=== PATIENT | female | born 1960 | race Caucasian/White ===

== ENCOUNTER → 2021-05-29 | Outpatient (CLI) | payer MEDICARE, OTHER ==
--- NOTE | 2021-05-29 07:54 | US ---
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 EXAM MEASUREMENTS: Liver Length: 15.1 cm Gallbladder Wall: .2 cm CBD: .3 cm Spleen: 7.7 cm Right Kidney: 9.7 x 3.9 x 4.4 cm Left Kidney: 8.7 x 4.4 x 3.4 cm Pancreas: wnl Liver: wnl Gallbladder: wnl Evidence for sonographic Gonsalez's sign: no CBD: wnl Spleen: accessory spleen seen measuring 2.6 x 2.4 x 2.1 cm Right Kidney: wnl Left Kidney: Limited due to ribs and bowel gas. Upper IVC: wnl Abd Aorta: wnl IMPRESSION: 1. Normal abdomen ultrasound
== END | disposition home or self-care (01) ==
LOC: RADUSWWP 07:08
PROVIDERS: ATTEND Internal Medicine
DX: E80.6 Other disorders of bilirubin metabolism (principal)
CPT/HCPCS: 76700

== ENCOUNTER → 2021-08-11 | Outpatient (CLI) | payer MEDICARE, OTHER ==
--- NOTE | 2021-08-11 15:29 | BD ---
EXAMINATION TYPE: Axial Bone Density DATE OF EXAM: 08/11/2021 COMPARISON: NONE CLINICAL HISTORY: Postmenopausal female with osteoporosis per order. Height: 4 FT 11 IN Weight: 120 FRAX RISK QUESTIONS: Alcohol (3 or more units per day): NO Family History (Parent hip fracture): NO Glucocorticoids (More than 3mos): NO (Ex: prednisone, prednisolone, methylprednisolone, dexamethasone, and hydrocortisone). History of Fracture in Adulthood: NO Secondary Osteoporosis: 1. Type 1 Diabetes: NO 2. Hyperthyroidism: NO 3. Menopause before 45: UNSURE 4. Malnutrition: NO 5. Chronic liver disease: NO Rheumatoid Arthritis: NO Current Tobacco Use: NO RISK FACTORS HISTORY OF: Surgery to Spine/Hip(right/left)/Wrist (right/left): NO Family History of Osteoporosis: NO Active: YES Diet low in dairy products/other sources of calcium: NO Postmenopausal woman: UNSURE Take estrogen and/or progesterone medications: NO Lost more than 2 inches in height since high school: NO MEDICATIONS: Thyroid Medications: YES Which medication: LEVOTHYROXINE How Long: APPROX 10 YEARS Additional Medications: LEVOTHYROXINE, LEXAPRO, SLEEP AID, SIMVASTATIN, Additional History: SPECIAL NEEDS PATIENT EXAM MEASUREMENTS: Bone mineral densitometry was performed using the [employer]. Bone mineral density as measured about the Lumbar spine is: ----- L1-L4(G/cm2): 0.879 T Score Values are as follows: ----- L2: -2.2 ----- L3: -2.1 ----- L4: -2.4 ----- L1-L4: -2.5 BASELINE Bone mineral density about the R hip (g/cm2): 0.682 Bone mineral density about the L hip (g/cm2): 0.611 T Score values are as follows: -----R Neck: -2.6 -----L Neck: -3.1 -----R Total: -2.6 -----L Total: -2.9 BASELINE IMPRESSION: Osteoporosis (T Score less than -2.5). There is increased fracture risk and therapy is usually indicated based on age. Re-Screen 1-2 years. NOTE: T-SCORE=SD OF THE YOUNG ADULT MEAN.
--- NOTE | 2021-08-13 10:28 | MM ---
Reason for exam: screening (asymptomatic). History: Patient is postmenopausal and is nulliparous. Physical Findings: A clinical breast exam by your physician is recommended on an annual basis and results should be correlated with mammographic findings. MG 3D Screening Mammo W/Cad Bilateral CC and MLO view(s) were taken. No prior studies available for comparison. The breast tissue is extremely dense which could obscure a lesion on mammography. There is no discrete abnormality. ASSESSMENT: Negative, BI-RAD 1 RECOMMENDATION: Routine screening mammogram of both breasts in 1 year.
== END | disposition home or self-care (01) ==
LOC: RADMAMWWP 12:47
PROVIDERS: ATTEND Internal Medicine
DX: Z12.31 Encounter for screening mammogram for malignant neoplasm of breast (principal); M81.0 Age-related osteoporosis without current pathological fracture; Z78.0 Asymptomatic menopausal state
CPT/HCPCS: 77063; 77067; 77080

== ENCOUNTER 2022-09-03 13:27 | Observation (INO) | payer MEDICARE, OTHER ==
--- NOTE | 2022-09-03 14:41 | XR ---
EXAMINATION TYPE: XR abdomen 1V DATE OF EXAM: 09/03/2022 COMPARISON: NONE HISTORY: Pain TECHNIQUE: One view abdominal series FINDINGS: The osseous structures are intact. The bowel gas pattern is nonspecific. Suspect artifact overlying the lower chest and upper abdomen. Scoliosis with hypertrophic changes in spine. IMPRESSION: 1. Nonspecific abdomen.
--- NOTE | 2022-09-03 17:20 | ED ---
Abdominal Pain HPI - General Chief Complaint: Abdominal Pain Stated Complaint: abd pain Time Seen by Provider: 09/03/22 16:46 Source: patient, RN notes reviewed Mode of arrival: ambulatory Limitations: no limitations - History of Present Illness Initial Comments: This is a 62-year-old female who presents to the emergency department for abdominal pain. She is in adult foster care with dementia, psychiatric problems, and intellectual delays. All information is provided by her power of securities attorney and one of the guardians at the adult foster care facility. Over the last week when she walks, she has been leaning to the left and also seems much weaker than normal. Additionally, today when she was in one of her daily programs, the program lead noted that she turned very pale and had a large lump in the left upper abdomen. She had also been hunched over and complaining of abdominal pain. Her power of securities attorney states that she has very poor short-term memory and she is unable to provide any reliable information of her own and rarely expresses when she is in pain. For example, she recently had a decayed tooth removed, and to everyone's surprise she had not been complaining of dental pain. They state that they are increasingly concerned this time as she is explicitly noting her pain, which is not common. She did have a bowel movement today, however they are otherwise unsure if she has been constipated or had diarrhea, as she does not tell them whether or not she has a bowel movement whenever she uses the bathroom. They are also not aware of any episodes of vomiting, however they cannot be sure of this. They've not measured any fevers. Additionally, her left leg has been very swollen and hard which concerns them. She has no history of blood clots. MD Complaint: abdominal pain Onset/Timin -: week(s) - Related Data Home Medications Medication Instructions Recorded Confirmed Cholecalciferol [Vitamin D3 (25 25 mcg PO DAILY 09/03/22 09/03/22 Mcg = 1000 Iu)] Cyanocobalamin (Vitamin B-12) 1,000 mcg PO DAILY 09/03/22 09/03/22 [Vitamin B-12] Docusate [Colace] 100 mg PO BID PRN 09/03/22 09/03/22 Escitalopram [Lexapro] 20 mg PO DAILY 09/03/22 09/03/22 Ibandronate Sodium [Boniva] 150 mg PO QMONTHLY 09/03/22 09/03/22 Melatonin 6 mg PO HS 09/03/22 09/03/22 Mirtazapine 30 mg PO HS 09/03/22 09/03/22 OLANZapine 5 mg PO HS 09/03/22 09/03/22 Simethicone [Gas-X] 125 mg PO DIRECTED PRN 09/03/22 09/03/22 Simvastatin 40 mg PO DAILY 09/03/22 09/03/22 Allergies Allergy/AdvReac Type Severity Reaction Status Date / Time Influenza Virus Vaccines Allergy Unknown Verified 09/03/22 17:45 Sulfa (Sulfonamide Allergy Rash/Hives Verified 09/03/22 17:45 Antibiotics) Review of Systems ROS Statement: Those systems with pertinent positive or pertinent negative responses have been documented in the HPI. ROS Other: All systems not noted in ROS Statement are negative. Limitations: ROS unobtainable due to patients medical condition Past Medical History Additional Past Medical History / Comment(s): Dementia History of Any Multi-Drug Resistant Organisms: None Reported Past Surgical History: No Surgical Hx Reported Past Psychological History: No Psychological Hx Reported Smoking Status: Never smoker Past Alcohol Use History: None Reported Past Drug Use History: None Reported General Exam Limitations: no limitations General appearance: alert Head exam: Present: atraumatic, normocephalic, normal inspection Respiratory exam: Present: normal lung sounds bilaterally. Absent: respiratory distress, wheezes, rales, rhonchi, stridor Cardiovascular Exam: Present: regular rate, normal rhythm, normal heart sounds. Absent: systolic murmur, diastolic murmur, rubs, gallop, clicks GI/Abdominal exam: Present: hypoactive bowel sounds, other (The abdomen is firm without any discernible masses. Unable to provide information about tenderness due to mental state.) Extremities exam: Present: other (Mild swelling and firmness to the left leg. No erythema or increased heat. 2+ dorsalis pedis and tibialis posterior pulses bilaterally.) Neurological exam: Present: alert Skin exam: Present: warm, dry, intact, normal color. Absent: rash Course Vital Signs 09/03/22 09/03/22 09/03/22 13:44 17:56 20:58 Temperature 98.2 F 97.7 F Pulse Rate 70 65 65 Respiratory 20 18 16 Rate Blood Pressure 101/6 117/63 122/77 O2 Sat by Pulse 99 97 97 Oximetry Medical Decision Making - Medical Decision Making This is a 62-year-old female who presents to the emergency department for abdominal pain. Lab work obtained and found to be largely nonactionable, however there is a minor increase in her liver enzymes compared to prior values. Ultrasound of the left lower extremity was obtained due to the swelling. My interpretation reveals good flow and compressibility and I do not identify any signs of a DVT. Computed tomography scan of the abdomen and pelvis obtained. My interpretation of this reveals a large amount of stool throughout the colon and additional feces are noted within the small bowel. I see no evidence of free air. Findings are concerning for an ileus. Will admit patient to medicine for further management. This case was discussed in detail with the attending ED physician. Presentation, findings, and treatment plan discussed in detail as well. - Lab Data Result diagrams: 09/03/22 18:08 09/03/22 18:08 Lab Results 09/03/22 09/03/22 09/03/22 Range/Units 18:08 18:08 18:08 WBC 4.7 (3.8-10.6) k/uL RBC 3.72 L (3.80-5.40) m/uL Hgb 11.9 (11.4-16.0) gm/dL Hct 35.2 (34.0-46.0) % MCV 94.8 (80.0-100.0) fL MCH 31.9 (25.0-35.0) pg MCHC 33.7 (31.0-37.0) g/dL RDW 12.4 (11.5-15.5) % Plt Count 209 (150-450) k/uL MPV 8.6 Neutrophils % 70 % Lymphocytes % 20 % Monocytes % 6 % Eosinophils % 2 % Basophils % 0 % Neutrophils # 3.3 (1.3-7.7) k/uL Lymphocytes # 0.9 L (1.0-4.8) k/uL Monocytes # 0.3 (0-1.0) k/uL Eosinophils # 0.1 (0-0.7) k/uL Basophils # 0.0 (0-0.2) k/uL Sodium 139 (137-145) mmol/L Potassium 4.5 (3.5-5.1) mmol/L Chloride 105 (98-107) mmol/L Carbon Dioxide 28 (22-30) mmol/L Anion Gap 6 mmol/L BUN 18 H (7-17) mg/dL Creatinine 0.83 (0.52-1.04) mg/dL Est GFR (CKD-EPI)AfAm 88 (>60 ml/min/1.73 sqM) Est GFR (CKD-EPI)NonAf 76 (>60 ml/min/1.73 sqM) Glucose 110 H (74-99) mg/dL Plasma Lactic Acid Eros 1.2 (0.7-2.0) mmol/L Calcium 8.8 (8.4-10.2) mg/dL Total Bilirubin 0.5 (0.2-1.3) mg/dL AST 63 H (14-36) U/L ALT 59 H (4-34) U/L Alkaline Phosphatase 82 (38-126) U/L Troponin I (0.000-0.034) ng/mL Total Protein 6.6 (6.3-8.2) g/dL Albumin 4.2 (3.5-5.0) g/dL Amylase 53 (30-110) U/L Lipase 114 (23-300) U/L Urine Color Urine Appearance (Clear) Urine pH (5.0-8.0) Ur Specific [place] (1.001-1.035) Urine Protein (Negative) Urine Glucose (UA) (Negative) Urine Ketones (Negative) Urine Blood (Negative) Urine Nitrite (Negative) Urine Bilirubin (Negative) Urine Urobilinogen (<2.0) mg/dL Ur Leukocyte Esterase (Negative) Urine RBC (0-5) /hpf Urine WBC (0-5) /hpf Ur Squamous Epith Cells (0-4) /hpf Urine Bacteria (None) /hpf Urine Mucus (None) /hpf 09/03/22 09/03/22 Range/Units 18:08 18:16 WBC (3.8-10.6) k/uL RBC (3.80-5.40) m/uL Hgb (11.4-16.0) gm/dL Hct (34.0-46.0) % MCV (80.0-100.0) fL MCH (25.0-35.0) pg MCHC (31.0-37.0) g/dL RDW (11.5-15.5) % Plt Count (150-450) k/uL MPV Neutrophils % % Lymphocytes % % Monocytes % % Eosinophils % % Basophils % % Neutrophils # (1.3-7.7) k/uL Lymphocytes # (1.0-4.8) k/uL Monocytes # (0-1.0) k/uL Eosinophils # (0-0.7) k/uL Basophils # (0-0.2) k/uL Sodium (137-145) mmol/L Potassium (3.5-5.1) mmol/L Chloride (98-107) mmol/L Carbon Dioxide (22-30) mmol/L Anion Gap mmol/L BUN (7-17) mg/dL Creatinine (0.52-1.04) mg/dL Est GFR (CKD-EPI)AfAm (>60 ml/min/1.73 sqM) Est GFR (CKD-EPI)NonAf (>60 ml/min/1.73 sqM) Glucose (74-99) mg/dL Plasma Lactic Acid Eros (0.7-2.0) mmol/L Calcium (8.4-10.2) mg/dL Total Bilirubin (0.2-1.3) mg/dL AST (14-36) U/L ALT (4-34) U/L Alkaline Phosphatase (38-126) U/L Troponin I <0.012 (0.000-0.034) ng/mL Total Protein (6.3-8.2) g/dL Albumin (3.5-5.0) g/dL Amylase (30-110) U/L Lipase (23-300) U/L Urine Color Light Yellow Urine Appearance Clear (Clear) Urine pH 6.5 (5.0-8.0) Ur Specific [place] 1.012 (1.001-1.035) Urine Protein Negative (Negative) Urine Glucose (UA) Negative (Negative) Urine Ketones Negative (Negative) Urine Blood Negative (Negative) Urine Nitrite Negative (Negative) Urine Bilirubin Negative (Negative) Urine Urobilinogen <2.0 (<2.0) mg/dL Ur Leukocyte Esterase Moderate H (Negative) Urine RBC 1 (0-5) /hpf Urine WBC 15 H (0-5) /hpf Ur Squamous Epith Cells <1 (0-4) /hpf Urine Bacteria Rare H (None) /hpf Urine Mucus Rare H (None) /hpf - EKG Data -: EKG Interpreted by Me EKG Comments: Normal sinus rhythm. Ventricular rate 60 BPM, NE interval 146 ms, QRS duration 100 ms, QTc 411 ms. - Radiology Data Radiology results: report reviewed, image reviewed Disposition Clinical Impression: Ileus Disposition: ADMITTED IP TO THIS HOSP Referrals: Jairon Hallman MD [Primary Care Provider] - 1-2 days
[2022-09-03 18:17] LABS: Basophils % (A) 0 %; Eosinophils # (A) 0.1 k/uL (0-0.7); Eosinophils % (A) 2 %; HCT 35.2 % (34.0-46.0); HGB 11.9 gm/dL (11.4-16.0); Lymphocytes # (A) 0.9 k/uL (1.0-4.8); Lymphocytes % (A) 20 %; MCH 31.9 pg (25.0-35.0); MCHC 33.7 g/dL (31.0-37.0); MCV 94.8 fL (80.0-100.0); Mean Platelet Volume 8.6; Monocytes # (A) 0.3 k/uL (0-1.0); Monocytes % (A) 6 %; Neutrophils # (A) 3.3 k/uL (1.3-7.7); Neutrophils % (A) 70 %; Platelet Count 209 k/uL (150-450); RBC 3.72 m/uL (3.80-5.40); RDW 12.4 % (11.5-15.5); WBC 4.7 k/uL (3.8-10.6)
[2022-09-03 18:27] LABS: Albumin 4.2 g/dL (3.5-5.0); Calcium 8.8 mg/dL (8.4-10.2); Potassium 4.5 mmol/L (3.5-5.1); Total Bilirubin 0.5 mg/dL (0.2-1.3); Total Protein 6.6 g/dL (6.3-8.2)
[2022-09-03 18:30] LABS: Appearance,Urine Clear (Clear); Bacteria,Urine Rare /hpf; Bilirubin,Urine Negative (Negative); Blood,Urine Negative (Negative); Color,Urine Light Yellow; Glucose,Urine (UA) Negative (Negative); Ketones,Urine Negative (Negative); Leukocyte Esterase,Urine Moderate (Negative); Mucus,Urine Rare /hpf; Nitrite,Urine Negative (Negative); PH, Urine 6.5 (5.0-8.0); Protein,Urine Negative (Negative); RBC,Urine 1 /hpf (0-5); Specific Gravity,Urine 1.012 (1.001-1.035); Squamous Epithelial Cell,Urine <1 /hpf (0-4); Urobilinogen,Urine <2.0 mg/dL (<2.0); WBC,Urine 15 /hpf (0-5)
--- NOTE | 2022-09-03 19:26 | US ---
EXAMINATION TYPE: US venous doppler duplex LE LT DATE OF EXAM: 09/03/2022 6:39 PM COMPARISON: NONE CLINICAL HISTORY: Leg swelling. Left leg swelling SIDE PERFORMED: Left TECHNIQUE: The lower extremity deep venous system is examined utilizing real time linear array sonog denis with graded compression, doppler sonography and color-flow sonography. VESSELS IMAGED: Common Femoral Vein Deep Femoral Vein Greater Saphenous Vein * Femoral Vein Popliteal Vein Small Saphenous Vein * Proximal Calf Veins (* superficial vessels) Left Leg: Negative for DVT Grayscale, color doppler, spectral doppler imaging performed of the deep veins of the lower extremiti es. There is normal flow, compressibility, vascular waveforms. IMPRESSION: No evidence of deep vein thrombosis of the left lower extremity.
--- NOTE | 2022-09-03 19:48 | CT ---
EXAMINATION TYPE: CT abdomen pelvis w con CT DLP: 715.7 mGycm, Automated exposure control for dose reduction was used. DATE OF EXAM: 09/03/2022 7:00 PM COMPARISON: None CLINICAL INDICATION:Female, 62 years old with history of Abdominal pain, acute, nonlocalized; UPPER A BDOMINAL PAIN AND POSS MASS TECHNIQUE: Axial CT of the abdomen and pelvis. Sagittal and coronal reformats were created on a [employer] workstation. Contrast used:100 mL of Isovue 300 with IV Contrast, Oral contrast used: without Oral Contrast FINDINGS: LOWER CHEST: Unremarkable ABDOMEN LIVER: Unremarkable GALLBLADDER AND BILE DUCTS: Unremarkable. PANCREAS: Unremarkable. SPLEEN: 2 large splenules are present.. ADRENAL GLANDS: Unremarkable. KIDNEYS AND URETERS: No evidence of hydronephrosis or renal calculus. The ureters are unremarkable. PELVIS BLADDER: Unremarkable REPRODUCTIVE: Unremarkable. ABDOMEN & PELVIS STOMACH AND BOWEL: No evidence of bowel obstruction. Scattered clonic diverticula present. With a gas tric diverticulum near the gastroesophageal junction which is incompletely evaluated given lack of or al contrast. Large stool burden throughout the colon. Small bowel feces is present. PERITONEUM: No evidence of pneumoperitoneum or free fluid. No evidence of intra-abdominal mass. VASCULATURE: No evidence of aortic aneurysm. MUSCULOSKELETAL: No acute osseous abnormalities, multilevel disc degeneration changes throughout the spine. LYMPH NODES: No gross evidence for lymphadenopathy. SOFT TISSUE/ABDOMINAL WALL: Unremarkable IMPRESSION: 1. 2 large splenules in the left upper quadrant with similar attenuation to the spleen. No evidence of mass. 2. Suspected gastric diverticulum near the gastroesophageal junction which is suboptimally evaluated given lack of oral contrast. Consider oral contrast CT for better characterization as clinically marcelo anted. 3. Small bowel feces with Large stool burden throughout the colon correlate for ileus.
[2022-09-03] MEDS ORDERED: KETOROLAC 15 MG/ML 1 ML VIAL IVP PRN (21:37)
[2022-09-03] MEDS ORDERED: NALOXONE 0.4 MG/ML 1 ML VIAL IV PRN (21:37)
[2022-09-03] MEDS ORDERED: IBUPROFEN 400 MG TAB PO PRN (21:37)
[2022-09-03] MEDS ORDERED: ONDANSETRON 4 MG/2 ML VIAL IVP PRN (21:37)
[2022-09-03 23:32] LABS: Partial Thromboplastin Time 24.7 sec (22.0-30.0); Prothrombin Time 10.8 sec (9.0-12.0)
[2022-09-03 23:37] LABS: C Reactive Protein <0.5 mg/dL (<1.0); Magnesium 2.3 mg/dL (1.6-2.3)
[2022-09-04] MEDS ORDERED: bisacodyL 5 MG TABLET.DR PO STA (02:12)
--- NOTE | 2022-09-04 02:13 | P.HPIM ---
History of Present Illness H&P Date: 09/03/22 The patient is a 62-year-old female resident of an adult foster care with a PMH of intellectual delay, dementia, and mental health disorders who was sent to the emergency room for appearing ill. The history is obtained from the chart and from the ED providers as a patient is a very poor historian due to underlying dementia. Over the past few days, the patient has reportedly been walking somewhat differently which was unusual for her and was noted to be complaining of abdominal pain with possible "lump" in the left upper abdomen. The patient reportedly does not usually convey complaints regarding the pain as per the chart. For instance, the patient had recently underwent a tooth extraction and had not been complaining of pain prior to it. The staff at the foster care facility is reportedly concerned that she is not in pain due to her change in gait. There were no reports of diarrhea or vomiting with her last bowel movement earlier today. There was also reports of bilateral lower extremity edema with left greater than right. CT abdomen and pelvis in the emergency room revealed a gastric diverticulum as well as ileus. Lower extremity venous Doppler was unremarkable. EKG revealed sinus rhythm at [address]/T-wave changes noted as reviewed by me. UA was minimally abnormal. Review of systems: Unable to obtain due to mental status. Physical examination: General: non toxic, no distress, appears older than stated age, normal weight Derm: no unusual rashes/lesions, warm Head: atraumatic, normocephalic, symmetric Eyes: EOMI, no lid lag, anicteric sclera, pupils equal round reactive to light ENT: Nose and ears atraumatic Neck: No cervical lymphadenopathy, trachea midline, supple Mouth: no lip lesion, mucus membranes moist Cardiovascular: S1S2 reg, no murmur, positive dorsalis pedis pulse bilateral, 1+ bilateral lower extremity pitting edema Lungs: CTA bilateral, no rhonchi, no rales, no accessory muscle use Abdominal: soft, nontender to palpation, no guarding Ext: muscle strength 3 out of 5 in all 4 extremities grossly, no gross muscle atrophy, no contractures Neuro: no gross focal neuro deficits Psych: Patient makes eye contact and answers very basic yes or no questions, not answering any questions related to her orientation Assessment/plan Abdominal pain, possibly secondary to ileus versus UTI -Start ceftriaxone -Follow up urine culture -Laxatives -Nothing by mouth for now DVT prophylaxis -Heparin subq The patient is admitted with an anticipated less than 2 midnight stay for evaluation of UTI CODE STATUS: Full Code Anticipated discharge date: in am Anticipated discharge place: Home Past Medical History Additional Past Medical History / Comment(s): Dementia History of Any Multi-Drug Resistant Organisms: None Reported Past Surgical History: No Surgical Hx Reported Past Psychological History: No Psychological Hx Reported Smoking Status: Never smoker Past Alcohol Use History: None Reported Past Drug Use History: None Reported - Past Family History Father Family Medical History: Unable to Obtain (Due to mental status) Medications and Allergies Home Medications Medication Instructions Recorded Confirmed Type Cholecalciferol [Vitamin D3 (25 25 mcg PO DAILY 09/03/22 09/03/22 History Mcg = 1000 Iu)] Cyanocobalamin (Vitamin B-12) 1,000 mcg PO DAILY 09/03/22 09/03/22 History [Vitamin B-12] Docusate [Colace] 100 mg PO BID PRN 09/03/22 09/03/22 History Escitalopram [Lexapro] 20 mg PO DAILY 09/03/22 09/03/22 History Ibandronate Sodium [Boniva] 150 mg PO QMONTHLY 09/03/22 09/03/22 History Melatonin 6 mg PO HS 09/03/22 09/03/22 History Mirtazapine 30 mg PO HS 09/03/22 09/03/22 History OLANZapine 5 mg PO HS 09/03/22 09/03/22 History Simethicone [Gas-X] 125 mg PO DIRECTED PRN 09/03/22 09/03/22 History Simvastatin 40 mg PO DAILY 09/03/22 09/03/22 History Allergies Allergy/AdvReac Type Severity Reaction Status Date / Time Influenza Virus Vaccines Allergy Unknown Verified 09/03/22 17:45 Sulfa (Sulfonamide Allergy Rash/Hives Verified 09/03/22 17:45 Antibiotics) Physical Exam Vitals: Vital Signs Temp Pulse Resp BP Pulse Ox 09/03/22 20:58 97.7 F 65 16 122/77 97 09/03/22 17:56 65 18 117/63 97 09/03/22 13:44 98.2 F 70 20 101/6 99 Intake and Output 09/03/22 09/03/22 09/04/22 14:59 22:59 06:59 Other: Weight 61.235 kg Results CBC & Chem 7: 09/03/22 18:08 09/03/22 18:08 Labs: Abnormal Lab Results - Last 24 Hours (Table) 09/03/22 09/03/22 09/03/22 Range/Units 18:08 18:08 18:16 RBC 3.72 L (3.80-5.40) m/uL Lymphocytes # 0.9 L (1.0-4.8) k/uL BUN 18 H (7-17) mg/dL Glucose 110 H (74-99) mg/dL AST 63 H (14-36) U/L ALT 59 H (4-34) U/L Ur Leukocyte Esterase Moderate H (Negative) Urine WBC 15 H (0-5) /hpf Urine Bacteria Rare H (None) /hpf Urine Mucus Rare H (None) /hpf Microbiology - Last 24 Hours (Table) 09/03/22 18:16 Urine Culture - Preliminary Urine,Voided
[2022-09-04] MEDS ORDERED: ACETAMINOPHEN TAB 325 MG TAB PO PRN (09:37)
[2022-09-04] MEDS ORDERED: bisacodyL 10 MG SUPP RECTAL PRN (10:22)
[2022-09-04] MEDS: HEPARIN SODIUM,PORCINE/PF 5,000 UNIT/0.5 ML SYRINGE SQ SCH ×3 (10:26→23:35)
[2022-09-04] MEDS: CHOLECALCIFEROL 25 MCG (1000 IU) TABLET PO SCH (10:26)
[2022-09-04] MEDS: ESCITALOPRAM 20 MG TAB PO SCH (10:26)
[2022-09-04] MEDS: ATORVASTATIN 20 MG TAB PO SCH (10:27)
[2022-09-04] MEDS: CYANOCOBALAMIN 500 MCG TAB PO SCH (10:27)
[2022-09-04] MEDS: SENNOSIDES-DOCUSATE SODIUM 1 EACH TAB PO SCH ×2 (10:59→19:54)
[2022-09-04] MEDS: polyethylene glycoL 3350 17 GM POWD.PACK PO SCH (10:59)
--- NOTE | 2022-09-04 11:04 | P.PN ---
Subjective Progress Note Date: 09/04/22 No new complaints. Patient reportedly had one bowel movement after significant straining yesterday. Reports appetite. Ongoing IV antibiotic therapy for UTI. Pending urine culture. Gen: awake, alert HEENT: normocephalic, atraumatic, good hearing acuity, moist mucous membranes Resp: good air exchange, breathing comfortably with no accessory muscle use, clear to auscultation bilaterally CVS: good distal perfusion x 4, regular rate and rhythm without murmurs GI: soft, NTTP, ND : no SPT, no CVAT, suh catheter not present MSK: no pitting edema, no clubbing Neuro: non-focal, moving all extremities Psych: cooperative, euthymic mood Assessment/plan: Abdominal pain, possibly secondary to ileus versus UTI -Start ceftriaxone -Follow up urine culture -Laxatives: senokot BID, miralax daily, bisacodyl supp PRN, enema PRN -GI soft diet DVT prophylaxis -Heparin subq The patient is admitted with an anticipated less than 2 midnight stay for evaluation of UTI CODE STATUS: Full Code Anticipated discharge date: in am Anticipated discharge place: Home Objective - Vital Signs Vital signs: Vital Signs Temp 98.2 F 09/04/22 08:00 Pulse 62 09/04/22 08:00 Resp 16 09/04/22 08:00 BP 108/63 09/04/22 08:00 Pulse Ox 97 09/04/22 08:00 FiO2 Intake & Output 09/03/22 09/04/22 09/04/22 18:59 06:59 18:59 Weight 61.235 kg 61.235 kg Other: # Voids 1 - Labs CBC & Chem 7: 09/03/22 18:08 09/03/22 18:08 Labs: Abnormal Lab Results - Last 24 Hours (Table) 09/03/22 09/03/22 09/03/22 Range/Units 18:08 18:08 18:16 RBC 3.72 L (3.80-5.40) m/uL Lymphocytes # 0.9 L (1.0-4.8) k/uL BUN 18 H (7-17) mg/dL Glucose 110 H (74-99) mg/dL AST 63 H (14-36) U/L ALT 59 H (4-34) U/L Ur Leukocyte Esterase Moderate H (Negative) Urine WBC 15 H (0-5) /hpf Urine Bacteria Rare H (None) /hpf Urine Mucus Rare H (None) /hpf Microbiology - Last 24 Hours (Table) 09/03/22 18:16 Urine Culture - Preliminary Urine,Voided
[2022-09-04] MEDS: MIRTAZAPINE 15 MG TAB PO SCH (19:53)
[2022-09-04] MEDS ORDERED: OLANZapine 5 MG TAB PO SCH (21:00)
[2022-09-04] MEDS ORDERED: MELATONIN 3 MG TABLET PO SCH (21:00)
[2022-09-05 07:47] VITALS: BP 98/56; PULSE 65; RESP 15; TEMP 98.6
[2022-09-05] MEDS: CHOLECALCIFEROL 25 MCG (1000 IU) TABLET PO SCH (08:23)
[2022-09-05] MEDS: ESCITALOPRAM 20 MG TAB PO SCH (08:23)
[2022-09-05] MEDS: SENNOSIDES-DOCUSATE SODIUM 1 EACH TAB PO SCH (08:23)
[2022-09-05] MEDS: CYANOCOBALAMIN 500 MCG TAB PO SCH (08:23)
[2022-09-05] MEDS: ATORVASTATIN 20 MG TAB PO SCH (08:23)
[2022-09-05] MEDS: HEPARIN SODIUM,PORCINE/PF 5,000 UNIT/0.5 ML SYRINGE SQ SCH (08:23)
[2022-09-05] MEDS: polyethylene glycoL 3350 17 GM POWD.PACK PO SCH (08:24)
--- NOTE | 2022-09-05 13:08 | P.DS ---
Providers Date of admission: 09/03/22 21:37 Expected date of discharge: 09/05/22 Attending physician: Sima Jefferson MD Primary care physician: Jairon Hallman MD Hospital Course: Complicated UTI Constipation Dementia The patient is a 62-year-old female resident of an adult foster care with a PMH of intellectual delay, dementia, and mental health disorders who was sent to the emergency room for appearing ill. In the ER, patient was afebrile, HDS. CT abdomen and pelvis in the emergency room revealed a gastric diverticulum as well as ileus. Lower extremity venous Doppler was unremarkable. EKG revealed sinus rhythm at [address]/T-wave changes noted as reviewed by me. UA was minimally abnormal. Patient was treated for constipation as well as urinary tract infection. She symptomatically improved by 24 hours of hospitalization. Urine culture did not grow pathogen due to being contaminated with skin yoselin, therefore, patient was discharged on cefdinir for an additional 3 days for a total of 5 days. She was also discharged on new laxative medications and encouraged to increase physical activity to prevent constipation in the future. Gen: awake, alert HEENT: normocephalic, atraumatic, good hearing acuity, moist mucous membranes Resp: good air exchange, breathing comfortably with no accessory muscle use CVS: good distal perfusion x 4, GI: soft, NTTP, ND : no SPT, no CVAT, suh catheter not present MSK: no pitting edema, no clubbing Neuro: non-focal, moving all extremities Psych: cooperative, euthymic mood Patient Condition at Discharge: Good Plan - Discharge Summary Discharge Rx Participant: No New Discharge Prescriptions: New polyethylene glycoL 3350 [Miralax] 17 gm PO DAILY #30 packet Sennosides-Docusate Sodium [Senokot-S] 1 each PO BID #60 tab Acetaminophen Tab [Tylenol] 650 mg PO Q4HR PRN tab PRN Reason: Fever And/ Or Pain Cefdinir 300 mg PO Q12HR 3 Days #6 cap Continue Ibandronate Sodium [Boniva] 150 mg PO QMONTHLY Melatonin 6 mg PO HS Escitalopram [Lexapro] 20 mg PO DAILY Cholecalciferol [Vitamin D3 (25 Mcg = 1000 Iu)] 25 mcg PO DAILY Simethicone [Gas-X] 125 mg PO DIRECTED PRN PRN Reason: gas relief Cyanocobalamin (Vitamin B-12) [Vitamin B-12] 1,000 mcg PO DAILY Simvastatin 40 mg PO DAILY OLANZapine 5 mg PO HS Mirtazapine 30 mg PO HS Discontinued Docusate [Colace] 100 mg PO BID PRN PRN Reason: Constipation Discharge Medication List Cholecalciferol [Vitamin D3 (25 Mcg = 1000 Iu)] 25 mcg PO DAILY 09/03/22 [History] Cyanocobalamin (Vitamin B-12) [Vitamin B-12] 1,000 mcg PO DAILY 09/03/22 [History] Escitalopram [Lexapro] 20 mg PO DAILY 09/03/22 [History] Ibandronate Sodium [Boniva] 150 mg PO QMONTHLY 09/03/22 [History] Melatonin 6 mg PO HS 09/03/22 [History] Mirtazapine 30 mg PO HS 09/03/22 [History] OLANZapine 5 mg PO HS 09/03/22 [History] Simethicone [Gas-X] 125 mg PO DIRECTED PRN 09/03/22 [History] Simvastatin 40 mg PO DAILY 09/03/22 [History] Acetaminophen Tab [Tylenol] 650 mg PO Q4HR PRN tab 09/05/22 [Rx] Cefdinir 300 mg PO Q12HR 3 Days #6 cap 09/05/22 [Rx] Sennosides-Docusate Sodium [Senokot-S] 1 each PO BID #60 tab 09/05/22 [Rx] polyethylene glycoL 3350 [Miralax] 17 gm PO DAILY #30 packet 09/05/22 [Rx] Follow up Appointment(s)/Referral(s): Jairon Hallman MD [Primary Care Provider] - 1-2 days (office closed at time of discharge. Please call Tuesday to schedule appointment) Patient Instructions/Handouts: Constipation (DC), Urinary Tract Infection in Women (DC) Activity/Diet/Wound Care/Special Instructions: Patient is cleared to resume all prior activities including: [facility]. Discharge Disposition: HOME SELF-CARE
== END 2022-09-05 12:47 | disposition home or self-care (01) ==
LOC: EC 13:27 → 4SSUR 21:37
PROVIDERS: ADMIT Internal Medicine; ATTEND Internal Medicine
DX: N39.0 Urinary tract infection, site not specified (principal); K59.09 Other constipation; K56.7 Ileus, unspecified; F03.90 Unspecified dementia, unspecified severity, without behavioral disturbance, psychotic disturbance, mood disturbance, and anxiety; M41.9 Scoliosis, unspecified; K57.30 Diverticulosis of large intestine without perforation or abscess without bleeding; K31.4 Gastric diverticulum; Z79.899 Other long term (current) drug therapy; Z88.2 Allergy status to sulfonamides
CPT/HCPCS: 96365; 96366; 96372 ×2; 99285; 36415; 93005; 80053; 85652; 82150; 83605; 83690; 83735; 84484; 85025; 85610; 85730; 86140; 81001; 87086; 74018; 93971; 74177; G0378 ×3; J0696 ×2; Q9967; J1644 ×2

== ENCOUNTER 2022-09-14 10:18 | Observation (INO) | payer MEDICARE, OTHER ==
[2022-09-14] MEDS ORDERED: MORPHINE SULFATE 2 MG/ML SYRINGE IVP STA (11:31)
[2022-09-14] MEDS ORDERED: ONDANSETRON 4 MG/2 ML VIAL IVP STA (11:31)
[2022-09-14] MEDS ORDERED: SODIUM CHLORIDE 0.9% 500 ML 500 ML IV STA (11:31)
[2022-09-14 11:49] LABS: WBC 5.2 k/uL (3.8-10.6)
[2022-09-14 11:50] LABS: Basophils % (A) 1 %; Eosinophils # (A) 0.1 k/uL (0-0.7); Eosinophils % (A) 1 %; HGB 12.6 gm/dL (11.4-16.0); Lymphocytes % (A) 19 %; MCH 32.2 pg (25.0-35.0); MCHC 34.1 g/dL (31.0-37.0); MCV 94.5 fL (80.0-100.0); Mean Platelet Volume 8.6; Monocytes # (A) 0.3 k/uL (0-1.0); Monocytes % (A) 5 %; Neutrophils # (A) 3.8 k/uL (1.3-7.7); Neutrophils % (A) 73 %; Platelet Count 265 k/uL (150-450); RBC 3.91 m/uL (3.80-5.40); RDW 12.4 % (11.5-15.5)
[2022-09-14 12:00] LABS: Albumin 4.6 g/dL (3.5-5.0); Calcium 9.1 mg/dL (8.4-10.2); Potassium 4.6 mmol/L (3.5-5.1); Total Bilirubin 0.9 mg/dL (0.2-1.3); Total Protein 7.1 g/dL (6.3-8.2)
[2022-09-14 12:15] LABS: Appearance,Urine Clear (Clear); Bilirubin,Urine Negative (Negative); Blood,Urine Negative (Negative); Color,Urine Colorless; Glucose,Urine (UA) Negative (Negative); Ketones,Urine Negative (Negative); Leukocyte Esterase,Urine Negative (Negative); Nitrite,Urine Negative (Negative); PH, Urine 6.5 (5.0-8.0); Protein,Urine Negative (Negative); Specific Gravity,Urine 1.005 (1.001-1.035); Urobilinogen,Urine <2.0 mg/dL (<2.0)
[2022-09-14 12:17] LABS: Partial Thromboplastin Time 23.9 sec (22.0-30.0); Prothrombin Time 10.6 sec (9.0-12.0)
--- NOTE | 2022-09-14 13:03 | US ---
EXAMINATION TYPE: US venous doppler duplex LE LT DATE OF EXAM: 09/14/2022 12:48 PM COMPARISON: NONE CLINICAL HISTORY: swelling. SIDE PERFORMED: Left TECHNIQUE: The lower extremity deep venous system is examined utilizing real time linear array sonog denis with graded compression, doppler sonography and color-flow sonography. VESSELS IMAGED: Common Femoral Vein Deep Femoral Vein Greater Saphenous Vein * Femoral Vein Popliteal Vein Small Saphenous Vein * Proximal Calf Veins (* superficial vessels) Left Leg: Negative for DVT IMPRESSION: 1. Left lower extremity ultrasound negative deep venous thrombosis.
--- NOTE | 2022-09-14 13:38 | ED ---
Abdominal Pain HPI - General Chief Complaint: Abdominal Pain Stated Complaint: abd pain Time Seen by Provider: 09/14/22 11:20 Source: patient Mode of arrival: ambulatory Limitations: no limitations - History of Present Illness Initial Comments: Patient is a 62-year-old female with history of dementia presenting with chief complaint of abdominal pain. She resides at [facility] home. Patient has limited short-term memory, history is supplemented by her brother who is at bedside. Pain began last night. Patient admits to nausea, denies vomiting. Pain is rel ieved when patient is crouched over. Patient was seen here on 09/03 for similar symptoms, she was diagnosed with ileus and UTI and kept for observation. During that stay swelling to the left lower extremity was also evaluated, patient was determined to have no DVT. Swelling is still present, brother states he is not sure if it's getting worse. Patient denies any chest pain, difficulty breathin g, diarrhea, headache, neck pain, extremity pain. No fever or chills. No cough, congestion, sore throat. - Related Data Home Medications Medication Instructions Recorded Confirmed Cholecalciferol [Vitamin D3 (25 25 mcg PO DAILY@0800 09/03/22 09/14/22 Mcg = 1000 Iu)] Cyanocobalamin (Vitamin B-12) 1,000 mcg PO DAILY@0800 09/03/22 09/14/22 [Vitamin B-12] Escitalopram [Lexapro] 20 mg PO DAILY@0800 09/03/22 09/14/22 Ibandronate Sodium [Boniva] 150 mg PO Q30D 09/03/22 09/14/22 Melatonin 6 mg PO HS@199909/03/22 09/14/22 Mirtazapine 30 mg PO HS@199909/03/22 09/14/22 OLANZapine 5 mg PO HS@199909/03/22 09/14/22 Simethicone [Gas-X] 125 mg PO DIRECTED PRN 09/03/22 09/14/22 Simvastatin 40 mg PO HS@199909/03/22 09/14/22 Levothyroxine Sodium [Tirosint] 25 mcg PO DAILY@0800 09/14/22 09/14/22 Sennosides-Docusate Sodium 1 tab PO BID@0800,1700 09/14/22 09/14/22 [Senokot-S] polyethylene glycoL 3350 [Miralax] 17 gm PO DAILY@1700 09/14/22 09/14/22 Previous Rx's Medication Instructions Recorded Acetaminophen Tab [Tylenol] 650 mg PO Q4HR PRN tab 09/05/22 Allergies Allergy/AdvReac Type Severity Reaction Status Date / Time Influenza Virus Vaccines Allergy Unknown Verified 09/14/22 14:57 Sulfa (Sulfonamide Allergy Rash/Hives Verified 09/14/22 14:57 Antibiotics) Review of Systems ROS Statement: Those systems with pertinent positive or pertinent negative responses have been documented in the HPI. ROS Other: All systems not noted in ROS Statement are negative. Past Medical History Past Medical History: Dementia, Memory Impairment Additional Past Medical History / Comment(s): Dementia History of Any Multi-Drug Resistant Organisms: None Reported Past Surgical History: No Surgical Hx Reported Past Psychological History: No Psychological Hx Reported Smoking Status: Never smoker Past Alcohol Use History: None Reported Past Drug Use History: None Reported - Past Family History Father Family Medical History: Unable to Obtain (Due to mental status) General Exam Limitations: no limitations General appearance: alert, in no apparent distress Head exam: Present: atraumatic, normocephalic, normal inspection Eye exam: Present: normal appearance Neck exam: Present: normal inspection Respiratory exam: Present: normal lung sounds bilaterally. Absent: respiratory distress, wheezes, rales, rhonchi, stridor Cardiovascular Exam: Present: regular rate, normal rhythm, normal heart sounds. Absent: systolic murmur, diastolic murmur, rubs, gallop, clicks GI/Abdominal exam: Present: soft, tenderness. Absent: distended, guarding, rebound, rigid Neurological exam: Present: alert, altered Psychiatric exam: Present: normal affect, normal mood Skin exam: Present: warm, dry, intact, normal color. Absent: rash Course Vital Signs 09/14/22 09/14/22 09/14/22 10:19 18:08 19:38 Temperature 97.7 F 98.8 F Pulse Rate 75 68 59 L Respiratory 18 16 18 Rate Blood Pressure 122/66 118/65 103/54 O2 Sat by Pulse 100 97 94 L Oximetry 09/14/22 09/15/22 09/15/22 20:00 00:00 03:00 Temperature 97.4 F L 97.9 F Pulse Rate 61 56 L 58 L Respiratory 18 18 Rate Blood Pressure 120/55 97/53 O2 Sat by Pulse 95 95 98 Oximetry 09/15/22 09/15/22 09/15/22 03:59 06:23 06:35 Temperature 97.7 F Pulse Rate 55 L 60 56 L Respiratory 12 14 14 Rate Blood Pressure 90/56 92/60 92/60 O2 Sat by Pulse 93 L 94 L 92 L Oximetry Medical Decision Making - Medical Decision Making Patient is a 62-year-old female presenting with chief complaint of abdominal pain. Patient has history of constipation, was recently admitted for ileus. On examination patient has diffuse abdominal tenderness. Lab work shows mild transaminitis, otherwise remainder of CMP, amylase, lipase, CBC, coags, troponin are WNL. UA shows no sign of bleeding or infection. Ultrasound was ordered due to swelling of the left lower extremity that was present during last visit, interpretation is negative for DVT. CT of the abdomen and pelvis with contrast interpretation shows persistent moderate proximal colonic fecal stasis, no bowel obstruction. There are no suspicious Acute findings clearly identified. Patient was given milk of molasses enema. This caused her to have a large bowel movement. Shortly after the large bowel movement patient became acutely confused and was shaking. Blood glucose recheck was 79. Vitals were stable. Patient was observed closely and symptoms dissipated, she began returning to her baseline. There is concerned because she is not back at her normal day today baseline, additionally she has been increasingly weak. CT of the brain without contrast is ordered. My interpretation shows no acute intracranial process. Family is concerned about patient's mental status declined and increasing weakness. There are requesting further evaluation and do not feel would be safe for discharge home at this time. Patient will be admitted for vancomycin weakness. I spoke with Dr. Crystal who agreed to admit the patient. I discussed this case with my attending Dr. Haile - Lab Data Result diagrams: 09/14/22 11:35 09/14/22 11:35 Lab Results 09/14/22 09/14/22 09/14/22 Range/Units 11:35 11:35 11:35 WBC 5.2 (3.8-10.6) k/uL RBC 3.91 (3.80-5.40) m/uL Hgb 12.6 (11.4-16.0) gm/dL Hct 37.0 (34.0-46.0) % MCV 94.5 (80.0-100.0) fL MCH 32.2 (25.0-35.0) pg MCHC 34.1 (31.0-37.0) g/dL RDW 12.4 (11.5-15.5) % Plt Count 265 (150-450) k/uL MPV 8.6 Neutrophils % 73 % Lymphocytes % 19 % Monocytes % 5 % Eosinophils % 1 % Basophils % 1 % Neutrophils # 3.8 (1.3-7.7) k/uL Lymphocytes # 1.0 (1.0-4.8) k/uL Monocytes # 0.3 (0-1.0) k/uL Eosinophils # 0.1 (0-0.7) k/uL Basophils # 0.0 (0-0.2) k/uL PT 10.6 (9.0-12.0) sec INR 1.0 (<1.2) APTT 23.9 (22.0-30.0) sec Sodium 140 (137-145) mmol/L Potassium 4.6 (3.5-5.1) mmol/L Chloride 103 (98-107) mmol/L Carbon Dioxide 30 (22-30) mmol/L Anion Gap 7 mmol/L BUN 12 (7-17) mg/dL Creatinine 0.87 (0.52-1.04) mg/dL Est GFR (CKD-EPI)AfAm 83 (>60 ml/min/1.73 sqM) Est GFR (CKD-EPI)NonAf 72 (>60 ml/min/1.73 sqM) Glucose 90 (74-99) mg/dL POC Glucose (mg/dL) (70-110) mg/dL POC Glu Fly Finisher ID Plasma Lactic Acid Eros (0.7-2.0) mmol/L Calcium 9.1 (8.4-10.2) mg/dL Total Bilirubin 0.9 (0.2-1.3) mg/dL AST 51 H (14-36) U/L ALT 58 H (4-34) U/L Alkaline Phosphatase 85 (38-126) U/L Troponin I (0.000-0.034) ng/mL Total Protein 7.1 (6.3-8.2) g/dL Albumin 4.6 (3.5-5.0) g/dL Amylase 64 (30-110) U/L Lipase 129 (23-300) U/L Urine Color Urine Appearance (Clear) Urine pH (5.0-8.0) Ur Specific [place] (1.001-1.035) Urine Protein (Negative) Urine Glucose (UA) (Negative) Urine Ketones (Negative) Urine Blood (Negative) Urine Nitrite (Negative) Urine Bilirubin (Negative) Urine Urobilinogen (<2.0) mg/dL Ur Leukocyte Esterase (Negative) 09/14/22 09/14/22 09/14/22 Range/Units 11:35 11:35 12:00 WBC (3.8-10.6) k/uL RBC (3.80-5.40) m/uL Hgb (11.4-16.0) gm/dL Hct (34.0-46.0) % MCV (80.0-100.0) fL MCH (25.0-35.0) pg MCHC (31.0-37.0) g/dL RDW (11.5-15.5) % Plt Count (150-450) k/uL MPV Neutrophils % % Lymphocytes % % Monocytes % % Eosinophils % % Basophils % % Neutrophils # (1.3-7.7) k/uL Lymphocytes # (1.0-4.8) k/uL Monocytes # (0-1.0) k/uL Eosinophils # (0-0.7) k/uL Basophils # (0-0.2) k/uL PT (9.0-12.0) sec INR (<1.2) APTT (22.0-30.0) sec Sodium (137-145) mmol/L Potassium (3.5-5.1) mmol/L Chloride (98-107) mmol/L Carbon Dioxide (22-30) mmol/L Anion Gap mmol/L BUN (7-17) mg/dL Creatinine (0.52-1.04) mg/dL Est GFR (CKD-EPI)AfAm (>60 ml/min/1.73 sqM) Est GFR (CKD-EPI)NonAf (>60 ml/min/1.73 sqM) Glucose (74-99) mg/dL POC Glucose (mg/dL) (70-110) mg/dL POC Glu Fly Finisher ID Plasma Lactic Acid Eros 1.4 (0.7-2.0) mmol/L Calcium (8.4-10.2) mg/dL Total Bilirubin (0.2-1.3) mg/dL AST (14-36) U/L ALT (4-34) U/L Alkaline Phosphatase (38-126) U/L Troponin I <0.012 (0.000-0.034) ng/mL Total Protein (6.3-8.2) g/dL Albumin (3.5-5.0) g/dL Amylase (30-110) U/L Lipase (23-300) U/L Urine Color Colorless Urine Appearance Clear (Clear) Urine pH 6.5 (5.0-8.0) Ur Specific [place] 1.005 (1.001-1.035) Urine Protein Negative (Negative) Urine Glucose (UA) Negative (Negative) Urine Ketones Negative (Negative) Urine Blood Negative (Negative) Urine Nitrite Negative (Negative) Urine Bilirubin Negative (Negative) Urine Urobilinogen <2.0 (<2.0) mg/dL Ur Leukocyte Esterase Negative (Negative) 09/14/22 09/14/22 Range/Units 17:54 21:03 WBC (3.8-10.6) k/uL RBC (3.80-5.40) m/uL Hgb (11.4-16.0) gm/dL Hct (34.0-46.0) % MCV (80.0-100.0) fL MCH (25.0-35.0) pg MCHC (31.0-37.0) g/dL RDW (11.5-15.5) % Plt Count (150-450) k/uL MPV Neutrophils % % Lymphocytes % % Monocytes % % Eosinophils % % Basophils % % Neutrophils # (1.3-7.7) k/uL Lymphocytes # (1.0-4.8) k/uL Monocytes # (0-1.0) k/uL Eosinophils # (0-0.7) k/uL Basophils # (0-0.2) k/uL PT (9.0-12.0) sec INR (<1.2) APTT (22.0-30.0) sec Sodium (137-145) mmol/L Potassium (3.5-5.1) mmol/L Chloride (98-107) mmol/L Carbon Dioxide (22-30) mmol/L Anion Gap mmol/L BUN (7-17) mg/dL Creatinine (0.52-1.04) mg/dL Est GFR (CKD-EPI)AfAm (>60 ml/min/1.73 sqM) Est GFR (CKD-EPI)NonAf (>60 ml/min/1.73 sqM) Glucose (74-99) mg/dL POC Glucose (mg/dL) 79 110 (70-110) mg/dL POC Glu Fly Finisher ID Margarette Shin Teresa Plasma Lactic Acid Eros (0.7-2.0) mmol/L Calcium (8.4-10.2) mg/dL Total Bilirubin (0.2-1.3) mg/dL AST (14-36) U/L ALT (4-34) U/L Alkaline Phosphatase (38-126) U/L Troponin I (0.000-0.034) ng/mL Total Protein (6.3-8.2) g/dL Albumin (3.5-5.0) g/dL Amylase (30-110) U/L Lipase (23-300) U/L Urine Color Urine Appearance (Clear) Urine pH (5.0-8.0) Ur Specific [place] (1.001-1.035) Urine Protein (Negative) Urine Glucose (UA) (Negative) Urine Ketones (Negative) Urine Blood (Negative) Urine Nitrite (Negative) Urine Bilirubin (Negative) Urine Urobilinogen (<2.0) mg/dL Ur Leukocyte Esterase (Negative) Disposition Clinical Impression: Weakness, AMS (altered mental status), Constipation Disposition: ADMITTED IP TO THIS [facility] Condition: Fair Time of Disposition: 20:42 Decision to Admit Reason: Admit from EC Decision Date: 09/14/22 Decision Time: 20:42
--- NOTE | 2022-09-14 13:39 | CT ---
EXAMINATION TYPE: CT abdomen pelvis w con DATE OF EXAM: 09/14/2022 HISTORY: Abdominal pain, has not subsided since 09-03-[address] DLP: 676.4mGycm Automated Exposure Control for Dose Reduction was Utilized. CONTRAST: CT scan of the abdomen and pelvis is performed without oral but with IV Contrast, patient injected wi th 100 mL of Isovue 300. COMPARISON: CT 11 days ago FINDINGS: LUNG BASES: No significant abnormality is appreciated. LIVER/GB: Gallbladder has distended margins on current study. No new surrounding inflammatory change. PANCREAS: No significant abnormality is seen. SPLEEN: Adjacent prominent splenules axial image 13 are redemonstrated. ADRENALS: No significant abnormality is seen. KIDNEYS: Symmetric cortical medullary uptake and excretion without hydronephrosis seen bilaterally. BOWEL: Suboptimal evaluation without enteric contrast and patient having little intra-abdominal fat. No suspicious small or large bowel dilatation is seen. Moderate right-sided colonic fecal prominence current study. UTERUS/ADNEXA: Slightly retroverted uterus projects to left of midline on current study. LYMPH NODES: No greater than 1cm abdominal or pelvic lymph nodes are appreciated. OSSEOUS STRUCTURES: Grade 1 anterolisthesis L3 on L4, L4 on L5, and L5 on S1. Moderate disc space jose armando rowing with vacuum disc phenomenon and lower lumbar levels. Prominent Schmorl node superior L4 endpla te. Moderate to severe disc space narrowing with endplate sclerosis at L1-L2 level. Prominent Schmorl node in the inferior L1 endplate redemonstrated. OTHER: No significant additional abnormality is seen. IMPRESSION: Persistent moderate proximal colonic fecal stasis. No bowel obstruction. No suspicious ne w or acute findings clearly identified.
[2022-09-14] MEDS ORDERED: DEXTROSE 50% SYRINGE 50 ML IVP STA (17:54)
[2022-09-14 17:56] LABS: Glucose,Whole Blood 79 mg/dL (70-110)
--- NOTE | 2022-09-14 19:51 | CT ---
EXAMINATION TYPE: CT brain wo con CT DLP: 1068.4 mGycm, Automated exposure control for dose reduction was used. DATE OF EXAM: 09/14/2022 7:31 PM COMPARISON: None. CLINICAL INDICATION:Female, 62 years old with history of Altered mental status, ams TECHNIQUE: Brain: Axial CT images of the brain were obtained with coronal and sagittal reformats created and rev iewed. Contrast used: None. Oral contrast used: None. FINDINGS: Brain: Extra-axial spaces: No abnormal extra-axial fluid collections. Ventricular system: Within normal limits Cerebral parenchyma: No acute intraparenchymal hemorrhage or mass effect. The noguera-white junction is well differentiated. Cerebellum: Unremarkable. Mass effect: No evidence of midline shift. Intracranial vasculature: unremarkable Soft tissues: Normal. Calvarium/osseous structures: No depressed skull fracture. Paranasal sinuses and mastoid air cells: Mild scattered paranasal sinus disease. Visualized orbits: Orbital contents are intact. IMPRESSION: No acute intracranial process.
[2022-09-14] MEDS ORDERED: SODIUM CHLORIDE 0.9% 1,000 ML IV ONE (19:55)
[2022-09-14] MEDS ORDERED: NALOXONE 0.4 MG/ML 1 ML VIAL IV PRN (20:40)
[2022-09-14 21:08] LABS: Glucose,Whole Blood 110 mg/dL (70-110)
[2022-09-14] MEDS: SODIUM CHLORIDE 0.9% 1,000 ML IV SCH (21:49)
[2022-09-15] MEDS ORDERED: ACETAMINOPHEN TAB 325 MG TAB PO PRN (00:28)
--- NOTE | 2022-09-15 00:29 | P.HPIM ---
History of Present Illness H&P Date: 09/14/22 Chief Complaint: abd pain 62 year old female with patient unable to provide meaningful history due to advanced dementia , she is [facility] resident. family not available at time of my evaluation , history obtained by reviewing medical records and ED chart patient answers with yes and no , but unreliable she was brought in due to abd pain , no report of diarrhea or GI bleeding, no report of nausea or vomiting, fever or chills, no report of URI symptoms workup in the ED was unremarkable , blood work unremarkable , UA unremarkable CT abd , showed fecal stasis no other acute abnormalitis CT brain no acute pathology venous doppler US no acute DVT patient was hospitalized earlier this month for dementia , and UTI Review of Systems ROS unobtainable: due to mental status Past Medical History Past Medical History: Dementia, Memory Impairment Additional Past Medical History / Comment(s): Dementia History of Any Multi-Drug Resistant Organisms: None Reported Past Surgical History: No Surgical Hx Reported Past Psychological History: No Psychological Hx Reported Smoking Status: Never smoker Past Alcohol Use History: None Reported Past Drug Use History: None Reported - Past Family History Father Family Medical History: Unable to Obtain (Due to mental status) Medications and Allergies Home Medications Medication Instructions Recorded Confirmed Type Cholecalciferol [Vitamin D3 (25 25 mcg PO DAILY@0800 09/03/22 09/14/22 History Mcg = 1000 Iu)] Cyanocobalamin (Vitamin B-12) 1,000 mcg PO DAILY@0800 09/03/22 09/14/22 History [Vitamin B-12] Escitalopram [Lexapro] 20 mg PO DAILY@0800 09/03/22 09/14/22 History Ibandronate Sodium [Boniva] 150 mg PO Q30D 09/03/22 09/14/22 History Melatonin 6 mg PO HS@199909/03/22 09/14/22 History Mirtazapine 30 mg PO HS@199909/03/22 09/14/22 History OLANZapine 5 mg PO HS@199909/03/22 09/14/22 History Simethicone [Gas-X] 125 mg PO DIRECTED PRN 09/03/22 09/14/22 History Simvastatin 40 mg PO HS@199909/03/22 09/14/22 History Acetaminophen Tab [Tylenol] 650 mg PO Q4HR PRN tab 09/05/22 09/14/22 Rx Levothyroxine Sodium [Tirosint] 25 mcg PO DAILY@0800 09/14/22 09/14/22 History Sennosides-Docusate Sodium 1 tab PO BID@0800,1700 09/14/22 09/14/22 History [Senokot-S] polyethylene glycoL 3350 [Miralax] 17 gm PO DAILY@1700 09/14/22 09/14/22 History Allergies Allergy/AdvReac Type Severity Reaction Status Date / Time Influenza Virus Vaccines Allergy Unknown Verified 09/14/22 14:57 Sulfa (Sulfonamide Allergy Rash/Hives Verified 09/14/22 14:57 Antibiotics) Physical Exam Vitals: Vital Signs Temp Pulse Resp BP Pulse Ox 09/14/22 20:00 61 18 120/55 95 09/14/22 19:38 98.8 F 59 L 18 103/54 94 L 09/14/22 18:08 68 16 118/65 97 09/14/22 10:19 97.7 F 75 18 122/66 100 Intake and Output 09/14/22 09/14/22 09/15/22 14:59 22:59 06:59 Other: Weight 62.142 kg Constitutional: No acute distress, sleeping easily arousable , does not participate in exam or history taking Eyes: Anicteric sclerae, moist conjunctiva, Pupils equal round reactive to light ENMT: NC/AT Oropharynx clear, no erythema, or exudates Neck: Supple, no masses, or JVD No carotid bruits No thyromegaly Lungs: Clear to auscultation Clear to percussion Normal respiratory effort, no accessory muscle use Cardiovascular: Heart regular in rate and rhythm, No murmurs, gallops, or rubs trace edema left leg Abdominal: Soft Nontender, no guarding, rebound or rigidity Abdomen moving with respiration Normoactive bowel sounds No hepatomegaly, No splenomegaly No palpable mass No abdominal wall hernia noted Skin: Normal temperature, tone, texture, turgor Extremities: No digital cyanosis No clubbing Pedal pulses intact and symmetrical Radial pulses intact and symmetrical No calf tenderness Psychiatric: sleepy easily arousable , oriented to self and place Neuro unable to perform , patient does not participate in exam Lymphatics: no palpable cervical or supraclavicular nodes Results CBC & Chem 7: 09/14/22 11:35 09/14/22 11:35 Labs: Abnormal Lab Results - Last 24 Hours (Table) 09/14/22 Range/Units 11:35 AST 51 H (14-36) U/L ALT 58 H (4-34) U/L Assessment and Plan Assessment: abd discomfort CT abd fecal statsis supportive care laxatives IVF hydration with normal saline blood work unremarkable advanced dementia CT brain no acute pathology fall precautions hypothyroidism resume levothyroxin full code DVT PPX heparin sc tid
[2022-09-15 06:20] LABS: Glucose,Whole Blood 78 mg/dL (70-110)
[2022-09-15] MEDS: LEVOTHYROXINE 25 MCG TAB PO SCH (06:22)
[2022-09-15] MEDS: SENNOSIDES-DOCUSATE SODIUM 1 EACH TAB PO SCH ×2 (10:21→21:36)
[2022-09-15] MEDS: SODIUM CHLORIDE 0.9% 1,000 ML IV SCH ×2 (10:21→21:39)
[2022-09-15] MEDS: ESCITALOPRAM 20 MG TAB PO SCH (10:21)
[2022-09-15] MEDS: HEPARIN SODIUM,PORCINE/PF 5,000 UNIT/0.5 ML SYRINGE SQ SCH ×3 (10:21→21:37)
--- NOTE | 2022-09-15 14:45 | P.PN ---
Subjective Progress Note Date: 09/15/22 Principal diagnosis: constipation History is unobtainable from patient due to advanced dementia, spoke to patient's family stated that she has been declining since the second week of August. She had mild swelling in the left leg and was leaning more towards her left side, however she walks fine, then shaky. Has been constipated. Objective - Vital Signs Vital signs: Vital Signs Temp 98.2 F 09/15/22 08:33 Pulse 60 09/15/22 08:33 Resp 18 09/15/22 08:33 BP 105/70 09/15/22 08:33 Pulse Ox 95 09/15/22 08:33 FiO2 Intake & Output 09/14/22 09/15/22 09/15/22 18:59 06:59 18:59 Weight 62.142 kg 62.142 kg - Exam Constitutional: No acute distress, sleeping easily arousable , does not participate in exam or history taking Eyes: Anicteric sclerae, moist conjunctiva, Pupils equal round reactive to light ENMT: NC/AT Oropharynx clear, no erythema, or exudates Neck: Supple, no masses, or JVD No carotid bruits No thyromegaly Lungs: Clear to auscultation Clear to percussion Normal respiratory effort, no accessory muscle use Cardiovascular: Heart regular in rate and rhythm, No murmurs, gallops, or rubs trace edema left leg Abdominal: Soft Nontender, no guarding, rebound or rigidity Abdomen moving with respiration Normoactive bowel sounds No hepatomegaly, No splenomegaly No palpable mass No abdominal wall hernia noted Skin: Normal temperature, tone, texture, turgor Extremities: No digital cyanosis No clubbing Pedal pulses intact and symmetrical Radial pulses intact and symmetrical No calf tenderness Psychiatric: sleepy easily arousable , oriented to self and place Neuro unable to perform , patient does not participate in exam Lymphatics: no palpable cervical or supraclavicular nodes - Labs CBC & Chem 7: 09/14/22 11:35 09/14/22 11:35 Assessment and Plan Plan: Abd discomfort likely due to constipation CT abd fecal statsis supportive care laxatives IVF hydration with normal saline blood work unremarkable Gen. weakness, adult failure to thrive On IV fluids, could be sec to dehydration Advanced dementia CT brain no acute pathology fall precautions hypothyroidism resume levothyroxin full code DVT PPX heparin sc tid Anticipated discharge in am
[2022-09-15] MEDS ORDERED: polyethylene glycoL 3350 17 GM POWD.PACK PO SCH (17:00)
[2022-09-15] MEDS ORDERED: MIRTAZAPINE 15 MG TAB PO SCH (21:00)
[2022-09-15] MEDS ORDERED: ATORVASTATIN 20 MG TAB PO SCH (21:00)
[2022-09-15] MEDS ORDERED: OLANZapine 5 MG TAB PO SCH (21:00)
[2022-09-16 03:25] VITALS: RESP 18
[2022-09-16] MEDS: LEVOTHYROXINE 25 MCG TAB PO SCH (06:43)
[2022-09-16 08:13] VITALS: BP 116/68; PULSE 76; TEMP 97.9
[2022-09-16] MEDS: SENNOSIDES-DOCUSATE SODIUM 1 EACH TAB PO SCH (09:03)
[2022-09-16] MEDS: ESCITALOPRAM 20 MG TAB PO SCH (09:03)
[2022-09-16] MEDS: HEPARIN SODIUM,PORCINE/PF 5,000 UNIT/0.5 ML SYRINGE SQ SCH (09:03)
[2022-09-16] MEDS ORDERED: NA PHOS,M-B/NA PHOS,DI-BA 133 ML ENEMA RECTAL STA (09:34)
--- NOTE | 2022-09-16 10:46 | XR ---
EXAMINATION TYPE: XR abdomen 1V DATE OF EXAM: 09/16/2022 Comparison: 09/03/2022 Clinical History: 62-year-old female constipation possible ileus Findings: Mild/moderate stool burden. Rightward tracheal shift noted. Supine imaging limited for assessment of free air. Gas is stomach. Osteitis pubis. Air extends distally to the rectum. Impression: Mild to moderate stool burden. Nonobstructive bowel gas pattern.
[2022-09-16] MEDS: SODIUM CHLORIDE 0.9% 1,000 ML IV SCH (12:25)
--- NOTE | 2022-09-16 13:01 | P.DS ---
Providers Date of admission: 09/14/22 21:26 Expected date of discharge: 09/16/22 Attending physician: Librado Crystal MD Primary care physician: Jairon Hallman MD Hospital Course: 62 year old female with history of advanced dementia, who came from an [facility] home. Family was not available at time of my evaluation, history obtained from daughter on the phone, who states that she has been having balance issues lately, leaning towards her left side, has been having shakes and was constipated. Due to the constipation she was having increasing abdominal pain. No nausea or vomiting, no fevers or chills. Workup in the ED was unremarkable , blood work unremarkable , UA unremarkable. CT abd , showed fecal stasis no other acute abnormalitis, CT brain no acute pathology, Venous doppler US no acute DVT. Of note patient was hospitalized earlier this month for dementia , and UTI. Patient was admitted, she was initiated on laxatives, as well as IV fluids. Started having a bowel movement 2 days after admission. Follow-up abdominal x- ray revealed no ileus or obstruction. Currently doing well, will be discharged back to assisted living home in a stable condition. She was seen and examined [id number] on the day of discharge 09/16/22 Time for discharge 35 minutes. Patient Condition at Discharge: Fair Plan - Discharge Summary Discharge Rx Participant: Yes New Discharge Prescriptions: Continue Ibandronate Sodium [Boniva] 150 mg PO Q30D Melatonin 6 mg PO HS@2000 Escitalopram [Lexapro] 20 mg PO DAILY@0800 Cholecalciferol [Vitamin D3 (25 Mcg = 1000 Iu)] 25 mcg PO DAILY@0800 Simethicone [Gas-X] 125 mg PO DIRECTED PRN PRN Reason: gas relief Cyanocobalamin (Vitamin B-12) [Vitamin B-12] 1,000 mcg PO DAILY@0800 Acetaminophen Tab [Tylenol] 650 mg PO Q4HR PRN tab PRN Reason: Fever And/ Or Pain Sennosides-Docusate Sodium [Senokot-S] 1 tab PO BID@0800,1700 Levothyroxine Sodium [Tirosint] 25 mcg PO DAILY@0800 Simvastatin 40 mg PO HS@2000 OLANZapine 5 mg PO HS@2000 Mirtazapine 30 mg PO HS@2000 polyethylene glycoL 3350 [Miralax] 17 gm PO DAILY@1700 Discharge Medication List Cholecalciferol [Vitamin D3 (25 Mcg = 1000 Iu)] 25 mcg PO DAILY@0800 09/03/22 [History] Cyanocobalamin (Vitamin B-12) [Vitamin B-12] 1,000 mcg PO DAILY@0800 09/03/22 [History] Escitalopram [Lexapro] 20 mg PO DAILY@0800 09/03/22 [History] Ibandronate Sodium [Boniva] 150 mg PO Q30D 09/03/22 [History] Melatonin 6 mg PO HS@199909/03/22 [History] Mirtazapine 30 mg PO HS@199909/03/22 [History] OLANZapine 5 mg PO HS@199909/03/22 [History] Simethicone [Gas-X] 125 mg PO DIRECTED PRN 09/03/22 [History] Simvastatin 40 mg PO HS@199909/03/22 [History] Acetaminophen Tab [Tylenol] 650 mg PO Q4HR PRN tab 09/05/22 [Rx] Levothyroxine Sodium [Tirosint] 25 mcg PO DAILY@0800 09/14/22 [History] Sennosides-Docusate Sodium [Senokot-S] 1 tab PO BID@0800,1700 09/14/22 [History] polyethylene glycoL 3350 [Miralax] 17 gm PO DAILY@1700 09/14/22 [History] Follow up Appointment(s)/Referral(s): Jairon Hallman MD [Primary Care Provider] - 1-2 days
== END 2022-09-16 13:57 ==
LOC: EC 10:18 → EEVIPCON 10:18 → 6NMEDSUR 21:26
PROVIDERS: ADMIT Internal Medicine; ATTEND Internal Medicine
DX: K59.00 Constipation, unspecified (principal); M51.46 Schmorl's nodes, lumbar region; F03.90 Unspecified dementia, unspecified severity, without behavioral disturbance, psychotic disturbance, mood disturbance, and anxiety; E03.9 Hypothyroidism, unspecified; Z79.899 Other long term (current) drug therapy; Z79.890 Hormone replacement therapy; Z88.2 Allergy status to sulfonamides
CPT/HCPCS: 96361 ×3; 96372 ×2; 96360; 96374; 96375; 99285; 36415; 93005; 80053; 82150; 83605; 83690; 84484; 85025; 85610; 85730; 81003; 74018; 93971; 70450; 74177; G0378 ×3; J2405; J2270; Q9967; J1644 ×2

== ENCOUNTER 2022-09-28 10:16 | Inpatient (IN) | payer MEDICARE, OTHER ==
[2022-09-28] MEDS ORDERED: SODIUM CHLORIDE 0.9% 1,000 ML IV ONE (10:26)
[2022-09-28 10:47] LABS: Glucose,Whole Blood 110 mg/dL (70-110)
[2022-09-28] MEDS ORDERED: ACETAMINOPHEN TAB 325 MG TAB PO STA (10:49)
--- NOTE | 2022-09-28 11:03 | ED ---
Altered Mental Status HPI - General Chief Complaint: Altered Mental Status Stated Complaint: possible medication reaction Time Seen by Provider: 09/28/22 10:18 Source: EMS, RN notes reviewed Mode of arrival: EMS Limitations: altered mental status - History of Present Illness Initial Comments: 62-year-old female with past medical history of dementia presents to the emergency department via EMS from [facility] facility for altered mental status. History obtained from EMS patient is A/O x 1. EMS reports they were called to the nursing faciclity due to the patient not acting like herself after stopping her medications of Remeron and Protonix. EMS upon their arrival patient was found laying on the floor and was soiled in her own waste. Last known well was 2 days ago. EMS reports blood sugar en route was 126. - Related Data Home Medications Medication Instructions Recorded Confirmed Cholecalciferol [Vitamin D3 (25 25 mcg PO DAILY 09/03/22 09/28/22 Mcg = 1000 Iu)] Cyanocobalamin (Vitamin B-12) 1,000 mcg PO DAILY 09/03/22 09/28/22 [Vitamin B-12] Escitalopram [Lexapro] 20 mg PO DAILY 09/03/22 09/28/22 Ibandronate Sodium [Boniva] 150 mg PO Q30D 09/03/22 09/28/22 Melatonin 6 mg PO HS 09/03/22 09/28/22 Simethicone [Gas-X] 125 mg PO DAILY 09/03/22 09/28/22 Simvastatin 40 mg PO HS 09/03/22 09/28/22 polyethylene glycoL 3350 [Miralax] 17 gm PO DAILY 09/14/22 09/28/22 Levothyroxine Sodium [Synthroid] 25 mcg PO DAILY 09/28/22 09/28/22 Sennosides [Senokot] 8.6 mg PO BID 09/28/22 09/28/22 Allergies Allergy/AdvReac Type Severity Reaction Status Date / Time Influenza Virus Vaccines Allergy Unknown Verified 09/28/22 11:55 Sulfa (Sulfonamide Allergy Rash/Hives Verified 09/28/22 11:55 Antibiotics) Review of Systems ROS Statement: Those systems with pertinent positive or pertinent negative responses have been documented in the HPI. ROS Other: All systems not noted in ROS Statement are negative. Past Medical History Past Medical History: Dementia, Memory Impairment Additional Past Medical History / Comment(s): Dementia History of Any Multi-Drug Resistant Organisms: None Reported Past Surgical History: No Surgical Hx Reported Additional Past Surgical History / Comment(s): tooth extraction Past Anesthesia/Blood Transfusion Reactions: No Reported Reaction Past Psychological History: No Psychological Hx Reported Smoking Status: Never smoker Past Alcohol Use History: None Reported Past Drug Use History: None Reported - Past Family History Father Family Medical History: Unable to Obtain (Due to mental status) General Exam Limitations: altered mental status, physical limitation General appearance: alert, in no apparent distress Head exam: Present: atraumatic, normocephalic, normal inspection Eye exam: Present: normal appearance, PERRL, EOMI. Absent: scleral icterus, conjunctival injection, periorbital swelling ENT exam: Present: normal exam, mucous membranes moist Neck exam: Present: normal inspection. Absent: tenderness, meningismus, lymphadenopathy Respiratory exam: Present: normal lung sounds bilaterally. Absent: respiratory distress, wheezes, rales, rhonchi, stridor Cardiovascular Exam: Present: regular rate, normal rhythm, normal heart sounds. Absent: systolic murmur, diastolic murmur, rubs, gallop, clicks GI/Abdominal exam: Present: soft, normal bowel sounds. Absent: distended, tenderness, guarding, rebound Rectal exam: Present: normal inspection, heme (-) stool Extremities exam: Present: normal inspection, full ROM, normal capillary refill. Absent: tenderness, pedal edema, joint swelling, calf tenderness Back exam: Present: normal inspection Neurological exam: Present: altered (A/O x 1 ), CN II-XII intact Psychiatric exam: Present: normal affect Skin exam: Present: warm, dry, intact, normal color. Absent: rash Course Vital Signs 09/28/22 09/28/22 09/28/22 10:18 12:09 14:00 Temperature 100.3 F H Pulse Rate 83 110 H 92 Respiratory 20 22 18 Rate Blood Pressure 120/57 127/82 107/52 O2 Sat by Pulse 95 95 96 Oximetry 09/28/22 09/28/22 14:06 14:07 Temperature 99.9 F H Pulse Rate Respiratory Rate Blood Pressure 117/54 O2 Sat by Pulse Oximetry - Reevaluation(s) Reevaluation #1: 09/28/22 12:30 Patient reevaluated. Patient brother and at bedside able to obtain history. Family reports patient was started on lamotrigine on 09/25/2020, she took this medication for 2 days it was stopped on 09/27/2022. They report on 09/24/2022 patient was alert and was ambulatory. They report extensive history of anxiety and depression. 09/28/22 12:32 Reevaluation #2: 09/28/22 13:50: Pt re-evaluated, updated family on results. agreeable to plan for admission. Medical Decision Making - Medical Decision Making 62-year-old female with a history of dementia coming in for altered mental status. Patient was seen and evaluated in the ED. Patient had lab work and imaging ordered and performed. WBCs 8.7, hemoglobin 11.6, CMP unremarkable, troponin negative, UA negative for protein, ketones, blood, nitrates, leukocyte Esterase. Blood Cultures pending. COVID flu RSV negative. I Interpreted the following: CT head and neck negative for hemorrhage, no evidence of acute fracture in the cervical spine. Chest x-ray negative for any acute pulmonary process. X-ray of lumbar spine with significant degenerative changes at the L3 to L5 levels. X-ray of bilateral hips negative for acute fracture or dislocation. EKG performed 10:48 rate 82bpm, NSR with nonspecific t wave abnormality, IA 141, QRS 81. Drug toxicology screen negative. My decision to admit the patient for further evaluation and management. Consult to Dr. Felder with [facility] who agrees and accepts the patient for admission with consult to neurology and psychiatry for further management. Plan discussed with patient family who is in agreement. Case discussed with Dr. Tapia. - Lab Data Result diagrams: 09/28/22 10:40 09/28/22 10:40 Lab Results 09/28/22 09/28/22 09/28/22 Range/Units 10:40 10:40 10:40 WBC 8.7 (3.8-10.6) k/uL RBC 3.56 L (3.80-5.40) m/uL Hgb 11.6 (11.4-16.0) gm/dL Hct 33.5 L (34.0-46.0) % MCV 94.3 (80.0-100.0) fL MCH 32.5 (25.0-35.0) pg MCHC 34.5 (31.0-37.0) g/dL RDW 12.6 (11.5-15.5) % Plt Count 228 (150-450) k/uL MPV 8.2 Neutrophils % 85 % Lymphocytes % 7 % Monocytes % 6 % Eosinophils % 0 % Basophils % 0 % Neutrophils # 7.4 (1.3-7.7) k/uL Lymphocytes # 0.6 L (1.0-4.8) k/uL Monocytes # 0.6 (0-1.0) k/uL Eosinophils # 0.0 (0-0.7) k/uL Basophils # 0.0 (0-0.2) k/uL PT 10.5 (9.0-12.0) sec INR 1.0 (<1.2) APTT 22.3 (22.0-30.0) sec Sodium 141 (137-145) mmol/L Potassium 4.0 (3.5-5.1) mmol/L Chloride 107 (98-107) mmol/L Carbon Dioxide 27 (22-30) mmol/L Anion Gap 7 mmol/L BUN 13 (7-17) mg/dL Creatinine 0.78 (0.52-1.04) mg/dL Est GFR (CKD-EPI)AfAm >90 (>60 ml/min/1.73 sqM) Est GFR (CKD-EPI)NonAf 82 (>60 ml/min/1.73 sqM) Glucose 107 H (74-99) mg/dL POC Glucose (mg/dL) (70-110) mg/dL POC Glu Export Documents Clerk ID Calcium 8.3 L (8.4-10.2) mg/dL Total Bilirubin 1.0 (0.2-1.3) mg/dL AST 28 (14-36) U/L ALT 24 (4-34) U/L Alkaline Phosphatase 88 (38-126) U/L Troponin I (0.000-0.034) ng/mL Total Protein 6.1 L (6.3-8.2) g/dL Albumin 3.6 (3.5-5.0) g/dL Urine Color Urine Appearance (Clear) Urine pH (5.0-8.0) Ur Specific Cooper (1.001-1.035) Urine Protein (Negative) Urine Glucose (UA) (Negative) Urine Ketones (Negative) Urine Blood (Negative) Urine Nitrite (Negative) Urine Bilirubin (Negative) Urine Urobilinogen (<2.0) mg/dL Ur Leukocyte Esterase (Negative) Influenza Type A (PCR) (Not Detectd) Influenza Type B (PCR) (Not Detectd) RSV (PCR) (Not Detectd) SARS-CoV-2 (PCR) (Not Detectd) 09/28/22 09/28/22 09/28/22 Range/Units 10:40 10:45 11:00 WBC (3.8-10.6) k/uL RBC (3.80-5.40) m/uL Hgb (11.4-16.0) gm/dL Hct (34.0-46.0) % MCV (80.0-100.0) fL MCH (25.0-35.0) pg MCHC (31.0-37.0) g/dL RDW (11.5-15.5) % Plt Count (150-450) k/uL MPV Neutrophils % % Lymphocytes % % Monocytes % % Eosinophils % % Basophils % % Neutrophils # (1.3-7.7) k/uL Lymphocytes # (1.0-4.8) k/uL Monocytes # (0-1.0) k/uL Eosinophils # (0-0.7) k/uL Basophils # (0-0.2) k/uL PT (9.0-12.0) sec INR (<1.2) APTT (22.0-30.0) sec Sodium (137-145) mmol/L Potassium (3.5-5.1) mmol/L Chloride (98-107) mmol/L Carbon Dioxide (22-30) mmol/L Anion Gap mmol/L BUN (7-17) mg/dL Creatinine (0.52-1.04) mg/dL Est GFR (CKD-EPI)AfAm (>60 ml/min/1.73 sqM) Est GFR (CKD-EPI)NonAf (>60 ml/min/1.73 sqM) Glucose (74-99) mg/dL POC Glucose (mg/dL) 110 (70-110) mg/dL POC Glu Export Documents Clerk ID McNeice, María Calcium (8.4-10.2) mg/dL Total Bilirubin (0.2-1.3) mg/dL AST (14-36) U/L ALT (4-34) U/L Alkaline Phosphatase (38-126) U/L Troponin I <0.012 (0.000-0.034) ng/mL Total Protein (6.3-8.2) g/dL Albumin (3.5-5.0) g/dL Urine Color Light Yellow Urine Appearance Clear (Clear) Urine pH 6.5 (5.0-8.0) Ur Specific Cooper 1.010 (1.001-1.035) Urine Protein Negative (Negative) Urine Glucose (UA) Negative (Negative) Urine Ketones Negative (Negative) Urine Blood Negative (Negative) Urine Nitrite Negative (Negative) Urine Bilirubin Negative (Negative) Urine Urobilinogen <2.0 (<2.0) mg/dL Ur Leukocyte Esterase Negative (Negative) Influenza Type A (PCR) (Not Detectd) Influenza Type B (PCR) (Not Detectd) RSV (PCR) (Not Detectd) SARS-CoV-2 (PCR) (Not Detectd) 09/28/22 Range/Units 12:09 WBC (3.8-10.6) k/uL RBC (3.80-5.40) m/uL Hgb (11.4-16.0) gm/dL Hct (34.0-46.0) % MCV (80.0-100.0) fL MCH (25.0-35.0) pg MCHC (31.0-37.0) g/dL RDW (11.5-15.5) % Plt Count (150-450) k/uL MPV Neutrophils % % Lymphocytes % % Monocytes % % Eosinophils % % Basophils % % Neutrophils # (1.3-7.7) k/uL Lymphocytes # (1.0-4.8) k/uL Monocytes # (0-1.0) k/uL Eosinophils # (0-0.7) k/uL Basophils # (0-0.2) k/uL PT (9.0-12.0) sec INR (<1.2) APTT (22.0-30.0) sec Sodium (137-145) mmol/L Potassium (3.5-5.1) mmol/L Chloride (98-107) mmol/L Carbon Dioxide (22-30) mmol/L Anion Gap mmol/L BUN (7-17) mg/dL Creatinine (0.52-1.04) mg/dL Est GFR (CKD-EPI)AfAm (>60 ml/min/1.73 sqM) Est GFR (CKD-EPI)NonAf (>60 ml/min/1.73 sqM) Glucose (74-99) mg/dL POC Glucose (mg/dL) (70-110) mg/dL POC Glu Export Documents Clerk ID Calcium (8.4-10.2) mg/dL Total Bilirubin (0.2-1.3) mg/dL AST (14-36) U/L ALT (4-34) U/L Alkaline Phosphatase (38-126) U/L Troponin I (0.000-0.034) ng/mL Total Protein (6.3-8.2) g/dL Albumin (3.5-5.0) g/dL Urine Color Urine Appearance (Clear) Urine pH (5.0-8.0) Ur Specific Cooper (1.001-1.035) Urine Protein (Negative) Urine Glucose (UA) (Negative) Urine Ketones (Negative) Urine Blood (Negative) Urine Nitrite (Negative) Urine Bilirubin (Negative) Urine Urobilinogen (<2.0) mg/dL Ur Leukocyte Esterase (Negative) Influenza Type A (PCR) Not Detected (Not Detectd) Influenza Type B (PCR) Not Detected (Not Detectd) RSV (PCR) Not Detected (Not Detectd) SARS-CoV-2 (PCR) Not Detected (Not Detectd) Disposition Clinical Impression: Altered mental status Disposition: ADMITTED IP TO THIS HOSP Condition: Fair Is patient prescribed a controlled substance at d/c from ED?: No Time of Disposition: 13:16
[2022-09-28 11:08] LABS: Basophils % (A) 0 %; Eosinophils % (A) 0 %; HCT 33.5 % (34.0-46.0); HGB 11.6 gm/dL (11.4-16.0); Lymphocytes # (A) 0.6 k/uL (1.0-4.8); Lymphocytes % (A) 7 %; MCH 32.5 pg (25.0-35.0); MCHC 34.5 g/dL (31.0-37.0); MCV 94.3 fL (80.0-100.0); Mean Platelet Volume 8.2; Monocytes # (A) 0.6 k/uL (0-1.0); Monocytes % (A) 6 %; Neutrophils # (A) 7.4 k/uL (1.3-7.7); Neutrophils % (A) 85 %; Platelet Count 228 k/uL (150-450); RBC 3.56 m/uL (3.80-5.40); RDW 12.6 % (11.5-15.5); WBC 8.7 k/uL (3.8-10.6)
[2022-09-28 11:19] LABS: Appearance,Urine Clear (Clear); Bilirubin,Urine Negative (Negative); Blood,Urine Negative (Negative); Color,Urine Light Yellow; Glucose,Urine (UA) Negative (Negative); Ketones,Urine Negative (Negative); Leukocyte Esterase,Urine Negative (Negative); Nitrite,Urine Negative (Negative); PH, Urine 6.5 (5.0-8.0); Protein,Urine Negative (Negative); Urobilinogen,Urine <2.0 mg/dL (<2.0)
[2022-09-28 11:20] LABS: ALT 24 U/L (4-34); AST 28 U/L (14-36); African American GFR (CKD) >90 (>60 ml/min/1.73 sqM); Albumin 3.6 g/dL (3.5-5.0); Alkaline Phosphatase 88 U/L (38-126); Anion Gap 7 mmol/L; Blood Urea Nitrogen 13 mg/dL (7-17); Calcium 8.3 mg/dL (8.4-10.2); Carbon Dioxide 27 mmol/L (22-30); Chloride 107 mmol/L (98-107); Glucose 107 mg/dL (74-99); Non-African American GFR(CKD) 82 (>60 ml/min/1.73 sqM); Sodium 141 mmol/L (137-145); Total Protein 6.1 g/dL (6.3-8.2)
[2022-09-28 11:22] LABS: Partial Thromboplastin Time 22.3 sec (22.0-30.0); Prothrombin Time 10.5 sec (9.0-12.0)
--- NOTE | 2022-09-28 11:40 | CT ---
EXAMINATION TYPE: CT brain chidi leos DATE OF EXAM: 09/28/2022 COMPARISON: 09/14/22 HISTORY: Fall CT DLP: 1344.[address] of the brain was performed. The ventricles, basal cisterns and sulci overlying the cerebral convexities demonstrate mild enlargem ent. There is no evidence for intracranial hemorrhage or sulcal effacement. There is decreased attenuatio n about the periventricular white matter and deep white matter of both cerebral hemispheres, compatib le with chronic small vessel ischemia. No mass effects are seen. If symptoms persist consider MRI. Osseous calvarium is intact. IMPRESSION: 1. Age related atrophic and chronic small vessel ischemic change without acute intracranial process seen at this time. CT Cervical Spine: Unenhanced CT of the cervical spine was performed with bone and soft tissue window settings submitted . Coronal and sagittal reconstruction is obtained. There is normal alignment and prevertebral soft tissues. No evidence for acute cervical fracture . Severe multilevel degenerative disc disease and spondylosis. Biapical scarring. IMPRESSION: 1. No evidence for acute fracture or subluxation of the cervical spine.
--- NOTE | 2022-09-28 12:03 | XR ---
EXAMINATION TYPE: XR chest 2V DATE OF EXAM: 09/28/2022 COMPARISON: NONE HISTORY: Shortness of breath TECHNIQUE: Frontal and lateral views of the chest are obtained. FINDINGS: Scattered senescent parenchymal changes noted. Hyperinflation compatible with COPD. No evidence for infiltrate. No evidence for atelectasis. Heart size is stable. Mediastinal structures are stable and grossly unremarkable. No evidence for hilar prominence. Degenerative changes dorsal spine. IMPRESSION: 1. No evidence for acute pulmonary disease.
--- NOTE | 2022-09-28 12:07 | XR ---
EXAMINATION TYPE: XR lumbar spine 2 or 3V DATE OF EXAM: 09/28/2022 CLINICAL HISTORY: pain TECHNIQUE: Three views of the lumbar spine are submitted. COMPARISON: None. FINDINGS: There are 5 lumbar type vertebral bodies identified. The lumbar spine shows satisfactory alignment w ithout evidence of acute fracture or dislocation. Curvature noted convex to the left. Moderate to sev ere multilevel degenerative disc disease greatest at L3-4 through L5-S1. Grade 1 anterolisthesis at L 3 on L4 5 mm, L4 and L5 of 7 mm and L5 on S1 of 9.4 mm. Severe facet joint arthropathy. No compressio n fractures noted. IMPRESSION: Advanced degenerative changes and spondylolisthesis as noted.
--- NOTE | 2022-09-28 12:10 | XR ---
EXAMINATION TYPE: XR Hip Bilateral and AP pelvis DATE OF EXAM: 09/28/2022 CLINICAL HISTORY: pain TECHNIQUE: Single view the pelvis is submitted. Bilateral hips are submitted. FINDINGS: No evidence for fracture, dislocation or bony lesion. Joint spaces are well-preserved. S I joints appear symmetric. IMPRESSION: 1. No acute fracture or dislocation seen. ICD 10 NO FRACTURE, INITIAL EVALUATION
[2022-09-28] MEDS ORDERED: NALOXONE 0.4 MG/ML 1 ML VIAL IV PRN (13:16)
[2022-09-28] MEDS: SODIUM CHLORIDE 0.9% 1,000 ML IV SCH (14:02)
[2022-09-28 14:40] LABS: Amphetamine Screen,Urine Not Detected (NotDetected); Barbiturate Screen,Urine Not Detected (NotDetected); Benzodiazepines Screen,Urine Not Detected (NotDetected); Cocaine Screen,Urine Not Detected (NotDetected); Methadone Screen, Urine Not Detected (NotDetected); Opiate Screen,Urine Not Detected (NotDetected); Oxycodone Screen, Urine Not Detected (NotDetected); Phencyclidine Screen,Urine Not Detected (NotDetected); Tricyclic Antidepressant,Urine Not Detected (NotDetected); Urn Cannabinoid Scrn Not Detected (NotDetected)
--- NOTE | 2022-09-28 15:06 | P.HPIM ---
History of Present Illness H&P Date: 09/28/22 Chief Complaint: weakness Patient is a 62-year-old female with history of dementia, mood disorder, psychiatric disorder, hypothyroidism, dyslipidemia presenting from an assisted living facility concern of worsening weakness and inability to take care of hers elf. Patient is a poor historian. Patient's brother and [id number] are present in the room. Declaimed the patient has dementia of unknown etiology, extensive psychiatric history and has been living in an assisted living facility for some time now. She requires a lot of help with her medications. However, over the last few weeks they've noticed that her overall health has started declining. They last saw her on , and noted that she was able to ambulate on her own. However today she was found on the floor on her way to the bathroom, soiled, had difficulty getting up. She has been weaker compared to before. She is not able to lift her lower extremities as much anymore. Patient herself doesn't complain of any chest pain, shortness of breath, abdominal pain, nausea, vomiting, diarrhea, constipation, or urinary complaints. Patient's family attributes changes in mental status to her changes in medications from Abilify to Zyprexa in the last 2 months. She was recently taken off of Zyprexa and change to Lamictal. Due to increased weakness, patient was taken off of Lamictal as well. She continues to take her Lexapro. In the ED, her vital signs for mostly unremarkable except for maximum temperature of 100.3. Laboratory workup mostly unremarkable, negative UA, nega tive respiratory viral panel, negative urinary tox screen. CT head showed no acute process. Chest x-ray, lumbar spine x-ray, hip and pelvis x-ray did not show any acute process. EKG showed normal sinus rhythm. Patient seen and examined at bedside. Pertinent positives and negatives as discussed in HPI, a complete review of systems was performed and all other systems are negative. Vital signs reviewed General: nontoxic, no distress, appears at stated age Derm: warm, dry Head: atraumatic, normocephalic, symmetric Eyes: EOMI, no lid lag, anicteric sclera, pupils equal round reactive to light ENT: Nose and ears atraumatic Neck: No thyromegaly, supple Mouth: no lip lesion, mucus membranes moist Cardiovascular: S1S2 reg, no murmur, no edema Lungs: clear to auscultation bilateral, no rhonchi, no rales, no wheeze, no accessory muscle use Abdominal: soft, nontender to palpation, no guarding, no appreciable organomegaly Ext: no gross muscle atrophy, muscle strength muscle strength 4/5 in the lower extremities bilaterally, no contractures Neuro: CN II-XII grossly intact Psych: Alert, oriented 1 (to self), confabulates Assessment/Plan: Generalized weakness Worsening dementia Mood disorder Debility -Neurology and psychiatry consulted -PT/OT -Continue Lexapro for now Chronic medical problems: Dyslipidemia Hypothyroidism - TSH pending - Continue home medication The patient is admitted with an anticipated less than 2 midnight stay for ev aluation of generalized weakness. Surrogate decision-maker: Brother CODE STATUS: Full code DVT prophylaxis: Lovenox Anticipated discharge date: 1-[address]: Likely SNF or assisted living A total of 58 minutes was spent on the care of this complex patient more than 50% of the time was spent in counseling and care coordination. Past Medical History Past Medical History: Dementia, Memory Impairment Additional Past Medical History / Comment(s): Dementia History of Any Multi-Drug Resistant Organisms: None Reported Past Surgical History: No Surgical Hx Reported Additional Past Surgical History / Comment(s): tooth extraction Past Anesthesia/Blood Transfusion Reactions: No Reported Reaction Past Psychological History: No Psychological Hx Reported Smoking Status: Never smoker Past Alcohol Use History: None Reported Past Drug Use History: None Reported - Past Family History Father Family Medical History: Unable to Obtain (Due to mental status) Medications and Allergies Home Medications Medication Instructions Recorded Confirmed Type Cholecalciferol [Vitamin D3 (25 25 mcg PO DAILY 09/03/22 09/28/22 History Mcg = 1000 Iu)] Cyanocobalamin (Vitamin B-12) 1,000 mcg PO DAILY 09/03/22 09/28/22 History [Vitamin B-12] Escitalopram [Lexapro] 20 mg PO DAILY 09/03/22 09/28/22 History Ibandronate Sodium [Boniva] 150 mg PO Q30D 09/03/22 09/28/22 History Melatonin 6 mg PO HS 09/03/22 09/28/22 History Simethicone [Gas-X] 125 mg PO DAILY 09/03/22 09/28/22 History Simvastatin 40 mg PO HS 09/03/22 09/28/22 History polyethylene glycoL 3350 [Miralax] 17 gm PO DAILY 09/14/22 09/28/22 History Levothyroxine Sodium [Synthroid] 25 mcg PO DAILY 09/28/22 09/28/22 History Sennosides [Senokot] 8.6 mg PO BID 09/28/22 09/28/22 History Allergies Allergy/AdvReac Type Severity Reaction Status Date / Time Influenza Virus Vaccines Allergy Unknown Verified 09/28/22 11:55 Sulfa (Sulfonamide Allergy Rash/Hives Verified 09/28/22 11:55 Antibiotics) Physical Exam Vitals: Vital Signs Temp Pulse Resp BP Pulse Ox 09/28/22 14:07 117/54 09/28/22 14:06 99.9 F H 09/28/22 14:00 92 18 107/52 96 09/28/22 12:09 110 H 22 127/82 95 09/28/22 10:18 100.3 F H 83 20 120/57 95 Intake and Output 09/28/22 09/28/22 09/28/22 06:59 14:59 22:59 Other: Weight 62.686 kg Results CBC & Chem 7: 09/28/22 10:40 09/28/22 10:40 Labs: Abnormal Lab Results - Last 24 Hours (Table) 09/28/22 09/28/22 Range/Units 10:40 10:40 RBC 3.56 L (3.80-5.40) m/uL Hct 33.5 L (34.0-46.0) % Lymphocytes # 0.6 L (1.0-4.8) k/uL Glucose 107 H (74-99) mg/dL Calcium 8.3 L (8.4-10.2) mg/dL Total Protein 6.1 L (6.3-8.2) g/dL
[2022-09-28] MEDS: SENNOSIDES 8.6 MG TAB PO SCH (20:37)
[2022-09-28] MEDS: MELATONIN 3 MG TABLET PO SCH (20:37)
[2022-09-28] MEDS: ATORVASTATIN 20 MG TAB PO SCH (20:49)
[2022-09-29] MEDS: ACETAMINOPHEN TAB 325 MG TAB PO PRN ×4 (01:27→20:40)
[2022-09-29] MEDS: SODIUM CHLORIDE 0.9% 1,000 ML IV SCH ×2 (04:52→19:03)
[2022-09-29] MEDS: LEVOTHYROXINE 25 MCG TAB PO SCH (06:10)
[2022-09-29] MEDS: ESCITALOPRAM 20 MG TAB PO SCH (08:08)
[2022-09-29] MEDS: CHOLECALCIFEROL 25 MCG (1000 IU) TABLET PO SCH (08:08)
[2022-09-29] MEDS: ENOXAPARIN 40 MG/0.4 ML SYRINGE SQ SCH (08:08)
[2022-09-29] MEDS: CYANOCOBALAMIN 500 MCG TAB PO SCH (08:08)
[2022-09-29] MEDS: SIMETHICONE 80 MG CHEWABLE PO SCH (08:08)
[2022-09-29] MEDS: polyethylene glycoL 3350 17 GM POWD.PACK PO SCH (08:14)
[2022-09-29] MEDS: SENNOSIDES 8.6 MG TAB PO SCH ×2 (08:14→20:39)
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
[2022-09-29 10:47] LABS: Basophils # (A) 0.02 X 10*3/uL (0.00-0.10); Basophils % (A) 0.3 %; Eosinophils # (A) 0.07 X 10*3/uL (0.04-0.35); Eosinophils % (A) 1.1 %; Immature Grans, Automated 0.3 %; Lymphocytes # (A) 0.92 X 10*3/uL (0.90-5.00); Lymphocytes % (A) 14.3 %; MCHC 31.3 g/dL (32.0-37.0); MCV 99.1 fL (80.0-97.0); Mean Platelet Volume 11.1 fL (9.5-12.2); Monocytes # (A) 0.54 X 10*3/uL (0.20-1.00); Monocytes % (A) 8.4 %; NRBC Per 100 WBC 0 /100 WBCS (0.0-0.0); Neutrophils # (A) 4.87 X 10*3/uL (1.80-7.70); Neutrophils % (A) 75.6 %; Platelet Count 232 X 10*3/uL (140-440); RBC 3.23 X 10*6/uL (4.10-5.20); RDW 12.8 % (11.5-14.5); WBC 6.44 X 10*3/uL (4.50-10.00)
[2022-09-29 11:03] LABS: African American GFR (CKD) 79.6 (60.0-200.0); BUN/Creat Ratio 15.26 Ratio (12.00-20.00); Blood Urea Nitrogen 13.7 mg/dL (9.0-27.0); Carbon Dioxide 26.4 mmol/L (20.0-27.5); Chloride 106 mmol/L (96-109); Glucose 103 mg/dL (70-110); Non-African American GFR(CKD) 68.7 (60.0-200.0); Sodium 141 mmol/L (135-145)
--- NOTE | 2022-09-29 13:45 | P.PN ---
Progress Note - Text Progress Note Date: 09/29/22 Patient is currently undergoing a stress test and EEG. This provider will attempt to reevaluate the patient tomorrow. However collateral information was obtained by the patient's family Esa and Shakila Phillips and through chart review: ID INFO: This patient is a 52-year-old female with significant history of dementia who presented from her assisted-living facility for worsening weakness and inability to take care of herself. The patient presented to the hospital on 09/28/2022, brought in by EMS from her [facility]pc facility for altered mental status. Patient was alert and oriented 1. The patient was noted to be not acting like herself and recently stopped her medications of Remeron and Protonix. Upon arrival to the nursing facility by EMS, the patient was found lying on the floor and was soiled in her own waste. It'll signs were mostly unremarkable except for temperature 100.3. Laboratory workup was mostly unremarkable. CT of the head, chest x-ray, Effexor, and pelvis x-ray revealed no acute process. EKG showed normal sinus rhythm. Patient was subsequently admitted with a consult placed to neurology and psychiatry. Psychiatry has been consulted for "anxiety and depression." Collateral information was obtained by the patient's brother and her sister in law Esa and Shakila Phillips. They both report that the patient has had a rapid and significant decline in her ability to function on her own 8 years ago. They reported started with her being unable to drive and often getting lost when driving. She is relocated to an adult foster care due to her inability to take care of herself. Her memory has been noted to be gradually worsening. The patient was seen by her primary care physician however was unable to go to the bathroom and he could not navigate stairs. She displayed a gradual worsening her ability to ambulate and had incontinence of her bowel and bladder. The patient's family reports that the patient does not have a significant history of schizophrenia or bipolar disorder. They report no significant psychiatric history. They report the patient has never had any inpatient psychiatric admissions. They do acknowledge that she has been prescribed medications for depression and anxiety in the past however are not familiar with her whole psychiatric history. They report that the patient did graduate school but may have attended some special education classes. The patient is currently on a regimen of Lexapro and was recently on Remeron as well however the Remeron was discontinued by her primary care physician. Psychiatry will reattempt evaluation tomorrow. We will order B12 and folate. Agree with current workup by neurology.
--- NOTE | 2022-09-29 15:33 | US ---
EXAMINATION TYPE: US carotid duplex BILAT DATE OF EXAM: 09/29/2022 COMPARISON: NONE CLINICAL HISTORY: Altered mental status, syncope. AMS TECHNIQUE: Carotid duplex ultrasound examination. Indirect Doppler criteria was utilized. FINDINGS: EXAM MEASUREMENTS: RIGHT: Peak Systolic Velocity (PSV) cm/sec ----- Right CCA: 125 ----- Right ICA: 157 ----- Right ECA: 158 ICA/CCA ratio: 1.26 RIGHT: End Diastole cm/sec ----- Right CCA: 13.2 ----- Right ICA: 38.5 ----- Right ECA: 1.8 LEFT: Peak Systolic Velocity (PSV) cm/sec ----- Left CCA: 145 ----- Left ICA: 127 ----- Left ECA: 194 ICA/CCA ratio: 0.88 LEFT: End Diastole cm/sec ----- Left CCA: 5.7 ----- Left ICA: 18.0 ----- Left ECA: 12.6 VERTEBRALS (direction of flow): Right Vertebral: Antegrade Left Vertebral: Antegrade Rhythm: Normal PIANO PLAYER NOTES: Mild plaque bilateral bifurcations. Generally increased velocities IMPRESSION: Plaquing present bilaterally. This is contributing to moderate internal carotid artery stenosis betwe en 50 and 69% bilaterally. Correlate with the patient's symptoms. Criteria for Assigning % of Stenosis / Diameter reduction (Estimation based on the indirect measurements of the internal carotid artery velocities (ICA PSV). 1. Normal (no stenosis)=ICA PSV < 125 cm/s: ratio < 2.0: ICA EDV<40 cm/s. 2. Less than 50% stenosis=ICA PSV < 125 cm/s: ratio < 2.0: ICA EDV<40 cm/s. 3. 50 to 69% stenosis=ICA PSV of 125 to 230 cm/s: ration 2.0 ? 4.0: ICA EDV 40-100 cm/s. 4. Greater than 70% stenosis to near occlusion= ICA PSV > 230 cm/s: ratio > 4.0: ICA EDV > 100 cm/s. 5. Near occlusion= ICA PSV velocities may be low or undetectable: variable ratio and ICA EDV. 6. Total occlusion=unable to detect flow.
--- NOTE | 2022-09-29 17:00 | P.PN ---
Subjective Progress Note Date: 09/29/22 (delayed charting seen at 1400) Patient is a 62-year-old female with history of dementia, mood disorder, psychiatric disorder, hypothyroidism, dyslipidemia presenting from an assisted living facilitydue to fall, worsening weakness and inability to take care of herself. Patient's family attributed changes in mental status to medication being transitioned from Abilify to Zyprexa in the last 2 months. She was recently taken off of Zyprexa and change to Lamictal. Due to increased weakness, patient was taken off of Lamictal as well. She continues to take her Lexapro. In the ER she was mildly febrile with a rectal temperature of 100.3 laboratory data sepsis was relatively unremarkable, urine was negative, drug screen negative, influenza A/B, RSV, and COVID-[address] head and cervical spine showed no acute fracture or subluxation of the cervical spine, CT head demonstrated age-related atrophic and chronic small vessel ischemic changes without acute intracranial process. Chest x-ray showed no acute pulmonary disease. Lumbar x-ray showed moderate to severe multilevel degenerative disc changes greatest L3-4 4 and L5-S1 with grade 1 anterolisthesis of L3 4 and s evere facet joint arthropathy. Bilateral hip x-ray shows no acute fracture or dislocation. She was admitted for further monitoring. She was seen by neurology who recommended EEG, MRI brain, MRI of cervical spine. Imaging: Carotid Doppler: 50-69% stenosis bilaterally Patient seen and examined at bedside with family present. Therefore that she has been complaining of some left-sided hip pain today. He was also complaining of some abdominal pain. Currently she complains of some left-sided eye pain after returning from her MRI. She has no other complaints currently. She does state her hip was hurting earlier but feels better now. Her abdominal distention is feeling better. General: nontoxic, no distress, appears at stated age Derm: warm, dry Head: atraumatic, normocephalic, symmetric Eyes: EOMI, no lid lag, anicteric sclera Mouth: no lip lesion, mucus membranes moist Cardiovascular: S1S2 reg, no murmur, positive posterior tibial pulse bilateral, Lungs: CTA bilateral, no rhonchi, no rales , no accessory muscle use Abdominal: soft, nontender to palpation, no guarding, no appreciable organomegaly Ext: no gross muscle atrophy, no edema, no contractures Neuro: CN II-XI grossly intact, patient with consistent lipsmacking, no tremors noted, difficulty with concentration, upper extremity strength equal bilaterally and 4 out of 5 with flexion, extension, supination, pronation. Muscle strength in right lower extremity 3 out of 5 patient was able to fully lift her leg off of the bed and had good plantar and dorsiflexion, on the right patient is unable to lift her legs off of the bed, with passive range of motion she developed left hip pain. Psych: Alert, oriented, Blunted affect Assessment/plan: On physical exam patient did appear to have a distended bladder. I did ask nursing to do a bladder scan which showed greater then 1000. I asked them to place a Suh catheter. On review of her lumbar spine x-ray and in conjunction with her urinary retention I contacted Dr. Kessler and his service will be the patient today. I also ordered an MRI of the lumbar spine. Bilateral lower extremity weakness with urinary retention Fall Progressive weakness Worsening dementia -MRI lumbar spine, spine surgery consultation -Neurology recommendations -Await MRI brain, EEG -PT/OT evaluation -B12, folate, vitamin D pending -CK pending -Continue to hold Lamictal, check Lamictal level -Await syphilis testing - suh cath Thyroidism -TSH within normal range -Continue Synthroid Given patient's urinary retention in conjunction with her bilateral lower extremity weakness patient is unable to be discharged safely. She does require further inpatient workup to determine possible spinal cord compression versus Drosophila's versus other conditions. Discharge at this time of the to worsening of her condition and possibly result in . Therefore patient transitioned to inpatient status. DVT prophylaxis: Heparin Discussed with: Patient, family, nursing, Dr. Kessler Anticipated discharge: Pending clinical course Anticipated discharge place: Pending clinical course A total of 25 minutes was spent on the care of this complex patient more than 50% of the time was spent in counseling and care coordination. Active Medications Acetaminophen (Acetaminophen Tab 325 Mg Tab) 650 mg PO Q6HR PRN PRN Reason: Mild Pain or Fever > 100.5 Last Admin: 09/29/22 14:03 Dose: 650 mg Atorvastatin Calcium (Atorvastatin 20 Mg Tab) 20 mg PO HS BENJI Last Admin: 09/28/22 20:49 Dose: 20 mg Cholecalciferol (Cholecalciferol 25 Mcg (1000 Iu) Tablet) 25 mcg PO DAILY [facility] Last Admin: 09/29/22 08:08 Dose: 25 mcg Cyanocobalamin (Cyanocobalamin 500 Mcg Tab) 1,000 mcg PO DAILY [facility] Last Admin: 09/29/22 08:08 Dose: 1,000 mcg Enoxaparin Sodium (Enoxaparin 40 Mg/0.4 Ml Syringe) 40 mg SQ DAILY [facility] Last Admin: 09/29/22 08:08 Dose: 40 mg Escitalopram Oxalate (Escitalopram 20 Mg Tab) 20 mg PO DAILY [facility] Last Admin: 09/29/22 08:08 Dose: 20 mg Sodium Chloride (Saline 0.9%) 1,000 mls @ 75 mls/hr IV .[id number] [facility] Last Admin: 09/29/22 04:52 Dose: 75 mls/hr Levothyroxine Sodium (Levothyroxine 25 Mcg Tab) 25 mcg PO 0630 [facility] Last Admin: 09/29/22 06:10 Dose: 25 mcg Melatonin (Melatonin 3 Mg Tablet) 6 mg PO HS [facility] Last Admin: 09/28/22 20:37 Dose: 6 mg Naloxone HCl (Naloxone 0.4 Mg/Ml 1 Ml Vial) 0.2 mg IV Q2M PRN PRN Reason: Opioid Reversal Polyethylene Glycol (Polyethylene Glycol 3350 17 Gm Powd.Pack) 17 gm PO DAILY [facility] Last Admin: 09/29/22 08:14 Dose: 17 gm Senna (Sennosides 8.6 Mg Tab) 8.6 mg PO BID [facility] Last Admin: 09/29/22 08:14 Dose: 8.6 mg Simethicone (Simethicone 80 Mg Chewable) 120 mg PO DAILY [facility] Last Admin: 09/29/22 08:08 Dose: 120 mg Objective - Vital Signs Vital signs: Vital Signs Temp 98.9 F 09/29/22 15:00 Pulse 88 09/29/22 15:00 Resp 16 09/29/22 15:00 BP 134/84 09/29/22 15:00 Pulse Ox 96 09/29/22 15:00 FiO2 Intake & Output 09/28/22 09/29/22 09/29/22 18:59 06:59 18:59 Intake Total 120 100 236 Output Total 500 1100 Balance 120 -400 -864 Weight 62.686 kg 62.686 kg Intake: Oral 120 100 236 Output: Urine 500 1100 Other: Voiding Method Incontinent Incontinent External Catheter External Catheter # Voids 1 1 0 # Bowel Movements 0 - Labs CBC & Chem 7: 09/29/22 07:10 09/29/22 07:10 Labs: Abnormal Lab Results - Last 24 Hours (Table) 09/29/22 09/29/22 Range/Units 07:10 07:10 RBC 3.23 L (4.10-5.20) X 10*6/uL Hgb 10.0 L (12.0-15.0) g/dL Hct 32.0 L (37.2-46.3) % MCV 99.1 H (80.0-97.0) fL MCHC 31.3 L (32.0-37.0) g/dL Anion Gap 8.80 L (10.00-18.00) mmol/L Calcium 8.0 L (8.7-10.3) mg/dL Microbiology - Last 24 Hours (Table) 09/28/22 10:40 Blood Culture - Preliminary Blood No Growth after 24 hours
--- NOTE | 2022-09-29 17:01 | P.CNOR ---
History of Present Illness - [facility] Consult date: 09/29/22 Requesting physician: Lanny Del Angel Consult reason: other (weakness, constipation) History of present illness: Patient is a 62-year-old female with a past medical history of dementia, mood disorder, psychiatric is her, hypothyroidism who presented to the emergency department yesterday with a chief complaint of altered mental status. Patient was brought in by EMS and normally resides at an [facility]. Orthopedics has been consulted for weakness and constipation. Family was at bedside. Patient due to her medical history was not able to provide any history during the encounter. Patient's [id number] gave most of the history during the encounter. Qykwuqzs-xf-wkd says that patient was normally ambulatory and the last time she saw the patient was about 4 weeks ago when she was in the hospital she was using a walker and able to walk around the room. Ghpqpssa-[id number]-oki and patient's brother noted that patient has had increasing weakness to the point where she has not been able to ambulate. Per the ED note the patient was found lying on the floor at [facility] and was lying in stool. Patient has been on many different psychiatric medications. CT of the cervical spine demonstrated no fractures/subluxations of the cervical spine. Lumbar x-ray showed spondylolisthesis multiple levels. Negative for any fractures. Patient's svrfgaet-vv-aar has said that patient does have a history of chronic constipation. Fdokdukc-ja-sqh says the patient has not had any orthopedic surgeries in the past. Patient denies chest pain, fever, shortness of breath, nausea, vomiting, change in vision. Past Medical History Past Medical History: Dementia, Memory Impairment Additional Past Medical History / Comment(s): Dementia History of Any Multi-Drug Resistant Organisms: None Reported Past Surgical History: No Surgical Hx Reported Additional Past Surgical History / Comment(s): tooth extraction Past Anesthesia/Blood Transfusion Reactions: No Reported Reaction Past Psychological History: No Psychological Hx Reported Smoking Status: Never smoker Past Alcohol Use History: None Reported Past Drug Use History: None Reported - Past Family History Father Family Medical History: Unable to Obtain (Due to mental status) Medications and Allergies Home Medications Medication Instructions Recorded Confirmed Type Cholecalciferol [Vitamin D3 (25 25 mcg PO DAILY 09/03/22 09/28/22 History Mcg = 1000 Iu)] Cyanocobalamin (Vitamin B-12) 1,000 mcg PO DAILY 09/03/22 09/28/22 History [Vitamin B-12] Escitalopram [Lexapro] 20 mg PO DAILY 09/03/22 09/28/22 History Ibandronate Sodium [Boniva] 150 mg PO Q30D 09/03/22 09/28/22 History Melatonin 6 mg PO HS 09/03/22 09/28/22 History Simethicone [Gas-X] 125 mg PO DAILY 09/03/22 09/28/22 History Simvastatin 40 mg PO HS 09/03/22 09/28/22 History polyethylene glycoL 3350 [Miralax] 17 gm PO DAILY 09/14/22 09/28/22 History Levothyroxine Sodium [Synthroid] 25 mcg PO DAILY 09/28/22 09/28/22 History Sennosides [Senokot] 8.6 mg PO BID 09/28/22 09/28/22 History Allergies Allergy/AdvReac Type Severity Reaction Status Date / Time Influenza Virus Vaccines Allergy Unknown Verified 09/28/22 11:55 Sulfa (Sulfonamide Allergy Rash/Hives Verified 09/28/22 11:55 Antibiotics) Physical Examination Exam limited due to patient's mental status Inspection: Negative for any open fractures, significant erythema/ecchymosis/ulcers. Some scoliosis present throughout the spine Sensation: Sensation is equal, symmetric, bilaterally intact throughout the upper and lower extremities Palpation: Patient does have tenderness to palpation throughout the lumbar spine at midline. NTTP throughout rest of exam Range of motion: Patient does have full range of motion in bilateral upper extremities during passive exam. Patient does have limited active range of motion of bilateral upper extremities and shoulder forward elevation, abduction, external/internal rotation and elbow flexion/extension. Patient does have some limited range of motion during the passive exam in bilateral hip flexion/extension and knee flexion/extension bilaterally. Patient's extremities are very rigid during exam. Patient does have limited range of motion bilaterally in the lower extremities on active exam and hip flexion/extension and knee flexion/extension. Motor: Car Wash Attendant Automatic strength 3+/5 bilaterally. Unable to performed wrist, elbow, shoulder motor exams due to patient's mental state. Unable to perform bilateral lower extremity motor exam due to patient's mental state Neurovascular status: Radial pulses intact bilaterally. Cap refill under 3 seconds in digits upper extremities Special tests: Negative Homans bilaterally. Negative clonus bilaterally. Negative Grayson bilaterally. Results - Labs Labs: Abnormal Lab Results - Last 24 Hours (Table) 09/29/22 09/29/22 Range/Units 07:10 07:10 RBC 3.23 L (4.10-5.20) X 10*6/uL Hgb 10.0 L (12.0-15.0) g/dL Hct 32.0 L (37.2-46.3) % MCV 99.1 H (80.0-97.0) fL MCHC 31.3 L (32.0-37.0) g/dL Anion Gap 8.80 L (10.00-18.00) mmol/L Calcium 8.0 L (8.7-10.3) mg/dL Microbiology - Last 24 Hours (Table) 09/28/22 10:40 Blood Culture - Preliminary Blood No Growth after 24 hours H & H 09/28/22 09/29/22 Range/Units 10:40 07:10 Hgb 11.6 10.0 L (11.4-16.0) gm/dL Hct 33.5 L 32.0 L (34.0-46.0) % Coagulation 09/28/22 Range/Units 10:40 INR 1.0 (<1.2) Result Diagrams: 09/29/22 07:10 09/29/22 07:10 - Diagnostic results Lumbar AP/lateral x-ray: report reviewed, image reviewed (X-ray lumbar spine does not demonstrate any fractures. X-ray does demonstrates spondylolisthesis from L3 through S1.) Assessment and Plan Assessment: 1. Low back pain 2. Dementia 3. Multiple medical comorbidities Plan: 1. Low back pain - patient examined at bedside this afternoon with family present during encounter. Patient does present with weakness in the bilateral l ower extremities on exam. X-ray lumbar spine does not demonstrate any fractures. X-ray does demonstrates spondylolisthesis from L3 through S1. Patient does have urinary retention. MRI of lumbar spine has been ordered due to bilateral lower extremity weakness. At this time we do not recommend any emergent/urgent orthopedic surgical intervention. We will await the results of MRI of lumbar spine for proceeding with any potential orthopedic intervention. We'll continue to follow patient during her stay in hospital. 2. Appreciate medical management 3. Pain management - Tylenol 4. DVT prophylaxis - Lovenox 5. GI prophylaxis - senna 6. PT/OT - weightbearing as tolerated with walker and assistance 7. Encourage incentive spirometer use 8. Appreciate consult Time with Patient: Less than 30
--- NOTE | 2022-09-29 18:48 | XR ---
EXAMINATION TYPE: XR Hip Complete LT DATE OF EXAM: 09/29/2022 6:35 PM INDICATION: Patient age:Female; 62 years old; Reason for study: pain; COMPARISON: 09/28/2022 TECHNIQUE: The left hip was examined in the frontal and lateral projections and a AP pelvis. FINDINGS: No evidence for acute process, joint dislocation or significant soft tissue swelling. IMPRESSION: No acute process.
[2022-09-29] MEDS: ATORVASTATIN 20 MG TAB PO SCH (20:40)
[2022-09-29] MEDS: MELATONIN 3 MG TABLET PO SCH (20:40)
--- NOTE | 2022-09-29 22:01 | MR ---
EXAMINATION TYPE: MR brain [place] [facility] DATE OF EXAM: 09/29/2022 COMPARISON: None HISTORY: Acute mental status changes,Gait abnormality, falls CONTRAST: Performed utilizing 6 mL intravenous Gadavist gadolinium contrast. TECHNIQUE: Multiplanar, multiecho imaging on a 3.0 Rachana magnet is performed through the brain. Stud y is not performed within 24 hours of arrival to the hospital. There is limitation on the exam due to motion artifact. The craniovertebral junction is normal. The pituitary is normal. Diffusion-weighted imaging is performed. No abnormal hyperintensity is present to suggest an acute i ntracranial infarct or acute ischemic change. Signal through the brain appears normal. Ventricles and sulci are mildly prominent for the patient age. No temporal horn dilatation is evident . Normal vascular flow voids are present. No abnormal enhancement is evident. IMPRESSIONS: 1. Mild atrophy. 2. No acute intracranial process. EXAMINATION TYPE: MR brain [place]/w [facility] [place] DATE OF EXAM: 09/29/2022 COMPARISON: None HISTORY: Gait abnormality, falls CONTRAST: Performed utilizing 6 mL intravenous Gadavist gadolinium contrast. TECHNIQUE: Multiplanar multiecho imaging on a 3.0 Rachana magnet is performed through the cervical spin e. There is some limitation due to motion artifact during the exam. FINDINGS: The craniovertebral junction is normal. Vertebral body alignment is normal. Diffuse disc space narrowing through the mid cervical spine. This is greatest at C6-7. C7-T1: No focal disc herniation or significant disc bulge is evident. No spinal canal stenosis or n eural foraminal stenosis is present. C6-7: Mild endplate spurring from the upper endplate of C6 is present. This has mild anterior thecal sac compression. This may be slightly greater in the right paracentral region. Axial images are limit ed. AP spinal canal stenosis and obvious cord contact is not identified.. C5-6: Mild disc space narrowing is present. No focal disc herniation is evident. No cord contact or c ord deformity is evident. No spinal canal stenosis.. C4-5: No focal disc herniation or significant disc bulge is evident. No spinal canal stenosis or jayme ral foraminal stenosis is present. C3-4: No focal disc herniation or significant disc bulge is evident. No spinal canal stenosis or jayme ral foraminal stenosis is present. C2-3: No focal disc herniation or significant disc bulge is evident. No spinal canal stenosis or jayme ral foraminal stenosis is present. IMPRESSIONS: 1. Degenerative disc changes C6-7. 2. Endplate spurring C6-7 in the right paracentral region with mild anterior thecal sac impression. M otion artifact limits the axial images and cord contact or deformity is not able to be evaluated. 3. Mild endplate changes C5-6 with mild anterior thecal sac compression. No cord contact.
--- NOTE | 2022-09-29 22:46 | EEG ---
ELECTROENCEPHALOGRAM REPORT PREAMBLE: This is a 62-year-old female with syncopal spell, altered mental status. This study is performed to evaluate for any epileptiform activity. EEG FINDINGS: This is a 21-channel digital EEG recorded with video component, utilizing 10/20 international system with referential bipolar montages. Background consists of well- developed, but disorganized, mixed frequencies of theta in 5 to 6 hertz, intermixed with some 2 to 3 hertz delta and some fast frequency beta activity. Background does not seem to be reactive to eye opening or closing. Photic driving response was not seen. Different stages of sleep were not clearly seen. No definitive focal or generalized epileptiform activity was seen. EKG channel showed no obvious arrhythmia. IMPRESSION: This is an abnormal EEG due to background slowing and disorganization of mild to moderate degree. This is suggestive of generalized cerebral dysfunction as can be seen with toxic metabolic encephalopathy, or related to diffuse structural brain abnormality. Clinical correlation is recommended. No definitive epileptiform activity was seen. MMODL / IJN: [id number] /
--- NOTE | 2022-09-29 23:18 | P.PN ---
Subjective Progress Note Date: 09/29/22 Patient was seen for a follow-up. Patient's brother Esa and his were present today. Yesterday I had spoken to the other brother Artur. Esa and his mentioned that patient has history of emotionally impaired, and somewhat low IQ level. They concurred that patient never had this lipsmacking movement in the past. Also with rapidly declining level of ambulation. Patient has history of psychiatric illness and depression with psychotic features in the past. Objective - Vital Signs Vital signs: Vital Signs Temp 98.9 F 09/29/22 07:00 Pulse 74 09/29/22 07:00 Resp 17 09/29/22 08:15 BP 105/53 09/29/22 07:00 Pulse Ox 97 09/29/22 07:00 FiO2 Intake & Output 09/28/22 09/29/22 09/29/22 18:59 06:59 18:59 Intake Total 120 100 118 Output Total 500 Balance 120 -400 118 Weight 62.686 kg 62.686 kg Intake: Oral 120 100 118 Output: Urine 500 Other: Voiding Method Incontinent Incontinent External Catheter External Catheter # Voids 1 1 - Exam Patient is alert and awake, appears hyperverbal. Speech and language functions are normal. No obvious aphasia. Patient has poor thought content, and some flight of ideas. Her pupils are equal, round and reacting, visual field appears full. Face is symmetric and tongue protrudes the midline. Patient has constant lip smacking movements. On muscle strength testing (right/left) deltoid 4/4, biceps 5/5, triceps 5/5, etymology teacher 5/5, hip flexion 3+/3 to 3-, ankle dorsiflexion 4/2. Reflexes are 2+ at the biceps, 2+ brachioradialis, 3 at the knees and ankles are upgoing bilaterally. Patient's tone is moderately increased bilaterally. Tone is also increased in the lower limbs. - Labs CBC & Chem 7: 09/29/22 07:10 09/29/22 07:10 Labs: Abnormal Lab Results - Last 24 Hours (Table) 09/29/22 09/29/22 Range/Units 07:10 07:10 RBC 3.23 L (4.10-5.20) X 10*6/uL Hgb 10.0 L (12.0-15.0) g/dL Hct 32.0 L (37.2-46.3) % MCV 99.1 H (80.0-97.0) fL MCHC 31.3 L (32.0-37.0) g/dL Anion Gap 8.80 L (10.00-18.00) mmol/L Calcium 8.0 L (8.7-10.3) mg/dL Microbiology - Last 24 Hours (Table) 09/28/22 10:40 Blood Culture - Preliminary Blood No Growth after 24 hours Assessment and Plan Assessment: * Altered mental status, probably due to underlying dementia. Rule out superimposed delirium, rule out manic episode with psychosis. Patient does have low-grade fever, but no obvious signs of infection. CBC, Chest x-ray and UA are negative. No obvious metabolic derangements. * Rapidly progressive gait dysfunction, cognitive decline, bowel and bladder control issues, unclear etiology. * Syncopal spell while straining, likely vasovagal. * Parkinsonism with significant rigidity, tremulousness and new onset lip smacking. Possible tardive dyskinesia, rule out seizure. Rule out NMDA encephalitis. Rule out NMS. * History of mild cognitive slowing since childhood. Plan: * Patient has developed rapid decline in cognitive and ambulatory functions with bowel or bladder control issues. * MRI of the brain revealed mild atrophy. No acute intracranial process. I personally reviewed MRI, I agree with the findings. No acute process. * MRI of the cervical spine revealed degenerative disc changes C6 7. Endplates spurring C6 7 in the right paracentral region with mild anterior thecal sac compression. Motion artifact limits the axial images and cord contact or deformities not able to be evaluated. Mild endplate changes C5 6 with mild anterior thecal sac compression. No cord contact. I personally reviewed MRI, and agreed with no significant spinal stenosis, except mild to moderate at C5 6 level. Significant degenerative changes of the spine particularly at C6-C7 level. * Check MRI of the lumbar and thoracic spine to rule out spinal stenosis. * EEG was performed, which was abnormal EEG due to background slowing and disorganization of [id number] degree. This is suggestive of generalized cerebral dysfunction as can be seen with toxic metabolic encephalopathy or related to diffuse structural brain abnormality. Clinical correlation is recommended. No epileptiform activity was seen. * Carotid Doppler revealed plaquing present bilaterally. This is contributing to moderate internal carotid artery stenosis between 50 and 69% bilaterally. Antegrade flow in both vertebral arteries. Suggest starting aspirin 81 mg daily, if no medical contraindications. * Await psychiatry consultation for possible psychosis. * B12 is normal 1027, folate 17.20, TFTs are normal. Vitamin D 28.2. C- reactive protein <0.5. RPR nonreactive * CPK pending, hemoglobin A1c 5.7. * DVT prophylaxis: Patient on Lovenox. * Discussed with patient's brother in detail.
[2022-09-30] MEDS: LEVOTHYROXINE 25 MCG TAB PO SCH (06:34)
[2022-09-30] MEDS: SODIUM CHLORIDE 0.9% 1,000 ML IV SCH ×2 (06:34→18:49)
[2022-09-30] MEDS: ENOXAPARIN 40 MG/0.4 ML SYRINGE SQ SCH (08:10)
[2022-09-30] MEDS: ASPIRIN 81 MG PO SCH (08:10)
[2022-09-30] MEDS: SENNOSIDES 8.6 MG TAB PO SCH ×2 (08:10→20:43)
[2022-09-30] MEDS: CYANOCOBALAMIN 500 MCG TAB PO SCH (08:11)
[2022-09-30] MEDS: ESCITALOPRAM 20 MG TAB PO SCH (08:11)
[2022-09-30] MEDS: CHOLECALCIFEROL 25 MCG (1000 IU) TABLET PO SCH ×2 (08:11→15:34)
[2022-09-30] MEDS: SIMETHICONE 80 MG CHEWABLE PO SCH (08:11)
[2022-09-30] MEDS: polyethylene glycoL 3350 17 GM POWD.PACK PO SCH (08:11)
--- NOTE | 2022-09-30 09:32 | P.PN ---
Subjective Progress Note Date: 09/30/22 Principal diagnosis: generalized weakness constipation Patient seen and examined this morning. Patient was resting comfortably in bed. Patient is pleasantly confused, unable to follow commands of physical assessment. Patient does state that she has lower back pain. Lehman catheter is present and patent. Encouragement provided for patient to work with physical therapy today. We are currently awaiting for results of scheduled MRI of the lumbar spine. Patient has been afebrile, denies any nausea/vomiting, or chest pain. Objective - Vital Signs Vital signs: Vital Signs Temp 98.9 F 09/30/22 07:00 Pulse 73 09/30/22 07:00 Resp 18 09/30/22 07:00 BP 149/72 09/30/22 07:00 Pulse Ox 97 09/30/22 07:00 FiO2 Intake & Output 09/29/22 09/30/22 09/30/22 18:59 06:59 18:59 Intake Total 709 Output Total 1100 500 Balance -391 -500 Intake: Oral 709 Output: Urine 1100 500 Other: Voiding Method Incontinent Indwelling Catheter External Catheter # Voids 0 2 # Bowel Movements 0 1 - Exam Physical Examination General: The patient is awake and alert, in no acute distress Skin: Skin is warm and dry with no obvious rashes or lesions. Hairy patches absent, no dorsal skin dimples, no cafe au lait spots, and no surgical incisions. Eye: Pupils are equal, round and reactive to light, extra-ocular movements are intact; there is normal conjunctiva bilaterally. Neck: The neck is supple, there is no tenderness and ROM intact. Cardiovascular: There is a regular rate and rhythm. No murmur, rub or gallop is appreciated. Respiratory: Lungs are clear to auscultation, respirations are non-labored, breath sounds are equal. Gastrointestinal: Soft, non-distended, non-tender abdomen. Back: There is tenderness to palpation in the paralumbar region. There is no obvious deformity . Musculoskeletal: ROM limited secondary to pain and stiffness. Muscle strength in all major muscle groups are unable to be assessed at this time due to patients mental state and inability to follow commands. Neurological: CN 2-12 intact. There are no obvious motor or sensory deficits. Movement and coordination DELBERT. Sensory exam to light touch intact C5-T1 and intact from L2-S1. Reflexes 2/4 in bilateral upper and lower extremities. Negative Hoffmans, babinski, and clonus signs. Psychiatric: AMS, confused. - Labs CBC & Chem 7: 09/29/22 07:10 09/29/22 07:10 Labs: Abnormal Lab Results - Last 24 Hours (Table) 09/29/22 09/29/22 09/29/22 Range/Units 07:10 07:10 07:10 RBC 3.23 L (4.10-5.20) X 10*6/uL Hgb 10.0 L (12.0-15.0) g/dL Hct 32.0 L (37.2-46.3) % MCV 99.1 H (80.0-97.0) fL MCHC 31.3 L (32.0-37.0) g/dL Anion Gap 8.80 L (10.00-18.00) mmol/L Calcium 8.0 L (8.7-10.3) mg/dL Creatine Kinase 238 H (26-186) U/L Vitamin B12 (200.0-944.0) pg/mL Vitamin D 25-Hydroxy (30.0-100.0) ng/mL 09/29/22 Range/Units 15:09 RBC (4.10-5.20) X 10*6/uL Hgb (12.0-15.0) g/dL Hct (37.2-46.3) % MCV (80.0-97.0) fL MCHC (32.0-37.0) g/dL Anion Gap (10.00-18.00) mmol/L Calcium (8.7-10.3) mg/dL Creatine Kinase (26-186) U/L Vitamin B12 1092.0 H (200.0-944.0) pg/mL Vitamin D 25-Hydroxy 17.7 L (30.0-100.0) ng/mL Microbiology - Last 24 Hours (Table) 09/28/22 10:40 Blood Culture - Preliminary Blood No Growth after 24 hours Assessment and Plan Assessment: Low back pain Lumbar Spondylosis Lumbar Spondylolithesis Dementia Multiple medical comorbidities Plan: -Appreciate documentum consultant and team management. -Activity: PT/OT -weightbearing as tolerated with walker and assistance -Pain control: Adequate at this time -GI ppx: senna, Miralax -DVT PPX: Lovnox -Encourage IS 10x/hr -Awaiting MRI of the Lumbar spine results. -We will continue to follow *I reviewed and discussed this case with my attending Dr. Kessler, whom has reviewed this chart and films and is in agreement with assessment and plan of care as outlined above. I have personally seen and examined the patient, performed the documentation and the assessment and plan as written. Number of minutes spent on the visit: 20m.
[2022-09-30] MEDS ORDERED: OLANZapine 5 MG TAB PO STA (10:46)
[2022-09-30] MEDS: DEXAMETHASONE SOD PHOSPHATE 4 MG/ML 1 ML VIAL IVP SCH ×2 (12:09→18:49)
--- NOTE | 2022-09-30 13:38 | P.CN ---
Psychiatric Consult - . Consult date: 09/30/22 Consult:: 09/30/22 13:35 IDENTIFYING DATA: This patient is a 62-year-old female with a significant history of dementia who presented from her assisted-living facility for worsening weakness and inability to care for herself. HISTORY OF PRESENT ILLNESS: The patient presented to the hospital on 09/28/2022, brought in by EMS from her facility for altered mental status. Patient was noted to be alert and oriented 1 only. She was noted to be acting like herself and recently stopped her medications of Remeron and Protonix. Upon initial evaluation by EMS, the patient was found lying on the floor and was soiled and disheveled. Initial vital signs were mostly unremarkable except for temperature 100.3. After workup was mostly unremarkable. CT of the head, chest x-ray, and pelvic x-ray revealed no acute process. EKG showed normal sinus rhythm. Patient was admitted with a [facility] neurology and psychiatry. Psychiatry has been consulted for anxiety and depression. Collateral information obtained by the patient's guardian and brother Isaias and his Sonya. They report that the patient has had a significant decline in her ability to function even more so over the past few weeks. They report th at the patient does have issues with memory that have been ongoing for the past 8 years however over the past few weeks she has been declining in her ability to walk, move, and has been displaying some lip smacking behavior. The patient has also been noted by her family to have worsening of her incontinence. In obtaining psychiatric history, collateral information was obtained by the patient's case supervisor Meghna from [facility]. As per collateral history, the patient does not have any significant diagnoses of psychosis in the past. The patient has no history of schizophrenia or bipolar disorder and began to display issues with memory primarily. The patient was being seen by psychiatry due to anger and mood episodes secondary to the patient's dementia. Medications Habitrol for the patient include Abilify and Zyprexa however was reported by the patient's family that the Zyprexa caused her to be "zombie-like" and the medication was discontinued. The patient was also placed on mirtazapine in order to address insomnia. This medication was increased a few months ago however the patient continued to display no benefit from this medication and continued to be awake throughout the night. The primary care physician for this patient also started the patient on Lamictal in hopes to address mood but the family has not noticed any signifcant changes. The primary concern for the family at this time as the patient's sudden decline in her mobility and her incontinence. When assessing the patient, the patient is a very poor historian and is mostly nonsensical in short conversation. She only states this provider "I'm sorry I'm Advent." She is alert and oriented to self only. PAST PSYCHIATRIC HISTORY: Patient has a history of depression as per [facility]. Psychiatric medications trialed include Abilify, Zyprexa, Lexapro, and Remeron. Patient has no previous history of psychiatric hospitalizations. The patient is open with [facility]. No reported history of suicide attempts in the past. PAST MEDICAL HISTORY: Past Medical History: Dementia, Memory Impairment Additional Past Medical History / Comment(s): Dementia History of Any Multi-Drug Resistant Organisms: None Reported Past Surgical History: No Surgical Hx Reported Additional Past Surgical History / Comment(s): tooth extraction Past Anesthesia/Blood Transfusion Reactions: No Reported Reaction Past Psychological History: No Psychological Hx Reported Smoking Status: Never smoker Past Alcohol Use History: None Reported Past Drug Use History: None Reported ALLERGIES: as per EMR. CHEMICAL DEPENDENCY HISTORY: The patient has no reported history of substance abuse. No history of alcohol, tobacco, marijuana, or illicit drug use. FAMILY PSYCHIATRIC/SUBSTANCE USE HISTORY: No reported family psychiatric history. SOCIAL HISTORY: Patient is currently residing in a care home. The patient's guardian is her brother Isaias Phillips. She is single, never , and has no children. MENTAL STATUS EXAM: General Appearance: Patient appears to be stated age is alert, and attempts to cooperate. Behavior: She is lying down in bed. The patient displays perioral mouth movements. Speech: Patient's speech displays word finding difficulty, is nonspontaneous, and slow to respond. Monotone. Mood/Affect: Patient reports their mood is "I'm sorry I'm Advent", affect is flat. Suicidality/Homicidality: Patient denies having any suicidal or homicidal ideation intent or plan. Perceptions: Patient denies any visual hallucinations and denies any auditory hallucinations Though content/process: Patient is concrete in her thoughts. Minimal. Memory and concentration: Patient is alert and oriented to self only. Judgment and insight: Appears to be poor at this time. IMPRESSIONS: Altered mental status Major depression by history Major neurocognitive disorder rule out tardive dyskinesia versus parkinsonian symptoms secondary to antipsychotic medication versus donepezil side effects PLAN: -Continue your medical and neurological evaluation and workup. -At this time patient DOES NOT meet criteria for inpatient psychiatric admission. -Patient DOES NOT have decision making capacity at this time and is unable to reason through and communicate/appreciate the risks, benefits and alternatives to treatment. -Delirium precautions recommended with patient including - avoiding use of narcotics and [employer] PAGE [employer] sedatives, limit anticholinergic medications when possible, frequent re-orientation, minimize use of restraints, open window shades during the day and close them at night -Would recommend the following medication changes/additions: We will start the patient on amantadine 100 mg by mouth twice a day in order to address possible tardive dyskinesia and parkinsonian symptoms. Hold antipsychotic medications. Continue Lexapro 20 mg by mouth daily -Will continue to follow along Vital Signs Temp 98.9 F 09/30/22 07:00 Pulse 73 09/30/22 07:00 Resp 18 09/30/22 07:00 BP 149/72 09/30/22 07:00 Pulse Ox 97 09/30/22 07:00 FiO2 Intake & Output 09/29/22 09/30/22 09/30/22 18:59 06:59 18:59 Intake Total 709 Output Total 1100 500 Balance -391 -500 Intake: Oral 709 Output: Urine 1100 500 Other: Voiding Method Incontinent Indwelling Catheter External Catheter # Voids 0 2 # Bowel Movements 0 1 Laboratory Results WBC 6.44 X 10*3/uL (4.50-10.00) 09/29/22 07:10 RBC 3.23 X 10*6/uL (4.10-5.20) L 09/29/22 07:10 Hgb 10.0 g/dL (12.0-15.0) L 09/29/22 07:10 Hct 32.0 % (37.2-46.3) L 09/29/22 07:10 MCV 99.1 fL (80.0-97.0) H 09/29/22 07:10 MCH 31.0 pg (27.0-32.0) 09/29/22 07:10 MCHC 31.3 g/dL (32.0-37.0) L 09/29/22 07:10 RDW 12.8 % (11.5-14.5) 09/29/22 07:10 Plt Count 232 X 10*3/uL (140-440) 09/29/22 07:10 MPV 11.1 fL (9.5-12.2) 09/29/22 07:10 Immature Gran % (Auto) 0.3 % 09/29/22 07:10 Absolute Nucleated RBC 0 X 10*3/uL (0.00-0.00) 09/29/22 07:10 Neutrophils % 75.6 % 09/29/22 07:10 Lymphocytes % 14.3 % 09/29/22 07:10 Monocytes % 8.4 % 09/29/22 07:10 Eosinophils % 1.1 % 09/29/22 07:10 Basophils % 0.3 % 09/29/22 07:10 Immature Gran # 0.02 X 10*3/uL (0.00-0.04) 09/29/22 07:10 Neutrophils # 4.87 X 10*3/uL (1.80-7.70) 09/29/22 07:10 Lymphocytes # 0.92 X 10*3/uL (0.90-5.00) 09/29/22 07:10 Monocytes # 0.54 X 10*3/uL (0.20-1.00) 09/29/22 07:10 Eosinophils # 0.07 X 10*3/uL (0.04-0.35) 09/29/22 07:10 Basophils # 0.02 X 10*3/uL (0.00-0.10) 09/29/22 07:10 NRBC/100 WBC Diff 0 /100 WBCS (0.0-0.0) 09/29/22 07:10 ESR 33 mm/hr (0-20) H 09/30/22 08:35 PT 10.5 sec (9.0-12.0) 09/28/22 10:40 INR 1.0 (<1.2) 09/28/22 10:40 APTT 22.3 sec (22.0-30.0) 09/28/22 10:40 Sodium 141 mmol/L (135-145) 09/29/22 07:10 Potassium 4.0 mmol/L (3.5-5.5) 09/29/22 07:10 Chloride 106 mmol/L (96-109) 09/29/22 07:10 Carbon Dioxide 26.4 mmol/L (20.0-27.5) 09/29/22 07:10 Anion Gap 8.80 mmol/L (10.00-18.00) L 09/29/22 07:10 BUN 13.7 mg/dL (9.0-27.0) 09/29/22 07:10 Creatinine 0.9 mg/dL (0.6-1.5) 09/29/22 07:10 Est GFR (CKD-EPI)AfAm 79.6 (60.0-200.0) 09/29/22 07:10 Est GFR (CKD-EPI)NonAf 68.7 (60.0-200.0) 09/29/22 07:10 BUN/Creatinine Ratio 15.26 Ratio (12.00-20.00) 09/29/22 07:10 Glucose 103 mg/dL (70-110) 09/29/22 07:10 POC Glucose (mg/dL) 110 mg/dL (70-110) 09/28/22 10:45 POC Glu Mycologist ID María Smyth 09/28/22 10:[address] Glu mg/dL 116 09/29/22 07:10 Hemoglobin A1c 5.7 % (0.0-6.0) 09/29/22 07:10 Calcium 8.0 mg/dL (8.7-10.3) L 09/29/22 07:10 Total Bilirubin 1.0 mg/dL (0.2-1.3) 09/28/22 10:40 AST 28 U/L (14-36) 09/28/22 10:40 ALT 24 U/L (4-34) 09/28/22 10:40 Alkaline Phosphatase 88 U/L (38-126) 09/28/22 10:40 Creatine Kinase 238 U/L (26-186) H 09/29/22 07:10 Troponin I <0.012 ng/mL (0.000-0.034) 09/28/22 10:40 C-Reactive Protein 3.5 mg/dL (<1.0) H 09/30/22 08:35 Total Protein 6.1 g/dL (6.3-8.2) L 09/28/22 10:40 Albumin 3.6 g/dL (3.5-5.0) 09/28/22 10:40 Vitamin B12 1092.0 pg/mL (200.0-944.0) H 09/29/22 15:09 Vitamin D 25-Hydroxy 17.7 ng/mL (30.0-100.0) L 09/29/22 15:09 Folate 11.60 ng/mL (4.40-31.00) 09/29/22 15:09 TSH 1.450 uIU/mL (0.350-5.500) 09/29/22 07:10 Urine Color Light Yellow 09/28/22 11:00 Urine Appearance Clear (Clear) 09/28/22 11:00 Urine pH 6.5 (5.0-8.0) 09/28/22 11:00 Ur Specific [place] 1.010 (1.001-1.035) 09/28/22 11:00 Urine Protein Negative (Negative) 09/28/22 11:00 Urine Glucose (UA) Negative (Negative) 09/28/22 11:00 Urine Ketones Negative (Negative) 09/28/22 11:00 Urine Blood Negative (Negative) 09/28/22 11:00 Urine Nitrite Negative (Negative) 09/28/22 11:00 Urine Bilirubin Negative (Negative) 09/28/22 11:00 Urine Urobilinogen <2.0 mg/dL (<2.0) 09/28/22 11:00 Ur Leukocyte Esterase Negative (Negative) 09/28/22 11:00 Urine Opiates Screen Not Detected (NotDetected) 09/28/22 13:58 Ur Oxycodone Screen Not Detected (NotDetected) 09/28/22 13:58 Urine Methadone Screen Not Detected (NotDetected) 09/28/22 13:58 Ur Propoxyphene Screen Not Detected (NotDetected) 09/28/22 13:58 Ur Barbiturates Screen Not Detected (NotDetected) 09/28/22 13:58 U Tricyclic Antidepress Not Detected (NotDetected) 09/28/22 13:58 Ur Phencyclidine Scrn Not Detected (NotDetected) 09/28/22 13:58 Ur Amphetamines Screen Not Detected (NotDetected) 09/28/22 13:58 U Methamphetamines Scrn Not Detected (NotDetected) 09/28/22 13:58 U Benzodiazepines Scrn Not Detected (NotDetected) 09/28/22 13:58 Urine Cocaine Screen Not Detected (NotDetected) 09/28/22 13:58 U Marijuana (THC) Screen Not Detected (NotDetected) 09/28/22 13:58 Treponema pallidum Ab Nonreactive (Nonreactive) 09/29/22 07:10 Influenza Type A (PCR) Not Detected (Not Detectd) 09/28/22 12:09 Influenza Type B (PCR) Not Detected (Not Detectd) 09/28/22 12:09 RSV (PCR) Not Detected (Not Detectd) 09/28/22 12:09 SARS-CoV-2 (PCR) Not Detected (Not Detectd) 09/28/22 12:09 Allergies Allergy/AdvReac Type Severity Reaction Status Date / Time Influenza Virus Vaccines Allergy Unknown Verified 09/28/22 11:55 Sulfa (Sulfonamide Allergy Rash/Hives Verified 09/28/22 11:55 Antibiotics) 09/30/22 13:36 09/30/22 13:37
--- NOTE | 2022-09-30 13:50 | P.PN ---
Subjective Progress Note Date: 09/30/22 (delayed charting seen at 1120) Patient is a 62-year-old female with history of dementia, mood disorder, psychiatric disorder, hypothyroidism, dyslipidemia presenting from an assisted living facilitydue to fall, worsening weakness and inability to take care of herself. Patient's family attributed changes in mental status to medication being transitioned from Abilify to Zyprexa in the last 2 months. She was recently taken off of Zyprexa and change to Lamictal. Due to increased weakness, patient was taken off of Lamictal as well. She continues to take her Lexapro. In the ER she was mildly febrile with a rectal temperature of 100.3 laboratory data sepsis was relatively unremarkable, urine was negative, drug screen negative, influenza A/B, RSV, and COVID-[address] head and cervical spine showed no acute fracture or subluxation of the cervical spine, CT head demonstrated age-related atrophic and chronic small vessel ischemic changes without acute intracranial process. Chest x-ray showed no acute pulmonary disease. Lumbar x-ray showed moderate to severe multilevel degenerative disc changes greatest L3-4 4 and L5-S1 with grade 1 anterolisthesis of L3 4 and s evere facet joint arthropathy. Bilateral hip x-ray shows no acute fracture or dislocation. She was admitted for further monitoring. She was seen by neurology who recommended EEG, MRI brain, MRI of cervical spine. Imaging reviewed today: Carotid Doppler: 50-69% stenosis bilaterally MRI [id number] atrophy MRI cervical spine-degenerative changes, unable to evaluate for cord compression at C6 7 [id number] activity, background slowing and disorganization Patient seen and examined at bedside with family present. They report that up until one week ago she had a slow shuffling gait but was able to get up and walk independently. They also report that her mentation was better than it is now. She denies any hip pain today or shortness of breath. She does continue to have some vague abdominal pain. General: nontoxic, no distress, appears at stated age Derm: warm, dry Head: atraumatic, normocephalic, symmetric Eyes: EOMI, no lid lag, anicteric sclera Mouth: no lip lesion, mucus membranes moist Cardiovascular: S1S2 reg, no murmur, positive posterior tibial pulse bilateral, Lungs: Decreased breath sounds bilateral, no rhonchi, no rales , no accessory muscle use Abdominal: soft, nontender to palpation, no guarding, no appreciable organomegaly Ext: no gross muscle atrophy, no edema, no contractures Neuro: CN II-XI grossly intact, patient with less lipsmacking, no tremors noted, difficulty with concentration, muscle strength in bilateral lower extremities 3 out of 5, clonus right lower. Psych: Alert, oriented, Blunted affect Assessment/plan: Bilateral lower extremity weakness with urinary retention Fall Progressive weakness Worsening dementia -MRI lumbar spine pending -Orthospine recommendations appreciated -Neurology recommendations appreciated -PT/OT evaluation -B12, folate, normal, vitamin D low normal -CK mildly elevated -ESR and CRP mildly elevated -Continue to hold Lamictal, Lamictal level pending -Syphilis negative - suh cath Thyroidism -TSH within normal range -Continue Synthroid DVT prophylaxis: Heparin Discussed with: Patient, family, nursing, Dr. Kessler Anticipated discharge: Pending clinical course Anticipated discharge place: Pending clinical course A total of 35 minutes was spent on the care of this complex patient more than 50% of the time was spent in counseling and care coordination. Active Medications Generic Name Dose Route Start Last Admin Trade Name Freq PRN Reason Stop Dose Admin Acetaminophen 650 mg 09/28/22 13:27 09/29/22 20:40 Acetaminophen Tab 325 Mg Tab PO 650 mg Q6HR PRN Administration Mild Pain or Fever > 100.5 Amantadine HCl 100 mg 09/30/22 21:00 Amantadine Hcl 100 Mg Cap PO BID BENJI Aspirin 81 mg 09/30/22 09:00 09/30/22 08:10 Aspirin 81 Mg PO 81 mg DAILY BENJI Administration Atorvastatin Calcium 20 mg 09/28/22 21:00 09/29/22 20:40 Atorvastatin 20 Mg Tab PO 20 mg HS BENJI Administration Cholecalciferol 25 mcg 09/29/22 09:00 09/30/22 08:11 Cholecalciferol 25 Mcg (1000 Iu) Tablet PO 25 mcg DAILY BENJI Administration Cyanocobalamin 1,000 mcg 09/29/22 09:00 09/30/22 08:11 Cyanocobalamin 500 Mcg Tab PO 1,000 mcg DAILY BENJI Administration Dexamethasone Sodium Phosphate 4 mg 09/30/22 12:00 09/30/22 12:09 Dexamethasone Sod Phosphate 4 Mg/Ml 1 Ml Vial IVP 4 mg Q6HR BENJI Administration Enoxaparin Sodium 40 mg 09/29/22 09:00 09/30/22 08:10 Enoxaparin 40 Mg/0.4 Ml Syringe SQ 40 mg DAILY BENJI Administration Escitalopram Oxalate 20 mg 09/29/22 09:00 09/30/22 08:11 Escitalopram 20 Mg Tab PO 20 mg DAILY BENJI Administration Sodium Chloride 1,000 mls @ 75 mls/hr 09/28/22 13:30 09/30/22 06:34 Saline 0.9% IV 75 mls/hr .[id number] BENJI Administration Levothyroxine Sodium 25 mcg 09/29/22 06:30 09/30/22 06:34 Levothyroxine 25 Mcg Tab PO 25 mcg 0630 BENJI Administration Melatonin 6 mg 09/28/22 21:00 09/29/22 20:40 Melatonin 3 Mg Tablet PO 6 mg HS BENJI Administration Naloxone HCl 0.2 mg 09/28/22 13:16 Naloxone 0.4 Mg/Ml 1 Ml Vial IV Q2M PRN Opioid Reversal Polyethylene Glycol 17 gm 09/29/22 09:00 09/30/22 08:11 Polyethylene Glycol 3350 17 Gm Powd.Pack PO 17 gm DAILY BENJI Administration Senna 8.6 mg 09/28/22 21:00 09/30/22 08:10 Sennosides 8.6 Mg Tab PO 8.6 mg BID BENJI Administration Simethicone 120 mg 09/29/22 09:00 09/30/22 08:11 Simethicone 80 Mg Chewable PO 120 mg DAILY BENJI Administration Objective - Vital Signs Vital signs: Vital Signs Temp 98.9 F 09/30/22 07:00 Pulse 73 09/30/22 07:00 Resp 18 09/30/22 07:00 BP 149/72 09/30/22 07:00 Pulse Ox 97 09/30/22 07:00 FiO2 Intake & Output 09/29/22 09/30/22 09/30/22 18:59 06:59 18:59 Intake Total 709 Output Total 1100 500 Balance -391 -500 Intake: Oral 709 Output: Urine 1100 500 Other: Voiding Method Incontinent Indwelling Catheter External Catheter # Voids 0 2 # Bowel Movements 0 1 - Labs CBC & Chem 7: 09/29/22 07:10 09/29/22 07:10 Labs: Abnormal Lab Results - Last 24 Hours (Table) 09/29/22 09/29/22 09/30/22 Range/Units 07:10 15:09 08:35 ESR 33 H (0-20) mm/hr Creatine Kinase 238 H (26-186) U/L C-Reactive Protein (<1.0) mg/dL Vitamin B12 1092.0 H (200.0-944.0) pg/mL Vitamin D 25-Hydroxy 17.7 L (30.0-100.0) ng/mL 09/30/22 Range/Units 08:35 ESR (0-20) mm/hr Creatine Kinase (26-186) U/L C-Reactive Protein 3.5 H (<1.0) mg/dL Vitamin B12 (200.0-944.0) pg/mL Vitamin D 25-Hydroxy (30.0-100.0) ng/mL Microbiology - Last 24 Hours (Table) 09/28/22 10:40 Blood Culture - Preliminary Blood No Growth after 48 hours
--- NOTE | 2022-09-30 16:20 | MR ---
EXAMINATION TYPE: MR lumbar spine wo/w con DATE OF EXAM: 09/30/2022 2:56 PM COMPARISON: 09/14/2022 CT. CLINICAL INDICATION:Female, 62 years old with history of fall, weakness, bladder dysfunction; [facility] TECHNIQUE: Multi planar, multi sequence imaging was performed utilizing: T1-weighted, T2-weighted, a nd turbo inversion recovery imaging of the lumbar spine. IV Contrast: 6 cc Gadavist. None. FINDINGS: Alignment: The lumbar vertebral bodies have preserved heights. Grade 1 anterolisthesis of L4 on L5 an d L5 and S1. Cord: The conus medullaris and the distal spinal cord appear unremarkable with regards to their signa l intensity and morphology. Bones/Discs: Scattered Modic endplate changes are seen throughout the spine. There is inversion recov ivory signal within the adjoining endplates throughout the spine most pronounced in the lower lumbar sp ine. Scattered areas of disc height loss and Schmorl's nodes are present. Scattered disc desiccation is present. L1-L2: Disc bulge and facet joint arthropathy with mild to moderate spinal canal stenosis and mild bi lateral neural foraminal stenosis. L2-L3: Disc bulge and facet joint arthropathy with mild to moderate spinal canal stenosis and mild bi lateral neural foraminal stenosis. L3-L4: Disc bulge with facet joint arthropathy with severe spinal canal stenosis and moderate to natasha re bilateral neural foraminal stenosis. L4-L5: Disc uncovering with facet joint arthropathy result in moderate spinal canal stenosis. There i s severe right and moderate left neural foraminal stenosis. L5-S1: Disc uncovering with facet joint arthropathy result in moderate spinal canal stenosis. There i s moderate bilateral neural foraminal stenosis. Other findings: Distended urinary bladder. IMPRESSION: 1. L3-L4 severe spinal canal stenosis and moderate to severe bilateral neural foraminal stenosis. 2. L4-L5 severe right neural foraminal stenosis. 3. Grade 1 anterolisthesis of L4 and L5 and L5 and S1.
--- NOTE | 2022-09-30 16:23 | MR ---
EXAMINATION TYPE: MR thoracic spine wo con DATE OF EXAM: 09/30/2022 2:21 PM COMPARISON: No priors. INDICATION: Patient age:Female; 62 years old; Reason for study: Leg weakness; TECHNIQUE: Multi planar, multi sequence imaging was performed utilizing: T1-weighted and T2-weighted of the thoracic spine. The patient was not given Gadolinium. IV Contrast: None FINDINGS: The thoracic vertebral bodies have preserved heights and alignment. The osseous structure have normal signal intensity. Thoracic spinal cord appears unremarkable. There is no evidence of extradural defe cts or central spinal canal narrowing at any thoracic vertebral body level. Intervertebral discs dem onstrate normal signal intensity. There is a trace left pleural effusion. IMPRESSION: 1. No evidence of significant spinal canal or neural foraminal weakness. 2. Trace left pleural effusion
[2022-09-30] MEDS: ATORVASTATIN 20 MG TAB PO SCH (20:43)
[2022-09-30] MEDS: MELATONIN 3 MG TABLET PO SCH (20:44)
[2022-09-30] MEDS: ACETAMINOPHEN TAB 325 MG TAB PO PRN (20:44)
[2022-10-01] MEDS: DEXAMETHASONE SOD PHOSPHATE 4 MG/ML 1 ML VIAL IVP SCH ×5 (00:22→23:02)
[2022-10-01] MEDS: SODIUM CHLORIDE 0.9% 1,000 ML IV SCH ×3 (00:25→20:43)
[2022-10-01] MEDS: LEVOTHYROXINE 25 MCG TAB PO SCH (05:41)
--- NOTE | 2022-10-01 08:26 | P.PN ---
Subjective Progress Note Date: 10/01/22 Principal diagnosis: generalized weakness constipation Patient seen and examined this morning. Patient is resting comfortably in bed. Patient is pleasantly confused. Patient continues to confirm that she has lower back pain. Lehman catheter is present and patent. Patient has been afebrile, denies any nausea/vomiting, or chest pain. Objective - Vital Signs Vital signs: Vital Signs Temp 98.3 F 10/01/22 02:32 Pulse 75 10/01/22 02:32 Resp 18 10/01/22 02:32 BP 121/64 10/01/22 02:32 Pulse Ox 95 10/01/22 02:32 FiO2 Intake & Output 09/30/22 10/01/22 10/01/22 18:59 06:59 18:59 Intake Total 600 Output Total 2100 700 Balance -1500 -700 Intake: Oral 600 Output: Urine 2100 700 Other: Voiding Method Indwelling Catheter # Bowel Movements 1 - Exam Physical Examination MRI of the Lumbar Spine shows L3-L4 severe spinal canal stenosis and moderate to severe bilateral neural foraminal stenosis. L4-L5 severe right neural foraminal stenosis, and Grade 1 anterolisthesis of L4 and L5 and L5 and S1. General: The patient is awake and alert, in no acute distress Skin: Skin is warm and dry with no obvious rashes or lesions. Hairy patches absent, no dorsal skin dimples, no cafe au lait spots, and no surgical incisions. Eye: Pupils are equal, round and reactive to light, extra-ocular movements are intact; there is normal conjunctiva bilaterally. Neck: The neck is supple, there is no tenderness and ROM intact. Cardiovascular: There is a regular rate and rhythm. No murmur, rub or gallop is appreciated. Respiratory: Lungs are clear to auscultation, respirations are non-labored, breath sounds are equal. Gastrointestinal: Soft, non-distended, non-tender abdomen. Back: There is tenderness to palpation in the paralumbar region. There is no obvious deformity . Musculoskeletal: ROM limited secondary to pain and stiffness. Muscle strength in all major muscle groups are unable to be assessed at this time due to patients mental state and inability to follow commands. Neurological: CN 2-12 intact. There are no obvious motor or sensory deficits. Movement and coordination DELBERT. Sensory exam to light touch intact C5-T1 and intact from L2-S1. Reflexes 2/4 in bilateral upper and lower extremities. Negative Hoffmans, babinski, and clonus signs. Psychiatric: AMS, confused. - Labs CBC & Chem 7: 09/29/22 07:10 09/29/22 07:10 Labs: Abnormal Lab Results - Last 24 Hours (Table) 09/30/22 09/30/22 Range/Units 08:35 08:35 ESR 33 H (0-20) mm/hr C-Reactive Protein 3.5 H (<1.0) mg/dL Microbiology - Last 24 Hours (Table) 09/28/22 10:40 Blood Culture - Preliminary Blood No Growth after 48 hours Assessment and Plan Assessment: Low back pain Lumbar Spondylosis Lumbar Spondylolithesis Dementia Multiple medical comorbidities Plan: -Appreciate data processing systems consultant and team management. -Activity: PT/OT -weightbearing as tolerated with walker and assistance -Pain control: Adequate at this time -GI ppx: senna, Miralax -DVT PPX: Lovnox -Encourage IS 10x/hr -Surgical procedure: L3-S1 scheduled for Tuesday10/03/22 *I reviewed and discussed this case with my attending Dr. Kessler, whom has reviewed this chart and films and is in agreement with assessment and plan of care as outlined above. I have personally seen and examined the patient, performed the documentation and the assessment and plan as written. Number of minutes spent on the visit: 20m.
[2022-10-01] MEDS ORDERED: OLANZapine 5 MG TAB PO SCH (09:00)
[2022-10-01] MEDS: ENOXAPARIN 40 MG/0.4 ML SYRINGE SQ SCH (09:12)
[2022-10-01] MEDS: CHOLECALCIFEROL 25 MCG (1000 IU) TABLET PO SCH (09:13)
[2022-10-01] MEDS: ESCITALOPRAM 20 MG TAB PO SCH (09:13)
[2022-10-01] MEDS: CYANOCOBALAMIN 500 MCG TAB PO SCH (09:13)
[2022-10-01] MEDS: SENNOSIDES 8.6 MG TAB PO SCH ×2 (09:13→20:18)
[2022-10-01] MEDS: ASPIRIN 81 MG PO SCH (09:13)
[2022-10-01] MEDS: polyethylene glycoL 3350 17 GM POWD.PACK PO SCH (09:13)
[2022-10-01] MEDS: SIMETHICONE 80 MG CHEWABLE PO SCH (09:14)
[2022-10-01] MEDS: ACETAMINOPHEN TAB 325 MG TAB PO PRN (11:12)
--- NOTE | 2022-10-01 11:23 | P.PN ---
Subjective Progress Note Date: 09/30/22 Patient was seen for a follow-up. Patient offers no complaints. I had spoken to the brother Artur. Esa and his mentioned that patient has history of emotionally impaired, and somewhat low IQ level. They concurred that patient never had this lipsmacking movement in the past. Also with rapidly declining level of ambulation. Patient has history of psychiatric illness and depression with psychotic features in the past. Objective - Vital Signs Vital signs: Vital Signs Temp 98.9 F 09/30/22 07:00 Pulse 73 09/30/22 07:00 Resp 18 09/30/22 07:00 BP 149/72 09/30/22 07:00 Pulse Ox 97 09/30/22 07:00 FiO2 Intake & Output 09/29/22 09/30/22 09/30/22 18:59 06:59 18:59 Intake Total 709 Output Total 1100 500 Balance -391 -500 Intake: Oral 709 Output: Urine 1100 500 Other: Voiding Method Incontinent Indwelling Catheter External Catheter # Voids 0 2 # Bowel Movements 0 1 - Exam Patient is alert and awake, appears hyperverbal. Speech and language functions are normal. No obvious aphasia. Patient has poor thought content, and some flight of ideas. Her pupils are equal, round and reacting, visual field appears full. Face is symmetric and tongue protrudes the midline. Patient has constant lip smacking movements. On muscle strength testing (right/left) deltoid 4/4, biceps 5/5, triceps 5/5, machine precision engraver 5/5, hip flexion 3-/3 to 3-, ankle dorsiflexion 4/2. Reflexes are 2+ at the biceps, 2+ brachioradialis, 3 at the knees and ankles are upgoing bilaterally. Patient's tone is moderately increased bilaterally. Tone is also increased in the lower limbs. - Labs CBC & Chem 7: 09/29/22 07:10 09/29/22 07:10 Labs: Abnormal Lab Results - Last 24 Hours (Table) 09/29/22 09/29/22 09/29/22 Range/Units 07:10 07:10 07:10 RBC 3.23 L (4.10-5.20) X 10*6/uL Hgb 10.0 L (12.0-15.0) g/dL Hct 32.0 L (37.2-46.3) % MCV 99.1 H (80.0-97.0) fL MCHC 31.3 L (32.0-37.0) g/dL ESR (0-20) mm/hr Anion Gap 8.80 L (10.00-18.00) mmol/L Calcium 8.0 L (8.7-10.3) mg/dL Creatine Kinase 238 H (26-186) U/L C-Reactive Protein (<1.0) mg/dL Vitamin B12 (200.0-944.0) pg/mL Vitamin D 25-Hydroxy (30.0-100.0) ng/mL 09/29/22 09/30/22 09/30/22 Range/Units 15:09 08:35 08:35 RBC (4.10-5.20) X 10*6/uL Hgb (12.0-15.0) g/dL Hct (37.2-46.3) % MCV (80.0-97.0) fL MCHC (32.0-37.0) g/dL ESR 33 H (0-20) mm/hr Anion Gap (10.00-18.00) mmol/L Calcium (8.7-10.3) mg/dL Creatine Kinase (26-186) U/L C-Reactive Protein 3.5 H (<1.0) mg/dL Vitamin B12 1092.0 H (200.0-944.0) pg/mL Vitamin D 25-Hydroxy 17.7 L (30.0-100.0) ng/mL Microbiology - Last 24 Hours (Table) 09/28/22 10:40 Blood Culture - Preliminary Blood No Growth after 24 hours Assessment and Plan Assessment: * Altered mental status, probably due to underlying dementia. Rule out superimposed delirium, rule out manic episode with psychosis. Patient does have low-grade fever, but no obvious signs of infection. CBC, Chest x-ray and UA are negative. No obvious metabolic derangements. * Rapidly progressive gait dysfunction, cognitive decline, bowel and bladder control issues, unclear etiology. Rule out spinal stenosis. * Syncopal spell while straining, likely vasovagal. * Parkinsonism with significant rigidity, tremulousness and new onset lip sm acking. Possible tardive dyskinesia, rule out seizure. Rule out NMDA encephalitis. Rule out NMS. * History of mild cognitive slowing since childhood. Plan: * Patient has developed rapid decline in cognitive and ambulatory functions with bowel or bladder control issues. * MRI of the brain revealed mild atrophy. No acute intracranial process. I personally reviewed MRI, I agree with the findings. No acute process. * MRI of the cervical spine revealed degenerative disc changes C6 7. Endplates spurring C6 7 in the right paracentral region with mild anterior thecal sac compression. Motion artifact limits the axial images and cord contact or deformities not able to be evaluated. Mild endplate changes C5 6 with mild anterior thecal sac compression. No cord contact. I personally reviewed MRI, and agreed with no significant spinal stenosis, except mild to moderate at C5 6 level. Significant degenerative changes of the spine particularly at C6-C7 level. * Await MRI of the lumbar and thoracic spine to rule out spinal stenosis. Orthopedic spine following. * EEG was performed, which was abnormal EEG due to background slowing and dis organization of [id number] degree. This is suggestive of generalized cerebral dysfunction as can be seen with toxic metabolic encephalopathy or related to diffuse structural brain abnormality. Clinical correlation is recommended. No epileptiform activity was seen. * Carotid Doppler revealed plaquing present bilaterally. This is contributing to moderate internal carotid artery stenosis between 50 and 69% bilaterally. Antegrade flow in both vertebral arteries. Suggest starting aspirin 81 mg daily, if no medical contraindications. * Psychiatry input appreciated. Patient started on amantadine for possible TD, and parkinsonism. * B12 is normal 1027, folate 17.20, TFTs are normal. Vitamin D 28.2. C- reactive protein <0.5. RPR nonreactive * CK 238/176, hemoglobin A1c 5.7. * DVT prophylaxis: Patient on Lovenox.
--- NOTE | 2022-10-01 13:15 | P.PN ---
Progress Note - Text Progress Note Date: 10/01/22 Interval History: Patient was seen resting in bed with her brother Isaias at bedside. Currently the patient does express some issues with pain in her lower extremities however is vague in terms of describing her mental health. As per review of her MRI of her spine, the patient has L3-L4 Severe spinal stenosis and L4-L5 severe right neural foraminal stenosis. This provider discussed with the patient's brother/guardian that symmetrel will be discontinued at this time. He is in agreement. Mental Status Exam: General Appearance: Patient appears to be stated age is alert, is directable and attempts to cooperate. Behavior: Patient is calmly lying down in bed without agitated behavior. Psychomotor slowing evident. Lip smacking notable. Speech: Patient's speech is nonspontaneous, monotone, low in volume. Mood/Affect: Mood is "okay." Affect is flat. Suicidality/Homicidality: Patient denies having any suicidal or homicidal ideation intent or plan. Perceptions: Patient denies any visual hallucinations and denies any auditory hallucinations Though content/process: There is no evidence of any delusional thought content and thought process is linear and goal-directed. Memory and concentration: Grossly intact. Judgment and insight: Fair Vital Signs Temp 98.3 F 10/01/22 08:00 Pulse 73 10/01/22 08:00 Resp 16 10/01/22 08:00 BP 112/70 10/01/22 08:00 Pulse Ox 97 10/01/22 08:00 FiO2 Intake & Output 09/30/22 10/01/22 10/01/22 18:59 06:59 18:59 Intake Total 600 Output Total 2100 700 1000 Balance -1500 -700 -1000 Intake: Oral 600 Output: Urine 2100 700 1000 Other: Voiding Method Indwelling Catheter # Bowel Movements 1 Laboratory Results - Last 24 Hours 09/29/22 18:48 Lamotrigine <0.2 Assessment Spinal Stenosis Major depression by history Major neurocognitive disorder as per history Plan: -Continue your medical and neurological evaluation and treatment. -At this time patient DOES NOT meet criteria for inpatient psychiatric admission. -Would recommend the following medication changes/additions: Discontinue amantadine. Continue Lexapro 20 mg by mouth daily -Psychiatry will sign off at this time. Will defer to neurology and neurosurgery. Thank you for this consult.
[2022-10-01] MEDS: HYDROcodone/APAP 5-325MG 1 EACH TAB PO PRN (14:41)
--- NOTE | 2022-10-01 16:04 | P.PN ---
Subjective Progress Note Date: 10/01/22 Patient is a 62-year-old female with history of dementia, mood disorder, psychiatric disorder, hypothyroidism, dyslipidemia presenting [facility] an [facility], worsening weakness and inability to take care of herself. Patient's family attributed changes in mental status to medication being transitioned from Abilify to Zyprexa in the last 2 months. She was recently taken off of Zyprexa and change to Lamictal. Due to increased weakness, patient was taken off of Lamictal as well. She continues to take her Lexapro. In the ER she was mildly febrile with a rectal temperature of 100.3 laboratory data sepsis was relatively unremarkable, urine was negative, drug screen negative, influenza A/B, RSV, and COVID-[address] head and cervical spine showed no acute fracture or subluxation of the cervical spine, CT head demonstrated age-related atrophic and chronic small vessel ischemic changes without acute intracranial process. Chest x-ray showed no acute pulmonary disease. Lumbar x-ray showed moderate to severe multilevel degenerative disc c hanges greatest L3-4 4 and L5-S1 with grade 1 anterolisthesis of L3 4 and severe facet joint arthropathy. Bilateral hip x-ray shows no acute fracture or dislocation. She was admitted for further monitoring. She was seen by neurology who recommended EEG, MRI brain, MRI of cervical spine. MRI lumbar spine revealed severe spinal stenosis. Plan is for OR on 10/03. Imaging reviewed today: Carotid Doppler: 50-69% stenosis bilaterally MRI [id number] atrophy MRI cervical spine-degenerative changes, unable to evaluate for cord compression at C6 7 [id number] activity, background slowing and disorganization MRI thorasic Spine- no spinal canal stenosis or neural foraminal impingement MRI Lumbar Spine- L3-L4 Severe Spinal canal stenosis, mod to sever bilateral stenosis, L4-L5 Severe Neural Foraminal stenosis Patient seen and examined at bedside with family present. We had a long discussion about anesthetics and dementia. We also discussed how she may rehab from any potential procedures. She has been complaining of some back pain today that became severe when she was up and sitting in the chair. General: nontoxic, no distress, appears at stated age Derm: warm, dry Head: atraumatic, normocephalic, symmetric Eyes: EOMI, no lid lag, anicteric sclera Mouth: no lip lesion, mucus membranes moist Cardiovascular: S1S2 reg, no murmur, positive posterior tibial pulse bilateral, Lungs: Decreased breath sounds bilateral, no rhonchi, no rales , no accessory muscle use Abdominal: soft, nontender to palpation, no guarding, no appreciable organomegaly Ext: no gross muscle atrophy, no edema, no contractures Neuro: CN II-XI grossly intact, patient with less lipsmacking, no tremors noted, difficulty with concentration, muscle strength in bilateral lower extremities 3 out of 5, clonus right lower. Psych: Alert, oriented, Blunted affect Assessment/plan: Bilateral lower extremity weakness with urinary retention deu to severe lumbar spinal canal stenosis Fall Progressive weakness Worsening dementia -Orthospine recommendations appreciated: Plan is for OR on 10/03/22 --Lumbar Decompression and Fusion -- NSQIP Lower than average risk of Cardiac complication lower than average risk Serious Complication below average risk -Neurology recommendations appreciated -PT/OT -B12, folate, normal, vitamin D low normal -CK mildly elevated -ESR and CRP mildly elevated -Syphilis negative - suh cath Thyroidism -TSH within normal range -Continue Synthroid DVT prophylaxis: Heparin Discussed with: Patient, family, nursing, Dr. Kessler Anticipated discharge: Pending clinical course Anticipated discharge place: Pending clinical course A total of 35 minutes was spent on the care of this complex patient more than 50% of the time was spent in counseling and care coordination. Objective - Vital Signs Vital signs: Vital Signs Temp 98.6 F 10/01/22 14:00 Pulse 94 10/01/22 14:00 Resp 17 10/01/22 14:00 BP 133/78 10/01/22 14:00 Pulse Ox 96 10/01/22 14:00 FiO2 Intake & Output 09/30/22 10/01/22 10/01/22 18:59 06:59 18:59 Intake Total 600 Output Total 2100 700 1000 Balance -1500 -700 -1000 Intake: Oral 600 Output: Urine 2100 700 1000 Other: Voiding Method Indwelling Catheter # Bowel Movements 1 - Labs CBC & Chem 7: 09/29/22 07:10 09/29/22 07:10 Labs: Microbiology - Last 24 Hours (Table) 09/28/22 10:40 Blood Culture - Preliminary Blood No Growth after 72 hours
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
[2022-10-01] MEDS: MELATONIN 3 MG TABLET PO SCH (20:18)
[2022-10-01] MEDS: ATORVASTATIN 20 MG TAB PO SCH (20:18)
[2022-10-02] MEDS: DEXAMETHASONE SOD PHOSPHATE 4 MG/ML 1 ML VIAL IVP SCH ×4 (05:29→23:59)
[2022-10-02] MEDS: LEVOTHYROXINE 25 MCG TAB PO SCH (05:29)
[2022-10-02 08:20] LABS: HGB 12.5 gm/dL (11.4-16.0); MCH 31.9 pg (25.0-35.0); MCHC 33.7 g/dL (31.0-37.0); MCV 94.7 fL (80.0-100.0); Mean Platelet Volume 8.4; Platelet Count 376 k/uL (150-450); RBC 3.91 m/uL (3.80-5.40); RDW 12.5 % (11.5-15.5); WBC 10.1 k/uL (3.8-10.6)
[2022-10-02] MEDS: CYANOCOBALAMIN 500 MCG TAB PO SCH (08:55)
[2022-10-02] MEDS: ENOXAPARIN 40 MG/0.4 ML SYRINGE SQ SCH (08:55)
[2022-10-02] MEDS: polyethylene glycoL 3350 17 GM POWD.PACK PO SCH (08:55)
[2022-10-02] MEDS: CHOLECALCIFEROL 25 MCG (1000 IU) TABLET PO SCH (08:55)
[2022-10-02] MEDS: ASPIRIN 81 MG PO SCH (08:55)
[2022-10-02] MEDS: HYDROcodone/APAP 5-325MG 1 EACH TAB PO PRN ×3 (08:55→21:25)
[2022-10-02] MEDS: ESCITALOPRAM 20 MG TAB PO SCH (08:56)
[2022-10-02] MEDS: SENNOSIDES 8.6 MG TAB PO SCH ×2 (08:56→21:24)
[2022-10-02] MEDS: SIMETHICONE 80 MG CHEWABLE PO SCH (08:56)
--- NOTE | 2022-10-02 09:14 | P.PN ---
Subjective Progress Note Date: 10/02/22 Principal diagnosis: Over pain; lumbar spondylosis; lumbar spondylolisthesis; bilateral lower extremity weakness Patient was seen at bedside this morning lying in semirecumbent position. History is difficult to obtain due to patient's medical history with dementia. Patient says she is still having low back pain at this time. Lehman/Catheter in place currently. We'll plan to move forward with surgery tomorrow pending any changes from family's wishes. Patient denies chest pain, fever, shortness breath, nausea, vomiting, change in vision. Objective - Vital Signs Vital signs: Vital Signs Temp 98.5 F 10/02/22 08:00 Pulse 94 10/02/22 08:00 Resp 18 10/02/22 08:00 BP 168/84 10/02/22 08:00 Pulse Ox 95 10/02/22 08:00 FiO2 21 10/01/22 20:06 Intake & Output 10/01/22 10/02/22 10/02/22 18:59 06:59 18:59 Output Total 1800 1650 Balance -1800 -1650 Output: Urine 1800 1650 Other: Voiding Method Indwelling Catheter - Exam Exam limited due to patient's mental status Inspection: Negative for any open fractures, significant erythema/ecchymosis/ulcers. Some scoliosis present throughout the spine Sensation: Sensation is equal, symmetric, bilaterally intact throughout the upper and lower extremities Palpation: Patient does have tenderness to palpation throughout the lumbar spine at midline. NTTP throughout rest of exam Range of motion: Patient does have full range of motion in bilateral upper extremities during passive exam. Patient does have limited active range of motion of bilateral upper extremities and shoulder forward elevation, abduction, external/internal rotation and elbow flexion/extension. Patient does have some limited range of motion during the passive exam in bilateral hip flexion/exten tanya and knee flexion/extension bilaterally. Patient's extremities are very rigid during exam. Patient does have limited range of motion bilaterally in the lower extremities on active exam and hip flexion/extension and knee flexion/extension. Motor: Cobol Engineer strength 3+/5 bilaterally. Unable to performed wrist, elbow, shoulder motor exams due to patient's mental state. Unable to perform bilateral lower extremity motor exam due to patient's mental state Neurovascular status: Radial pulses intact bilaterally. Cap refill under 3 seconds in digits upper extremities Special tests: Negative Homans bilaterally. Negative clonus bilaterally. Negative Grayson bilaterally. - Labs CBC & Chem 7: 10/02/22 07:41 09/29/22 07:10 Labs: Microbiology - Last 24 Hours (Table) 09/28/22 10:40 Blood Culture - Preliminary Blood No Growth after 72 hours Assessment and Plan Assessment: 1. Lumbar spondylosis; lumbar spondylolisthesis; bilateral lower extremity weakness 2. Dementia Plan: 1. Low back pain; Lumbar spondylosis; lumbar spondylolisthesis; bilateral lower extremity weakness - patient stable bedside this morning. MRI of lumbar spine does reveal severe spinal canal stenosis in the lumbar spine. We are recommending surgical intervention in the form of L3-S1 decompression and fusion. Surgery has been ordered for tomorrow, 10/03/2022. Patient to be nothing by mouth after midnight tonight We'll continue to follow patient dur ing her stay in hospital. 2. Appreciate medical management 3. Pain management - Tylenol; [place] 4. DVT prophylaxis - Lovenox 5. GI prophylaxis - senna 6. PT/OT - weightbearing as tolerated with walker and assistance 7. Encourage incentive spirometer use 8. Appreciate consult Time with Patient: Less than 30
--- NOTE | 2022-10-02 11:34 | P.PN ---
Subjective Progress Note Date: 10/02/22 I am seeing the patient for the first time during this admission. From records, it seems the patient has altered mental status due to underlying demenia. She has probable cauda equina and is schedule for surgery tomorrow. Please refer to Dr. Bermudez's notes for further details. Objective - Vital Signs Vital signs: Vital Signs Temp 98.5 F 10/02/22 08:00 Pulse 94 10/02/22 08:00 Resp 18 10/02/22 08:00 BP 168/84 10/02/22 08:00 Pulse Ox 95 10/02/22 08:00 FiO2 21 10/01/22 20:06 Intake & Output 10/01/22 10/02/22 10/02/22 18:59 06:59 18:59 Intake Total 300 Output Total 1800 1650 1200 Balance -1800 -1650 -900 Intake: Oral 300 Output: Urine 1800 1650 1200 Other: Voiding Method Indwelling Catheter - Exam GENERAL: The patient is lying in bed and is in mild acute distress. NEUROLOGICAL: Higher mental function: The patient is awake, alert, oriented to self. With option she stated [place] [facility]. She correctly stated the current year is 1959 but that is year of her . Patient is following simple commands. Language is limited. Cranial nerves: The pupils are round, equal and reactive to light. EOM is tracking throughout the room. No facial weakness. No dysarthria. Motor: The strength is limited because of cooperation but lifting bilateral upper above gravity while lifting the right lower above gravity. Did movement noted in left lower and both lowers are limited because of pain. . Senation: Could not be performed because of cooperation. - Labs CBC & Chem 7: 10/02/22 07:41 09/29/22 07:10 Labs: Microbiology - Last 24 Hours (Table) 09/28/22 10:40 Blood Culture - Preliminary Blood No Growth after 72 hours Assessment and Plan Assessment: * Altered mental status, probably due to underlying dementia. Rule out superimposed delirium, rule out manic episode with psychosis. No evidence of infection. No obvious metabolic derangements. * Lumbar spinal stenosis, severe degree with probable cauda equina. Patient has developed rapidly progressive gait dysfunction, cognitive decline, bowel and bladder control issues. * Syncopal spell while straining, likely vasovagal. * Parkinsonism with significant rigidity, tremulousness and new onset lip smacking. Possible tardive dyskinesia. Rule out NMDA encephalitis. No evidence of NMS with normal temperature. * History of mild cognitive slowing since childhood. Plan: * MRI lumbar spine with and without contrast revealed severe spinal canal stenosis at L3 4 and moderate to severe bilateral neural foraminal stenosis. At L4-L5, there is severe right neural foraminal stenosis. Grade 1 anterolisthesis of L4 and L5, and L5 and S1. I personally reviewed MRI agree with the findings. * MRI of the thoracic spine revealed no evidence of significant spinal canal or neuroforaminal stenosis. I personally reviewed MRI, agree with the findings. * MRI of the brain revealed mild atrophy. No acute intracranial process. I personally reviewed MRI, I agree with the findings. No acute process. * MRI of the cervical spine revealed degenerative disc changes C6 7. Endplates spurring C6 7 in the right paracentral region with mild anterior thecal sac compression. Motion artifact limits the axial images and cord contact or deformities not able to be evaluated. Mild endplate changes C5 6 with mild anterior thecal sac compression. No cord contact. I personally reviewed MRI, and agreed with no significant spinal stenosis, except mild to moderate at C5 6 level. Significant degenerative changes of the spine particularly at C6-C7 level. * Orthopedic spine following. Patient's scheduled for decompressive surgery on 10/03/2022. * EEG was performed, which was abnormal EEG due to background slowing and disorganization of [id number]-pa-gvuvnsip degree. This is suggestive of generalized cerebral dysfunction as can be seen with toxic metabolic encephalopathy or related to diffuse structural brain abnormality. Clinical correlation is recommended. No epileptiform activity was seen. * Carotid Doppler revealed plaquing present bilaterally. This is contributing to moderate internal carotid artery stenosis between 50 and 69% bilaterally. Antegrade flow in both vertebral arteries. Patient started on aspirin 81 mg daily. * Psychiatry input appreciated. Patient started on amantadine for possible TD, and parkinsonism. * B12 is normal 1027, folate 17.20, TFTs are normal. Vitamin D 28.2. C- reactive protein <0.5. RPR nonreactive * CK 238/176, hemoglobin A1c 5.7. * DVT prophylaxis: Patient on Lovenox. I spoke with the afmbrianda and are aware of the surgery planned this Tuesday. Time with Patient: Less than 30
[2022-10-02 12:08] LABS: % Iron Saturation 15.83 (12.00-45.00); African American GFR (CKD) 92.4 (60.0-200.0); Anion Gap 12.5 mmol/L (10.00-18.00); BUN/Creat Ratio 20.91 Ratio (12.00-20.00); Blood Urea Nitrogen 16.6 mg/dL (9.0-27.0); Carbon Dioxide 24.2 mmol/L (20.0-27.5); Magnesium 2.3 mg/dL (1.5-2.4); Non-African American GFR(CKD) 79.7 (60.0-200.0); Potassium 4.7 mmol/L (3.5-5.5)
[2022-10-02] MEDS: SODIUM CHLORIDE 0.9% 1,000 ML IV SCH (13:58)
--- NOTE | 2022-10-02 14:12 | P.PN ---
Subjective Progress Note Date: 10/02/22 Patient is a 62-year-old female with history of dementia, mood disorder, psychiatric disorder, hypothyroidism, dyslipidemia presenting from an assisted living facilitydue to [facility], worsening weakness and inability to take care of herself. Patient's family attributed changes in mental status to medication being transitioned from Abilify to Zyprexa in the last 2 months. She was recently taken off of Zyprexa and change to Lamictal. Due to increased weakness, patient was taken off of Lamictal as well. She continues to take her Lexapro. In the ER she was mildly febrile with a rectal temperature of 100.3 laboratory data sepsis was relatively unremarkable, urine was negative, drug screen negative, influenza A/B, RSV, and COVID-[address] head and cervical spine showed no acute fracture or subluxation of the cervical spine, CT head demonstrated age-related atrophic and chronic small vessel ischemic changes without acute intracranial process. Chest x-ray showed no acute pulmonary disease. Lumbar x-ray showed moderate to severe multilevel degenerative disc c hanges greatest L3-4 4 and L5-S1 with grade 1 anterolisthesis of L3 4 and severe facet joint arthropathy. Bilateral hip x-ray shows no acute fracture or dislocation. She was admitted for further monitoring. She was seen by neurology who recommended EEG, MRI brain, MRI of cervical spine. MRI lumbar spine revealed severe spinal stenosis. Plan is for OR on 10/03. Imaging: Carotid Doppler: 50-69% stenosis bilaterally MRI avzkk-rxh-qetufny atrophy MRI cervical spine-degenerative changes, unable to evaluate for cord compression at C6 7 [id number] activity, background slowing and disorganization MRI thorasic Spine- no spinal canal stenosis or neural foraminal impingement MRI Lumbar Spine- L3-L4 Severe Spinal canal stenosis, mod to sever bilateral stenosis, L4-L5 Severe Neural Foraminal stenosis Patient seen and examined at bedside with family present. I discussed with new family present today the risks of anesthetics and dementia and how difficult the rehab my be from this procedure. She states pain is back is better now, still some abd pain with pressure, no chest pain, no shortness of breath. General: nontoxic, no distress, appears at stated age Derm: warm, dry Head: atraumatic, normocephalic, symmetric Eyes: EOMI, no lid lag, anicteric sclera Mouth: no lip lesion, mucus membranes moist Cardiovascular: S1S2 reg, no murmur, positive posterior tibial pulse bilateral, Lungs: Decreased breath sounds bilateral, no rhonchi, no rales , no accessory muscle use Abdominal: soft, nontender to palpation, no guarding, no appreciable organomegaly Ext: no gross muscle atrophy, no edema, no contractures Neuro: CN II-XI grossly intact, unable to lift legs off the bed Psych: Alert, oriented, Blunted affect Assessment/plan: Bilateral lower extremity weakness with urinary retention due to severe lumbar spinal canal stenosis Fall Dementia Congnitive impairment, difficult to determine baseline -Orthospine recommendations appreciated: Plan is for OR on 10/03/22 --Lumbar Decompression and Fusion - D/W anesthesia patients current functional state -- NSQIP Lower than average risk of Cardiac complication lower than average risk Serious Complication below average risk - D/W family on 10/02/22 risk of worsening dementia with surgery and that rehab from surgery will be difficult, they are aware but want to preserve quality of like if able given she is unable to walk and does not have bowel/bladder control -Neurology recommendations appreciated -PT/OT -B12, folate, normal, vitamin D low normal -CK mildly elevated -ESR and CRP mildly elevated -Syphilis negative - suh cath Thyroidism -TSH within normal range -Continue Synthroid DVT prophylaxis: Heparin Discussed with: Patient, family, nursing, Anticipated discharge: Pending clinical course Anticipated discharge place: Pending clinical course A total of 25 minutes was spent on the care of this complex patient more than 50% of the time was spent in counseling and care coordination. Active Medications Generic Name Dose Route Start Last Admin Trade Name Souravq PRN Reason Stop Dose Admin Acetaminophen 650 mg 09/28/22 13:27 10/01/22 11:12 Acetaminophen Tab 325 Mg Tab PO 650 mg Q6HR PRN Administration Mild Pain or Fever > 100.5 Hydrocodone Bitart/Acetaminophen 1 each 10/01/22 14:24 10/02/22 08:55 Hydrocodone/Apap 5-325mg 1 Each Tab PO 1 each Q6HR PRN Administration Moderate Pain (4-6) Aspirin 81 mg 09/30/22 09:00 10/02/22 08:55 Aspirin 81 Mg PO 81 mg DAILY BENJI Administration Atorvastatin Calcium 20 mg 09/28/22 21:00 10/01/22 20:18 Atorvastatin 20 Mg Tab PO 20 mg HS BENJI Administration Cholecalciferol 100 mcg 09/30/22 14:00 10/02/22 08:55 Cholecalciferol 25 Mcg (1000 Iu) Tablet PO 100 mcg DAILY BENJI Administration Cyanocobalamin 1,000 mcg 09/29/22 09:00 10/02/22 08:55 Cyanocobalamin 500 Mcg Tab PO 1,000 mcg DAILY BENJI Administration Dexamethasone Sodium Phosphate 4 mg 09/30/22 12:00 10/02/22 13:40 Dexamethasone Sod Phosphate 4 Mg/Ml 1 Ml Vial IVP Not Given Q6HR BENJI Enoxaparin Sodium 40 mg 09/29/22 09:00 10/02/22 08:55 Enoxaparin 40 Mg/0.4 Ml Syringe SQ 40 mg DAILY BENJI Administration Escitalopram Oxalate 20 mg 09/29/22 09:00 10/02/22 08:56 Escitalopram 20 Mg Tab PO 20 mg DAILY BENJI Administration Sodium Chloride 1,000 mls @ 75 mls/hr 09/28/22 13:30 10/02/22 13:58 Saline 0.9% IV 75 mls/hr .[id number] BENJI Administration Levothyroxine Sodium 25 mcg 09/29/22 06:30 10/02/22 05:29 Levothyroxine 25 Mcg Tab PO 25 mcg 0630 BENJI Administration Melatonin 6 mg 09/28/22 21:00 10/01/22 20:18 Melatonin 3 Mg Tablet PO 6 mg HS BENJI Administration Naloxone HCl 0.2 mg 09/28/22 13:16 Naloxone 0.4 Mg/Ml 1 Ml Vial IV Q2M PRN Opioid Reversal Polyethylene Glycol 17 gm 09/29/22 09:00 10/02/22 08:55 Polyethylene Glycol 3350 17 Gm Powd.Pack PO 17 gm DAILY BENJI Administration Senna 8.6 mg 09/28/22 21:00 10/02/22 08:56 Sennosides 8.6 Mg Tab PO 8.6 mg BID BENJI Administration Simethicone 120 mg 09/29/22 09:00 10/02/22 08:56 Simethicone 80 Mg Chewable PO 120 mg DAILY BENJI Administration Objective - Vital Signs Vital signs: Vital Signs Temp 98.5 F 10/02/22 08:00 Pulse 94 10/02/22 08:00 Resp 18 10/02/22 08:00 BP 168/84 12/17/22 08:00 Pulse Ox 95 10/02/22 08:00 FiO2 21 10/01/22 20:06 Intake & Output 10/01/22 10/02/22 10/02/22 18:59 06:59 18:59 Intake Total 300 Output Total 1800 1650 1200 Balance -1800 -1650 -900 Intake: Oral 300 Output: Urine 1800 1650 1200 Other: Voiding Method Indwelling Catheter - Labs CBC & Chem 7: 10/02/22 07:41 10/02/22 07:41 Labs: Abnormal Lab Results - Last 24 Hours (Table) 10/02/22 Range/Units 07:41 BUN/Creatinine Ratio 20.91 H (12.00-20.00) Ratio Glucose 123 H (70-110) mg/dL Microbiology - Last 24 Hours (Table) 09/28/22 10:40 Blood Culture - Preliminary Blood No Growth after 96 hours
[2022-10-02] MEDS: MELATONIN 3 MG TABLET PO SCH (21:24)
[2022-10-02] MEDS: ATORVASTATIN 20 MG TAB PO SCH (21:24)
[2022-10-03] MEDS: SODIUM CHLORIDE 0.9% 1,000 ML IV SCH ×2 (00:01→18:18)
[2022-10-03] MEDS: HYDROcodone/APAP 5-325MG 1 EACH TAB PO PRN ×2 (04:21→21:19)
[2022-10-03] MEDS: DEXAMETHASONE SOD PHOSPHATE 4 MG/ML 1 ML VIAL IVP SCH ×4 (06:28→23:25)
[2022-10-03] MEDS: LEVOTHYROXINE 25 MCG TAB PO SCH (06:28)
[2022-10-03] MEDS ORDERED: ALBUMIN HUMAN 5% (25gm) 500 ML VIAL IVPB ONE (08:09)
[2022-10-03] MEDS ORDERED: fentaNYL (PF) 50 MCG/ML 2 ML AMP ONE (08:09)
[2022-10-03] MEDS ORDERED: KETAMINE 10 MG/ML 20 ML VIAL ONE (08:09)
[2022-10-03] MEDS ORDERED: ONDANSETRON 4 MG/2 ML VIAL ONE (08:09)
[2022-10-03] MEDS ORDERED: LIDOCAINE 2% INJ 20 MG/ML (2 ML VIAL) ONE (08:09)
[2022-10-03] MEDS ORDERED: MIDAZOLAM 2 MG/2 ML VIAL ONE (08:09)
[2022-10-03] MEDS ORDERED: ePHEDrine 50 MG/ML 1 ML VIAL ONE (08:09)
[2022-10-03] MEDS ORDERED: DEXAMETHASONE SOD PHOSPHATE 4 MG/ML 1 ML VIAL ONE (08:09)
[2022-10-03] MEDS ORDERED: TRANEXAMIC ACID IN NACL,ISO-OS 1,000 MG/100 ML BAG ONE (08:09)
[2022-10-03] MEDS ORDERED: PROPOFOL 10 MG/ML 20 ML VIAL IV ONE (08:09)
[2022-10-03] MEDS ORDERED: ROCURONIUM 10 MG/ML (5 ML VIAL) IV ONE (08:09)
[2022-10-03] MEDS ORDERED: PHENYLEPHRINE-0.9% NACL SYG 1,000 MCG/10 ML SYRINGE ONE (08:09)
--- NOTE | 2022-10-03 08:11 | P.PN ---
Progress Note - Text Progress Note Date: 10/03/22 Spine Surgery Clinical and Risk Review Miranda is a 62-year-old female presenting for evaluation of acute lower extremity weakness and inability to ambulate. It was my pleasure to have seen and examined Miranda. In our visit today we have had a chance to go over subjective complaints, physical examination findings and treatments including the natural course history without intervention and various interventional options. The patients imaging demonstrates severe stenosis with spondylosis and spondylolisthesis L3 through S1. On physical exam, Miranda demonstrates weakness in bilateral lower extremities with bilateral 2 out of 5 strength in all major muscle groups is acute change according to the family. Patient does have baseline dementia. She does follow commands however. The family states that she was ambulating just 2 weeks before this but she started having increase in urinary retention constipation and weakness. I have explained to the patient And her family that as their condition progresses it will cause further neurological deficits and eventual paralysis. Based on the patients imaging, physical exam, and the rapid progression and disabling nature of their symptoms, at this time I recommend surgery in the form or a: L3 through S1 decompression and fusion. I discussed the risk and benefits of this procedure at length with Miranda and her family and D POA. The patient's family and D POA agreed to considered pursuing the procedure abovementioned. Prior to surgery, she should follow up with her PCP (Cardio, ID, IM etc) for clearance. Questions were invited and answered, and the patient wishes to proceed as outlined below. Currently, I am recommendin. L3 through S1 decompression and fusion 2. Follow up with PCP for surgical clearance 3. Review of surgical risks and benefits as well as an educational packet on the proposed surgical procedure. Risks: All surgical procedures come with inherent risks, including those related to positioning, anesthesia, intraoperative findings, and postoperative complic ations. It is important to understand that surgery does not come with any guarantee of a successful outcome as complications and adverse events are always possible. The patient was given a handout in office today discussing the surgical procedure and risks associated with the intervention, both of which were discussed with the patient. These risks include but are not limited to the following: * Experiencing same, different or even worse symptoms in back, neck, arms, or legs compared to before surgery. * Requiring further surgery or other forms of treatment presently or at some time in the future at same or other levels of the intended spine surgery. * On an extreme but fortunately relatively rare basis severe complication such as blindness, stroke, heart attack, temporary and/or permanent nerve injury, paralysis, coma, or may occur, sometimes without known explanation. * Surgical complications may include but are not limited to risk of infection, fluid accumulation in the surgical dissection site, including a seroma or hematoma, that requires additional surgery, wound drainage, bleeding, new numbness or weakness, vision changes/loss, spinal fluid leakage, non-healing and/or infected incision, headaches, difficulty or inability to swallow, hoarseness, hemopneumothorax, pneumothorax, impotence, retrograde ejaculation, vaginal dryness; injury to nerves, spinal cord, blood vessels, lymphatics or other vital organs (i.e., bowel injury, injury to the great vessels); heterotopic bone formation; complications related to the hardware such as screws, rods, cages including misplaced hardware, device failure, instrumentation at the wrong spine level, hardware fracture/breakage, or hardware loosening; vertebral failure of the spinal column above or below the newly placed hardware; retained surgical instrumentations or devices and the need for further surgery. * Medical risks of the planned spine surgery include but are not limited to generalized Infections to the whole body or local areas outside of the surgical site (sepsis), heart attack, bleeding, anaphylaxis, meningitis, seizure, epilepsy, hearing loss, burn montano, laceration of the head or other areas of the body, bruising, hypersensitivity of the skin, bladder over distension; allergic reaction; shoulder injury related to positioning; fat, blood and air clots to other areas of the body like heart, lungs, brain; failure of internal organs such as lungs, kidneys, liver and excessive bleeding. If blood transfusions are necessary, note that transfusions may cause intolerance reactions such as anaphylaxis or other complex reactions. * Despite best efforts, the results of spine surgery might not heal in terms of bone, soft tissues such as skin, fascia, ligaments, and joints. Additionally, in order to achieve best possible results, spine surgery may be carried out beyond the initially planned levels and involve decompression, fusion including insertion of hardware at levels other than the original intended area of surgical interest change some portions of the procedure in order to ensure the best possible outcomes. * With spine surgery and spinal fusion, there are different off label uses of instrumentation (devices, implants and hardware) as well as biological substances (bone morphogenic proteins, demineralized bone matrix) as well as using extra bone from allograft sources (i.e. cadaver bone) or autograft (iliac crest bone, ribs, or the spine itself). The patient has been given information about these practices and their inherent risks and benefits. The patient has had a chance to review all the listed information, has been given print outs detailing this information, and has had all his/her questions answered to their satisfaction. It was my pleasure to have seen and examined Miranda. In our visit today we have had a chance to go over my understanding of our patient's current condition, the natural course history without intervention and various interventional options. Questions were invited and answered, and the patient wishes to proceed as outlined above. I have seen and examined the patient for 25 minutes and we have spent more than 50% of the time in repeat and detailed counseling about the patient's condition, its natural course history with out and as much as can be predicted with surgery and re-review of various surgical treatment options. In conclusion, Miranda magana D POA and her family who are at bedside requested we proceed with the above suggested surgery and are willing to accept risks and limitations of the suggested surgery as nature of the disease process and our best attempts at treatment for the condition. Thank you again for allowing us to be part of your patient's care. Please don't hesitate to contact me if you have any further questions. Signed and authenticated by: Nico [facility] [address], [address] [address]
[2022-10-03] MEDS ORDERED: LACTATED RINGERS 1,000 ML IV ONE ×4 (08:12→12:46)
[2022-10-03] MEDS ORDERED: SODIUM CHLORIDE 0.9% 100 ML with ceFAZolin 2,000 MG IV ONE ×2 (08:30)
[2022-10-03] MEDS ORDERED: TRANEXAMIC ACID IN NACL,ISO-OS 1,000 MG in SALINE 1 100ML.BAG IVPB PRN ×2 (08:59)
--- NOTE | 2022-10-03 09:18 | P.ANPRN ---
Procedure Note - Anesthesia - Invasive Line Right Arterial Line Time Out Performed: Yes ([id number]) Date of Procedure: 10/03/22 Time of Procedure: 08:18 Location of Patient: OR Preparation: Sterile Prep, Sterile Dressing Arterial Line Location: Radial (right) Ultrasound Used: No Purpose - Visualization and Identification of Vasculature: No Image Stored and Saved: No Narrative: Central line placement per sterile protocol utilized.
[2022-10-03 09:21] LABS: HCT 32.8 % (34.0-46.0); HGB 11.6 gm/dL (11.4-16.0); MCH 32.9 pg (25.0-35.0); MCHC 35.4 g/dL (31.0-37.0); Mean Platelet Volume 8.5; Platelet Count 298 k/uL (150-450); RBC 3.53 m/uL (3.80-5.40); RDW 12.5 % (11.5-15.5)
[2022-10-03] MEDS ORDERED: THROMBIN (BOVINE) 5,000 UNIT VIAL TOPICAL ONE (09:29)
[2022-10-03] MEDS ORDERED: GELATIN SPONGE,ABSORB (LARGE) 1 EACH SPONGE TOPICAL ONE (09:30)
[2022-10-03 09:32] LABS: African American GFR (CKD) >90 (>60 ml/min/1.73 sqM); Anion Gap 8 mmol/L; Blood Urea Nitrogen 18 mg/dL (7-17); Calcium 7.8 mg/dL (8.4-10.2); Carbon Dioxide 24 mmol/L (22-30); Chloride 105 mmol/L (98-107); Glucose 123 mg/dL (74-99); Non-African American GFR(CKD) >90 (>60 ml/min/1.73 sqM); Potassium 4.4 mmol/L (3.5-5.1); Sodium 137 mmol/L (137-145)
[2022-10-03] MEDS ORDERED: VANCOMYCIN 1,000 MG VIAL MISCELLANE ONE (12:39)
[2022-10-03] MEDS ORDERED: ceFAZolin 3,000 MG in SODIUM CHLORIDE 0.9% IRRIGATIO 3,000 ML IRRIGATION ONE (12:42)
[2022-10-03] MEDS ORDERED: GENTAMICIN 80 MG in SODIUM CHLORIDE 0.9% IRRIGATIO 3,000 ML IRRIGATION ONE (12:42)
[2022-10-03] MEDS ORDERED: HYDROcodone/APAP 10-325MG 1 EACH TAB PO PRN (12:57)
[2022-10-03] MEDS ORDERED: SENNOSIDES-DOCUSATE SODIUM 1 EACH TAB PO PRN (12:57)
[2022-10-03] MEDS ORDERED: MAGNESIUM HYDROXIDE 2,400 MG/10 ML CUP PO PRN (12:57)
[2022-10-03] MEDS ORDERED: HYDROmorphone 1 MG/ML 1 ML SYRINGE IVP PRN (12:57)
--- NOTE | 2022-10-03 13:18 | XR ---
EXAMINATION TYPE: XR lumbar spine 2 or 3V, FL guidance operating room DATE OF EXAM: 10/03/2022 12:47 PM INDICATION: Patient age:Female; 62 years old; Reason for study: LUMBAR FUSION; [facility]. Intraoperative/procedural fluoroscopic services were provided. Total fluoroscopy time is 50.7 seconds with a total of 3 submitted images to PACS. Please see the operative/procedural note for further det ails.
[2022-10-03 13:19] LABS: Glucose,Whole Blood 147 mg/dL (70-110)
[2022-10-03] MEDS ORDERED: HYDROmorphone 0.5 MG/0.5 ML SYRINGE IVP ONE (13:28)
--- NOTE | 2022-10-03 13:34 | P.OP ---
Date of Procedure: 10/03/22 Preoperative Diagnosis: 1. L3-S1 severe spondylosis with severe stenosis 2. L4-5 and L5-S1 Grade I spondylolisthesis 3. LE weakness 4. Low back pain 5. Complicated medical patient Postoperative Diagnosis: 1. L3-S1 severe spondylosis with severe stenosis 2. L4-5 and L5-S1 Grade I spondylolisthesis 3. LE weakness 4. Low back pain 5. Complicated medical patient Procedure(s) Performed: 1. L4-5 and L5-S1 posteriolateral and interbody fusion (29051, 79528) 2. L3-4 posteriolateral instrumented fusion () 3. Insertion of biomechanical device L4-5 and L5-S1 (60721n4) 4. Segmental instrumentation L3-S1 (71088) 5. Bilateral laminectomy, complete facetectomy and foraminotomy for deformity correction, decompression and neural decompression (92223, 90841o1) 6. Dural repair with patch graft (73088) 7. Bone marrow aspiration Right Illiac crest through a separate facial incision for fusion. (33464) 8. Use of [employer] 3D navigation for screw placement. (84567) Use of IONM This case took 75% longer due to patients comorbid conditions, anatomical anomalies and the complexity of the case (mod22) Implants: -[employer] screw and julia system -Globus Sable cages x2 -Allograft -Autograft -ManatOs -iFactor Anesthesia: GETA Surgeon: Nico Kessler Home Sales Service Professional #1: Lloyd Wihte (Was present and assisted in all aspects of the case from positionig to dressing placement) Estimated Blood Loss (ml): 700 IV fluids (ml): 2,400 Urine output (ml): 1,200 Pathology: none sent Condition: stable Disposition: PACU Indications for Procedure: Miranda is a 62-year-old female presenting for evaluation of acute lower extremity weakness and inability to ambulate. It was my pleasure to have seen and examined Miranda. In our visit today we have had a chance to go over subjective complaints, physical examination findings and treatments including the natural course history without intervention and various interventional options. The patients imaging demonstrates severe stenosis with spondylosis and spondylolisthesis L3 through S1. On physical exam, Miranda demonstrates weakness in bilateral lower extremities with bilateral 2 out of 5 strength in all major muscle groups is acute change according to the family. Patient does have baseline dementia. She does follow commands however. The family states that she was ambulating just 2 weeks before this but she started having increase in urinary retention constipation and weakness. I have explained to the patient And her family that as their condition progresses it will cause further neurological deficits and eventual paralysis. Based on the patients imaging, physical exam, and the rapid progression and disabling nature of their symptoms, at this time I recommend surgery in the form or a: L3 through S1 decompression and fusion. I discussed the risk and benefits of this procedure at length with Miranda and her family and Dion THOMAS. The patient's family and D POA agreed to considered pursuing the procedure abovementioned. Prior to surgery, she should follow up with her PCP (Cardio, ID, IM etc) for clearance. Questions were invited and answered, and the patient wishes to proceed as outlined below. Currently, I am recommendin. L3 through S1 decompression and fusion Description of Procedure: The patient was seen and examined in the preoperative area. All preoperative protocols were followed. Informed consent was obtained risks and benefits of the procedure were discussed at length. Risks including bleeding infection damage to the surrounding tissue and risk of reoperation were discussed with the patient. Risk of anesthesia up to and including was a discussed with the patient. These are outlined in the risk review. They were willing to accept these risks and all of the risks of surgery. The patient was given a weight- based dose of antibiotics in the form of 2 g ancef. 2 g TXA given 1 at open 1 at closure. The patient was seen and evaluated by the anesthesia team who deemed them fit for surgery. The site was marked, the patient was willing to proceed with the procedure. The patient was transferred to the operative suite by the Department of anesthesia. They were then drifted off to sleep by the department anesthesia and GETA was performed. The patient tolerated this well. Lehman in place from the floor. Once confirmation of lines and ventilation the patient was transf erred to a [prone [place] table very carefully]. All bony prominences including wrists, elbows, axilla, chest, hips, and thighs, and feet were padded very well. Special attention was paid to the genitalia and these were padded accordingly. SCDs were placed on bilateral lower extremities and were connected. Arms were well padded and placed [on arm boards up and out in the 90/90 position]. Once in position, again we confirmed good ventilation capabilities and that lines were running appropriately. The patient's Lumbosacral spine was then exposed. 1010s were placed outlining the incision site. Standard alcohol was used to clean the incision site and allowed to dry. C-arm was used to biomark the patient and confirm level for incision which was marked with a skin marker. Operative briefing was performed with all teams and everyone in agreement to proceed. The patient was then prepped and draped in a normal sterile fashion. Timeout was then performed and all parties were in agreement with the procedure to be performed. Midline skin incision made over the previously biomarked area and exposure taken down to the deep facial which was identified and cleaned with a adorno. Midline faciiotomy was made over the SP of S1 to L2. Subperiosteal dissection then taken down and out over the facet joints and TPs of L3-S1. High speed eran used to decorticate the TP at L3-S1 and sacral ala. We then confirmed levels and placed a SP tracker for [employer] navigation on S1. Then 3D Zhiem spin was obtained and registered. We then checked accuracy of the navigation and it was accurate. We then placed screws b/l at L3-S1 using the technique. Navigated eran used to make rider ticket worker hole followed by navigated awl tap followed by navigated screw tractor trailer moving van driver. Once screws were placed. C arm confirmed them to be in good position. Screws were then tested and all tested abive 20 mA. Attention was then drawn to decompression. At L3-S1 bilateral laminectomy, complete facetectomy and foraminotomy were performed using high speed eran, 2-0 upbiting curette and kerrison rongures. We decompressed each level individually before moving on. At L5-S1, disc space was identified and neural elements protected. We then performed interbody fusion at this level. Sindi, pituitary, downbiting curette used for complete discectomy and to obtain bleeding endplates. Globus cage then selected. Graft placed anterior to the cage and the cage then placed. It was expanded to meet enplates and created good lift. We then locked the cage and back filled it with graft. Cage was stable. Good reduction in height and lordosis noted. Area was irrigated and meticulous hemostasis achieved. Attention then drawn to L4-5 level. There was a punctate dural lesion due to severe stenosis centrally and so 5-0 prolene was used to close this. A fat graft was taken from subq region and sewed into place over this as well. valsalvato 40 mmHg done and no leaks continued. We then accessed disc space at L4-5 and protected neural elements. Complete discectomy done here as well and fusion as described above. Cage placed and expanded. Good reduction in height and lordosis acheived. Area was irrigated and hemostasis achieved. Rods were then selected, sized and shaped. They were placed into S1 b/l and locked in. Then sequential reduction done through L3 until rods were seated. Set screws placed. Gentle distraction done of right side of construct due to deformity at this side. Set screws were then final tightened. Cross link selected and placed and final tightened. Copious irrigation then done with 3L of Ancef irrigant followed by 3L of gentamycin followed by 3L NSS. The wound bed was inspected and was good. Tisseal was then placed on the dural followed by surgicel and more Tisseal to seal off any potential for leaks. Valsalva to 40 mmHG done again and no leaks seen. Jamshidi was then used to access illiac bakari through a separate facial incision and aspirate BMA. 30cc BMA aspirated. This was mixed with MagnatOs and local bone for graft and placed in the posteriolateral gutters from L3-S1 for fusion. Surgicel placed over this. We then placed deep drain. 2g vanco powder placed deep. Layered closure done with #1 PDS in the deep facia. 0 Vicryl in the deep subq tissue and 2-0 in the superficial subq. The skin was then closed with aashish and wound edges approximated very well. The wound was then cleaned with NSS and ETOH and dressed sterilly with adaptic, 4x4, ABD and tape. This was then covered with Ioband to seal it. Drain was stitched in place and had good suction. The patient was transferred back to their hospital bed atraumatically. [Drain continued to hold suction and were in good position]. Patient was then awakened and extubated by the department of anesthesia having tolerated the procedure very well with no complications. They were transferred to the postoperative care unit in stable condition.
--- NOTE | 2022-10-03 14:13 | P.PN ---
Subjective Progress Note Date: 10/03/22 Patient is a 62-year-old female with history of dementia, mood disorder, psychiatric disorder, hypothyroidism, dyslipidemia presenting from an assisted living facilitydue to fall, worsening weakness and inability to take care of herself. Patient's family attributed changes in mental status to medication being transitioned from Abilify to Zyprexa in the last 2 months. She was recently taken off of Zyprexa and change to Lamictal. Due to increased weakness, patient was taken off of Lamictal as well. She continues to take her Lexapro. In the ER she was mildly febrile with a rectal temperature of 100.3 laboratory data sepsis was relatively unremarkable, urine was negative, drug screen negative, influenza A/B, RSV, and COVID-[address] head and cervical spine showed no acute fracture or subluxation of the cervical spine, CT head demonstrated age-related atrophic and chronic small vessel ischemic changes without acute intracranial process. Chest x-ray showed no acute pulmonary disease. Lumbar x-ray showed moderate to severe multilevel degenerative disc c hanges greatest L3-4 4 and L5-S1 with grade 1 anterolisthesis of L3 4 and severe facet joint arthropathy. Bilateral hip x-ray shows no acute fracture or dislocation. She was admitted for further monitoring. She was seen by neurology who recommended EEG, MRI brain, MRI of cervical spine. MRI lumbar spine revealed severe spinal stenosis. She underwent decompression with fusion L3- S1 Decompression and fusion. Imaging: Carotid Doppler: 50-69% stenosis bilaterally MRI [id number] atrophy MRI cervical spine-degenerative changes, unable to evaluate for cord compression at C6 7 [id number] activity, background slowing and disorganization MRI thorasic Spine- no spinal canal stenosis or neural foraminal impingement MRI Lumbar Spine- L3-L4 Severe Spinal canal stenosis, mod to sever bilateral stenosis, L4-L5 Severe Neural Foraminal stenosis Patient seen and examined in PACU. She is sleeping but awakes to touch. She complains of not feeling well. Reports some pain, but falls back asleep General: nontoxic, no distress, appears at stated age Derm: warm, dry Head: atraumatic, normocephalic, symmetric Eyes: EOMI, no lid lag, anicteric sclera Mouth: no lip lesion, mucus membranes dry Cardiovascular: S1S2 reg, no murmur, positive posterior tibial pulse bilateral, Lungs: Decreased breath sounds bilateral, no rhonchi, no rales , no accessory muscle use Abdominal: soft, +tender to palpation epigastric, no guarding, no appreciable organomegaly Ext: no gross muscle atrophy, no edema, no contractures Neuro: CN II-XI grossly intact, laying on side Psych: lethargic, oriented, Blunted affect Assessment/plan: Bilateral lower extremity weakness with urinary retention due to severe lumbar spinal stenosis POD 0 L3-S1 decompression and fusion Fall Dementia Congnitive impairment, difficult to determine baseline -Orthospine recommendations appreciated: L3-S1 decompression and fusion completed 10/03. D/W Dr. Kessler EBL 700. No immediate post-op complications. Will receive 1 unit pRBC due to EBL and interop HgB~8.5 - pain control - neuro recs appreciated -PT/OT -B12, folate, normal, vitamin D low normal -CK mildly elevated -ESR and CRP mildly elevated -Syphilis negative - suh cath Hypothyroidism -TSH within normal range -Continue Synthroid DVT prophylaxis: Heparin Discussed with: Patient, nursing, Dr. Biggs Anticipated discharge: Pending clinical course Anticipated discharge place: Pending clinical course A total of 25 minutes was spent on the care of this complex patient more than 50% of the time was spent in counseling and care coordination. Active Medications Generic Name Dose Route Start Last Admin Trade Name Freq PRN Reason Stop Dose Admin Acetaminophen 650 mg 09/28/22 13:27 10/01/22 11:12 Acetaminophen Tab 325 Mg Tab PO 650 mg Q6HR PRN Administration Mild Pain or Fever > 100.5 Hydrocodone Bitart/Acetaminophen 1 each 10/01/22 14:24 10/03/22 04:21 Hydrocodone/Apap 5-325mg 1 Each Tab PO 1 each Q6HR PRN Administration Moderate Pain (4-6) Hydrocodone Bitart/Acetaminophen 1 each 10/03/22 12:57 Hydrocodone/Apap 10-325mg 1 Each Tab PO Q6H PRN Pain Scale 7 - 10 Aspirin 81 mg 09/30/22 09:00 10/02/22 08:55 Aspirin 81 Mg PO 81 mg DAILY BENJI Administration Atorvastatin Calcium 20 mg 09/28/22 21:00 10/02/22 21:24 Atorvastatin 20 Mg Tab PO 20 mg HS BENJI Administration Cholecalciferol 100 mcg 09/30/22 14:00 10/02/22 08:55 Cholecalciferol 25 Mcg (1000 Iu) Tablet PO 100 mcg DAILY BENJI Administration Cyanocobalamin 1,000 mcg 09/29/22 09:00 10/02/22 08:55 Cyanocobalamin 500 Mcg Tab PO 1,000 mcg DAILY BENJI Administration Cyclobenzaprine HCl 5 mg 10/03/22 12:57 Cyclobenzaprine 5 Mg Tab PO TID PRN Muscle Spasm Dexamethasone Sodium Phosphate 4 mg 09/30/22 12:00 10/03/22 06:28 Dexamethasone Sod Phosphate 4 Mg/Ml 1 Ml Vial IVP 4 mg Q6HR BENJI Administration Enoxaparin Sodium 40 mg 09/29/22 09:00 10/02/22 08:55 Enoxaparin 40 Mg/0.4 Ml Syringe SQ 40 mg DAILY BENJI Administration Escitalopram Oxalate 20 mg 09/29/22 09:00 10/02/22 08:56 Escitalopram 20 Mg Tab PO 20 mg DAILY BENJI Administration Gabapentin 300 mg 10/03/22 16:00 Gabapentin 300 Mg Cap PO TID BENJI Hydromorphone HCl 0.5 mg 10/03/22 12:57 Hydromorphone 0.5 Mg/0.5 Ml Syringe IVP Q3HR PRN Pain Scale 4 - 6 Hydromorphone HCl 1 mg 10/03/22 12:57 Hydromorphone 1 Mg/Ml 1 Ml Syringe IVP Q3HR PRN Pain Scale of 7 - 10 Sodium Chloride 1,000 mls @ 75 mls/hr 09/28/22 13:30 10/03/22 00:01 Saline 0.9% IV 75 mls/hr .[id number] BENJI Administration Cefazolin Sodium 2 gm/ Sodium 50 mls @ 100 mls/hr 10/03/22 16:00 Chloride IVPB 10/04/22 00:29 Q8HR [facility] Protocol Levothyroxine Sodium 25 mcg 09/29/22 06:30 10/03/22 06:28 Levothyroxine 25 Mcg Tab PO Not Given 0630 BENJI Magnesium Hydroxide 2,400 mg 10/03/22 12:57 Magnesium Hydroxide 2,400 Mg/10 Ml Cup PO DAILY PRN Constipation Melatonin 6 mg 09/28/22 21:00 10/02/22 21:24 Melatonin 3 Mg Tablet PO 6 mg HS BENJI Administration Naloxone HCl 0.2 mg 09/28/22 13:16 Naloxone 0.4 Mg/Ml 1 Ml Vial IV Q2M PRN Opioid Reversal Polyethylene Glycol 17 gm 09/29/22 09:00 10/02/22 08:55 Polyethylene Glycol 3350 17 Gm Powd.Pack PO 17 gm DAILY BENJI Administration Senna 8.6 mg 09/28/22 21:00 10/02/22 21:24 Sennosides 8.6 Mg Tab PO 8.6 mg BID BENJI Administration Senna/Docusate Sodium 2 each 10/03/22 12:57 Sennosides-Docusate Sodium 1 Each Tab PO DAILY PRN Constipation Simethicone 120 mg 09/29/22 09:00 10/02/22 08:56 Simethicone 80 Mg Chewable PO 120 mg DAILY BENJI Administration Objective - Vital Signs Vital signs: Vital Signs Temp 97.6 F 10/03/22 13:00 Pulse 74 10/03/22 13:45 Resp 16 10/03/22 13:45 BP 96/49 10/03/22 13:45 Pulse Ox 99 10/03/22 13:45 FiO2 21 10/01/22 20:06 Intake & Output 10/02/22 10/03/22 10/03/22 18:59 06:59 18:59 Intake Total 300 3202 Output Total 2100 1050 1450 Balance -1800 -1050 1752 Intake: IV 3202 Oral 300 Output: Urine 2100 1050 750 Estimated Blood Loss 700 Other: Voiding Method Indwelling Catheter - Labs CBC & Chem 7: 10/03/22 09:00 10/03/22 09:00 Labs: Abnormal Lab Results - Last 24 Hours (Table) 10/03/22 10/03/22 10/03/22 Range/Units 09:00 09:00 10:15 RBC 3.53 L (3.80-5.40) m/uL Hct 32.8 L (34.0-46.0) % BUN 18 H (7-17) mg/dL Glucose 123 H (74-99) mg/dL POC Glucose (mg/dL) (70-110) mg/dL Calcium 7.8 L (8.4-10.2) mg/dL Crossmatch See Detail 10/03/22 Range/Units 13:17 RBC (3.80-5.40) m/uL Hct (34.0-46.0) % BUN (7-17) mg/dL Glucose (74-99) mg/dL POC Glucose (mg/dL) 147 H (70-110) mg/dL Calcium (8.4-10.2) mg/dL Crossmatch Microbiology - Last 24 Hours (Table) 09/28/22 10:40 Blood Culture - Preliminary Blood No Growth after 120 hours
[2022-10-03] MEDS: HYDROmorphone 0.5 MG/0.5 ML SYRINGE IVP PRN ×2 (15:02→23:26)
[2022-10-03] MEDS: ASPIRIN 81 MG PO SCH (18:15)
[2022-10-03] MEDS: CHOLECALCIFEROL 25 MCG (1000 IU) TABLET PO SCH (18:15)
[2022-10-03] MEDS: CYANOCOBALAMIN 500 MCG TAB PO SCH (18:15)
[2022-10-03] MEDS: ENOXAPARIN 40 MG/0.4 ML SYRINGE SQ SCH (18:15)
[2022-10-03] MEDS: ESCITALOPRAM 20 MG TAB PO SCH (18:16)
[2022-10-03] MEDS: SENNOSIDES 8.6 MG TAB PO SCH ×2 (18:16→20:02)
[2022-10-03] MEDS: SIMETHICONE 80 MG CHEWABLE PO SCH (18:16)
[2022-10-03] MEDS: polyethylene glycoL 3350 17 GM POWD.PACK PO SCH (18:16)
[2022-10-03] MEDS: GABAPENTIN 300 MG CAP PO SCH ×2 (18:18→21:21)
[2022-10-03] MEDS: ATORVASTATIN 20 MG TAB PO SCH (20:02)
[2022-10-03] MEDS: MELATONIN 3 MG TABLET PO SCH (21:19)
[2022-10-04] MEDS: HYDROcodone/APAP 5-325MG 1 EACH TAB PO PRN (04:13)
[2022-10-04] MEDS: SODIUM CHLORIDE 0.9% 1,000 ML IV SCH ×2 (04:15→17:23)
[2022-10-04] MEDS: LEVOTHYROXINE 25 MCG TAB PO SCH (05:33)
[2022-10-04] MEDS: DEXAMETHASONE SOD PHOSPHATE 4 MG/ML 1 ML VIAL IVP SCH ×3 (05:33→17:55)
[2022-10-04] MEDS: HYDROmorphone 0.5 MG/0.5 ML SYRINGE IVP PRN ×2 (05:37→08:43)
[2022-10-04 06:27] LABS: HCT 25.8 % (34.0-46.0); MCH 31.7 pg (25.0-35.0); MCHC 33.7 g/dL (31.0-37.0); Mean Platelet Volume 8.4; Platelet Count 184 k/uL (150-450); RBC 2.74 m/uL (3.80-5.40); RDW 13.2 % (11.5-15.5)
[2022-10-04 06:28] LABS: HGB 8.7 gm/dL (11.4-16.0)
[2022-10-04 06:36] LABS: ALT 25 U/L (4-34); AST 36 U/L (14-36); African American GFR (CKD) >90 (>60 ml/min/1.73 sqM); Albumin 2.5 g/dL (3.5-5.0); Albumin/Globulin Ratio 1.3; Alkaline Phosphatase 91 U/L (38-126); Anion Gap 4 mmol/L; Blood Urea Nitrogen 18 mg/dL (7-17); Calcium 6.8 mg/dL (8.4-10.2); Carbon Dioxide 26 mmol/L (22-30); Chloride 107 mmol/L (98-107); Globulin 1.9 g/dL; Glucose 94 mg/dL (74-99); Magnesium 2.1 mg/dL (1.6-2.3); Non-African American GFR(CKD) >90 (>60 ml/min/1.73 sqM); Sodium 137 mmol/L (137-145); Total Bilirubin 0.4 mg/dL (0.2-1.3); Total Protein 4.4 g/dL (6.3-8.2)
--- NOTE | 2022-10-04 08:41 | P.PN ---
Subjective Progress Note Date: 10/04/22 Principal diagnosis: generalized weakness constipation Patient seen and examined this morning. Patient is resting comfortably in bed. Patient is pleasantly confused. Surgical dressing is CDI, hemovac present. Suh catheter is present and patent. Patient has been afebrile, denies any nausea/vomiting, or chest pain. Objective - Vital Signs Vital signs: Vital Signs Temp 97.4 F L 10/04/22 04:47 Pulse 71 10/04/22 04:47 Resp 16 10/04/22 04:47 BP 94/59 10/04/22 04:47 Pulse Ox 93 L 10/04/22 04:47 FiO2 21 10/01/22 20:06 Intake & Output 10/03/22 10/04/22 10/04/22 18:59 06:59 18:59 Intake Total 3612 120 Output Total 1850 760 Balance 1762 -640 Intake: IV 3302 Oral 120 Blood Product 310 Rc As-1 Unit 310 [id number] Output: Drainage 210 Posterior Back 210 Urine 1150 550 Estimated Blood Loss 700 Other: Voiding Method Indwelling Catheter Indwelling Catheter - Exam Physical Examination General: The patient is awake and alert, in no acute distress Skin: Skin is warm and dry with no obvious rashes or lesions. Hairy patches absent, no dorsal skin dimples, no cafe au lait spots. Surgical dressing to lumbar region, hemovac present. Eye: Pupils are equal, round and reactive to light, extra-ocular movements are intact; there is normal conjunctiva bilaterally. Neck: The neck is supple, there is no tenderness and ROM intact. Cardiovascular: There is a regular rate and rhythm. No murmur, rub or gallop is appreciated. Respiratory: Lungs are clear to auscultation, respirations are non-labored, br eath sounds are equal. Gastrointestinal: Soft, non-distended, non-tender abdomen. Back: There is tenderness to palpation in the paralumbar region. There is no obvious deformity . Musculoskeletal: ROM limited secondary to pain and stiffness from procedure. Muscle strength in all major muscle groups are unable to be assessed at this time due to patients mental state and inability to follow commands. Neurological: CN 2-12 intact. There are no obvious motor or sensory deficits. Movement and coordination DELBERT. Sensory exam to light touch intact C5-T1 and intact from L2-S1. Reflexes 2/4 in bilateral upper and lower extremities. Negative Hoffmans, babinski, and clonus signs. Psychiatric: AMS, confused. - Labs CBC & Chem 7: 10/04/22 05:47 10/04/22 05:47 Labs: Abnormal Lab Results - Last 24 Hours (Table) 10/03/22 10/03/22 10/03/22 Range/Units 09:00 09:00 10:15 RBC 3.53 L (3.80-5.40) m/uL Hgb (11.4-16.0) gm/dL Hct 32.8 L (34.0-46.0) % BUN 18 H (7-17) mg/dL Glucose 123 H (74-99) mg/dL POC Glucose (mg/dL) (70-110) mg/dL Calcium 7.8 L (8.4-10.2) mg/dL Total Protein (6.3-8.2) g/dL Albumin (3.5-5.0) g/dL Crossmatch See Detail 10/03/22 10/04/22 10/04/22 Range/Units 13:17 05:47 05:47 RBC 2.74 L (3.80-5.40) m/uL Hgb 8.7 L D (11.4-16.0) gm/dL Hct 25.8 L (34.0-46.0) % BUN 18 H (7-17) mg/dL Glucose (74-99) mg/dL POC Glucose (mg/dL) 147 H (70-110) mg/dL Calcium 6.8 L (8.4-10.2) mg/dL Total Protein 4.4 L (6.3-8.2) g/dL Albumin 2.5 L (3.5-5.0) g/dL Crossmatch Microbiology - Last 24 Hours (Table) 09/28/22 10:40 Blood Culture - Preliminary Blood No Growth after 120 hours Assessment and Plan Assessment: Low back pain Lumbar Spondylosis Lumbar Spondylolithesis Dementia Multiple medical comorbidities Post-Op Day 1: L3-S1 decompression and fusion Plan: -Appreciate advertising consultant and team management. -Activity: Ambulate QID, OOB all meals, up and about, limit lifting bending twisting to less than 5 lbs. Use walker or cane if needed for stability. -Daily PT/OT, increase ambulation strength and balance. -Pain control: Adequate at this time -Meds: reviewed -GI ppx: senna, Miralax -DC suh when up and about, bedside commode if needed -DVT PPX: OK to restart Heparin tonight -Hygiene: Shower today. Maintain dressing clean and dry. Meticulous cleaning after BMs away from the incision site -Drains: Maintain for now. DC later today pending out put and PT -Encourage IS 10x/hr -Dispo: Anticipate discharge GINNY when stable *I reviewed and discussed this case with my attending Dr. Kessler, whom has reviewed this chart and films and is in agreement with assessment and plan of care as outlined above. I have personally seen and examined the patient, performed the documentation and the assessment and plan as written. Number of minutes spent on the visit: 15m.
[2022-10-04] MEDS: SENNOSIDES 8.6 MG TAB PO SCH ×2 (08:44→20:51)
[2022-10-04] MEDS: GABAPENTIN 300 MG CAP PO SCH ×3 (08:45→20:51)
[2022-10-04] MEDS: ENOXAPARIN 40 MG/0.4 ML SYRINGE SQ SCH (08:45)
[2022-10-04] MEDS: CYANOCOBALAMIN 500 MCG TAB PO SCH (08:45)
[2022-10-04] MEDS: CHOLECALCIFEROL 25 MCG (1000 IU) TABLET PO SCH (08:45)
[2022-10-04] MEDS: polyethylene glycoL 3350 17 GM POWD.PACK PO SCH (08:45)
[2022-10-04] MEDS: ASPIRIN 81 MG PO SCH (08:46)
[2022-10-04] MEDS: SIMETHICONE 80 MG CHEWABLE PO SCH (09:17)
[2022-10-04] MEDS: ESCITALOPRAM 20 MG TAB PO SCH (09:17)
--- NOTE | 2022-10-04 10:24 | CT ---
EXAMINATION TYPE: CT lumbar spine wo con DATE OF EXAM: 10/04/2022 COMPARISON: MRI 09/30/2022 presurgical images HISTORY: post op CT DLP: 596 mGycm CONTRAST: CT scan of the lumbar is performed , patient injected with mL of . TECHNIQUE: CT of the lumbar spine is performed on a spiral scan at 3 mm thick sections. Reconstructed images are performed in the coronal and sagittal planes. FINDINGS: T12-L1: No focal disc herniation or significant disc bulge is evident. No spinal canal stenosis or neural foraminal stenosis is present. L1-L2: No focal disc herniation or significant disc bulge is evident. Loss of disc height is noted N o spinal canal stenosis or neural foraminal stenosis is present. There is a Schmorl's node at the inf erior endplate of L1 unchanged from the MRI. L2-L3: No focal disc herniation or significant disc bulge is evident. Some posterior disc space narro wing is present No spinal canal stenosis or neural foraminal stenosis is present L3-L4: No focal disc herniation or significant disc bulge is evident. No spinal canal stenosis is present. Very minimal grade 1 spondylolisthesis of L3 and L4 is present. There is vertebroplasty of L 3. L4-L5: No focal disc herniation or significant disc bulge is evident. Disc spacer. 3 placed. No spin al canal stenosis is present L5-S1: No focal disc herniation or significant disc bulge is evident. Disc spacer has been placed. N o spinal canal stenosis is present Pedicle screws are present in all 3 through S1. This causes beam hardening artifact and limitation th rough these levels. Foramina are not well-visualized. Obvious spinal canal stenosis not evident. Post erior skin aashish are present. IMPRESSION: 1 postsurgical changes with pedicle screws and fixation rods L3-S1. This causes limitation in the ricky luation. 2. Minimal stable anterolisthesis of L3 anteriorly on L4. 3. Inferior endplate changes L1 appears stable from comparison MRI.
--- NOTE | 2022-10-04 10:37 | P.PN ---
Subjective Progress Note Date: 10/04/22 Patient is a 62-year-old female with history of dementia, mood disorder, psychiatric disorder, hypothyroidism, dyslipidemia presenting from an assisted living facilitydue to fall, worsening weakness and inability to take care of herself. Patient's family attributed changes in mental status to medication being transitioned from Abilify to Zyprexa in the last 2 months. She was recently taken off of Zyprexa and change to Lamictal. Due to increased weakness, patient was taken off of Lamictal as well. She continues to take her Lexapro. In the ER she was mildly febrile with a rectal temperature of 100.3 laboratory data sepsis was relatively unremarkable, urine was negative, drug screen negative, influenza A/B, RSV, and COVID-[address] head and cervical spine showed no acute fracture or subluxation of the cervical spine, CT head demonstrated age-related atrophic and chronic small vessel ischemic changes without acute intracranial process. Chest x-ray showed no acute pulmonary disease. Lumbar x-ray showed moderate to severe multilevel degenerative disc c hanges greatest L3-4 4 and L5-S1 with grade 1 anterolisthesis of L3 4 and severe facet joint arthropathy. Bilateral hip x-ray shows no acute fracture or dislocation. She was admitted for further monitoring. She was seen by neurology who recommended EEG, MRI brain, MRI of cervical spine. MRI lumbar spine revealed severe spinal stenosis. She underwent decompression with fusion L3- S1 Decompression and fusion. She did require 1 unit pRBC. Imaging: Carotid Doppler: 50-69% stenosis bilaterally MRI [id number] atrophy MRI cervical spine-degenerative changes, unable to evaluate for cord compression at C6 7 [id number] activity, background slowing and disorganization MRI thorasic Spine- no spinal canal stenosis or neural foraminal impingement MRI Lumbar Spine- L3-L4 Severe Spinal canal stenosis, mod to sever bilateral stenosis, L4-L5 Severe Neural Foraminal stenosis Patient seen and examined. Sleeping but awakes to touch. Denies pain but winces when moving. Does not answer other questions. Family at bedside, concerned that she will not get pain meds as she does not ask for them, they are wanting something scheduled. General: nontoxic, no distress, appears at stated age Derm: warm, dry Head: atraumatic, normocephalic, symmetric Eyes: EOMI, no lid lag, anicteric sclera Mouth: no lip lesion, mucus membranes dry Cardiovascular: S1S2 reg, no murmur, positive posterior tibial pulse bilateral, Lungs: Decreased breath sounds bilateral, no rhonchi, no rales , no accessory muscle use Abdominal: soft, +tender to palpation epigastric, no guarding, no appreciable organomegaly Ext: no gross muscle atrophy, no edema, no contractures Neuro: CN II-XI grossly intact, laying on side, able to wiggle right toes, does not move left leg-- unable to tell if it is difficulty following commands vs weakness. Psych: lethargic, oriented to self, Blunted affect Assessment/plan: Bilateral lower extremity weakness with urinary retention due to severe lumbar spinal stenosis POD 1 L3-S1 decompression and fusion -Orthospine recommendations appreciated: L3-S1 decompression and fusion completed 10/03. -PT/OT - suh cath Post op Pain - d/c prn norco, start scheduled [place], will need to add prn norco back on 10/05 - prn dilaudid ABLA - anticipated outcome of surgery - follow CBC-- no need for transfusion today. - S/P 1 unit pRBC Fall Dementia Congnitive impairment, difficult to determine baseline - neuro signed off -B12, folate, normal, vitamin D low normal -CK mildly elevated -ESR and CRP mildly elevated -Syphilis negative Hypothyroidism -TSH within normal range -Continue Synthroid DVT prophylaxis: Heparin Discussed with: Patient, nursing Anticipated discharge: Pending clinical course Anticipated discharge place: SNF A total of 35 minutes was spent on the care of this complex patient more than 50% of the time was spent in counseling and care coordination. Active Medications Generic Name Dose Route Start Last Admin Trade Name Freq PRN Reason Stop Dose Admin Acetaminophen 650 mg 09/28/22 13:27 10/01/22 11:12 Acetaminophen Tab 325 Mg Tab PO 650 mg Q6HR PRN Administration Mild Pain or Fever > 100.5 Hydrocodone Bitart/Acetaminophen 1 each 10/04/22 12:00 Hydrocodone/Apap 7.5-325mg 1 Each Tab PO 10/06/22 06:01 Q6HR BENJI Aspirin 81 mg 09/30/22 09:00 10/04/22 08:46 Aspirin 81 Mg PO 81 mg DAILY BENJI Administration Atorvastatin Calcium 20 mg 09/28/22 21:00 10/03/22 20:02 Atorvastatin 20 Mg Tab PO 20 mg HS BENJI Administration Cholecalciferol 100 mcg 09/30/22 14:00 10/04/22 08:45 Cholecalciferol 25 Mcg (1000 Iu) Tablet PO 100 mcg DAILY BENJI Administration Cyanocobalamin 1,000 mcg 09/29/22 09:00 10/04/22 08:45 Cyanocobalamin 500 Mcg Tab PO 1,000 mcg DAILY BENJI Administration Cyclobenzaprine HCl 5 mg 10/03/22 12:57 Cyclobenzaprine 5 Mg Tab PO TID PRN Muscle Spasm Dexamethasone Sodium Phosphate 4 mg 09/30/22 12:00 10/04/22 05:33 Dexamethasone Sod Phosphate 4 Mg/Ml 1 Ml Vial IVP 4 mg Q6HR BENJI Administration Enoxaparin Sodium 40 mg 09/29/22 09:00 10/04/22 08:45 Enoxaparin 40 Mg/0.4 Ml Syringe SQ 40 mg DAILY BENJI Administration Escitalopram Oxalate 20 mg 09/29/22 09:00 10/04/22 09:17 Escitalopram 20 Mg Tab PO 20 mg DAILY BENJI Administration Gabapentin 300 mg 10/03/22 16:00 10/04/22 08:45 Gabapentin 300 Mg Cap PO 300 mg TID BENJI Administration Hydromorphone HCl 0.5 mg 10/03/22 12:57 10/04/22 05:37 Hydromorphone 0.5 Mg/0.5 Ml Syringe IVP 0.5 mg Q3HR PRN Administration Pain Scale 4 - 6 Hydromorphone HCl 1 mg 10/03/22 12:57 Hydromorphone 1 Mg/Ml 1 Ml Syringe IVP Q3HR PRN Pain Scale of 7 - 10 Sodium Chloride 1,000 mls @ 75 mls/hr 09/28/22 13:30 10/04/22 04:15 Saline 0.9% IV 75 mls/hr .[id number] BENJI Administration Levothyroxine Sodium 25 mcg 09/29/22 06:30 10/04/22 05:33 Levothyroxine 25 Mcg Tab PO 25 mcg 0630 BENJI Administration Magnesium Hydroxide 2,400 mg 10/03/22 12:57 Magnesium Hydroxide 2,400 Mg/10 Ml Cup PO DAILY PRN Constipation Melatonin 6 mg 09/28/22 21:00 10/03/22 21:19 Melatonin 3 Mg Tablet PO 6 mg HS BENJI Administration Naloxone HCl 0.2 mg 09/28/22 13:16 Naloxone 0.4 Mg/Ml 1 Ml Vial IV Q2M PRN Opioid Reversal Polyethylene Glycol 17 gm 09/29/22 09:00 10/04/22 08:45 Polyethylene Glycol 3350 17 Gm Powd.Pack PO 17 gm DAILY BENJI Administration Senna 8.6 mg 09/28/22 21:00 10/04/22 08:44 Sennosides 8.6 Mg Tab PO 8.6 mg BID BENJI Administration Senna/Docusate Sodium 2 each 10/03/22 12:57 Sennosides-Docusate Sodium 1 Each Tab PO DAILY PRN Constipation Simethicone 120 mg 09/29/22 09:00 10/04/22 09:17 Simethicone 80 Mg Chewable PO 120 mg DAILY BENJI Administration Objective - Vital Signs Vital signs: Vital Signs Temp 97.4 F L 10/04/22 04:47 Pulse 71 10/04/22 04:47 Resp 16 10/04/22 04:47 BP 94/59 10/04/22 04:47 Pulse Ox 93 L 10/04/22 04:47 FiO2 21 10/01/22 20:06 Intake & Output 10/03/22 10/04/22 10/04/22 18:59 06:59 18:59 Intake Total 3612 120 Output Total 1850 760 20 Balance 1762 -640 -20 Intake: IV 3302 Oral 120 Blood Product 310 Rc As-1 Unit 310 [id number] Output: Drainage 210 20 Posterior Back 210 20 Urine 1150 550 Estimated Blood Loss 700 Other: Voiding Method Indwelling Catheter Indwelling Catheter - Labs CBC & Chem 7: 10/04/22 05:47 10/04/22 05:47 Labs: Abnormal Lab Results - Last 24 Hours (Table) 10/03/22 10/03/22 10/04/22 Range/Units 10:15 13:17 05:47 RBC 2.74 L (3.80-5.40) m/uL Hgb 8.7 L D (11.4-16.0) gm/dL Hct 25.8 L (34.0-46.0) % BUN (7-17) mg/dL POC Glucose (mg/dL) 147 H (70-110) mg/dL Calcium (8.4-10.2) mg/dL Total Protein (6.3-8.2) g/dL Albumin (3.5-5.0) g/dL Crossmatch See Detail 10/04/22 Range/Units 05:47 RBC (3.80-5.40) m/uL Hgb (11.4-16.0) gm/dL Hct (34.0-46.0) % BUN 18 H (7-17) mg/dL POC Glucose (mg/dL) (70-110) mg/dL Calcium 6.8 L (8.4-10.2) mg/dL Total Protein 4.4 L (6.3-8.2) g/dL Albumin 2.5 L (3.5-5.0) g/dL Crossmatch Microbiology - Last 24 Hours (Table) 09/28/22 10:40 Blood Culture - Preliminary Blood No Growth after 120 hours
--- NOTE | 2022-10-04 12:17 | P.PN ---
Progress Note - Text Progress Note Date: 10/04/22 Patient seen this afternoon. PT/OT in working with patient, they were able to assist her with sitting at bedside; with patient's dementia she yelled out during this activity. Surgical dressing is CDI with hemovac present. Encourage increased activity as tolerated.
[2022-10-04] MEDS: HYDROcodone/APAP 7.5-325MG 1 EACH TAB PO SCH ×2 (12:23→17:55)
[2022-10-04] MEDS: CYCLOBENZAPRINE 5 MG TAB PO PRN (12:23)
--- NOTE | 2022-10-04 12:29 | P.PN ---
Subjective Progress Note Date: 10/04/22 The patient is seen at bedside and is accompanied by her family members (children). She had L3-S1 decompression and fusion on 10/03/22. According to family members, she was moving her right foot to the primary team earlier today. Currently wanted to be left alone. Objective - Vital Signs Vital signs: Vital Signs Temp 98.3 F 10/04/22 12:02 Pulse 70 10/04/22 12:02 Resp 16 10/04/22 12:02 BP 98/60 10/04/22 12:02 Pulse Ox 95 10/04/22 12:02 FiO2 21 10/01/22 20:06 Intake & Output 10/03/22 10/04/22 10/04/22 18:59 06:59 18:59 Intake Total 3612 120 Output Total 1850 760 20 Balance 1762 -640 -20 Intake: IV 3302 Oral 120 Blood Product 310 Rc As-1 Unit 310 [id number] Output: Drainage 210 20 Posterior Back 210 20 Urine 1150 550 Estimated Blood Loss 700 Other: Voiding Method Indwelling Catheter Indwelling Catheter - Exam GENERAL: The patient is lying in bed and is in mild acute distress. NEUROLOGICAL: Higher mental function: The patient is severely drowsy but is briefly awake to voice. Is oriented to self. She is agitated upon examining her. Is slowing responding. Patient is following few simple commands. Language is limited. Cranial nerves: The pupils are round, equal and reactive to light. No facial weakness. No dysarthria. Motor: The strength is limited because of cooperation but lifting bilateral upper above gravity but not movement is noted in lowers but hard to assess because of cooperation. Senation: Could not be performed because of cooperation. - Labs CBC & Chem 7: 10/04/22 05:47 10/04/22 05:47 Labs: Abnormal Lab Results - Last 24 Hours (Table) 10/03/22 10/03/22 10/04/22 Range/Units 10:15 13:17 05:47 RBC 2.74 L (3.80-5.40) m/uL Hgb 8.7 L D (11.4-16.0) gm/dL Hct 25.8 L (34.0-46.0) % BUN (7-17) mg/dL POC Glucose (mg/dL) 147 H (70-110) mg/dL Calcium (8.4-10.2) mg/dL Total Protein (6.3-8.2) g/dL Albumin (3.5-5.0) g/dL Crossmatch See Detail 10/04/22 Range/Units 05:47 RBC (3.80-5.40) m/uL Hgb (11.4-16.0) gm/dL Hct (34.0-46.0) % BUN 18 H (7-17) mg/dL POC Glucose (mg/dL) (70-110) mg/dL Calcium 6.8 L (8.4-10.2) mg/dL Total Protein 4.4 L (6.3-8.2) g/dL Albumin 2.5 L (3.5-5.0) g/dL Crossmatch Microbiology - Last 24 Hours (Table) 09/28/22 10:40 Blood Culture - Preliminary Blood No Growth after 120 hours Assessment and Plan Assessment: * Altered mental status, probably due to underlying dementia. Rule out superimposed delirium, rule out manic episode with psychosis. No evidence of infection. No obvious metabolic derangements. * Lumbar spinal stenosis, severe degree with probable cauda equina. Patient has developed rapidly progressive gait dysfunction, cognitive decline, bowel and bladder control issues s/p L3-S1 Decompression and fusion on 10/03/22 * Syncopal spell while straining, likely vasovagal. * Parkinsonism with significant rigidity, tremulousness and new onset lip smacking. Possible tardive dyskinesia. Rule out NMDA encephalitis. No evidence of NMS with normal temperature. * History of mild cognitive slowing since childhood. Plan: * MRI lumbar spine with and without contrast revealed severe spinal canal stenosis at L3 4 and moderate to severe bilateral neural foraminal stenosis. At L4-L5, there is severe right neural foraminal stenosis. Grade 1 anterolisthesis of L4 and L5, and L5 and S1. I personally reviewed MRI agree with the findings. * MRI of the thoracic spine revealed no evidence of significant spinal canal or neuroforaminal stenosis. I personally reviewed MRI, agree with the findings. * MRI of the brain revealed mild atrophy. No acute intracranial process. I personally reviewed MRI, I agree with the findings. No acute process. * MRI of the cervical spine revealed degenerative disc changes C6 7. Endplates spurring C6 7 in the right paracentral region with mild anterior thecal sac compression. Motion artifact limits the axial images and cord contact or deformities not able to be evaluated. Mild endplate changes C5 6 with mild anterior thecal sac compression. No cord contact. I personally reviewed MRI, and agreed with no significant spinal stenosis, except mild to moderate at C5 6 level. Significant degenerative changes of the spine particularly at C6-C7 level. * Orthopedic spine following. * EEG was performed, which was abnormal EEG due to background slowing and disorganization of [id number] degree. This is suggestive of generalized cerebral dysfunction as can be seen with toxic metabolic encephalopathy or related to diffuse structural brain abnormality. Clinical correlation is recommended. No epileptiform activity was seen. * Carotid Doppler revealed plaquing present bilaterally. This is contributing to moderate internal carotid artery stenosis between 50 and 69% bilaterally. Antegrade flow in both vertebral arteries. Patient started on aspirin 81 mg daily. * Psychiatry input appreciated. Patient started on amantadine for possible TD, and parkinsonism. * B12 is normal 1027, folate 17.20, TFTs are normal. Vitamin D 28.2. C- reactive protein <0.5. RPR nonreactive * CK 238/176, hemoglobin A1c 5.7. * DVT prophylaxis: Patient on Lovenox. Plan is discussed with family members (who are at bedside) and primary team. Time with Patient: Less than 30
[2022-10-04] MEDS: MELATONIN 3 MG TABLET PO SCH (20:51)
[2022-10-04] MEDS: ATORVASTATIN 20 MG TAB PO SCH (20:51)
[2022-10-05] MEDS: HYDROcodone/APAP 7.5-325MG 1 EACH TAB PO SCH ×5 (01:34→22:59)
[2022-10-05] MEDS: DEXAMETHASONE SOD PHOSPHATE 4 MG/ML 1 ML VIAL IVP SCH ×4 (01:34→22:59)
[2022-10-05] MEDS: SODIUM CHLORIDE 0.9% 1,000 ML IV SCH ×2 (04:41→20:17)
[2022-10-05] MEDS: LEVOTHYROXINE 25 MCG TAB PO SCH (05:34)
[2022-10-05] MEDS: SENNOSIDES 8.6 MG TAB PO SCH ×2 (08:10→20:17)
[2022-10-05] MEDS: ESCITALOPRAM 20 MG TAB PO SCH (08:10)
[2022-10-05] MEDS: GABAPENTIN 300 MG CAP PO SCH ×3 (08:10→22:59)
[2022-10-05] MEDS: ASPIRIN 81 MG PO SCH (08:10)
[2022-10-05] MEDS: ENOXAPARIN 40 MG/0.4 ML SYRINGE SQ SCH (08:10)
[2022-10-05] MEDS: CHOLECALCIFEROL 25 MCG (1000 IU) TABLET PO SCH (08:11)
[2022-10-05] MEDS: CYANOCOBALAMIN 500 MCG TAB PO SCH (08:11)
[2022-10-05] MEDS: SIMETHICONE 80 MG CHEWABLE PO SCH (08:11)
[2022-10-05] MEDS: polyethylene glycoL 3350 17 GM POWD.PACK PO SCH (08:11)
[2022-10-05 09:01] LABS: HCT 27.3 % (37.2-46.3); HGB 9.1 g/dL (12.0-15.0); MCH 31.1 pg (27.0-32.0); MCHC 33.3 g/dL (32.0-37.0); MCV 93.2 fL (80.0-97.0); Mean Platelet Volume 10.9 fL (9.5-12.2); NRBC Per 100 WBC 0 /100 WBCS (0.0-0.0); Platelet Count 197 X 10*3/uL (140-440); RBC 2.93 X 10*6/uL (4.10-5.20); RDW 13.2 % (11.5-14.5); WBC 10.33 X 10*3/uL (4.50-10.00)
[2022-10-05 09:12] LABS: African American GFR (CKD) 113.2 (60.0-200.0); Albumin 3.2 g/dL (3.8-4.9); Albumin/Globulin Ratio 1.78 (1.60-3.17); Anion Gap 7.3 mmol/L (10.00-18.00); BUN/Creat Ratio 28.83 Ratio (12.00-20.00); Blood Urea Nitrogen 17.3 mg/dL (9.0-27.0); Calcium 7.9 mg/dL (8.7-10.3); Carbon Dioxide 28.7 mmol/L (20.0-27.5); Globulin 1.8 g/dL (1.6-3.3); Magnesium 2.3 mg/dL (1.5-2.4); Non-African American GFR(CKD) 97.7 (60.0-200.0); Phosphorus 2.8 mg/dL (2.4-5.1); Potassium 4.4 mmol/L (3.5-5.5); Total Bilirubin 0.4 mg/dL (0.30-1.20)
--- NOTE | 2022-10-05 09:24 | P.PN ---
Subjective Progress Note Date: 10/05/22 Principal diagnosis: generalized weakness constipation Patient seen and examined this morning. Patient is resting comfortably in bed. Patient is pleasantly confused, she does report pain with movement. Surgical dressing is CDI, hemovac present. Suh catheter is present and patent. Patient has been afebrile, denies any nausea/vomiting, or chest pain. Objective - Vital Signs Vital signs: Vital Signs Temp 98.4 F 10/05/22 04:46 Pulse 72 10/05/22 04:46 Resp 16 10/05/22 04:46 BP 102/58 10/05/22 04:46 Pulse Ox 95 10/05/22 04:46 FiO2 21 10/01/22 20:06 Intake & Output 10/04/22 10/05/22 10/05/22 18:59 06:59 18:59 Intake Total 0 Output Total 1280 1200 Balance -1280 -1200 Intake: Oral 0 Output: Drainage 180 200 Posterior Back 180 200 Urine 1100 1000 Other: Voiding Method Indwelling Catheter Indwelling Catheter # Voids 2 - Exam Physical Examination General: The patient is awake and alert, in no acute distress Skin: Skin is warm and dry with no obvious rashes or lesions. Hairy patches absent, no dorsal skin dimples, no cafe au lait spots. Surgical dressing to lumbar region, hemovac present. Eye: Pupils are equal, round and reactive to light, extra-ocular movements are intact; there is normal conjunctiva bilaterally. Neck: The neck is supple, there is no tenderness and ROM intact. Cardiovascular: There is a regular rate and rhythm. No murmur, rub or gallop is appreciated. Respiratory: Lungs are clear to auscultation, respirations are non-labored, breath sounds are equal. Gastrointestinal: Soft, non-distended, non-tender abdomen. Back: There is tenderness to palpation in the paralumbar region. There is no obvious deformity . Musculoskeletal: ROM limited secondary to pain and stiffness from procedure. Mu scle strength in all major muscle groups are unable to be assessed at this time due to patients mental state and inability to follow commands. Neurological: CN 2-12 intact. There are no obvious motor or sensory deficits. Movement and coordination DELBERT. Sensory exam to light touch intact C5-T1 and i ntact from L2-S1. Reflexes 2/4 in bilateral upper and lower extremities. Negative Hoffmans, babinski, and clonus signs. Psychiatric: AMS, confused. - Labs CBC & Chem 7: 10/05/22 06:12 10/05/22 06:12 Labs: Microbiology - Last 24 Hours (Table) 09/28/22 10:40 Blood Culture - Final Blood No Growth after 144 hours Assessment and Plan Assessment: Post-Op Day 2: L3-S1 decompression and fusion Low back pain Lumbar Spondylosis Lumbar Spondylolithesis Dementia Multiple medical comorbidities Plan: -Appreciate customer consultant and team management. -Activity: Ambulate QID, OOB all meals, up and about, limit lifting bending twisting to less than 5 lbs. Use walker or cane if needed for stability. -Daily PT/OT, increase ambulation strength and balance. -Pain control: Adequate at this time -Meds: reviewed -GI ppx: senna, Miralax -DC suh when up and about, bedside commode if needed -DVT PPX: Heparin -Hygiene: Shower today. Maintain dressing clean and dry. Meticulous cleaning after BMs away from the incision site -Drains: Maintain for now. DC later today pending out put and PT -Encourage IS 10x/hr -Dispo: Anticipate discharge [facility] when stable *I reviewed and discussed this case with my attending Dr. Kessler, whom has reviewed this chart and films and is in agreement with assessment and plan of care as outlined above. I have personally seen and examined the patient, performed the documentation and the assessment and plan as written. Number of minutes spent on the visit: 15m.
--- NOTE | 2022-10-05 10:04 | P.PN ---
Subjective Progress Note Date: 10/05/22 Patient is a 62-year-old female with history of dementia, mood disorder, psychiatric disorder, hypothyroidism, dyslipidemia presenting from an assisted living facilitydue to fall, worsening weakness and inability to take care of herself. Patient's family attributed changes in mental status to medication being transitioned from Abilify to Zyprexa in the last 2 months. She was recently taken off of Zyprexa and change to Lamictal. Due to increased weakness, patient was taken off of Lamictal as well. She continues to take her Lexapro. In the ER she was mildly febrile with a rectal temperature of 100.3 laboratory data sepsis was relatively unremarkable, urine was negative, drug screen negative, influenza A/B, RSV, and COVID-[address] head and cervical spine showed no acute fracture or subluxation of the cervical spine, CT head demonstrated age-related atrophic and chronic small vessel ischemic changes without acute intracranial process. Chest x-ray showed no acute pulmonary disease. Lumbar x-ray showed moderate to severe multilevel degenerative disc c hanges greatest L3-4 4 and L5-S1 with grade 1 anterolisthesis of L3 4 and severe facet joint arthropathy. Bilateral hip x-ray shows no acute fracture or dislocation. She was admitted for further monitoring. She was seen by neurology who recommended EEG, MRI brain, MRI of cervical spine. MRI lumbar spine revealed severe spinal stenosis. She underwent decompression with fusion L3- S1 Decompression and fusion. She did require 1 unit pRBC. HgB remained stable after surgery. Imaging: Carotid Doppler: 50-69% stenosis bilaterally MRI [id number] atrophy MRI cervical spine-degenerative changes, unable to evaluate for cord compression at C6 7 [id number] activity, background slowing and disorganization MRI thorasic Spine- no spinal canal stenosis or neural foraminal impingement MRI Lumbar Spine- L3-L4 Severe Spinal canal stenosis, mod to sever bilateral stenosis, L4-L5 Severe Neural Foraminal stenosis Patient seen and examined. Brother present at bedside, she did eat well this morning. Still having some pain when moving. She states that she is going okay. All brothers questions are answered. General: nontoxic, no distress, appears at stated age Derm: warm, dry Head: atraumatic, normocephalic, symmetric Eyes: EOMI, no lid lag, anicteric sclera Mouth: no lip lesion, mucus membranes dry Cardiovascular: S1S2 reg, no murmur, positive posterior tibial pulse bilateral, Lungs: clear to auscultation bilateral, no rhonchi, no rales , no accessory muscle use Abdominal: soft, nonttender to palpation epigastric, no guarding, no appreciable organomegaly Ext: no gross muscle atrophy, no edema, no contractures Neuro: CN II-XI grossly intact, able to wiggle right toes, is not moving left leg Psych: lethargic, oriented to self, Blunted affect Assessment/plan: Bilateral lower extremity weakness with urinary retention due to severe lumbar spinal stenosis POD 1 L3-S1 decompression and fusion -Orthospine recommendations appreciated: L3-S1 decompression and fusion completed 10/03. -PT/OT - suh cath Post op Pain - Continue scheduled [facility] for another 24 hours, will need to add prn norco back on 10/05 - prn dilaudid ABLA - anticipated outcome of surgery - follow CBC-- no need for transfusion today. - S/P 1 unit pRBC Fall Dementia Congnitive impairment, difficult to determine baseline - neuro signed off -B12, folate, normal, vitamin D low normal -CK mildly elevated -ESR and CRP mildly elevated -Syphilis negative Hypothyroidism DVT prophylaxis: Heparin Discussed with: Patient, nursing, family Anticipated discharge: Pending clinical course Anticipated discharge place: SNF A total of 35 minutes was spent on the care of this complex patient more than 50% of the time was spent in counseling and care coordination. Active Medications Generic Name Dose Route Start Last Admin Trade Name Freq PRN Reason Stop Dose Admin Acetaminophen 650 mg 09/28/22 13:27 10/01/22 11:12 Acetaminophen Tab 325 Mg Tab PO 650 mg Q6HR PRN Administration Mild Pain or Fever > 100.5 Hydrocodone Bitart/Acetaminophen 1 each 10/04/22 12:00 10/05/22 05:34 Hydrocodone/Apap 7.5-325mg 1 Each Tab PO 10/06/22 06:01 1 each Q6HR BENJI Administration Aspirin 81 mg 09/30/22 09:00 10/05/22 08:10 Aspirin 81 Mg PO 81 mg DAILY BENJI Administration Atorvastatin Calcium 20 mg 09/28/22 21:00 10/04/22 20:51 Atorvastatin 20 Mg Tab PO 20 mg HS BENJI Administration Cholecalciferol 100 mcg 09/30/22 14:00 12/20/22 08:11 Cholecalciferol 25 Mcg (1000 Iu) Tablet PO 100 mcg DAILY BENJI Administration Cyanocobalamin 1,000 mcg 09/29/22 09:00 10/05/22 08:11 Cyanocobalamin 500 Mcg Tab PO 1,000 mcg DAILY BENJI Administration Cyclobenzaprine HCl 5 mg 10/03/22 12:57 10/04/22 12:23 Cyclobenzaprine 5 Mg Tab PO 5 mg TID PRN Administration Muscle Spasm Dexamethasone Sodium Phosphate 4 mg 10/05/22 10:00 Dexamethasone Sod Phosphate 4 Mg/Ml 1 Ml Vial IVP Q12H BENJI Enoxaparin Sodium 40 mg 09/29/22 09:00 10/05/22 08:10 Enoxaparin 40 Mg/0.4 Ml Syringe SQ 40 mg DAILY BENJI Administration Escitalopram Oxalate 20 mg 09/29/22 09:00 10/05/22 08:10 Escitalopram 20 Mg Tab PO 20 mg DAILY BENJI Administration Gabapentin 300 mg 10/03/22 16:00 10/05/22 08:10 Gabapentin 300 Mg Cap PO 300 mg TID BENJI Administration Hydromorphone HCl 0.5 mg 10/03/22 12:57 10/04/22 05:37 Hydromorphone 0.5 Mg/0.5 Ml Syringe IVP 0.5 mg Q3HR PRN Administration Pain Scale 4 - 6 Hydromorphone HCl 1 mg 10/03/22 12:57 Hydromorphone 1 Mg/Ml 1 Ml Syringe IVP Q3HR PRN Pain Scale of 7 - 10 Sodium Chloride 1,000 mls @ 75 mls/hr 09/28/22 13:30 10/05/22 04:41 Saline 0.9% IV Not Given .[id number] [facility] Levothyroxine Sodium 25 mcg 09/29/22 06:30 10/05/22 05:34 Levothyroxine 25 Mcg Tab PO 25 mcg 0630 BENJI Administration Magnesium Hydroxide 2,400 mg 10/03/22 12:57 Magnesium Hydroxide 2,400 Mg/10 Ml Cup PO DAILY PRN Constipation Melatonin 6 mg 09/28/22 21:00 10/04/22 20:51 Melatonin 3 Mg Tablet PO 6 mg HS BENJI Administration Naloxone HCl 0.2 mg 09/28/22 13:16 Naloxone 0.4 Mg/Ml 1 Ml Vial IV Q2M PRN Opioid Reversal Polyethylene Glycol 17 gm 09/29/22 09:00 10/05/22 08:11 Polyethylene Glycol 3350 17 Gm Powd.Pack PO 17 gm DAILY BENJI Administration Senna 8.6 mg 09/28/22 21:00 10/05/22 08:10 Sennosides 8.6 Mg Tab PO 8.6 mg BID BENJI Administration Senna/Docusate Sodium 2 each 10/03/22 12:57 Sennosides-Docusate Sodium 1 Each Tab PO DAILY PRN Constipation Simethicone 120 mg 09/29/22 09:00 10/05/22 08:11 Simethicone 80 Mg Chewable PO 120 mg DAILY BENJI Administration Objective - Vital Signs Vital signs: Vital Signs Temp 98.4 F 10/05/22 04:46 Pulse 72 10/05/22 04:46 Resp 16 10/05/22 04:46 BP 102/58 10/05/22 04:46 Pulse Ox 95 10/05/22 04:46 FiO2 21 10/01/22 20:06 Intake & Output 10/04/22 10/05/22 10/05/22 18:59 06:59 18:59 Intake Total 0 Output Total 1280 1200 Balance -1280 -1200 Intake: Oral 0 Output: Drainage 180 200 Posterior Back 180 200 Urine 1100 1000 Other: Voiding Method Indwelling Catheter Indwelling Catheter # Voids 2 - Labs CBC & Chem 7: 10/05/22 06:12 10/05/22 06:12 Labs: Abnormal Lab Results - Last 24 Hours (Table) 10/05/22 10/05/22 Range/Units 06:12 06:12 WBC 10.33 H (4.50-10.00) X 10*3/uL RBC 2.93 L (4.10-5.20) X 10*6/uL Hgb 9.1 L (12.0-15.0) g/dL Hct 27.3 L (37.2-46.3) % Carbon Dioxide 28.7 H (20.0-27.5) mmol/L Anion Gap 7.30 L (10.00-18.00) mmol/L BUN/Creatinine Ratio 28.83 H (12.00-20.00) Ratio Glucose 122 H (70-110) mg/dL Calcium 7.9 L (8.7-10.3) mg/dL Alkaline Phosphatase 130 H (41-126) U/L Total Protein 5.0 L (6.2-8.2) g/dL Albumin 3.2 L (3.8-4.9) g/dL Microbiology - Last 24 Hours (Table) 09/28/22 10:40 Blood Culture - Final Blood No Growth after 144 hours
[2022-10-05] MEDS: HYDROmorphone 0.5 MG/0.5 ML SYRINGE IVP PRN (11:19)
[2022-10-05 11:46] VITALS: BMI 26.1
[2022-10-05 13:19] LABS: Glucose,Whole Blood 141 mg/dL (70-110)
[2022-10-05] MEDS: MELATONIN 3 MG TABLET PO SCH (20:17)
[2022-10-05] MEDS: ATORVASTATIN 20 MG TAB PO SCH (20:17)
[2022-10-06] MEDS: LEVOTHYROXINE 25 MCG TAB PO SCH (05:16)
[2022-10-06] MEDS: HYDROcodone/APAP 7.5-325MG 1 EACH TAB PO SCH (05:17)
--- NOTE | 2022-10-06 07:49 | P.PN ---
Subjective Progress Note Date: 10/06/22 Principal diagnosis: generalized weakness constipation Patient seen and examined this morning. Patient is resting comfortably in bed. Patient is pleasantly confused, but she is able to follow directions this morning with bed exercises. Patient was able to move both BLE off bed. Surgical dressing is CDI, hemovac present. Dressing will be changed this afternoon. Suh catheter is present and patent. This may be discontinued when patient is able to be up and about. Patient has been afebrile, denies any nausea/vomiting, or chest pain. Objective - Vital Signs Vital signs: Vital Signs Temp 98.4 F 10/06/22 05:00 Pulse 77 10/06/22 05:00 Resp 16 10/06/22 05:00 BP 102/63 10/06/22 05:00 Pulse Ox 96 10/06/22 05:00 FiO2 21 10/01/22 20:06 Intake & Output 10/05/22 10/06/22 10/06/22 18:59 06:59 18:59 Intake Total 240 Output Total 1080 1175 Balance -1080 -935 Weight 62.686 kg Intake: Oral 240 Output: Drainage 80 175 Posterior Back 80 175 Urine 1000 1000 Other: Voiding Method Indwelling Catheter Indwelling Catheter # Voids 2 - Exam Physical Examination General: The patient is awake and alert, in no acute distress Skin: Skin is warm and dry with no obvious rashes or lesions. Hairy patches absent, no dorsal skin dimples, no cafe au lait spots. Surgical dressing to lumbar region, hemovac present. Eye: Pupils are equal, round and reactive to light, extra-ocular movements are intact; there is normal conjunctiva bilaterally. Neck: The neck is supple, there is no tenderness and ROM intact. Cardiovascular: There is a regular rate and rhythm. No murmur, rub or gallop is appreciated. Respiratory: Lungs are clear to auscultation, respirations are non-labored, breath sounds are equal. Gastrointestinal: Soft, non-distended, non-tender abdomen. Back: There is tenderness to palpation in the paralumbar region. There is no obvious deformity . Musculoskeletal: ROM limited secondary to pain and stiffness from procedure. Muscle strength in all major muscle groups in the bilateral upper extremities 4/5, left lower extremity 3+/5, right lower extremity 3/5. Neurological: CN 2-12 intact. There are no obvious motor or sensory deficits. Movement and coordination DELBERT. Sensory exam to light touch intact C5-T1 and intact from L2-S1. Reflexes 2/4 in bilateral upper and lower extremities. Negative Hoffmans, babinski, and clonus signs. Psychiatric: AMS, confused. - Labs CBC & Chem 7: 10/05/22 06:12 10/05/22 06:12 Labs: Abnormal Lab Results - Last 24 Hours (Table) 10/05/22 10/05/22 10/05/22 Range/Units 06:12 06:12 13:16 WBC 10.33 H (4.50-10.00) X 10*3/uL RBC 2.93 L (4.10-5.20) X 10*6/uL Hgb 9.1 L (12.0-15.0) g/dL Hct 27.3 L (37.2-46.3) % Carbon Dioxide 28.7 H (20.0-27.5) mmol/L Anion Gap 7.30 L (10.00-18.00) mmol/L BUN/Creatinine Ratio 28.83 H (12.00-20.00) Ratio Glucose 122 H (70-110) mg/dL POC Glucose (mg/dL) 141 H (70-110) mg/dL Calcium 7.9 L (8.7-10.3) mg/dL Alkaline Phosphatase 130 H (41-126) U/L Total Protein 5.0 L (6.2-8.2) g/dL Albumin 3.2 L (3.8-4.9) g/dL Assessment and Plan Assessment: Post-Op Day 3: L3-S1 decompression and fusion Low back pain Lumbar Spondylosis Lumbar Spondylolithesis Dementia Multiple medical comorbidities Plan: -Appreciate regional engagement consultant and team management. -Activity: Ambulate QID, OOB all meals, up and about, limit lifting bending twisting to less than 5 lbs. Use walker or cane if needed for stability. -Daily PT/OT, increase ambulation strength and balance. -Pain control: Adequate at this time -Meds: reviewed -GI ppx: senna, Miralax -DC suh when up and about, bedside commode if needed -DVT PPX: Heparin -Hygiene: Shower today. Maintain dressing clean and dry. Meticulous cleaning after BMs away from the incision site -Drains: Maintain for now. DC later today pending out put and PT -Encourage IS 10x/hr -Dispo: Anticipate discharge [facility] when stable *I reviewed and discussed this case with my attending Dr. Kessler, whom has r eviewed this chart and films and is in agreement with assessment and plan of care as outlined above. I have personally seen and examined the patient, performed the documentation and the assessment and plan as written. Number of minutes spent on the visit: 15m.
[2022-10-06] MEDS: polyethylene glycoL 3350 17 GM POWD.PACK PO SCH (08:37)
[2022-10-06] MEDS: ENOXAPARIN 40 MG/0.4 ML SYRINGE SQ SCH (08:37)
[2022-10-06] MEDS: DEXAMETHASONE SOD PHOSPHATE 4 MG/ML 1 ML VIAL IVP SCH ×2 (08:38→20:48)
[2022-10-06 09:18] LABS: African American GFR (CKD) 109.6 (60.0-200.0); Anion Gap 7.5 mmol/L (10.00-18.00); BUN/Creat Ratio 26.28 Ratio (12.00-20.00); Blood Urea Nitrogen 17.4 mg/dL (9.0-27.0); Calcium 7.9 mg/dL (8.7-10.3); Carbon Dioxide 27.2 mmol/L (20.0-27.5); Non-African American GFR(CKD) 94.6 (60.0-200.0)
[2022-10-06 09:34] LABS: HCT 27.8 % (37.2-46.3); HGB 8.8 g/dL (12.0-15.0); MCH 30.2 pg (27.0-32.0); MCHC 31.7 g/dL (32.0-37.0); MCV 95.5 fL (80.0-97.0); Mean Platelet Volume 11.8 fL (9.5-12.2); NRBC Per 100 WBC 0 /100 WBCS (0.0-0.0); Platelet Count 215 X 10*3/uL (140-440); RBC 2.91 X 10*6/uL (4.10-5.20); WBC 10.85 X 10*3/uL (4.50-10.00)
[2022-10-06] MEDS: HYDROmorphone 0.5 MG/0.5 ML SYRINGE IVP PRN ×2 (09:35→18:25)
[2022-10-06] MEDS: SENNOSIDES 8.6 MG TAB PO SCH ×2 (09:37→20:49)
[2022-10-06] MEDS: ASPIRIN 81 MG PO SCH (09:37)
[2022-10-06] MEDS: CYANOCOBALAMIN 500 MCG TAB PO SCH (09:37)
[2022-10-06] MEDS: GABAPENTIN 300 MG CAP PO SCH ×3 (09:37→20:49)
[2022-10-06] MEDS: CHOLECALCIFEROL 25 MCG (1000 IU) TABLET PO SCH (09:37)
[2022-10-06] MEDS: ESCITALOPRAM 20 MG TAB PO SCH (09:37)
[2022-10-06] MEDS: SIMETHICONE 80 MG CHEWABLE PO SCH (09:37)
--- NOTE | 2022-10-06 13:13 | P.PN ---
Subjective Progress Note Date: 10/06/22 Patient has had significant drain output today of 185cc. Plan is for removal of drain once output < 80cc/24 hr. Mental status improving. Gen: awake, alert HEENT: normocephalic, atraumatic, good hearing acuity, moist mucous membranes Resp: good air exchange, breathing comfortably with no accessory muscle use CVS: good distal perfusion x 4, GI: soft, NTTP, ND : no SPT, no CVAT, suh catheter not present MSK: no pitting edema, no clubbing Neuro: non-focal, moving all extremities Psych: cooperative, euthymic mood Assessment/plan: Bilateral lower extremity weakness with urinary retention due to severe lumbar spinal stenosis POD 1 L3-S1 decompression and fusion -Orthospine recommendations appreciated: L3-S1 decompression and fusion completed 10/03. -PT/OT - suh cath can be removed Post op Pain - Continue scheduled [facility] for another 24 hours, will need to add prn norco back on 10/05 - prn dilaudid ABLA - anticipated outcome of surgery - follow CBC-- no need for transfusion today. - S/P 1 unit pRBC Fall Dementia Congnitive impairment, difficult to determine baseline - neuro signed off -B12, folate, normal, vitamin D low normal -CK mildly elevated -ESR and CRP mildly elevated -Syphilis negative Hypothyroidism DVT prophylaxis: Heparin Discussed with: Patient, nursing, family Anticipated discharge: Pending clinical course Anticipated discharge place: [facility] A total of 35 minutes was spent on the care of this complex patient more than 50% of the time was spent in counseling and care coordination. Objective - Vital Signs Vital signs: Vital Signs Temp 98.6 F 10/06/22 13:00 Pulse 73 10/06/22 13:00 Resp 16 10/06/22 13:00 BP 97/62 10/06/22 13:00 Pulse Ox 94 L 10/06/22 13:00 FiO2 21 10/01/22 20:06 Intake & Output 10/05/22 10/06/22 10/06/22 18:59 06:59 18:59 Intake Total 240 Output Total 4026 1175 Balance -0870 -882 Weight 62.686 kg Intake: Oral 240 Output: Drainage 80 175 Posterior Back 80 175 Urine 1000 1000 Other: Voiding Method Indwelling Catheter Indwelling Catheter Indwelling Catheter # Voids 2 - Labs CBC & Chem 7: 10/06/22 06:13 10/06/22 06:13 Labs: Abnormal Lab Results - Last 24 Hours (Table) 10/05/22 10/06/22 10/06/22 Range/Units 13:16 06:13 06:13 WBC 10.85 H (4.50-10.00) X 10*3/uL RBC 2.91 L (4.10-5.20) X 10*6/uL Hgb 8.8 L (12.0-15.0) g/dL Hct 27.8 L (37.2-46.3) % MCHC 31.7 L (32.0-37.0) g/dL Anion Gap 7.50 L (10.00-18.00) mmol/L BUN/Creatinine Ratio 26.28 H (12.00-20.00) Ratio Glucose 120 H (70-110) mg/dL POC Glucose (mg/dL) 141 H (70-110) mg/dL Calcium 7.9 L (8.7-10.3) mg/dL
[2022-10-06] MEDS: SODIUM CHLORIDE 0.9% 1,000 ML IV SCH ×2 (14:14→20:49)
[2022-10-06] MEDS: CYCLOBENZAPRINE 5 MG TAB PO PRN (16:21)
--- NOTE | 2022-10-06 16:48 | P.PN ---
Subjective Progress Note Date: 10/06/22 Patient is seen at bedside and is sleeping. Objective - Vital Signs Vital signs: Vital Signs Temp 98.6 F 10/06/22 13:00 Pulse 73 10/06/22 13:00 Resp 16 10/06/22 13:00 BP 97/62 10/06/22 13:00 Pulse Ox 94 L 10/06/22 13:00 FiO2 21 10/01/22 20:06 Intake & Output 10/05/22 10/06/22 10/06/22 18:59 06:59 18:59 Intake Total 240 Output Total 9247 1175 600 Balance -1080 -935 -600 Weight 62.686 kg Intake: Oral 240 Output: Drainage 80 175 Posterior Back 80 175 Urine 1000 1000 600 Other: Voiding Method Indwelling Catheter Indwelling Catheter Indwelling Catheter # Voids 2 - Exam GENERAL: The patient is laying in bed and is in mild acute distress. NEUROLOGICAL: Limited since patient is asleep. No facial weakness. - Labs CBC & Chem 7: 10/06/22 06:13 10/06/22 06:13 Labs: Abnormal Lab Results - Last 24 Hours (Table) 10/06/22 10/06/22 Range/Units 06:13 06:13 WBC 10.85 H (4.50-10.00) X 10*3/uL RBC 2.91 L (4.10-5.20) X 10*6/uL Hgb 8.8 L (12.0-15.0) g/dL Hct 27.8 L (37.2-46.3) % MCHC 31.7 L (32.0-37.0) g/dL Anion Gap 7.50 L (10.00-18.00) mmol/L BUN/Creatinine Ratio 26.28 H (12.00-20.00) Ratio Glucose 120 H (70-110) mg/dL Calcium 7.9 L (8.7-10.3) mg/dL Assessment and Plan Assessment: * Altered mental status, probably due to underlying dementia. Rule out superimposed delirium, rule out manic episode with psychosis. No evidence of infection. No obvious metabolic derangements. * Lumbar spinal stenosis, severe degree with probable cauda equina. Patient has developed rapidly progressive gait dysfunction, cognitive decline, bowel and bladder control issues s/p L3-S1 Decompression and fusion on 10/03/22 * Syncopal spell while straining, likely vasovagal. * Parkinsonism with significant rigidity, tremulousness and new onset lip smacking. Possible tardive dyskinesia. Rule out NMDA encephalitis. No evidence of NMS with normal temperature. * History of mild cognitive slowing since childhood. Plan: * MRI lumbar spine with and without contrast revealed severe spinal canal stenosis at L3 4 and moderate to severe bilateral neural foraminal stenosis. At L4-L5, there is severe right neural foraminal stenosis. Grade 1 anterolisthesis of L4 and L5, and L5 and S1. I personally reviewed MRI agree with the findings. * MRI of the thoracic spine revealed no evidence of significant spinal canal or neuroforaminal stenosis. I personally reviewed MRI, agree with the findings. * MRI of the brain revealed mild atrophy. No acute intracranial process. I personally reviewed MRI, I agree with the findings. No acute process. * MRI of the cervical spine revealed degenerative disc changes C6 7. Endplates spurring C6 7 in the right paracentral region with mild anterior thecal sac compression. Motion artifact limits the axial images and cord contact or deformities not able to be evaluated. Mild endplate changes C5 6 with mild anterior thecal sac compression. No cord contact. I personally reviewed MRI, and agreed with no significant spinal stenosis, except mild to moderate at C5 6 level. Significant degenerative changes of the spine particularly at C6-C7 level. * Orthopedic spine following. * EEG was performed, which was abnormal EEG due to background slowing and disorganization of [id number] degree. This is suggestive of generalized cerebral dysfunction as can be seen with toxic metabolic encephalopathy or related to diffuse structural brain abnormality. Clinical correlation is recommended. No epileptiform activity was seen. * Carotid Doppler revealed plaquing present bilaterally. This is contributing to moderate internal carotid artery stenosis between 50 and 69% bilaterally. Antegrade flow in both vertebral arteries. Patient started on aspirin 81 mg daily. * Psychiatry input appreciated. Patient started on amantadine for possible TD, and parkinsonism. * B12 is normal 1027, folate 17.20, TFTs are normal. Vitamin D 28.2. C- reactive protein <0.5. RPR nonreactive * CK 238/176, hemoglobin A1c 5.7. * DVT prophylaxis: Patient on Lovenox. * Recommend patient to follow-up with neurologist as outpatient within 1-2 weeks. There is no further neurological work-up. Please notify neurology team if any further concerns. Time with Patient: Less than 30
[2022-10-06] MEDS: MELATONIN 3 MG TABLET PO SCH (20:49)
[2022-10-06] MEDS: ATORVASTATIN 20 MG TAB PO SCH (20:49)
[2022-10-07] MEDS: LEVOTHYROXINE 25 MCG TAB PO SCH (05:15)
[2022-10-07] MEDS: GABAPENTIN 300 MG CAP PO SCH ×2 (08:35→18:42)
[2022-10-07] MEDS: CHOLECALCIFEROL 25 MCG (1000 IU) TABLET PO SCH (08:35)
[2022-10-07] MEDS: CYANOCOBALAMIN 500 MCG TAB PO SCH (08:35)
[2022-10-07] MEDS: SIMETHICONE 80 MG CHEWABLE PO SCH (08:36)
[2022-10-07] MEDS: ESCITALOPRAM 20 MG TAB PO SCH (08:36)
[2022-10-07] MEDS: SENNOSIDES 8.6 MG TAB PO SCH (08:36)
[2022-10-07] MEDS: ENOXAPARIN 40 MG/0.4 ML SYRINGE SQ SCH (08:36)
[2022-10-07] MEDS: polyethylene glycoL 3350 17 GM POWD.PACK PO SCH (08:36)
[2022-10-07] MEDS: ASPIRIN 81 MG PO SCH (08:36)
[2022-10-07] MEDS: DEXAMETHASONE SOD PHOSPHATE 4 MG/ML 1 ML VIAL IVP SCH (08:36)
--- NOTE | 2022-10-07 08:36 | P.PN ---
Subjective Progress Note Date: 10/07/22 Principal diagnosis: generalized weakness constipation Patient seen and examined this morning. Patient is resting comfortably in bed. Patient remains pleasantly confused, but is able to follow directions with bed exercises. Surgical dressing is CDI, hemovac present. Hemovac will be removed later this morning. Suh catheter is present and patent. This may be discontinued when patient is able to be up and about. Patient has been afebrile, denies any nausea/vomiting, or chest pain. Objective - Vital Signs Vital signs: Vital Signs Temp 99.2 F 10/07/22 04:11 Pulse 68 10/07/22 04:11 Resp 18 10/07/22 04:11 BP 93/48 10/07/22 04:11 Pulse Ox 95 10/07/22 04:11 FiO2 21 10/01/22 20:06 Intake & Output 10/06/22 10/07/22 10/07/22 18:59 06:59 18:59 Intake Total 240 Output Total 700 1200 Balance -700 -960 Intake: Oral 240 Output: Drainage 100 0 Posterior Back 100 0 Urine 600 1200 Other: Voiding Method Indwelling Catheter Indwelling Catheter - Exam Physical Examination General: The patient is awake and alert, in no acute distress Skin: Skin is warm and dry with no obvious rashes or lesions. Hairy patches absent, no dorsal skin dimples, no cafe au lait spots. Surgical dressing to lumbar region, hemovac present. Eye: Pupils are equal, round and reactive to light, extra-ocular movements are intact; there is normal conjunctiva bilaterally. Neck: The neck is supple, there is no tenderness and ROM intact. Cardiovascular: There is a regular rate and rhythm. No murmur, rub or gallop is appreciated. Respiratory: Lungs are clear to auscultation, respirations are non-labored, breath sounds are equal. Gastrointestinal: Soft, non-distended, non-tender abdomen. Back: There is tenderness to palpation in the paralumbar region. There is no obvious deformity . Musculoskeletal: ROM limited secondary to pain and stiffness from procedure. Muscle strength in all major muscle groups in the bilateral upper extremities 4/5, left lower extremity 3+/5, right lower extremity 3/5. Neurological: CN 2-12 intact. There are no obvious motor or sensory deficits. Movement and coordination DELBERT. Sensory exam to light touch intact C5-T1 and intact from L2-S1. Reflexes 2/4 in bilateral upper and lower extremities. Negative Hoffmans, babinski, and clonus signs. Psychiatric: AMS, confused. - Labs CBC & Chem 7: 10/06/22 06:13 10/06/22 06:13 Labs: Abnormal Lab Results - Last 24 Hours (Table) 10/06/22 10/06/22 Range/Units 06:13 06:13 WBC 10.85 H (4.50-10.00) X 10*3/uL RBC 2.91 L (4.10-5.20) X 10*6/uL Hgb 8.8 L (12.0-15.0) g/dL Hct 27.8 L (37.2-46.3) % MCHC 31.7 L (32.0-37.0) g/dL Anion Gap 7.50 L (10.00-18.00) mmol/L BUN/Creatinine Ratio 26.28 H (12.00-20.00) Ratio Glucose 120 H (70-110) mg/dL Calcium 7.9 L (8.7-10.3) mg/dL Assessment and Plan Assessment: Post-Op Day 4: L3-S1 decompression and fusion Low back pain Lumbar Spondylosis Lumbar Spondylolithesis Dementia Multiple medical comorbidities Plan: -Appreciate senior telecommunications consultant and team management. -Activity: Ambulate QID, OOB all meals, up and about, limit lifting bending twisting to less than 5 lbs. Use walker or cane if needed for stability. -Daily PT/OT, increase ambulation strength and balance. -Pain control: Adequate at this time -Meds: reviewed -GI ppx: senna, Miralax -DC suh when up and about, bedside commode if needed -DVT PPX: Heparin -Hygiene: Shower today. Maintain dressing clean and dry. Meticulous cleaning after BMs away from the incision site -Drains: Maintain for now. DC later today -Encourage IS 10x/hr -Dispo: Anticipate discharge [facility] today *I reviewed and discussed this case with my attending Dr. Kessler, whom has reviewed this chart and films and is in agreement with assessment and plan of care as outlined above. I have personally seen and examined the patient, performed the documentation and the assessment and plan as written. Number of minutes spent on the visit: 15m.
[2022-10-07] MEDS: HYDROmorphone 0.5 MG/0.5 ML SYRINGE IVP PRN ×2 (10:34→14:45)
--- NOTE | 2022-10-07 11:57 | P.PN ---
Progress Note - Text Progress Note Date: 10/07/22 Patient is currently sitting up in chair. She was a max assist. Hemovac drain has been removed. Patient tolerated well. Patient is cleared from Orthopedics for discharge to [facility].
[2022-10-07 12:07] VITALS: BP 117/68; PULSE 87; RESP 16; TEMP 98.7
[2022-10-07] MEDS ORDERED: bisacodyL 10 MG SUPP RECTAL STA (12:34)
--- NOTE | 2022-10-07 12:38 | P.DS ---
Providers Date of admission: 09/29/22 16:48 Expected date of discharge: 10/07/22 Attending physician: Syd Fregoso MD Consults: 09/28/22 13:29 Consult Physician Routine Consulting Provider: Bjorn Bermudez Consult Reason/Comments: Altered mental status Do you want consulting provider notified?: Yes Consult Physician Routine Consulting Provider: Willie Burdick Consult Reason/Comments: Anxiety/depression Do you want consulting provider notified?: Yes 09/29/22 15:06 Consult Physician Routine Consulting Provider: Nico Kessler Consult Reason/Comments: weakness, constipation Do you want consulting provider notified?: Yes Primary care physician: Jairon Hallman MD Hospital Course: Bilateral lower extremity weakness with urinary retention due to severe lumbar spinal stenosis POD 1 L3-S1 decompression and fusion Post op Pain ABLA Fall Dementia Congnitive impairment, difficult to determine baseline Hypothyroidism Patient is a 62-year-old female with history of dementia, mood disorder, psychiatric disorder, hypothyroidism, dyslipidemia presenting from an assisted living facilitydue to fall, worsening weakness and inability to take care of herself. In the ER she was mildly febrile with a rectal temperature of 100.3 laboratory data sepsis was relatively unremarkable, urine was negative, drug screen negative, influenza A/B, RSV, and COVID-[address] head and cervical spine showed no acute fracture or subluxation of the cervical spine, CT head demonstrated age-related atrophic and chronic small vessel ischemic changes without acute intracranial process. Chest x-ray showed no acute pulmonary disease. Lumbar x-ray showed moderate to severe multilevel degenerative disc changes greatest L3-4 4 and L5-S1 with grade 1 anterolisthesis of L3 4 and severe facet joint arthropathy. Bilateral hip x-ray shows no acute fracture or dislocation. She was admitted for further monitoring. She was seen by neurology who recommended EEG, MRI brain, MRI of cervical spine. MRI lumbar spine revealed severe spinal stenosis. She underwent decompression with fusion L3- S1 Decompression and fusion on 10/03. She did require 1 unit pRBC. HgB rem ained stable after surgery. Patient progressed fairly with PT/OT. She was subsequently discharged to rehab. I spent 38 minutes coordinating this discharge, discharge date 10/07 Imaging: Carotid Doppler: 50-69% stenosis bilaterally MRI [id number] atrophy MRI cervical spine-degenerative changes, unable to evaluate for cord compression at C6 7 [id number] activity, background slowing and disorganization MRI thorasic Spine- no spinal canal stenosis or neural foraminal impingement MRI Lumbar Spine- L3-L4 Severe Spinal canal stenosis, mod to sever bilateral stenosis, L4-L5 Severe Neural Foraminal stenosis Gen: awake, alert HEENT: normocephalic, atraumatic, good hearing acuity, moist mucous membranes Resp: good air exchange, breathing comfortably with no accessory muscle use CVS: good distal perfusion x 4, GI: soft, NTTP, ND : no SPT, no CVAT, suh catheter is present MSK: no pitting edema, no clubbing Neuro: non-focal, moving all extremities Psych: cooperative, euthymic mood Patient Condition at Discharge: Good Plan - Discharge Summary New Discharge Prescriptions: New Aspirin 81 mg PO DAILY tab Acetaminophen Tab [Tylenol] 650 mg PO Q6HR PRN tab PRN Reason: Mild Pain Or Fever > 100.5 Cyclobenzaprine [Flexeril] 5 mg PO TID PRN tab PRN Reason: Muscle Spasm Magnesium Hydroxide [Milk of Magnesia Concentrate] 2,400 mg PO DAILY PRN ml PRN Reason: Constipation Gabapentin [Neurontin] 300 mg PO TID #9 cap Sennosides-Docusate Sodium [Senokot-S] 2 each PO DAILY PRN tab PRN Reason: Constipation Continue Ibandronate Sodium [Boniva] 150 mg PO Q30D Melatonin 6 mg PO HS Escitalopram [Lexapro] 20 mg PO DAILY Cholecalciferol [Vitamin D3 (25 Mcg = 1000 Iu)] 25 mcg PO DAILY Simethicone [Gas-X] 125 mg PO DAILY Cyanocobalamin (Vitamin B-12) [Vitamin B-12] 1,000 mcg PO DAILY Sennosides [Senokot] 8.6 mg PO BID Simvastatin 40 mg PO HS polyethylene glycoL 3350 [Miralax] 17 gm PO DAILY Levothyroxine Sodium [Synthroid] 25 mcg PO DAILY Discharge Medication List Cholecalciferol [Vitamin D3 (25 Mcg = 1000 Iu)] 25 mcg PO DAILY 09/03/22 [History] Cyanocobalamin (Vitamin B-12) [Vitamin B-12] 1,000 mcg PO DAILY 09/03/22 [History] Escitalopram [Lexapro] 20 mg PO DAILY 09/03/22 [History] Ibandronate Sodium [Boniva] 150 mg PO Q30D 09/03/22 [History] Melatonin 6 mg PO HS 09/03/22 [History] Simethicone [Gas-X] 125 mg PO DAILY 09/03/22 [History] Simvastatin 40 mg PO HS 09/03/22 [History] polyethylene glycoL 3350 [Miralax] 17 gm PO DAILY 09/14/22 [History] Levothyroxine Sodium [Synthroid] 25 mcg PO DAILY 09/28/22 [History] Sennosides [Senokot] 8.6 mg PO BID 09/28/22 [History] Acetaminophen Tab [Tylenol] 650 mg PO Q6HR PRN tab 10/06/22 [Rx] Aspirin 81 mg PO DAILY tab 10/06/22 [Rx] Cyclobenzaprine [Flexeril] 5 mg PO TID PRN tab 10/06/22 [Rx] Gabapentin [Neurontin] 300 mg PO TID #9 cap 10/06/22 [Rx] Magnesium Hydroxide [Milk of Magnesia Concentrate] 2,400 mg PO DAILY PRN ml 10/06/22 [Rx] Sennosides-Docusate Sodium [Senokot-S] 2 each PO DAILY PRN tab 10/06/22 [Rx] Follow up Appointment(s)/Referral(s): Jairon Hallman MD [Primary Care Provider] - 1-2 days Discharge Disposition: TRANSFER TO SNF/ECF
[2022-10-07] MEDS ORDERED: NA PHOS,M-B/NA PHOS,DI-BA 133 ML ENEMA RECTAL STA (14:02)
[2022-10-07] MEDS: SODIUM CHLORIDE 0.9% 1,000 ML IV SCH (18:41)
== END 2022-10-07 18:59 | DRG 454 ==
LOC: EEVIPCON 10:16 → EC 10:16 → 6NMEDSUR 13:45 → OBSVTOIN 09-29 16:48 → 6NMEDSUR 10-01 03:00 → 5NMEDONC 10-02 12:23
PROVIDERS: ADMIT Student in an Organized Health Care Education/Training Program; ATTEND Student in an Organized Health Care Education/Training Program
PROC: 0SG1071 Fusion of 2 or more Lumbar Vertebral Joints with Autologous Tissue Substitute, Posterior Approach, Posterior Column, Open Approach (ICD-10-PCS; 2022-10-03)
PROC: 0SG30AJ Fusion of Lumbosacral Joint with Interbody Fusion Device, Posterior Approach, Anterior Column, Open Approach (ICD-10-PCS; 2022-10-03)
PROC: 01NB0ZZ Release Lumbar Nerve, Open Approach (ICD-10-PCS; 2022-10-03)
PROC: 01NR0ZZ Release Sacral Nerve, Open Approach (ICD-10-PCS; 2022-10-03)
PROC: 00UT07Z Supplement Spinal Meninges with Autologous Tissue Substitute, Open Approach (ICD-10-PCS; 2022-10-03)
PROC: 30233N1 Transfusion of Nonautologous Red Blood Cells into Peripheral Vein, Percutaneous Approach (ICD-10-PCS; 2022-10-03)
PROC: 07DR3ZZ Extraction of Iliac Bone Marrow, Percutaneous Approach (ICD-10-PCS; 2022-10-03)
PROC: 0SG10AJ Fusion of 2 or more Lumbar Vertebral Joints with Interbody Fusion Device, Posterior Approach, Anterior Column, Open Approach (ICD-10-PCS; principal; 2022-10-03 08:00)
DX: M47.26 Other spondylosis with radiculopathy, lumbar region (principal); D62 Acute posthemorrhagic anemia; F02.83 Dementia in other diseases classified elsewhere, unspecified severity, with mood disturbance; F02.84 Dementia in other diseases classified elsewhere, unspecified severity, with anxiety; G20 Parkinson's disease; E03.9 Hypothyroidism, unspecified; I65.23 Occlusion and stenosis of bilateral carotid arteries; M47.27 Other spondylosis with radiculopathy, lumbosacral region; M48.061 Spinal stenosis, lumbar region without neurogenic claudication; M43.16 Spondylolisthesis, lumbar region; M48.07 Spinal stenosis, lumbosacral region; R33.8 Other retention of urine; E78.5 Hyperlipidemia, unspecified; M51.37 Other intervertebral disc degeneration, lumbosacral region; M51.36 Other intervertebral disc degeneration, lumbar region; M43.17 Spondylolisthesis, lumbosacral region; K59.09 Other constipation; H57.12 Ocular pain, left eye; R15.9 Full incontinence of feces; R26.9 Unspecified abnormalities of gait and mobility; R50.9 Fever, unspecified; R53.81 Other malaise; R55 Syncope and collapse; W18.30XA Fall on same level, unspecified, initial encounter; Z20.822 Contact with and (suspected) exposure to COVID-19; Z79.899 Other long term (current) drug therapy; Z79.890 Hormone replacement therapy; Y92.129 Unspecified place in nursing home as the place of occurrence of the external cause; Z88.2 Allergy status to sulfonamides; Z88.7 Allergy status to serum and vaccine; Z79.82 Long term (current) use of aspirin; Z28.310 Unvaccinated for COVID-19
CPT/HCPCS: 36415; 70450; 70553; 71046; 72100; 72125; 72131; 72141; 72146; 72158; 73502; 73521; 80048; 80053; 80175; 80306; 81003; 82306; 82550; 82607; 82728; 82746; 82747; 83036; 83540; 83550; 83735; 84100; 84443; 84484; 85025; 85027; 85610; 85652; 85730; 86140; 86780; 86850; 86900; 86901; 86920; 87040; 87636; 93005; 93880; 94760; 95816; 96360; 96361; 99285

== ENCOUNTER 2023-01-03 21:29 | Emergency (ER) | payer MEDICARE, OTHER ==
[2023-01-03 21:35] VITALS: RESP 16; TEMP 99.5
[2023-01-03 22:14] LABS: Basophils % (A) 0 %; Eosinophils # (A) 0.3 k/uL (0-0.7); Eosinophils % (A) 3 %; HCT 32.4 % (34.0-46.0); HGB 10.2 gm/dL (11.4-16.0); Hypochromasia Slight; Lymphocytes # (A) 1.5 k/uL (1.0-4.8); Lymphocytes % (A) 15 %; MCH 27.6 pg (25.0-35.0); MCHC 31.3 g/dL (31.0-37.0); Mean Platelet Volume 7.5; Monocytes # (A) 0.4 k/uL (0-1.0); Monocytes % (A) 4 %; Neutrophils # (A) 7.4 k/uL (1.3-7.7); Neutrophils % (A) 76 %; Platelet Count 439 k/uL (150-450); RBC 3.68 m/uL (3.80-5.40); RDW 14.6 % (11.5-15.5); WBC 9.7 k/uL (3.8-10.6)
[2023-01-03 22:24] LABS: African American GFR (CKD) >90 (>60 ml/min/1.73 sqM); Anion Gap 2 mmol/L; Blood Urea Nitrogen 22 mg/dL (7-17); Calcium 8.2 mg/dL (8.4-10.2); Carbon Dioxide 33 mmol/L (22-30); Chloride 107 mmol/L (98-107); Glucose 99 mg/dL (74-99); Non-African American GFR(CKD) >90 (>60 ml/min/1.73 sqM); Potassium 4.4 mmol/L (3.5-5.1); Sodium 142 mmol/L (137-145)
--- NOTE | 2023-01-03 22:47 | ED ---
General Adult HPI - General Chief complaint: Recheck/Abnormal Lab/Rx Stated complaint: Infection Time Seen by Provider: 01/03/23 21:33 Source: EMS, RN notes reviewed Mode of arrival: EMS Limitations: language barrier, altered mental status, physical limitation - History of Present Illness Initial comments: 62-year-old female with a past medical history of dementia who presents to the emergency department with a chief complaint of chronic wounds problem. Patient was brought here via EMS from [facility]. History is limited due to patient being A and O 0 which is her baseline. Per EMS she was transported to the hospital as her wound has had an increased foul smell to it. There is no active drainage or bleeding to the site. Bandages intact. No known fever, chills, nausea, vomiting, diarrhea. History is limited due to patient's altered mental status. - Related Data Home Medications Medication Instructions Recorded Confirmed Cholecalciferol [Vitamin D3 (25 25 mcg PO DAILY 09/03/22 09/28/22 Mcg = 1000 Iu)] Cyanocobalamin (Vitamin B-12) 1,000 mcg PO DAILY 09/03/22 09/28/22 [Vitamin B-12] Escitalopram [Lexapro] 20 mg PO DAILY 09/03/22 09/28/22 Ibandronate Sodium [Boniva] 150 mg PO Q30D 09/03/22 09/28/22 Melatonin 6 mg PO HS 09/03/22 09/28/22 Simethicone [Gas-X] 125 mg PO DAILY 09/03/22 09/28/22 Simvastatin 40 mg PO HS 09/03/22 09/28/22 polyethylene glycoL 3350 [Miralax] 17 gm PO DAILY 09/14/22 09/28/22 Levothyroxine Sodium [Synthroid] 25 mcg PO DAILY 09/28/22 09/28/22 Sennosides [Senokot] 8.6 mg PO BID 09/28/22 09/28/22 Previous Rx's Medication Instructions Recorded Acetaminophen Tab [Tylenol] 650 mg PO Q6HR PRN tab 10/06/22 Aspirin 81 mg PO DAILY tab 10/06/22 Cyclobenzaprine [Flexeril] 5 mg PO TID PRN tab 10/06/22 Gabapentin [Neurontin] 300 mg PO TID #9 cap 10/06/22 Magnesium Hydroxide [Milk of 2,400 mg PO DAILY PRN ml 10/06/22 Magnesia Concentrate] Sennosides-Docusate Sodium 2 each PO DAILY PRN tab 10/06/22 [Senokot-S] Allergies Allergy/AdvReac Type Severity Reaction Status Date / Time Influenza Virus Vaccines Allergy Unknown Verified 09/28/22 11:55 Sulfa (Sulfonamide Allergy Rash/Hives Verified 09/28/22 11:55 Antibiotics) Review of Systems ROS Statement: Those systems with pertinent positive or pertinent negative responses have been documented in the HPI. ROS Other: All systems not noted in ROS Statement are negative. Past Medical History Past Medical History: Dementia, Memory Impairment Additional Past Medical History / Comment(s): Dementia History of Any Multi-Drug Resistant Organisms: None Reported Past Surgical History: No Surgical Hx Reported Additional Past Surgical History / Comment(s): tooth extraction Past Anesthesia/Blood Transfusion Reactions: No Reported Reaction Past Psychological History: No Psychological Hx Reported Smoking Status: Never smoker Past Alcohol Use History: None Reported Past Drug Use History: None Reported - Past Family History Father Family Medical History: Unable to Obtain (Due to mental status) General Exam Limitations: language barrier, altered mental status, physical limitation General appearance: alert, in no apparent distress Head exam: Present: atraumatic, normocephalic, normal inspection Eye exam: Present: normal appearance, PERRL, EOMI. Absent: scleral icterus, conjunctival injection, periorbital swelling ENT exam: Present: normal exam, mucous membranes moist Neck exam: Present: normal inspection. Absent: tenderness, meningismus, lymphadenopathy Respiratory exam: Present: normal lung sounds bilaterally. Absent: respiratory distress, wheezes, rales, rhonchi, stridor Cardiovascular Exam: Present: regular rate, normal rhythm, normal heart sounds. Absent: systolic murmur, diastolic murmur, rubs, gallop, clicks GI/Abdominal exam: Present: soft, normal bowel sounds. Absent: distended, tenderness, guarding, rebound, rigid Rectal exam: Present: other (Stage 4 pressure ulcer to the sacral region without surrounding erythema, purulent discharge. ) Extremities exam: Present: normal inspection, full ROM, normal capillary refill. Absent: tenderness, pedal edema, joint swelling, calf tenderness Back exam: Present: normal inspection Neurological exam: Present: alert, oriented X3, CN II-XII intact Psychiatric exam: Present: normal affect, normal mood Skin exam: Present: warm, dry, intact, normal color. Absent: rash Course Vital Signs 01/03/23 21:32 Temperature 99.5 F Pulse Rate 96 Respiratory 16 Rate Blood Pressure 106/54 O2 Sat by Pulse 93 L Oximetry Medical Decision Making - Medical Decision Making Was pt. sent in by a medical professional or institution ([facility], [facility], urgent care, hospital, or jail...) When possible be specific @ -[No] Did you speak to anyone other than the patient for history (EMS, parent, family, police, friend...)? What history was obtained from this source @ -[No] Did you review nursing and triage notes (agree or disagree)? Why? @ -[I reviewed and agree with nursing and triage notes] Were old charts reviewed (outside hosp., previous admission, EMS record, old EKG, old radiological studies, urgent care reports/EKG's, jail records)? Report findings @ -[No old charts were reviewed] Differential Diagnosis (chest pain, altered mental status, abdominal pain women, abdominal pain men, vaginal bleeding, weakness, fever, dyspnea, syncope, headache, dizziness, GI bleed, back pain, seizure, CVA, palpatations, mental health, musculoskeletal)? @ -[not applicable] EKG interpreted by me (3pts min.). @ -[As above] X-rays interpreted by me (1pt min.). @ -[None done] CT interpreted by me (1pt min.). @ -[None done] U/S interpreted by me (1pt. min.). @ -[None done] What testing was considered but not performed or refused? (CT, X-rays, U/S, labs)? Why? @ -[None] What meds were considered but not given or refused? Why? @ -[None] Did you discuss the management of the patient with other professionals (professionals i.e. [facility], [facility], lab, RT, psych nurse, social service technician, lawyer real estate, teacher, medical information officer, case management specialist)? Give summary @ -[No] Was smoking cessation discussed for >3mins.? @ -[No] Was critical care preformed (if so, how long)? @ -[No] Were there social determinants of health that impacted care today? How? (Homelessness, low income, unemployed, alcoholism, drug addiction, transportation, low edu. Level, literacy, decrease access to med. care, usp, rehab)? @ -[No] Was there de-escalation of care discussed even if they declined (Discuss DNR or withdrawal of care, Hospice)? DNR status @ -[No] What co-morbidities impacted this encounter? (DM, HTN, Smoking, COPD, CAD, Cancer, CVA, ARF, Chemo, Hep., AIDS, mental health diagnosis, sleep apnea, morbid obesity)? @ -[None] Was patient admitted / discharged? Hospital course, mention meds given and route, prescriptions, significant lab abnormalities, going to OR and other pertinent info. @Discharged. This is a 62-year-old female who presents with chronic wound problem. Patient had a thorough history and physical exam performed heart rate regular rate and rhythm, lungs clear to auscultation bilaterally abdomen is soft and non-tender. There is a stage IV pressure ulcer to her coccyx region which appears unchanged from her last visit on 11/30/22. Patient remains a- febrile during the course of the ED. Patient had basic lab work performed which which was essentially unremarkable. Patient had bandages and dressing changed while in the ED. Patient will be discharged back to [facility] in stable condition. Undiagnosed new problem with uncertain prognosis? @ -[No] Drug Therapy requiring intensive monitoring for toxicity (Heparin, Nitro, Insulin, Cardizem)? @ -[No] Were any procedures done? @ -[No] Diagnosis/symptom? @ -wound re-check - Stage 4 pressure ulcer -hx of Dementia Acute, or Chronic, or Acute on Chronic? @ -chronic Uncomplicated (without systemic symptoms) or Complicated (systemic symptoms)? @ -uncomplicated Side effects of treatment? @ -[No] Exacerbation, Progression, or Severe Exacerbation? @ -[No] Poses a threat to life or bodily function? How? (Chest pain, USA, NC, pneumonia, PE, COPD, DKA, ARF, appy, cholecystitis, CVA, Diverticulitis, Homicidal, Suicidal, threat to staff... and all critical care pts) @ -low likelihood - Lab Data Result diagrams: 01/03/23 22:08 01/03/23 22:08 Lab Results 01/03/23 01/03/23 Range/Units 22:08 22:08 WBC 9.7 (3.8-10.6) k/uL RBC 3.68 L (3.80-5.40) m/uL Hgb 10.2 L (11.4-16.0) gm/dL Hct 32.4 L (34.0-46.0) % MCV 88.0 (80.0-100.0) fL MCH 27.6 (25.0-35.0) pg MCHC 31.3 (31.0-37.0) g/dL RDW 14.6 (11.5-15.5) % Plt Count 439 (150-450) k/uL MPV 7.5 Neutrophils % 76 % Lymphocytes % 15 % Monocytes % 4 % Eosinophils % 3 % Basophils % 0 % Neutrophils # 7.4 (1.3-7.7) k/uL Lymphocytes # 1.5 (1.0-4.8) k/uL Monocytes # 0.4 (0-1.0) k/uL Eosinophils # 0.3 (0-0.7) k/uL Basophils # 0.0 (0-0.2) k/uL Hypochromasia Slight Sodium 142 (137-145) mmol/L Potassium 4.4 (3.5-5.1) mmol/L Chloride 107 (98-107) mmol/L Carbon Dioxide 33 H (22-30) mmol/L Anion Gap 2 mmol/L BUN 22 H (7-17) mg/dL Creatinine 0.55 (0.52-1.04) mg/dL Est GFR (CKD-EPI)AfAm >90 (>60 ml/min/1.73 sqM) Est GFR (CKD-EPI)NonAf >90 (>60 ml/min/1.73 sqM) Glucose 99 (74-99) mg/dL Calcium 8.2 L (8.4-10.2) mg/dL Disposition Clinical Impression: Encounter for wound re-check Disposition: HOME SELF-CARE Condition: Stable Additional Instructions: Please return to the nearest emergency department if fever, chills, purulent discharge develops at the site Is patient prescribed a controlled substance at d/c from ED?: No Referrals: Dakota Tirado MD [Primary Care Provider] - 1-2 days Time of Disposition: 22:43
[2023-01-03 23:26] VITALS: BP 111/75; PULSE 80
== END 2023-01-03 23:26 | disposition home or self-care (01) ==
LOC: EC 21:29
DX: Z48.00 Encounter for change or removal of nonsurgical wound dressing (principal); Z88.7 Allergy status to serum and vaccine; Z88.2 Allergy status to sulfonamides
CPT/HCPCS: 36415; 80048; 85025; 99284

== ENCOUNTER 2023-01-05 16:44 | Inpatient (IN) | payer MEDICARE, OTHER ==
--- NOTE | 2023-01-05 17:43 | CT ---
EXAMINATION TYPE: CT brain cspine wo con CT DLP: 1317.2 mGycm, Automated exposure control for dose reduction was used. DATE OF EXAM: 01/05/2023 5:37 PM COMPARISON: 12/15/2022 CLINICAL INDICATION:Female, 62 years old with history of fall injury; fall, ams, dementia TECHNIQUE: Brain: Multiple axial CT images of the brain were obtained without IV contrast. Cspine: Axial CT images from the skull base to the inferior aspect of T2 we obtained without intraven ous contrast. Coronal and sagittal reformatted images were also reviewed. FINDINGS: Brain: Extra-axial spaces: No abnormal extra-axial fluid collections. Ventricular system: Within normal limits Cerebral parenchyma: No acute intraparenchymal hemorrhage or mass effect. The noguera-white junction is well differentiated. Cerebellum: Unremarkable. Mass effect: No evidence of midline shift. Intracranial vasculature: unremarkable Soft tissues: Normal. Calvarium/osseous structures: No depressed skull fracture. Paranasal sinuses and mastoid air cells: Clear. Visualized orbits: Orbital contents are intact. Cervical spine: Motion artifact limits evaluation. Fracture: None. Osseous structures: Multilevel degenerative disc disease changes with endplate spurring and disc oste ophyte complex's. There is multilevel disc space narrowing worse at C6-C7. Vertebral alignment: Within normal limits. Spinal canal/Neural Foramina: No evidence of significant spinal canal narrowing. Facet joint uncovert ebral joint arthropathy scattered throughout the cervical spine with varying degrees of neural forami nal stenosis. Neck soft tissues: Prevertebral soft tissues are within normal limits. Other: The airway is patent. The lung apices are clear. IMPRESSION: 1. No acute intracranial process. 2. No evidence of cervical spine fracture. 3. Moderate to severe multilevel degenerative disc disease.
[2023-01-05 19:39] LABS: Basophils % (A) 0 %; Eosinophils # (A) 0.2 k/uL (0-0.7); Eosinophils % (A) 1 %; HCT 31.4 % (34.0-46.0); HGB 10.1 gm/dL (11.4-16.0); Lymphocytes # (A) 1.1 k/uL (1.0-4.8); Lymphocytes % (A) 9 %; MCHC 32.3 g/dL (31.0-37.0); MCV 86.7 fL (80.0-100.0); Mean Platelet Volume 7.5; Monocytes # (A) 0.6 k/uL (0-1.0); Monocytes % (A) 4 %; Neutrophils # (A) 10.5 k/uL (1.3-7.7); Neutrophils % (A) 85 %; Platelet Count 420 k/uL (150-450); RBC 3.63 m/uL (3.80-5.40); RDW 14.7 % (11.5-15.5); WBC 12.4 k/uL (3.8-10.6)
[2023-01-05 19:52] LABS: ALT 20 U/L (4-34); AST 27 U/L (14-36); African American GFR (CKD) >90 (>60 ml/min/1.73 sqM); Alkaline Phosphatase 68 U/L (38-126); Anion Gap 6 mmol/L; Appearance,Urine Cloudy (Clear); Bacteria,Urine Rare /hpf; Bilirubin,Urine Negative (Negative); Blood Urea Nitrogen 15 mg/dL (7-17); Blood,Urine Large (Negative); Calcium 8.1 mg/dL (8.4-10.2); Carbon Dioxide 30 mmol/L (22-30); Chloride 99 mmol/L (98-107); Color,Urine Yellow; Glucose 104 mg/dL (74-99); Glucose,Urine (UA) Negative (Negative); Ketones,Urine Trace (Negative); Leukocyte Esterase,Urine Large (Negative); Mucus,Urine Rare /hpf; Nitrite,Urine Negative (Negative); Non-African American GFR(CKD) >90 (>60 ml/min/1.73 sqM); PH, Urine 6.5 (5.0-8.0); Potassium 4.4 mmol/L (3.5-5.1); Protein,Urine 2+ (Negative); RBC,Urine >182 /hpf (0-5); Sodium 135 mmol/L (137-145); Specific Gravity,Urine 1.024 (1.001-1.035); Total Bilirubin 0.6 mg/dL (0.2-1.3); Total Protein 5.9 g/dL (6.3-8.2); Urobilinogen,Urine <2.0 mg/dL (<2.0); WBC,Urine 42 /hpf (0-5)
[2023-01-05] MEDS ORDERED: SODIUM CHLORIDE 0.9% 1,000 ML IV ONE (20:09)
[2023-01-05] MEDS ORDERED: NALOXONE 0.4 MG/ML 1 ML VIAL IV PRN (21:07)
[2023-01-05] MEDS ORDERED: MAGNESIUM HYDROXIDE 2,400 MG/10 ML CUP PO PRN (21:13)
[2023-01-05] MEDS ORDERED: CYCLOBENZAPRINE 5 MG TAB PO PRN (21:13)
[2023-01-05] MEDS: SODIUM CHLORIDE 0.9% 1,000 ML IV SCH (22:45)
[2023-01-05] MEDS ORDERED: TOPICAL SKIN ADHESIVE 1 EACH AMP TOPICAL ONE (22:55)
[2023-01-05] MEDS: PIPERACILLIN-TAZOBACTAM 3.375 GM in SODIUM CHLORIDE 0.9% 100 ML IVPB SCH (23:05)
[2023-01-05] MEDS: HYDROcodone/APAP 5-325MG 1 EACH TAB PO PRN (23:10)
[2023-01-05] MEDS: ALPRAZolam 0.25 MG TAB PO PRN (23:10)
--- NOTE | 2023-01-06 01:56 | ED ---
Fall HPI - General Chief Complaint: Fall Stated Complaint: fall Time Seen by Provider: 01/05/23 16:54 Source: patient Mode of arrival: EMS Limitations: altered mental status (There appears to be some underlying dementia) - History of Present Illness Initial Comments: This patient is a 62-year-old woman transferred from detention to have evaluation after suspected fall from bed. The patient reported to be nonambulatory and was found on the floor next to her bed. No known loss of consciousness. She was noted to have a laceration to the left brow. When the patient was transferred they told EMS that she appeared to be at her baseline mental status. When I interview the patient, she does not have complaints. She states she wants everyone to leave her alone. She was denying pain. She denied dyspnea MD Complaint: fall -: hour(s) When Fall Occurred: unsure Place Fall Occurred: detention/SNF Loss of Consciousness: unsure Prolonged Down Time?: no Location: face Severity scale (1-10): 0 - Related Data Home Medications Medication Instructions Recorded Confirmed Cholecalciferol [Vitamin D3 (25 25 mcg PO DAILY@0900 09/03/22 01/05/23 Mcg = 1000 Iu)] Cyanocobalamin (Vitamin B-12) 1,000 mcg PO DAILY@0900 09/03/22 01/05/23 [Vitamin B-12] Escitalopram [Lexapro] 20 mg PO DAILY@0909/03/22 01/05/23 Simethicone [Gas-X] 125 mg PO DAILY@0900 09/03/22 01/05/23 Simvastatin 40 mg PO HS@209909/03/22 01/05/23 polyethylene glycoL 3350 [Miralax] 17 gm PO DAILY@0900 09/14/22 01/05/23 Levothyroxine Sodium [Synthroid] 25 mcg PO DAILY@0600 09/28/22 01/05/23 Sennosides [Senokot] 8.6 mg PO BID@899,209909/28/22 01/05/23 Alendronate Sodium [Fosamax] 70 mg PO WE@0601/05/23 01/05/23 Aspirin 81 mg PO DAILY@0901/05/23 01/05/23 Divalproex Sodium [Depakote] 125 mg PO BID@0900,209901/05/23 01/05/23 Lactose-Reduced Food [Ensure Plus] 237 ml PO BID@0900,1700 01/05/23 01/05/23 Magnesium Hydroxide [Milk of 2,400 mg PO DAILY PRN 01/05/23 01/05/23 Magnesia] Prostat Awc 30 ml PO BID@0900,2000 01/05/23 01/05/23 Previous Rx's Medication Instructions Recorded Acetaminophen Tab [Tylenol] 650 mg PO Q6HR PRN tab 10/06/22 Cyclobenzaprine [Flexeril] 5 mg PO TID PRN tab 10/06/22 ALPRAZolam [Xanax] 0.25 mg PO BID PRN #6 tab 01/11/23 Gabapentin [Neurontin] 300 mg PO TID@0600,1400,2099 #9 cap 01/11/23 HYDROcodone/APAP 5-325MG [[place] 1 tab PO TID PRN #9 tab 01/11/23 5-325] Allergies Allergy/AdvReac Type Severity Reaction Status Date / Time Influenza Virus Vaccines Allergy Unknown Verified 01/05/23 17:29 Sulfa (Sulfonamide Allergy Rash/Hives Verified 01/05/23 17:29 Antibiotics) Review of Systems ROS Statement: Those systems with pertinent positive or pertinent negative responses have been documented in the HPI. ROS Other: All systems not noted in ROS Statement are negative. Constitutional: Denies: fever Eyes: Reports: other (Left brow laceration) ENT: Denies: epistaxis Respiratory: Denies: dyspnea Neurological: Denies: headache Past Medical History Past Medical History: Dementia, Memory Impairment Additional Past Medical History / Comment(s): Dementia History of Any Multi-Drug Resistant Organisms: None Reported Past Surgical History: No Surgical Hx Reported Additional Past Surgical History / Comment(s): tooth extraction Past Anesthesia/Blood Transfusion Reactions: No Reported Reaction Past Psychological History: No Psychological Hx Reported Smoking Status: Never smoker Past Alcohol Use History: None Reported Past Drug Use History: None Reported - Past Family History Father Family Medical History: Unable to Obtain (Due to mental status) General Exam Limitations: no limitations General appearance: alert, in no apparent distress Head exam: Absent: atraumatic Eye exam: Present: PERRL, EOMI, periorbital tenderness (There is left brow laceration) ENT exam: Present: mucous membranes dry Neck exam: Present: normal inspection, full ROM. Absent: tenderness Respiratory exam: Present: normal lung sounds bilaterally. Absent: respiratory distress, wheezes, rales, rhonchi, stridor, chest wall tenderness, accessory muscle use Cardiovascular Exam: Present: regular rate, normal rhythm, normal heart sounds. Absent: systolic murmur, diastolic murmur, rubs, gallop GI/Abdominal exam: Present: soft. Absent: distended, tenderness, guarding, rebound, mass Extremities exam: Present: normal inspection, normal capillary refill Back exam: Present: other (There is a large sacral decubitus ulcer with foul odor. ). Absent: CVA tenderness (R), CVA tenderness (L), vertebral tenderness Neurological exam: Present: alert. Absent: oriented X3, motor sensory deficit Skin exam: Present: warm, dry, normal color, other (Surgical decubitus ulcer as above) Course Vital Signs 01/05/23 01/05/23 01/05/23 16:57 18:51 20:10 Temperature 98.4 F Pulse Rate 96 79 98 Respiratory 18 18 16 Rate Blood Pressure 89/52 94/46 89/59 O2 Sat by Pulse 94 L 93 L 97 Oximetry 01/05/23 01/05/23 01/06/23 20:43 23:36 00:21 Temperature Pulse Rate 94 77 79 Respiratory 15 20 16 Rate Blood Pressure 107/51 99/49 99/59 O2 Sat by Pulse 98 96 96 Oximetry 01/06/23 01/06/23 01/06/23 01:18 01:34 04:10 Temperature Pulse Rate 79 78 84 Respiratory 16 12 16 Rate Blood Pressure 106/63 104/59 102/61 O2 Sat by Pulse 95 94 L 95 Oximetry 01/06/23 01/06/23 01/06/23 05:17 06:04 06:05 Temperature Pulse Rate 98 101 H 85 Respiratory 15 16 14 Rate Blood Pressure 105/65 124/60 115/62 O2 Sat by Pulse 97 97 98 Oximetry 01/06/23 01/06/23 01/06/23 07:39 08:00 09:00 Temperature Pulse Rate 73 74 70 Respiratory 18 18 18 Rate Blood Pressure 104/60 110/78 108/68 O2 Sat by Pulse 98 98 99 Oximetry 01/06/23 01/06/23 01/06/23 10:00 12:00 13:00 Temperature Pulse Rate 78 85 82 Respiratory 18 18 18 Rate Blood Pressure 108/70 108/67 110/64 O2 Sat by Pulse 99 97 98 Oximetry 01/06/23 01/06/23 14:00 16:22 Temperature Pulse Rate 82 68 Respiratory 18 18 Rate Blood Pressure 105/64 O2 Sat by Pulse 98 99 Oximetry Medical Decision Making - Medical Decision Making This patient is 62-year-old woman transferred here to have evaluation after fall. Computed tomography scan of the brain is obtained which was interpreted by myself as not showing acute bony injury and no intracranial hemorrhage. The patient found to have sacral decubitus ulcer with very foul drainage. Ulcer is packed with wet-to-dry dressing. Patient given some antibiotic coverage here and admitted to have surgical consultation as well as wound care consultation for best management of this. Was pt. sent in by a medical professional or institution (, PA, SYSTEMS SOFTWARE DESIGNER, urgent care, hospital, or detention...) When possible be specific @ -Sent from detention for further evaluation after fall Did you speak to anyone other than the patient for history (EMS, parent, family, police, friend...)? What history was obtained from this source @ -[No] Did you review nursing and triage notes (agree or disagree)? Why? @ -[I reviewed and agree with nursing and triage notes] Were old charts reviewed (outside hosp., previous admission, EMS record, old EKG, old radiological studies, urgent care reports/EKG's, detention records)? Report findings @ -[No old charts were reviewed] Differential Diagnosis (chest pain, altered mental status, abdominal pain women, abdominal pain men, vaginal bleeding, weakness, fever, dyspnea, syncope, headache, dizziness, GI bleed, back pain, seizure, CVA, palpatations, mental health, musculoskeletal)? @ -[Differential Altered Mental Status: Hypoglycemia, DKA, hypercapnia, ETOH, overdose, CO poisoning, trauma, myxedema coma, HTN encephalopathy, infection, encephalitis, psychosis, intercranial hemorrhage, hepatic encephalopathy, meningitis, CVA, this is not meant to be an all-inclusive list EKG interpreted by me (3pts min.). @ -[As above] X-rays interpreted by me (1pt min.). @ -[None done] CT interpreted by me (1pt min.). @ -[As above U/S interpreted by me (1pt. min.). @ -[None done] What testing was considered but not performed or refused? (CT, X-rays, U/S, labs)? Why? @ -[None] What meds were considered but not given or refused? Why? @ -[None] Did you discuss the management of the patient with other professionals (pr ofessionals i.e. , PA, SYSTEMS SOFTWARE DESIGNER, lab, RT, psych nurse, social group worker, before school, teacher, chief marketing officer, case folder)? Give summary @ -[Admitting physician Was smoking cessation discussed for >3mins.? @ -[No] Was critical care preformed (if so, how long)? @ -[No] Were there social determinants of health that impacted care today? How? (Homelessness, low income, unemployed, alcoholism, drug addiction, transportation, low edu. Level, literacy, decrease access to med. care, detention, rehab)? @ -[No] Was there de-escalation of care discussed even if they declined (Discuss DNR or withdrawal of care, Hospice)? DNR status @ -[No] What co-morbidities impacted this encounter? (DM, HTN, Smoking, COPD, CAD, Cancer, CVA, ARF, Chemo, Hep., AIDS, mental health diagnosis, sleep apnea, morbid obesity)? @ -[None] Was patient admitted / discharged? Hospital course, mention meds given and route, prescriptions, significant lab abnormalities, going to OR and other pertinent info. @ -[Patient is admitted to have consultation both with surgery and wound care related to the sacral decubitus ulcer Undiagnosed new problem with uncertain prognosis? @ -[No] Drug Therapy requiring intensive monitoring for toxicity (Heparin, Nitro, Insulin, Cardizem)? @ -[No] Were any procedures done? @ -[No] Diagnosis/symptom? @ -[Chronic sacral decubitus ulcer with suspected acute infection, Acute, or Chronic, or Acute on Chronic? @ -[default] Uncomplicated (without systemic symptoms) or Complicated (systemic symptoms)? @ -[default] Side effects of treatment? @ -[No] Exacerbation, Progression, or Severe Exacerbation? @ -[No] Poses a threat to life or bodily function? How? (Chest pain, [place], [place], pneumonia, PE, COPD, DKA, ARF, appy, cholecystitis, CVA, Diverticulitis, Homicidal, Suicidal, threat to staff... and all critical care pts) @ -[No] - Lab Data Result diagrams: 01/11/23 06:36 01/11/23 06:36 Lab Results 01/05/23 01/05/23 01/05/23 Range/Units 19:28 19:28 19:28 WBC 12.4 H (3.8-10.6) k/uL RBC 3.63 L (3.80-5.40) m/uL Hgb 10.1 L (11.4-16.0) gm/dL Hct 31.4 L (34.0-46.0) % MCV 86.7 (80.0-100.0) fL MCH 28.0 (25.0-35.0) pg MCHC 32.3 (31.0-37.0) g/dL RDW 14.7 (11.5-15.5) % Plt Count 420 (150-450) k/uL MPV 7.5 Immature Gran % (Auto) % Absolute Nucleated RBC (0.00-0.00) X 10*3/uL Neutrophils % 85 % Lymphocytes % 9 % Monocytes % 4 % Eosinophils % 1 % Basophils % 0 % Immature Gran # (0.00-0.04) X 10*3/uL Neutrophils # 10.5 H (1.3-7.7) k/uL Lymphocytes # 1.1 (1.0-4.8) k/uL Monocytes # 0.6 (0-1.0) k/uL Eosinophils # 0.2 (0-0.7) k/uL Basophils # 0.0 (0-0.2) k/uL NRBC/100 WBC Diff (0.0-0.0) /100 WBCS Sodium 135 L (137-145) mmol/L Potassium 4.4 (3.5-5.1) mmol/L Chloride 99 (98-107) mmol/L Carbon Dioxide 30 (22-30) mmol/L Anion Gap 6 mmol/L BUN 15 (7-17) mg/dL Creatinine 0.44 L (0.52-1.04) mg/dL Est GFR (CKD-EPI)AfAm >90 (>60 ml/min/1.73 sqM) Est GFR (CKD-EPI)NonAf >90 (>60 ml/min/1.73 sqM) BUN/Creatinine Ratio (12.00-20.00) Ratio Glucose 104 H (74-99) mg/dL Plasma Lactic Acid Eros (0.7-2.0) mmol/L Calcium 8.1 L (8.4-10.2) mg/dL Total Bilirubin 0.6 (0.2-1.3) mg/dL AST 27 (14-36) U/L ALT 20 (4-34) U/L Alkaline Phosphatase 68 (38-126) U/L Troponin I (0.000-0.034) ng/mL Total Protein 5.9 L (6.3-8.2) g/dL Albumin 3.0 L (3.5-5.0) g/dL Urine Color Yellow Urine Appearance Cloudy H (Clear) Urine pH 6.5 (5.0-8.0) Ur Specific [place] 1.024 (1.001-1.035) Urine Protein 2+ H (Negative) Urine Glucose (UA) Negative (Negative) Urine Ketones Trace H (Negative) Urine Blood Large H (Negative) Urine Nitrite Negative (Negative) Urine Bilirubin Negative (Negative) Urine Urobilinogen <2.0 (<2.0) mg/dL Ur Leukocyte Esterase Large H (Negative) Urine RBC >182 H (0-5) /hpf Urine WBC 42 H (0-5) /hpf Urine Bacteria Rare H (None) /hpf Urine Mucus Rare H (None) /hpf 01/05/23 01/05/23 01/06/23 Range/Units 19:28 22:02 01:36 WBC (3.8-10.6) k/uL RBC (3.80-5.40) m/uL Hgb (11.4-16.0) gm/dL Hct (34.0-46.0) % MCV (80.0-100.0) fL MCH (25.0-35.0) pg MCHC (31.0-37.0) g/dL RDW (11.5-15.5) % Plt Count (150-450) k/uL MPV Immature Gran % (Auto) % Absolute Nucleated RBC (0.00-0.00) X 10*3/uL Neutrophils % % Lymphocytes % % Monocytes % % Eosinophils % % Basophils % % Immature Gran # (0.00-0.04) X 10*3/uL Neutrophils # (1.3-7.7) k/uL Lymphocytes # (1.0-4.8) k/uL Monocytes # (0-1.0) k/uL Eosinophils # (0-0.7) k/uL Basophils # (0-0.2) k/uL NRBC/100 WBC Diff (0.0-0.0) /100 WBCS Sodium (137-145) mmol/L Potassium (3.5-5.1) mmol/L Chloride (98-107) mmol/L Carbon Dioxide (22-30) mmol/L Anion Gap mmol/L BUN (7-17) mg/dL Creatinine (0.52-1.04) mg/dL Est GFR (CKD-EPI)AfAm (>60 ml/min/1.73 sqM) Est GFR (CKD-EPI)NonAf (>60 ml/min/1.73 sqM) BUN/Creatinine Ratio (12.00-20.00) Ratio Glucose (74-99) mg/dL Plasma Lactic Acid Eros 1.3 (0.7-2.0) mmol/L Calcium (8.4-10.2) mg/dL Total Bilirubin (0.2-1.3) mg/dL AST (14-36) U/L ALT (4-34) U/L Alkaline Phosphatase (38-126) U/L Troponin I <0.012 <0.012 (0.000-0.034) ng/mL Total Protein (6.3-8.2) g/dL Albumin (3.5-5.0) g/dL Urine Color Urine Appearance (Clear) Urine pH (5.0-8.0) Ur Specific [place] (1.001-1.035) Urine Protein (Negative) Urine Glucose (UA) (Negative) Urine Ketones (Negative) Urine Blood (Negative) Urine Nitrite (Negative) Urine Bilirubin (Negative) Urine Urobilinogen (<2.0) mg/dL Ur Leukocyte Esterase (Negative) Urine RBC (0-5) /hpf Urine WBC (0-5) /hpf Urine Bacteria (None) /hpf Urine Mucus (None) /hpf 01/07/23 01/07/23 Range/Units 07:13 07:13 WBC 10.23 H (3.8-10.6) k/uL RBC 3.36 L (3.80-5.40) m/uL Hgb 9.0 L (11.4-16.0) gm/dL Hct 29.8 L (34.0-46.0) % MCV 88.7 (80.0-100.0) fL MCH 26.8 L (25.0-35.0) pg MCHC 30.2 L (31.0-37.0) g/dL RDW 15.1 H (11.5-15.5) % Plt Count 411 (150-450) k/uL MPV 10.1 Immature Gran % (Auto) 0.5 % Absolute Nucleated RBC 0 (0.00-0.00) X 10*3/uL Neutrophils % 78.7 % Lymphocytes % 11.8 % Monocytes % 7.2 % Eosinophils % 1.5 % Basophils % 0.3 % Immature Gran # 0.05 H (0.00-0.04) X 10*3/uL Neutrophils # 8.05 H (1.3-7.7) k/uL Lymphocytes # 1.21 (1.0-4.8) k/uL Monocytes # 0.74 (0-1.0) k/uL Eosinophils # 0.15 (0-0.7) k/uL Basophils # 0.03 (0-0.2) k/uL NRBC/100 WBC Diff 0 (0.0-0.0) /100 WBCS Sodium 142 (137-145) mmol/L Potassium 4.0 (3.5-5.1) mmol/L Chloride 105 (98-107) mmol/L Carbon Dioxide 25.1 (22-30) mmol/L Anion Gap 11.90 mmol/L BUN 5.0 L (7-17) mg/dL Creatinine 0.6 (0.52-1.04) mg/dL Est GFR (CKD-EPI)AfAm 113.2 (>60 ml/min/1.73 sqM) Est GFR (CKD-EPI)NonAf 97.7 (>60 ml/min/1.73 sqM) BUN/Creatinine Ratio 8.33 L (12.00-20.00) Ratio Glucose 96 (74-99) mg/dL Plasma Lactic Acid Eros (0.7-2.0) mmol/L Calcium 8.2 L (8.4-10.2) mg/dL Total Bilirubin (0.2-1.3) mg/dL AST (14-36) U/L ALT (4-34) U/L Alkaline Phosphatase (38-126) U/L Troponin I (0.000-0.034) ng/mL Total Protein (6.3-8.2) g/dL Albumin (3.5-5.0) g/dL Urine Color Urine Appearance (Clear) Urine pH (5.0-8.0) Ur Specific [place] (1.001-1.035) Urine Protein (Negative) Urine Glucose (UA) (Negative) Urine Ketones (Negative) Urine Blood (Negative) Urine Nitrite (Negative) Urine Bilirubin (Negative) Urine Urobilinogen (<2.0) mg/dL Ur Leukocyte Esterase (Negative) Urine RBC (0-5) /hpf Urine WBC (0-5) /hpf Urine Bacteria (None) /hpf Urine Mucus (None) /hpf Disposition Clinical Impression: Fall, Encounter for wound re-check, Head injury, Sacral decubitus ulcer Disposition: ADMITTED IP TO THIS HOSP Condition: Fair Is patient prescribed a controlled substance at d/c from ED?: No
[2023-01-06] MEDS: GABAPENTIN 300 MG CAP PO SCH ×3 (06:03→20:16)
[2023-01-06] MEDS: LEVOTHYROXINE 25 MCG TAB PO SCH (06:03)
[2023-01-06] MEDS: PIPERACILLIN-TAZOBACTAM 3.375 GM in SODIUM CHLORIDE 0.9% 100 ML IVPB SCH ×3 (07:53→23:28)
--- NOTE | 2023-01-06 07:56 | P.HPIM ---
History of Present Illness This is a pleasant female with past medical history of dementia, hyperlipidemia, hypothyroidism, depression, osteoporosis Presents because of a fall and laceration left side of the forehead just above about 1.5 inch in length. Patient however she cannot provide good information, she follows simple commands. Information were obtained from medical records and staff. Patient is afebrile. The distal vitals are stable. Blood pressure on the low side but this is most likely the same as before at the previous records Showing leukocytosis of 12.4, hemoglobin 10.1, sodium 135, BMP and liver enzymes are unremarkable. Urinalysis suspicious for infection CT of the head and neck: No acute intracranial process, no cervical spine fra cture with degenerative disc disease Also patient suspected to pressure ulcer and she was started on Zosyn, she was admitted for surgical team consultation Review of Systems ROS unobtainable: due to mental status Past Medical History Past Medical History: Dementia, Memory Impairment Additional Past Medical History / Comment(s): Dementia History of Any Multi-Drug Resistant Organisms: None Reported Past Surgical History: No Surgical Hx Reported Additional Past Surgical History / Comment(s): tooth extraction Past Anesthesia/Blood Transfusion Reactions: No Reported Reaction Past Psychological History: No Psychological Hx Reported Smoking Status: Never smoker Past Alcohol Use History: None Reported Past Drug Use History: None Reported - Past Family History Father Family Medical History: Unable to Obtain (Due to mental status) Medications and Allergies Home Medications Medication Instructions Recorded Confirmed Type Cholecalciferol [Vitamin D3 (25 25 mcg PO DAILY@0900 09/03/22 01/05/23 History Mcg = 1000 Iu)] Cyanocobalamin (Vitamin B-12) 1,000 mcg PO DAILY@0900 09/03/22 01/05/23 History [Vitamin B-12] Escitalopram [Lexapro] 20 mg PO DAILY@0900 09/03/22 01/05/23 History Simethicone [Gas-X] 125 mg PO DAILY@0900 09/03/22 01/05/23 History Simvastatin 40 mg PO HS@2100 09/03/22 01/05/23 History polyethylene glycoL 3350 [Miralax] 17 gm PO DAILY@0900 09/14/22 01/05/23 History Levothyroxine Sodium [Synthroid] 25 mcg PO DAILY@0600 09/28/22 01/05/23 History Sennosides [Senokot] 8.6 mg PO BID@0900,2100 09/28/22 01/05/23 History Acetaminophen Tab [Tylenol] 650 mg PO Q6HR PRN tab 10/06/22 01/05/23 Rx Cyclobenzaprine [Flexeril] 5 mg PO TID PRN tab 10/06/22 01/05/23 Rx ALPRAZolam [Xanax] 0.25 mg PO BID PRN 01/05/23 01/05/23 History Alendronate Sodium [Fosamax] 70 mg PO WE@0600 01/05/23 01/05/23 History Aspirin 81 mg PO DAILY@0900 01/05/23 01/05/23 History Divalproex Sodium [Depakote] 125 mg PO BID@0900,209901/05/23 01/05/23 History Gabapentin [Neurontin] 300 mg PO TID@0600,1400,209901/05/23 01/05/23 History HYDROcodone/APAP 5-325MG [[place] 1 tab PO Q8H 01/05/23 01/05/23 History 5-325] HYDROcodone/APAP 5-325MG [[place] 1 tab PO TID PRN 01/05/23 01/05/23 History 5-325] Lactose-Reduced Food [Ensure Plus] 237 ml PO BID@0900,1700 01/05/23 01/05/23 History Magnesium Hydroxide [Milk of 2,400 mg PO DAILY PRN 01/05/23 01/05/23 History Magnesia] Prostat Awc 30 ml PO BID@0900,199901/05/23 01/05/23 History Allergies Allergy/AdvReac Type Severity Reaction Status Date / Time Influenza Virus Vaccines Allergy Unknown Verified 01/05/23 17:29 Sulfa (Sulfonamide Allergy Rash/Hives Verified 01/05/23 17:29 Antibiotics) Physical Exam Vitals: Vital Signs Temp Pulse Resp BP Pulse Ox 01/06/23 06:05 85 14 115/62 98 01/06/23 06:04 101 H 16 124/60 97 01/06/23 05:17 98 15 105/65 97 01/06/23 04:10 84 16 102/61 95 01/06/23 01:34 78 12 104/59 94 L 01/06/23 01:18 79 16 106/63 95 01/06/23 00:21 79 16 99/59 96 01/05/23 23:36 77 20 99/49 96 01/05/23 20:43 94 15 107/51 98 01/05/23 20:10 98 16 89/59 97 01/05/23 18:51 79 18 94/46 93 L 01/05/23 16:57 98.4 F 96 18 89/52 94 L Intake and Output 01/05/23 01/06/23 01/06/23 22:59 06:59 14:59 Output Total 375 Balance -375 Output: Urine 375 Other: Weight 70.307 kg -GENERAL: The patient is alert and alert and follows simple commands (only a few of them and sometimes partially), does not answer questions HEENT: Pupils are round and equally reacting to light. EOMI. No scleral icterus. No conjunctival pallor. Normocephalic, atraumatic. No pharyngeal erythema. No thyromegaly. CARDIOVASCULAR: S1 and S2 present. No murmurs, rubs, or gallops. PULMONARY: Chest is clear to auscultation, no wheezing or crackles. ABDOMEN: Soft, nontender, nondistended, normoactive bowel sounds. No palpable organomegaly. MUSCULOSKELETAL: No joint swelling or deformity. -EXTREMITIES: No cyanosis, clubbing, or pedal edema. sacral pressure ulcer both 6 inches in diameter and extensive track down to the buttock area with foul smelling -NEUROLOGICAL: Gross confused, move extremities equally. Exam is limited by the patient condition SKIN: No rashes. no petechiae. Results CBC & Chem 7: 01/05/23 19:28 01/05/23 19:28 Labs: Abnormal Lab Results - Last 24 Hours (Table) 01/05/23 01/05/23 01/05/23 Range/Units 19:28 19:28 19:28 WBC 12.4 H (3.8-10.6) k/uL RBC 3.63 L (3.80-5.40) m/uL Hgb 10.1 L (11.4-16.0) gm/dL Hct 31.4 L (34.0-46.0) % Neutrophils # 10.5 H (1.3-7.7) k/uL Sodium 135 L (137-145) mmol/L Creatinine 0.44 L (0.52-1.04) mg/dL Glucose 104 H (74-99) mg/dL Calcium 8.1 L (8.4-10.2) mg/dL Total Protein 5.9 L (6.3-8.2) g/dL Albumin 3.0 L (3.5-5.0) g/dL Urine Appearance Cloudy H (Clear) Urine Protein 2+ H (Negative) Urine Ketones Trace H (Negative) Urine Blood Large H (Negative) Ur Leukocyte Esterase Large H (Negative) Urine RBC >182 H (0-5) /hpf Urine WBC 42 H (0-5) /hpf Urine Bacteria Rare H (None) /hpf Urine Mucus Rare H (None) /hpf Assessment and Plan Assessment: Infected sacral pressure ulcer both 6 inches in diameter and extensive track down to the buttock area with foul smelling possible Acute urinary tract infection Metabolic encephalopathy secondary to above Fall with laceration to forehead, without syncope Dementia and memory impairment Hyperlipidemia Hypothyroidism History of osteoporosis History of depression, no connective tissue Plan: Continue with antibiotic Zosyn and follow-up cultures including urine culture Surgical team evaluation for possible debridement Continue gentle hydration since patient has had a trauma with known to continue with the neuro check this for another 24 hours Labs and medication were reviewed.. Continue same treatment. Continue with symptomatic treatment. Resume home medication. Monitor labs and vitals. DVT and GI prophylaxis. Further recommendations as per clinical course of the patient DVT prophylaxis: Subcutaneous heparin GI Prophylaxis: Pepcid PT/OT: Pending Prognosis is guarded
[2023-01-06] MEDS: ASPIRIN 81 MG PO SCH (10:05)
[2023-01-06] MEDS: SENNOSIDES 8.6 MG TAB PO SCH ×2 (10:06→20:16)
[2023-01-06] MEDS: DIVALPROEX SPRINKLE 125 MG CAP.SPRINK PO SCH ×2 (10:06→20:33)
[2023-01-06] MEDS: HEPARIN SODIUM,PORCINE/PF 5,000 UNIT/0.5 ML SYRINGE SQ SCH ×2 (10:06→20:16)
[2023-01-06] MEDS: CYANOCOBALAMIN 500 MCG TAB PO SCH (10:06)
[2023-01-06] MEDS: ESCITALOPRAM 20 MG TAB PO SCH (10:06)
[2023-01-06] MEDS: FAMOTIDINE 20 MG/2 ML VIAL IV SCH ×2 (10:06→20:15)
[2023-01-06] MEDS: SODIUM CHLORIDE 0.9% 1,000 ML IV SCH ×3 (10:07→20:33)
[2023-01-06] MEDS: polyethylene glycoL 3350 17 GM POWD.PACK PO SCH ×2 (10:07→14:57)
--- NOTE | 2023-01-06 10:13 | P.CONS ---
History of Present Illness - Reason for Consult Consult date: 01/06/23 wound care - History of Present Illness This is a 62-year-old patient with a poor historian who presents with a pressure ulceration to the sacrum. Patient has a stage II pressure ulcer measuring approximately 4 x 6 x 0.5 cm with undermining from 4:00 to 7:00 at 2 PM. Ulceration has minimal Slough and nonviable tissue present with granulation throughout the wound bed. The wound edges are rolled. The periwound does show some excoriation. Review of systems: Unable to obtain due to mental status Physical exam: General Appearance: Alert, cooperative, no distress, appears stated age. Skin: See HPI all other Skin color, texture, tugor normal, no rashes or lesions. Neurologic: Alert oriented x3 Assessment: 1. Stage II pressure ulcer sacrum 2. Dementia Plan: 1.Sacrum: Apply negative pressure wound vac at 125 mm/Hg pressure, if unable to apply may use absorptive silver, saline moist gauze, dry gauze and ABD. Secure with tape. Turn patient every 2 hours. Assess nutrition increased protein. Thank you for the consultation any questions please contact the wound care center DNP note has been reviewed and discussed with Dr. Stewart and the impression and plan of care has been directed as dictated. Past Medical History Past Medical History: Dementia, Memory Impairment Additional Past Medical History / Comment(s): Dementia History of Any Multi-Drug Resistant Organisms: None Reported Past Surgical History: No Surgical Hx Reported Additional Past Surgical History / Comment(s): tooth extraction Past Anesthesia/Blood Transfusion Reactions: No Reported Reaction Past Psychological History: No Psychological Hx Reported Smoking Status: Never smoker Past Alcohol Use History: None Reported Past Drug Use History: None Reported - Past Family History Father Family Medical History: Unable to Obtain (Due to mental status) Medications and Allergies Home Medications Medication Instructions Recorded Confirmed Type Cholecalciferol [Vitamin D3 (25 25 mcg PO DAILY@0909/03/22 01/05/23 History Mcg = 1000 Iu)] Cyanocobalamin (Vitamin B-12) 1,000 mcg PO DAILY@0900 09/03/22 01/05/23 History [Vitamin B-12] Escitalopram [Lexapro] 20 mg PO DAILY@0909/03/22 01/05/23 History Simethicone [Gas-X] 125 mg PO DAILY@0900 09/03/22 01/05/23 History Simvastatin 40 mg PO HS@209909/03/22 01/05/23 History polyethylene glycoL 3350 [Miralax] 17 gm PO DAILY@0900 09/14/22 01/05/23 History Levothyroxine Sodium [Synthroid] 25 mcg PO DAILY@0600 09/28/22 01/05/23 History Sennosides [Senokot] 8.6 mg PO BID@0900,209909/28/22 01/05/23 History Acetaminophen Tab [Tylenol] 650 mg PO Q6HR PRN tab 10/06/22 01/05/23 Rx Cyclobenzaprine [Flexeril] 5 mg PO TID PRN tab 10/06/22 01/05/23 Rx ALPRAZolam [Xanax] 0.25 mg PO BID PRN 01/05/23 01/05/23 History Alendronate Sodium [Fosamax] 70 mg PO WE@0601/05/23 01/05/23 History Aspirin 81 mg PO DAILY@0900 01/05/23 01/05/23 History Divalproex Sodium [Depakote] 125 mg PO BID@0900,209901/05/23 01/05/23 History Gabapentin [Neurontin] 300 mg PO TID@0600,1400,209901/05/23 01/05/23 History HYDROcodone/APAP 5-325MG [[place] 1 tab PO Q8H 01/05/23 01/05/23 History 5-325] HYDROcodone/APAP 5-325MG [[place] 1 tab PO TID PRN 01/05/23 01/05/23 History 5-325] Lactose-Reduced Food [Ensure Plus] 237 ml PO BID@0900,1700 01/05/23 01/05/23 History Magnesium Hydroxide [Milk of 2,400 mg PO DAILY PRN 01/05/23 01/05/23 History Magnesia] Prostat Awc 30 ml PO BID@0900,199901/05/23 01/05/23 History Allergies Allergy/AdvReac Type Severity Reaction Status Date / Time Influenza Virus Vaccines Allergy Unknown Verified 01/05/23 17:29 Sulfa (Sulfonamide Allergy Rash/Hives Verified 01/05/23 17:29 Antibiotics) Physical Exam Vitals: Vital Signs Temp Pulse Resp BP Pulse Ox 01/06/23 07:39 73 18 104/60 98 01/06/23 06:05 85 14 115/62 98 01/06/23 06:04 101 H 16 124/60 97 01/06/23 05:17 98 15 105/65 97 01/06/23 04:10 84 16 102/61 95 01/06/23 01:34 78 12 104/59 94 L 01/06/23 01:18 79 16 106/63 95 01/06/23 00:21 79 16 99/59 96 01/05/23 23:36 77 20 99/49 96 01/05/23 20:43 94 15 107/51 98 01/05/23 20:10 98 16 89/59 97 01/05/23 18:51 79 18 94/46 93 L 01/05/23 16:57 98.4 F 96 18 89/52 94 L Intake and Output 01/05/23 01/06/23 01/06/23 22:59 06:59 14:59 Output Total 375 Balance -375 Output: Urine 375 Other: Weight 70.307 kg Results CBC & Chem 7: 01/05/23 19:28 01/05/23 19:28 Labs: Abnormal Lab Results - Last 24 Hours (Table) 01/05/23 01/05/23 01/05/23 Range/Units 19:28 19:28 19:28 WBC 12.4 H (3.8-10.6) k/uL RBC 3.63 L (3.80-5.40) m/uL Hgb 10.1 L (11.4-16.0) gm/dL Hct 31.4 L (34.0-46.0) % Neutrophils # 10.5 H (1.3-7.7) k/uL Sodium 135 L (137-145) mmol/L Creatinine 0.44 L (0.52-1.04) mg/dL Glucose 104 H (74-99) mg/dL Calcium 8.1 L (8.4-10.2) mg/dL Total Protein 5.9 L (6.3-8.2) g/dL Albumin 3.0 L (3.5-5.0) g/dL Urine Appearance Cloudy H (Clear) Urine Protein 2+ H (Negative) Urine Ketones Trace H (Negative) Urine Blood Large H (Negative) Ur Leukocyte Esterase Large H (Negative) Urine RBC >182 H (0-5) /hpf Urine WBC 42 H (0-5) /hpf Urine Bacteria Rare H (None) /hpf Urine Mucus Rare H (None) /hpf Assessment and Plan (1) Stage II pressure ulcer of sacral region Current Visit: Yes Status: Acute Code(s): L89.152 - PRESSURE ULCER OF SACRAL REGION, STAGE 2 SNOMED Code(s): 44280509260445 (2) AMS (altered mental status) Current Visit: No Status: Acute Code(s): R41.82 - ALTERED MENTAL STATUS, UNSPECIFIED SNOMED Code(s): 578064790
--- NOTE | 2023-01-06 14:17 | P.GSCN ---
History of Present Illness Consult date: 01/06/23 History of present illness: CHIEF COMPLAINT: fall HISTORY OF PRESENT ILLNESS: This is a 62-year-old female with history of dementia. She is nonambulatory and apparently fell from the bed to the floor. She has a laceration above the left eyebrow. Patient was transferred to ER for evaluation. Patient was found to have a sacral decubitus ulcer with foul drainage. Patient has been receiving wound care at [facility]. Per wound care service at [facility]. The signal decubitus ulcer is improving. They're requesting to continue just wound care and no surgical intervention. Patient lying in bed comfortably. Unable to obtain history from patient due to her dementia. ER Chart is reporting that she is at her baseline. Patient is being seen by wound care service. They are recommending wound VAC. Also, being evaluated by infectious disease for possible infectious decubitus ulcer and UTI. She is on antibiotics. Afebrile. PAST MEDICAL HISTORY: See list. PAST SURGICAL HISTORY: See list. MEDICATIONS: See list. ALLERGIES: See list. SOCIAL HISTORY: No illicit drug use. REVIEW OF SYSTEMS: CONSTITUTIONAL: Denies fever or chills. HEENT: Denies blurred vision, vision changes, or eye pain. Denies hemoptysis ENDOCRINE: Denies heat or cold intolerance. CARDIOVASCULAR: Denies chest pain or pressure. RESPIRATORY: No shortness of breath. GASTROINTESTINAL: Denies abdominal pain. Denies nausea or vomiting. NEURO: Denies history of seizures. PSYCH: No depression or suicidal ideation HEMATOLOGIC: Denies bleeding disorders. LYMPHATIC: The patient denies any lumps and bumps around the neck. GENITOURINARY: Denies any blood in urine or increased urinary frequency. MUSCULOSKELETAL: Denies myalgias. Denies joint swelling. Denies decreased range of motion beyond patients baseline. SKIN: Denies pruitis. Denies rash. PHYSICAL EXAM: VITAL SIGNS: Reviewed GENERAL: Well-developed in no acute distress. HEENT: No sclera icterus. Extraocular movements grossly intact. Moist buccal mucosa. Head normocephalic. Laceration above left eyebrow. Hears conversational speech. No nasal drainage. NECK: Supple without lymphadenopathy. CHEST: Non-labored respirations and equal bilateral excursions. CARDIOVASCULAR: Palpable 2+ radial pulses. ABDOMEN: Soft. Nondistended. Nontender MUSCULOSKELETAL: No clubbing or cyanosis. NEUROLOGIC: Awake and alert. No focal or lateralizing signs. Cranial nerves II through XII grossly intact. SKIN: Sacral decubitus ulcer measuring about 4 x 5 cm. There is evidence of some granulation tissue and slough. There is evidence of undermining. LABORATORY DATA: WBC is 12.4 Hgb 10.1 platelets 420 Na 135 K 4.4 creatinine 0.44 Lactic acid 1.3 IMAGING: Computed tomography scan had cervical spine no acute intracranial process. No evidence of cervical spine fracture. Moderate to severe multilevel degenerative disc disease. ASSESSMENT: 1. Sacral decubitus ulcer 2. Possible UTI 3. Dementia 4. Leukocytosis PLAN: -Continue local wound -Continue antibiotics -Continue supportive care -No surgical intervention planned at this time Physician Alligator Hunter note has been reviewed by physician. Signing provider agrees with the documented findings, assessment, and plan of care. Past Medical History Past Medical History: Dementia, Memory Impairment Additional Past Medical History / Comment(s): Dementia History of Any Multi-Drug Resistant Organisms: None Reported Past Surgical History: No Surgical Hx Reported Additional Past Surgical History / Comment(s): tooth extraction Past Anesthesia/Blood Transfusion Reactions: No Reported Reaction Past Psychological History: No Psychological Hx Reported Smoking Status: Never smoker Past Alcohol Use History: None Reported Past Drug Use History: None Reported - Past Family History Father Family Medical History: Unable to Obtain (Due to mental status) Medications and Allergies Home Medications Medication Instructions Recorded Confirmed Type Cholecalciferol [Vitamin D3 (25 25 mcg PO DAILY@0900 09/03/22 01/05/23 History Mcg = 1000 Iu)] Cyanocobalamin (Vitamin B-12) 1,000 mcg PO DAILY@0900 09/03/22 01/05/23 History [Vitamin B-12] Escitalopram [Lexapro] 20 mg PO DAILY@0900 09/03/22 01/05/23 History Simethicone [Gas-X] 125 mg PO DAILY@0900 09/03/22 01/05/23 History Simvastatin 40 mg PO HS@2100 09/03/22 01/05/23 History polyethylene glycoL 3350 [Miralax] 17 gm PO DAILY@0900 09/14/22 01/05/23 History Levothyroxine Sodium [Synthroid] 25 mcg PO DAILY@0600 09/28/22 01/05/23 History Sennosides [Senokot] 8.6 mg PO BID@0900,2100 09/28/22 01/05/23 History Acetaminophen Tab [Tylenol] 650 mg PO Q6HR PRN tab 10/06/22 01/05/23 Rx Cyclobenzaprine [Flexeril] 5 mg PO TID PRN tab 10/06/22 01/05/23 Rx ALPRAZolam [Xanax] 0.25 mg PO BID PRN 01/05/23 01/05/23 History Alendronate Sodium [Fosamax] 70 mg PO WE@0600 01/05/23 01/05/23 History Aspirin 81 mg PO DAILY@0900 01/05/23 01/05/23 History Divalproex Sodium [Depakote] 125 mg PO BID@0900,209901/05/23 01/05/23 History Gabapentin [Neurontin] 300 mg PO TID@0600,1400,209901/05/23 01/05/23 History HYDROcodone/APAP 5-325MG [[place] 1 tab PO Q8H 01/05/23 01/05/23 History 5-325] HYDROcodone/APAP 5-325MG [[place] 1 tab PO TID PRN 01/05/23 01/05/23 History 5-325] Lactose-Reduced Food [Ensure Plus] 237 ml PO BID@0900,1700 01/05/23 01/05/23 History Magnesium Hydroxide [Milk of 2,400 mg PO DAILY PRN 01/05/23 01/05/23 History Magnesia] Prostat Awc 30 ml PO BID@0900,199901/05/23 01/05/23 History Allergies Allergy/AdvReac Type Severity Reaction Status Date / Time Influenza Virus Vaccines Allergy Unknown Verified 01/05/23 17:29 Sulfa (Sulfonamide Allergy Rash/Hives Verified 01/05/23 17:29 Antibiotics) Surgical - Exam Vital Signs Temp Pulse Resp BP Pulse Ox 98.4 F 96 18 89/52 94 L 01/05/23 16:57 01/05/23 16:57 01/05/23 16:57 01/05/23 16:57 01/05/23 16:57 Results - Labs 01/05/23 19:28 01/05/23 19:28 Abnormal Lab Results - Last 24 Hours (Table) 01/05/23 01/05/23 01/05/23 Range/Units 19:28 19:28 19:28 WBC 12.4 H (3.8-10.6) k/uL RBC 3.63 L (3.80-5.40) m/uL Hgb 10.1 L (11.4-16.0) gm/dL Hct 31.4 L (34.0-46.0) % Neutrophils # 10.5 H (1.3-7.7) k/uL Sodium 135 L (137-145) mmol/L Creatinine 0.44 L (0.52-1.04) mg/dL Glucose 104 H (74-99) mg/dL Calcium 8.1 L (8.4-10.2) mg/dL Total Protein 5.9 L (6.3-8.2) g/dL Albumin 3.0 L (3.5-5.0) g/dL Urine Appearance Cloudy H (Clear) Urine Protein 2+ H (Negative) Urine Ketones Trace H (Negative) Urine Blood Large H (Negative) Ur Leukocyte Esterase Large H (Negative) Urine RBC >182 H (0-5) /hpf Urine WBC 42 H (0-5) /hpf Urine Bacteria Rare H (None) /hpf Urine Mucus Rare H (None) /hpf Diabetes panel 01/05/23 Range/Units 19:28 Sodium 135 L (137-145) mmol/L Potassium 4.4 (3.5-5.1) mmol/L Chloride 99 (98-107) mmol/L Carbon Dioxide 30 (22-30) mmol/L BUN 15 (7-17) mg/dL Creatinine 0.44 L (0.52-1.04) mg/dL Glucose 104 H (74-99) mg/dL Calcium 8.1 L (8.4-10.2) mg/dL AST 27 (14-36) U/L ALT 20 (4-34) U/L Alkaline Phosphatase 68 (38-126) U/L Total Protein 5.9 L (6.3-8.2) g/dL Albumin 3.0 L (3.5-5.0) g/dL Calcium panel 01/05/23 Range/Units 19:28 Calcium 8.1 L (8.4-10.2) mg/dL Albumin 3.0 L (3.5-5.0) g/dL Pituitary panel 01/05/23 Range/Units 19:28 Sodium 135 L (137-145) mmol/L Potassium 4.4 (3.5-5.1) mmol/L Chloride 99 (98-107) mmol/L Carbon Dioxide 30 (22-30) mmol/L BUN 15 (7-17) mg/dL Creatinine 0.44 L (0.52-1.04) mg/dL Glucose 104 H (74-99) mg/dL Calcium 8.1 L (8.4-10.2) mg/dL Adrenal panel 01/05/23 Range/Units 19:28 Sodium 135 L (137-145) mmol/L Potassium 4.4 (3.5-5.1) mmol/L Chloride 99 (98-107) mmol/L Carbon Dioxide 30 (22-30) mmol/L BUN 15 (7-17) mg/dL Creatinine 0.44 L (0.52-1.04) mg/dL Glucose 104 H (74-99) mg/dL Calcium 8.1 L (8.4-10.2) mg/dL Total Bilirubin 0.6 (0.2-1.3) mg/dL AST 27 (14-36) U/L ALT 20 (4-34) U/L Alkaline Phosphatase 68 (38-126) U/L Total Protein 5.9 L (6.3-8.2) g/dL Albumin 3.0 L (3.5-5.0) g/dL
[2023-01-06] MEDS: HYDROcodone/APAP 5-325MG 1 EACH TAB PO PRN (15:04)
[2023-01-06] MEDS: ATORVASTATIN 20 MG TAB PO SCH (20:16)
--- NOTE | 2023-01-06 22:59 | P.CONS ---
History of Present Illness - Reason for Consult Consult date: 01/06/23 Possible infected pressure ulcer and UTI Requesting physician: Andrea E Sheet - Chief Complaint Fell from the bed x one day - History of Present Illness Patient is a 62-year-old female [facility] resident with a past medical history significant for dementia and memory impairment patient also have a chronic pressure ulcer to the sacral area currently being treated with a wound VAC at the [facility] the patient was brought into the ER after apparently the patient did have a suspected fall from the bed as the patient is nonambulatory found on the floor next to her bed no no loss of consciousness she did have a laceration to the left eyebrow patient was transported to the ER for further evaluation on arrival to the ER patient was afebrile and no fever has been recorded subsequently patient did have white count of 12.4 with a left shift kidney function has been normal liver enzymes normal she did have a positive UA CT of the cervical spine was negative for any fracture patient was started on Zosyn infectious disease was consulted for further management of antibiotic therapy concerning for possible infected sacral pressure ulcer patient has significant elevated good historian did not provide any history and was initially refusing to have the sacral wound examined, denies any pain to the sacral wound or any drainage Review of Systems Positive points has been mentioned in HPI complete review could not be obtained because of his underlying mental status Past Medical History Past Medical History: Dementia, Memory Impairment Additional Past Medical History / Comment(s): Dementia History of Any Multi-Drug Resistant Organisms: None Reported Past Surgical History: No Surgical Hx Reported Additional Past Surgical History / Comment(s): tooth extraction Past Anesthesia/Blood Transfusion Reactions: No Reported Reaction Past Psychological History: No Psychological Hx Reported Smoking Status: Never smoker Past Alcohol Use History: None Reported Past Drug Use History: None Reported - Past Family History Father Family Medical History: Unable to Obtain (Due to mental status) Medications and Allergies Home Medications Medication Instructions Recorded Confirmed Type Cholecalciferol [Vitamin D3 (25 25 mcg PO DAILY@0900 09/03/22 01/05/23 History Mcg = 1000 Iu)] Cyanocobalamin (Vitamin B-12) 1,000 mcg PO DAILY@0900 09/03/22 01/05/23 History [Vitamin B-12] Escitalopram [Lexapro] 20 mg PO DAILY@0909/03/22 01/05/23 History Simethicone [Gas-X] 125 mg PO DAILY@0900 09/03/22 01/05/23 History Simvastatin 40 mg PO HS@209909/03/22 01/05/23 History polyethylene glycoL 3350 [Miralax] 17 gm PO DAILY@0900 09/14/22 01/05/23 History Levothyroxine Sodium [Synthroid] 25 mcg PO DAILY@0600 09/28/22 01/05/23 History Sennosides [Senokot] 8.6 mg PO BID@0900,209909/28/22 01/05/23 History Acetaminophen Tab [Tylenol] 650 mg PO Q6HR PRN tab 10/06/22 01/05/23 Rx Cyclobenzaprine [Flexeril] 5 mg PO TID PRN tab 10/06/22 01/05/23 Rx ALPRAZolam [Xanax] 0.25 mg PO BID PRN 01/05/23 01/05/23 History Alendronate Sodium [Fosamax] 70 mg PO WE@0601/05/23 01/05/23 History Aspirin 81 mg PO DAILY@0900 01/05/23 01/05/23 History Divalproex Sodium [Depakote] 125 mg PO BID@0900,209901/05/23 01/05/23 History Gabapentin [Neurontin] 300 mg PO TID@0600,1400,209901/05/23 01/05/23 History HYDROcodone/APAP 5-325MG [[place] 1 tab PO Q8H 01/05/23 01/05/23 History 5-325] HYDROcodone/APAP 5-325MG [[place] 1 tab PO TID PRN 01/05/23 01/05/23 History 5-325] Lactose-Reduced Food [Ensure Plus] 237 ml PO BID@0900,1700 01/05/23 01/05/23 History Magnesium Hydroxide [Milk of 2,400 mg PO DAILY PRN 01/05/23 01/05/23 History Magnesia] Prostat Awc 30 ml PO BID@0900,199901/05/23 01/05/23 History Allergies Allergy/AdvReac Type Severity Reaction Status Date / Time Influenza Virus Vaccines Allergy Unknown Verified 01/05/23 17:29 Sulfa (Sulfonamide Allergy Rash/Hives Verified 01/05/23 17:29 Antibiotics) Physical Exam Vitals: Vital Signs Temp Pulse Resp BP Pulse Ox 01/06/23 10:00 78 18 108/70 99 01/06/23 09:00 70 18 108/68 99 01/06/23 08:00 74 18 110/78 98 01/06/23 07:39 73 18 104/60 98 01/06/23 06:05 85 14 115/62 98 01/06/23 06:04 101 H 16 124/60 97 01/06/23 05:17 98 15 105/65 97 01/06/23 04:10 84 16 102/61 95 01/06/23 01:34 78 12 104/59 94 L 01/06/23 01:18 79 16 106/63 95 01/06/23 00:21 79 16 99/59 96 01/05/23 23:36 77 20 99/49 96 01/05/23 20:43 94 15 107/51 98 01/05/23 20:10 98 16 89/59 97 01/05/23 18:51 79 18 94/46 93 L 01/05/23 16:57 98.4 F 96 18 89/52 94 L Intake and Output 01/05/23 01/06/23 01/06/23 22:59 06:59 14:59 Output Total 375 Balance -375 Output: Urine 375 Other: Weight 70.307 kg EGENERAL DESCRIPTION: Middle-aged female lying in bed, no distress. No tachypnea or accessory muscle of respiration use. HEENT: Shows Pallor , no scleral icterus. Oral mucous membrane is dry. No pharyngeal erythema or thrush NECK: Trachea central, no thyromegaly. LUNGS: Unlabored breathing. Clear to auscultation anteriorly. No wheeze or crackle. HEART: S1, S2, regular rate and rhythm. No loud murmur ABDOMEN: Soft, no tenderness , guarding or rigidity, no organomegaly EXTREMITIES: No edema of feet. SKIN: Patient did have a stage III sacral pressure ulcer with some slough tissue no surrounding redness NEUROLOGICAL: The patient is awake, alert, oriented x1, mood and affect normal. Results CBC & Chem 7: 01/07/23 07:13 01/07/23 07:13 Labs: Abnormal Lab Results - Last 24 Hours (Table) 01/05/23 01/05/23 01/05/23 Range/Units 19:28 19:28 19:28 WBC 12.4 H (3.8-10.6) k/uL RBC 3.63 L (3.80-5.40) m/uL Hgb 10.1 L (11.4-16.0) gm/dL Hct 31.4 L (34.0-46.0) % Neutrophils # 10.5 H (1.3-7.7) k/uL Sodium 135 L (137-145) mmol/L Creatinine 0.44 L (0.52-1.04) mg/dL Glucose 104 H (74-99) mg/dL Calcium 8.1 L (8.4-10.2) mg/dL Total Protein 5.9 L (6.3-8.2) g/dL Albumin 3.0 L (3.5-5.0) g/dL Urine Appearance Cloudy H (Clear) Urine Protein 2+ H (Negative) Urine Ketones Trace H (Negative) Urine Blood Large H (Negative) Ur Leukocyte Esterase Large H (Negative) Urine RBC >182 H (0-5) /hpf Urine WBC 42 H (0-5) /hpf Urine Bacteria Rare H (None) /hpf Urine Mucus Rare H (None) /hpf Assessment and Plan (1) UTI (urinary tract infection) Current Visit: Yes Status: Acute Code(s): N39.0 - URINARY TRACT INFECTION, SITE NOT SPECIFIED SNOMED Code(s): 89767200 (2) Sacral decubitus ulcer Current Visit: Yes Status: Acute Code(s): L89.159 - PRESSURE ULCER OF SACRAL REGION, UNSPECIFIED STAGE SNOMED Code(s): 860433216 Plan: 1patient presented to hospital mental status changes apparently did have a fall with bruising to the left eyebrow patient also noticed to have a positive UA with concern for possible symptomatic UTI. Related to her mental status changes keeping in mind [facility] resident need to cover for resistant gram-negative. 2patient did have a stage III sacral pressure ulcer with minimal slough tissue no significant surrounding redness or any foul-smelling drainage clinically doubt source of infection 3local wound care to the sacral wound with wound VAC or Medihoney to the slough tissue followed by moist dressing change daily keep the area of the pressure 4continue with the Zosyn while waiting for the culture to finalize We will follow on clinical condition and cultures to further adjust medication if needed Thank you for this consultation we will follow the patient along with you Time with Patient: Greater than 30
[2023-01-07] MEDS: LEVOTHYROXINE 25 MCG TAB PO SCH (05:17)
[2023-01-07] MEDS: GABAPENTIN 300 MG CAP PO SCH ×3 (05:17→20:22)
[2023-01-07] MEDS: CYANOCOBALAMIN 500 MCG TAB PO SCH (09:03)
[2023-01-07] MEDS: ESCITALOPRAM 20 MG TAB PO SCH (09:04)
[2023-01-07] MEDS: DIVALPROEX SPRINKLE 125 MG CAP.SPRINK PO SCH ×2 (09:04→20:33)
[2023-01-07] MEDS: HEPARIN SODIUM,PORCINE/PF 5,000 UNIT/0.5 ML SYRINGE SQ SCH ×2 (09:04→20:22)
[2023-01-07] MEDS: SENNOSIDES 8.6 MG TAB PO SCH ×2 (09:05→20:22)
[2023-01-07] MEDS: polyethylene glycoL 3350 17 GM POWD.PACK PO SCH (09:05)
[2023-01-07] MEDS: ASPIRIN 81 MG PO SCH (09:06)
[2023-01-07] MEDS: PIPERACILLIN-TAZOBACTAM 3.375 GM in SODIUM CHLORIDE 0.9% 100 ML IVPB SCH ×2 (09:21→16:00)
[2023-01-07] MEDS: FAMOTIDINE 20 MG/2 ML VIAL IV SCH ×2 (09:22→10:21)
[2023-01-07] MEDS ORDERED: SODIUM CHLORIDE 0.9% 500 ML 250 ML IV ONE (10:14)
[2023-01-07 10:41] LABS: Basophils # (A) 0.03 X 10*3/uL (0.00-0.10); Basophils % (A) 0.3 %; Eosinophils # (A) 0.15 X 10*3/uL (0.04-0.35); Eosinophils % (A) 1.5 %; HCT 29.8 % (37.2-46.3); Immature Grans, Automated 0.5 %; Lymphocytes # (A) 1.21 X 10*3/uL (0.90-5.00); Lymphocytes % (A) 11.8 %; MCH 26.8 pg (27.0-32.0); MCHC 30.2 g/dL (32.0-37.0); MCV 88.7 fL (80.0-97.0); Mean Platelet Volume 10.1 fL (9.5-12.2); Monocytes # (A) 0.74 X 10*3/uL (0.20-1.00); Monocytes % (A) 7.2 %; NRBC Per 100 WBC 0 /100 WBCS (0.0-0.0); Neutrophils # (A) 8.05 X 10*3/uL (1.80-7.70); Neutrophils % (A) 78.7 %; Platelet Count 411 X 10*3/uL (140-440); RBC 3.36 X 10*6/uL (4.10-5.20); RDW 15.1 % (11.5-14.5); WBC 10.23 X 10*3/uL (4.50-10.00)
[2023-01-07] MEDS: ACETAMINOPHEN TAB 325 MG TAB PO PRN ×2 (10:42→17:51)
[2023-01-07 10:53] LABS: African American GFR (CKD) 113.2 (60.0-200.0); Anion Gap 11.9 mmol/L (10.00-18.00); BUN/Creat Ratio 8.33 Ratio (12.00-20.00); Calcium 8.2 mg/dL (8.7-10.3); Carbon Dioxide 25.1 mmol/L (20.0-27.5); Non-African American GFR(CKD) 97.7 (60.0-200.0)
--- NOTE | 2023-01-07 11:48 | XR ---
EXAMINATION TYPE: XR chest 1V portable DATE OF EXAM: 01/07/2023 HISTORY: Shortness of breath. COMPARISON: 09/28/2022 TECHNIQUE: Single view of the chest is submitted. FINDINGS: Demonstrated are scattered senescent parenchymal change. There is no evidence for focal infiltrate. The heart is stable. Hilar and mediastinal structures are within normal limits. Degenerative changes are seen of the dorsal spine. IMPRESSION: 1. Chronic changes without evidence for acute pulmonary disease.
[2023-01-07 14:06] VITALS: BMI 25.7
--- NOTE | 2023-01-07 14:10 | P.PN ---
Subjective Progress Note Date: 01/07/23 CHIEF COMPLAINT: Sacral decubitus ulcer HISTORY OF PRESENT ILLNESS: Surgical service following in regards to sacral decubitus ulcer. Patient followed closely by wound care service at her [facility]. They're reporting that the ulcer has shown improvement. Patient followed by wound care service and infectious disease. Afebrile. WBC is down from 12.4- 10.23 hemoglobin 9.0 platelets 411 PHYSICAL EXAM: VITAL SIGNS: Reviewed. GENERAL: Well-developed in no acute distress. HEENT: No sclera icterus. Extraocular movements grossly intact. Moist buccal mucosa. Head is atraumatic, normocephalic. ABDOMEN: Soft. Nondistended. Nontender. NEUROLOGIC: awake and alert ASSESSMENT: 1. Sacral decubitus ulcer 2. Possible UTI 3. Dementia 4. Leukocytosis PLAN: -No surgical intervention planned -Continue with local wound care as prescribed per wound care service and infectious disease -Antibiotics per infectious disease -Continue offloading -Continue supportive care -Surgical service will sign off. Please call with any questions or concerns Physician Shipping Lead Person note has been reviewed by physician. Signing provider agrees with the documented findings, assessment, and plan of care. Objective - Vital Signs Vital signs: Vital Signs Temp 97.9 F 01/07/23 12:05 Pulse 67 01/07/23 12:05 Resp 16 01/07/23 12:05 BP 101/65 01/07/23 12:05 Pulse Ox 99 01/07/23 12:05 FiO2 Intake & Output 01/06/23 01/07/23 01/07/23 18:59 06:59 18:59 Intake Total 590 Output Total 1050 1300 1250 Balance -1050 -710 -1250 Weight 70.307 kg Intake: Oral 590 Output: Urine 1050 1300 1250 Other: Voiding Method Indwelling Catheter Indwelling Catheter - Labs CBC & Chem 7: 01/07/23 07:13 01/07/23 07:13 Labs: Abnormal Lab Results - Last 24 Hours (Table) 01/07/23 01/07/23 Range/Units 07:13 07:13 WBC 10.23 H (4.50-10.00) X 10*3/uL RBC 3.36 L (4.10-5.20) X 10*6/uL Hgb 9.0 L (12.0-15.0) g/dL Hct 29.8 L (37.2-46.3) % MCH 26.8 L (27.0-32.0) pg MCHC 30.2 L (32.0-37.0) g/dL RDW 15.1 H (11.5-14.5) % Immature Gran # 0.05 H (0.00-0.04) X 10*3/uL Neutrophils # 8.05 H (1.80-7.70) X 10*3/uL BUN 5.0 L (9.0-27.0) mg/dL BUN/Creatinine Ratio 8.33 L (12.00-20.00) Ratio Calcium 8.2 L (8.7-10.3) mg/dL Microbiology - Last 24 Hours (Table) 01/05/23 21:10 Blood Culture - Preliminary Blood No Growth after 24 hours
[2023-01-07] MEDS: SODIUM CHLORIDE 0.9% 1,000 ML IV SCH ×2 (16:01→20:22)
[2023-01-07] MEDS: ATORVASTATIN 20 MG TAB PO SCH (20:22)
[2023-01-07] MEDS: FAMOTIDINE 20 MG TAB PO SCH (20:22)
[2023-01-07] MEDS: ALPRAZolam 0.25 MG TAB PO PRN (20:22)
[2023-01-08] MEDS: SODIUM CHLORIDE 0.9% 1,000 ML IV SCH ×2 (00:47→15:55)
[2023-01-08] MEDS: PIPERACILLIN-TAZOBACTAM 3.375 GM in SODIUM CHLORIDE 0.9% 100 ML IVPB SCH ×3 (00:47→15:54)
[2023-01-08] MEDS: LEVOTHYROXINE 25 MCG TAB PO SCH (05:43)
[2023-01-08] MEDS: GABAPENTIN 300 MG CAP PO SCH ×3 (05:43→20:06)
--- NOTE | 2023-01-08 05:55 | PN ---
PROGRESS NOTE DATE OF SERVICE: 01/07/2023 SUBJECTIVE: This 62-year-old woman who was admitted with infected sacral pressure ulcer is being closely monitored. No chest pain. No palpitations. No fever. OBJECTIVE: VITAL SIGNS: Pulse is 67, blood pressure 101/62, and respirations 16. CHEST: Clear to auscultation. ABDOMEN: Soft LABORATORY DATA: Reviewed. ASSESSMENT: 1. Infected sacral decubitus ulcer stage IV, present on admission. 2. Acute urinary tract infection. 3. Metabolic encephalopathy. 4. Fall with laceration. 5. Dementia. 6. Hypertension. 7. Hyperlipidemia. 8. Multiple medical issues. 9. Full code. RECOMMENDATIONS: I recommend to continue current medications. continue the antibiotics. Obtain the cultures. Closely follow with Infectious Disease and Wound Care has been ordered. Further recommendation to follow. Prognosis guarded. MMJUANL / DENISN: [id number] / MTDD
[2023-01-08] MEDS: HYDROcodone/APAP 5-325MG 1 EACH TAB PO PRN (06:42)
[2023-01-08] MEDS: HEPARIN SODIUM,PORCINE/PF 5,000 UNIT/0.5 ML SYRINGE SQ SCH ×2 (09:19→20:07)
[2023-01-08] MEDS: polyethylene glycoL 3350 17 GM POWD.PACK PO SCH (09:19)
[2023-01-08] MEDS: ASPIRIN 81 MG PO SCH (09:20)
[2023-01-08] MEDS: SENNOSIDES 8.6 MG TAB PO SCH ×2 (09:20→20:07)
[2023-01-08] MEDS: FAMOTIDINE 20 MG TAB PO SCH ×2 (09:20→20:07)
[2023-01-08] MEDS: DIVALPROEX SPRINKLE 125 MG CAP.SPRINK PO SCH ×2 (09:20→20:07)
[2023-01-08] MEDS: CYANOCOBALAMIN 500 MCG TAB PO SCH (09:20)
[2023-01-08] MEDS: ESCITALOPRAM 20 MG TAB PO SCH (09:20)
[2023-01-08] MEDS: ALPRAZolam 0.25 MG TAB PO PRN ×2 (09:37→20:07)
--- NOTE | 2023-01-08 13:57 | PN ---
PROGRESS NOTE DATE OF SERVICE: 01/08/2023 SUBJECTIVE: This 62-year-old woman was admitted with infected sacral decubitus ulcer, is being closely monitored at this time. No chest pain, no palpitations. No fever. OBJECTIVE: VITAL SIGNS: Pulse is 77, blood pressure 83/64, respirations 16. HEENT: Conjunctivae normal. NECK: No jugular venous distention. RESPIRATIONS: Diminished at the basis. ABDOMEN: Soft. Sacral decubitus present. LABORATORY DATA: Hemoglobin 9, rest of the labs are noted. ASSESSMENT: 1. Infected sacral decubitus, stage IV, present on admission. 2. Acute urinary tract infection. 3. Metabolic encephalopathy. 4. Multiple medical issues. RECOMMENDATIONS: Recommended to continue current management, continue symptoms with antibiotics. Continue the IV fluids. Hold blood pressure medications. Prognosis guarded. Further medications to follow. DESIRE / ANA MARIA: [id number] /
--- NOTE | 2023-01-08 14:59 | P.PN ---
Subjective Progress Note Date: 01/07/23 Principal diagnosis: UTI and sacral pressure ulcer Patient is a 62-year-old female [facility] resident with a past medical history significant for dementia and memory impairment patient also have a chronic pressure ulcer to the sacral area currently being treated with [facility] the [facility] the patient was brought into the ER after apparently the patient did have a suspected fall from the bed , patient noticed to have a bruising to the left eyebrow she was also febrile and a positive UA concerning for UTI. On today's evaluation that is 01/07/2023, the patient is afebrile patient is currently breathing comfortably on room air she decided more awake and alert and did answer some simple questions and denied any chest pain or cough no abdominal pain or diarrhea Objective - Vital Signs Vital signs: Vital Signs Temp 97.9 F 01/07/23 12:05 Pulse 67 01/07/23 12:05 Resp 16 01/07/23 12:05 BP 101/65 01/07/23 12:05 Pulse Ox 99 01/07/23 12:05 FiO2 Intake & Output 01/06/23 01/07/23 01/07/23 18:59 06:59 18:59 Intake Total 590 Output Total 1050 1300 1250 Balance -1050 -710 -1250 Weight 70.307 kg Intake: Oral 590 Output: Urine 1050 1300 1250 Other: Voiding Method Indwelling Catheter Indwelling Catheter - Exam GENERAL DESCRIPTION: Middle-aged female lying in bed in no distress RESPIRATORY SYSTEM: Unlabored breathing , decreased breath sounds at bases HEART: S1 S2 regular rate and rhythm , ABDOMEN: Soft , no tenderness EXTREMITIES: No edema feet - Labs CBC & Chem 7: 01/07/23 07:13 01/07/23 07:13 Labs: Abnormal Lab Results - Last 24 Hours (Table) 01/07/23 01/07/23 Range/Units 07:13 07:13 WBC 10.23 H (4.50-10.00) X 10*3/uL RBC 3.36 L (4.10-5.20) X 10*6/uL Hgb 9.0 L (12.0-15.0) g/dL Hct 29.8 L (37.2-46.3) % MCH 26.8 L (27.0-32.0) pg MCHC 30.2 L (32.0-37.0) g/dL RDW 15.1 H (11.5-14.5) % Immature Gran # 0.05 H (0.00-0.04) X 10*3/uL Neutrophils # 8.05 H (1.80-7.70) X 10*3/uL BUN 5.0 L (9.0-27.0) mg/dL BUN/Creatinine Ratio 8.33 L (12.00-20.00) Ratio Calcium 8.2 L (8.7-10.3) mg/dL Microbiology - Last 24 Hours (Table) 01/05/23 21:10 Blood Culture - Preliminary Blood No Growth after 24 hours Assessment and Plan (1) Sacral decubitus ulcer Current Visit: Yes Status: Acute Code(s): L89.159 - PRESSURE ULCER OF SACRAL REGION, UNSPECIFIED STAGE SNOMED Code(s): 584750691 (2) UTI (urinary tract infection) Current Visit: Yes Status: Acute Code(s): N39.0 - URINARY TRACT INFECTION, SITE NOT SPECIFIED SNOMED Code(s): 42491193 Plan: 1patient presented to hospital mental status changes apparently did have a fall with bruising to the left eyebrow patient also noticed to have a positive UA with concern for possible symptomatic UTI. Related to her mental status changes keeping in mind [facility] resident need to cover for resistant gram-negative. 2patient did have a stage III sacral pressure ulcer with minimal slough tissue no significant surrounding redness or any foul-smelling drainage clinically doubt source of infection 3local wound care to the sacral wound with wound VAC as per the wound care team 4patient to continue with the Zosyn while waiting for the culture to finalize Time with Patient: Less than 30
--- NOTE | 2023-01-08 15:00 | P.PN ---
Subjective Progress Note Date: 01/08/23 Principal diagnosis: UTI and sacral pressure ulcer Patient is a 62-year-old female senior living resident with a past medical history significant for dementia and memory impairment patient also have a chronic pressure ulcer to the sacral area currently being treated with a wound VAC at the senior living the patient was brought into the ER after apparently the patient did have a suspected fall from the bed , patient noticed to have a bruising to the left eyebrow she was also febrile and a positive UA concerning for UTI. On today's evaluation that is 01/08/2023, the patient remains to be afebrile, patient is breathing comfortably on room air , the patient is awake however did not answer any question no changes reported by the nursing staff Objective - Vital Signs Vital signs: Vital Signs Temp 98.9 F 01/08/23 13:00 Pulse 88 01/08/23 13:12 Resp 16 01/08/23 13:00 BP 97/62 01/08/23 13:12 Pulse Ox 96 01/08/23 13:00 FiO2 Intake & Output 01/07/23 01/08/23 01/08/23 18:59 06:59 18:59 Intake Total 900 Output Total 1750 Balance -1750 900 Weight 70.307 kg Intake: Intake, IV Titration 900 Amount Sodium Chloride 0.9% 1, 900 000 ml @ 75 mls/hr IV . [id number] [facility] Rx#:[id number] Output: Urine 1750 Uretheral (Lehman) 500 Other: Voiding Method Indwelling Catheter Indwelling Catheter Indwelling Catheter # Bowel Movements 1 - Exam GENERAL DESCRIPTION: Middle-aged female lying in bed in no distress RESPIRATORY SYSTEM: Unlabored breathing , decreased breath sounds at bases HEART: S1 S2 regular rate and rhythm , ABDOMEN: Soft , no tenderness EXTREMITIES: No edema feet - Labs CBC & Chem 7: 01/07/23 07:13 01/07/23 07:13 Labs: Microbiology - Last 24 Hours (Table) 01/05/23 21:10 Blood Culture - Preliminary Blood No Growth after 48 hours Assessment and Plan (1) Sacral decubitus ulcer Current Visit: Yes Status: Acute Code(s): L89.159 - PRESSURE ULCER OF SACRAL REGION, UNSPECIFIED STAGE SNOMED Code(s): 423197228 (2) UTI (urinary tract infection) Current Visit: Yes Status: Acute Code(s): N39.0 - URINARY TRACT INFECTION, SITE NOT SPECIFIED SNOMED Code(s): 99926221 Plan: 1patient presented to hospital mental status changes apparently did have a fall with bruising to the left eyebrow patient also noticed to have a positive UA with concern for possible symptomatic UTI. Related to her mental status changes keeping in mind senior living resident need to cover for resistant gram-negative. 2patient did have a stage III sacral pressure ulcer with minimal slough tissue no significant surrounding redness or any foul-smelling drainage clinically doubt source of infection, local wound care to the sacral wound with wound VAC as per the wound care team 3unfortunately no cultures were done on the UA submitted from the ER blood culture has been negative we will repeat a urine culture continue Zosyn Time with Patient: Less than 30
[2023-01-08 16:31] LABS: Appearance,Urine Clear (Clear); Bilirubin,Urine Negative (Negative); Blood,Urine Negative (Negative); Color,Urine Yellow; Glucose,Urine (UA) Negative (Negative); Ketones,Urine Negative (Negative); Leukocyte Esterase,Urine Small (Negative); Mucus,Urine Rare /hpf; Nitrite,Urine Negative (Negative); Protein,Urine Negative (Negative); RBC,Urine 1 /hpf (0-5); Specific Gravity,Urine 1.026 (1.001-1.035); Squamous Epithelial Cell,Urine <1 /hpf (0-4); Urobilinogen,Urine <2.0 mg/dL (<2.0); WBC,Urine 7 /hpf (0-5)
[2023-01-08] MEDS ORDERED: SODIUM CHLORIDE 0.9% 500 ML 500 ML IV ONE (18:30)
[2023-01-08] MEDS: ATORVASTATIN 20 MG TAB PO SCH (20:11)
[2023-01-09] MEDS: PIPERACILLIN-TAZOBACTAM 3.375 GM in SODIUM CHLORIDE 0.9% 100 ML IVPB SCH ×3 (00:02→15:43)
[2023-01-09] MEDS: SODIUM CHLORIDE 0.9% 1,000 ML IV SCH (00:05)
[2023-01-09] MEDS: LEVOTHYROXINE 25 MCG TAB PO SCH (05:05)
[2023-01-09] MEDS: GABAPENTIN 300 MG CAP PO SCH ×3 (05:05→20:05)
[2023-01-09] MEDS: HEPARIN SODIUM,PORCINE/PF 5,000 UNIT/0.5 ML SYRINGE SQ SCH ×2 (07:18→20:04)
[2023-01-09] MEDS: FAMOTIDINE 20 MG TAB PO SCH ×2 (07:18→20:05)
[2023-01-09] MEDS: ESCITALOPRAM 20 MG TAB PO SCH (07:18)
[2023-01-09] MEDS: ASPIRIN 81 MG PO SCH (07:18)
[2023-01-09] MEDS: polyethylene glycoL 3350 17 GM POWD.PACK PO SCH ×2 (07:18→07:23)
[2023-01-09] MEDS: SENNOSIDES 8.6 MG TAB PO SCH (07:18)
[2023-01-09] MEDS: CYANOCOBALAMIN 500 MCG TAB PO SCH (07:19)
[2023-01-09] MEDS: DIVALPROEX SPRINKLE 125 MG CAP.SPRINK PO SCH ×2 (07:19→20:05)
[2023-01-09] MEDS: HYDROcodone/APAP 5-325MG 1 EACH TAB PO PRN ×2 (08:26→16:14)
[2023-01-09] MEDS: ALPRAZolam 0.25 MG TAB PO PRN ×2 (08:26→20:05)
[2023-01-09 11:45] LABS: Basophils # (A) 0.03 X 10*3/uL (0.00-0.10); Basophils % (A) 0.3 %; Eosinophils # (A) 0.14 X 10*3/uL (0.04-0.35); Eosinophils % (A) 1.4 %; HCT 27.8 % (37.2-46.3); HGB 8.4 g/dL (12.0-15.0); Immature Grans, Automated 0.2 %; Lymphocytes # (A) 1.27 X 10*3/uL (0.90-5.00); Lymphocytes % (A) 12.8 %; MCH 26.5 pg (27.0-32.0); MCHC 30.2 g/dL (32.0-37.0); MCV 87.7 fL (80.0-97.0); Mean Platelet Volume 10.2 fL (9.5-12.2); Monocytes # (A) 0.67 X 10*3/uL (0.20-1.00); Monocytes % (A) 6.8 %; NRBC Per 100 WBC 0 /100 WBCS (0.0-0.0); Neutrophils # (A) 7.79 X 10*3/uL (1.80-7.70); Neutrophils % (A) 78.5 %; Platelet Count 437 X 10*3/uL (140-440); RBC 3.17 X 10*6/uL (4.10-5.20); WBC 9.92 X 10*3/uL (4.50-10.00)
[2023-01-09 11:52] LABS: African American GFR (CKD) 117.4 (60.0-200.0); Anion Gap 8.5 mmol/L (10.00-18.00); BUN/Creat Ratio 5.13 Ratio (12.00-20.00); Blood Urea Nitrogen 2.8 mg/dL (9.0-27.0); Calcium 7.7 mg/dL (8.7-10.3); Carbon Dioxide 27.4 mmol/L (20.0-27.5); Non-African American GFR(CKD) 101.3 (60.0-200.0); Potassium 3.6 mmol/L (3.5-5.5)
--- NOTE | 2023-01-09 14:00 | P.PN ---
Subjective Progress Note Date: 01/09/23 Patient is a 62-year-old female [facility] resident with a past medical history significant for dementia and memory impairment patient also have a chronic pressure ulcer to the sacral area currently being treated with a [facility]AC at the [facility] the patient was brought into the ER after apparently the patient did have a suspected fall from the bed , patient noticed to have a bruising to the left eyebrow she was also febrile and a positive UA concerning for UTI. 01/09. Patient seen and examined. Laying comfortably in the bed. No acute issues overnight. Vital signs stable REVIEW OF SYSTEMS: CONSTITUTIONAL: No fever, no malaise,. CARDIOVASCULAR: No chest pain, no palpitations, no syncope. PULMONARY: No shortness of breath, no cough, GASTROINTESTINAL: No diarrhea, no nausea, no vomiting, no abdominal pain. NEUROLOGICAL: No headaches, no weakness, PHYSICAL EXAMINATION: GENERAL: The patient is alert and oriented x3, not in any acute distress. Well developed, well nourished. HEENT: Pupils are round and equally reacting to light. EOMI. No scleral icterus. No conjunctival pallor. Normocephalic, atraumatic. No pharyngeal erythema. No thyromegaly. CARDIOVASCULAR: S1 and S2 present. No murmurs, rubs, or gallops. PULMONARY: Chest is clear to auscultation, no wheezing or crackles. ABDOMEN: Soft, nontender, nondistended, normoactive bowel sounds. No palpable organomegaly. MUSCULOSKELETAL: No joint swelling or deformity. EXTREMITIES: No cyanosis, clubbing, or pedal edema. NEUROLOGICAL: Gross neurological examination did not reveal any focal deficits. SKIN: No rashes. Assessment and plan Sacral decubitus ulcers UTI Infected sacral pressure ulcer both 6 inches in diameter and extensive track down to the buttock area with foul smelling possible Acute urinary tract infection Metabolic encephalopathy secondary to above Fall with laceration to forehead, without syncope Dementia and memory impairment Hyperlipidemia Hypothyroidism History of osteoporosis History of depression, no connective tissue Plan; Monitor vital signs Monitor CBC Monitor CMP Continue telemetry monitoring Continue Zosyn Follow-up in ID recs Objective - Vital Signs Vital signs: Vital Signs Temp 99.8 F H 01/09/23 07:17 Pulse 94 01/09/23 07:17 Resp 16 01/09/23 07:17 BP 113/72 01/09/23 07:17 Pulse Ox 97 01/09/23 07:17 FiO2 Intake & Output 01/08/23 01/09/23 01/09/23 18:59 06:59 18:59 Intake Total 1000 Output Total 400 1300 Balance -400 -300 Intake: Intake, IV Titration 1000 Amount Piperacillin-Tazobactam 3 100 .375 gm In Sodium Chloride 0.9% 100 ml @ 25 mls/hr IVPB Q8HR [facility] Rx# :[id number] Sodium Chloride 0.9% 1, 900 000 ml @ 75 mls/hr IV . [id number] [facility] Rx#:[id number] Output: Urine 400 1300 Other: Voiding Method Indwelling Catheter Indwelling Catheter Indwelling Catheter # Bowel Movements 1 2 1 - Labs CBC & Chem 7: 01/09/23 07:23 01/09/23 07:23 Labs: Abnormal Lab Results - Last 24 Hours (Table) 01/08/23 Range/Units 15:50 Ur Leukocyte Esterase Small H (Negative) Urine WBC 7 H (0-5) /hpf Urine Mucus Rare H (None) /hpf Microbiology - Last 24 Hours (Table) 01/05/23 21:10 Blood Culture - Preliminary Blood No Growth after 72 hours
[2023-01-09] MEDS: ATORVASTATIN 20 MG TAB PO SCH (20:05)
--- NOTE | 2023-01-09 23:17 | P.PN ---
Subjective Progress Note Date: 01/09/23 Principal diagnosis: UTI and sacral pressure ulcer Patient is a 62-[facility] with a past medical history significant for dementia and memory impairment patient also have a chronic pressure ulcer to the sacral area currently [facility] the patient was brought into the ER after apparently the patient did have a suspected fall from the bed , patient noticed to have a bruising to the left eyebrow she was also febrile and a positive UA concerning for UTI. On today's evaluation that is 01/09/2023, the patient continues to be afebrile, patient is breathing comfortably on room air , the patient is awake however did not answer any question no vomiting or diarrhea reported by the nursing staff Objective - Vital Signs Vital signs: Vital Signs Temp 98.4 F 01/09/23 11:30 Pulse 85 01/09/23 11:30 Resp 18 01/09/23 11:30 BP 103/71 01/09/23 11:30 Pulse Ox 96 01/09/23 11:30 FiO2 Intake & Output 01/08/23 01/09/23 01/09/23 18:59 06:59 18:59 Intake Total 1000 Output Total 400 1300 600 Balance -400 -300 -600 Intake: Intake, IV Titration 1000 Amount Piperacillin-Tazobactam 3 100 .375 gm In Sodium Chloride 0.9% 100 ml @ 25 mls/hr IVPB Q8HR [facility] Rx# :[id number] Sodium Chloride 0.9% 1, 900 000 ml @ 75 mls/hr IV . [id number] [facility] Rx#:[id number] Output: Urine 400 1300 600 Other: Voiding Method Indwelling Catheter Indwelling Catheter Indwelling Catheter # Bowel Movements 1 2 1 - Exam GENERAL DESCRIPTION: Middle-aged female lying in bed in no distress RESPIRATORY SYSTEM: Unlabored breathing , decreased breath sounds at bases HEART: S1 S2 regular rate and rhythm , ABDOMEN: Soft , no tenderness EXTREMITIES: No edema feet - Labs CBC & Chem 7: 01/09/23 07:23 01/09/23 07:23 Labs: Abnormal Lab Results - Last 24 Hours (Table) 01/08/23 01/09/23 01/09/23 Range/Units 15:50 07:23 07:23 RBC 3.17 L (4.10-5.20) X 10*6/uL Hgb 8.4 L (12.0-15.0) g/dL Hct 27.8 L (37.2-46.3) % MCH 26.5 L (27.0-32.0) pg MCHC 30.2 L (32.0-37.0) g/dL RDW 15.0 H (11.5-14.5) % Neutrophils # 7.79 H (1.80-7.70) X 10*3/uL Anion Gap 8.50 L (10.00-18.00) mmol/L BUN 2.8 L (9.0-27.0) mg/dL Creatinine 0.5 L (0.6-1.5) mg/dL BUN/Creatinine Ratio 5.13 L (12.00-20.00) Ratio Calcium 7.7 L (8.7-10.3) mg/dL Ur Leukocyte Esterase Small H (Negative) Urine WBC 7 H (0-5) /hpf Urine Mucus Rare H (None) /hpf Microbiology - Last 24 Hours (Table) 01/05/23 21:10 Blood Culture - Preliminary Blood No Growth after 72 hours Assessment and Plan (1) Sacral decubitus ulcer Current Visit: Yes Status: Acute Code(s): L89.159 - PRESSURE ULCER OF SACRAL REGION, UNSPECIFIED STAGE SNOMED Code(s): 775522857 (2) UTI (urinary tract infection) Current Visit: Yes Status: Acute Code(s): N39.0 - URINARY TRACT INFECTION, SITE NOT SPECIFIED SNOMED Code(s): 91722335 Plan: 1patient presented to hospital mental status changes apparently did have a fall with bruising to the left eyebrow patient also noticed to have a positive UA with concern for possible symptomatic UTI. Related to her mental status changes keeping in mind [facility] need to cover for resistant gram-negative. 2patient did have a stage III sacral pressure ulcer with minimal slough tissue no significant surrounding redness or any foul-smelling drainage clinically doubt source of infection, local wound care to the sacral wound with wound VAC as per the wound care team 3unfortunately no cultures were done on the UA submitted from the ER blood culture has been negative , repeat urine is much clear , continue zosyn , finish therapy with ceftin Time with Patient: Less than 30
[2023-01-10] MEDS: PIPERACILLIN-TAZOBACTAM 3.375 GM in SODIUM CHLORIDE 0.9% 100 ML IVPB SCH ×3 (00:28→15:38)
[2023-01-10] MEDS: SODIUM CHLORIDE 0.9% 1,000 ML IV SCH ×2 (01:21→03:34)
[2023-01-10] MEDS: GABAPENTIN 300 MG CAP PO SCH ×3 (05:49→22:42)
[2023-01-10] MEDS: LEVOTHYROXINE 25 MCG TAB PO SCH (05:49)
[2023-01-10] MEDS: DIVALPROEX SPRINKLE 125 MG CAP.SPRINK PO SCH ×2 (09:03→22:42)
[2023-01-10] MEDS: FAMOTIDINE 20 MG TAB PO SCH ×2 (09:03→22:42)
[2023-01-10] MEDS: ASPIRIN 81 MG PO SCH (09:03)
[2023-01-10] MEDS: ESCITALOPRAM 20 MG TAB PO SCH (09:03)
[2023-01-10] MEDS: HEPARIN SODIUM,PORCINE/PF 5,000 UNIT/0.5 ML SYRINGE SQ SCH ×2 (09:03→22:41)
[2023-01-10] MEDS: CYANOCOBALAMIN 500 MCG TAB PO SCH (09:03)
--- NOTE | 2023-01-10 13:26 | P.PN ---
Subjective Progress Note Date: 01/10/23 Patient is a 62-year-old [facility] with a past medical history significant for dementia and memory impairment patient also have a chronic pressure ulcer to the sacral area currently being [facility] the patient was brought into the ER after apparently the patient did have a suspected fall from the bed , patient noticed to have a bruising to the left eyebrow she was also febrile and a positive UA concerning for UTI. 01/09. Patient seen and examined. Laying comfortably in the bed. No acute issues overnight. Vital signs stable 01/10. Patient seen and examined.No acute issues Overnight. Patient has baseline dementia. Vital signs stable REVIEW OF SYSTEMS: Detailed review of systems unobtainable because of patient's current mental status PHYSICAL EXAMINATION: GENERAL: The patient has baseline dementia, not in any acute distress. Well developed, well nourished. HEENT: Pupils are round and equally reacting to light. EOMI. No scleral icterus. No conjunctival pallor. Normocephalic, atraumatic. No pharyngeal erythema. No thyromegaly. CARDIOVASCULAR: S1 and S2 present. No murmurs, rubs, or gallops. PULMONARY: Chest is clear to auscultation, no wheezing or crackles. ABDOMEN: Soft, nontender, nondistended, normoactive bowel sounds. No palpable organomegaly. MUSCULOSKELETAL: No joint swelling or deformity. EXTREMITIES: No cyanosis, clubbing, or pedal edema. NEUROLOGICAL: Gross neurological examination did not reveal any focal deficits. SKIN: No rashes. Assessment and plan Sacral decubitus ulcers UTI Infected sacral pressure ulcer both 6 inches in diameter and extensive track d own to the buttock area with foul smelling possible Acute urinary tract infection Metabolic encephalopathy secondary to above Fall with laceration to forehead, without syncope Dementia and memory impairment Hyperlipidemia Hypothyroidism History of osteoporosis History of depression, no connective tissue Plan; Monitor vital signs Monitor CBC Monitor CMP Continue telemetry monitoring Continue Zosyn Follow-up in ID recs Surgery evaluated the patient for sacral decub, do not recommend any surgical intervention, recommending Wound Care Objective - Vital Signs Vital signs: Vital Signs Temp 98.4 F 01/10/23 07:35 Pulse 83 01/10/23 07:35 Resp 16 01/10/23 07:35 BP 102/66 01/10/23 07:35 Pulse Ox 97 01/10/23 02:18 FiO2 Intake & Output 01/09/23 01/10/23 01/10/23 18:59 06:59 18:59 Intake Total 240 1000 Output Total 900 1075 Balance -660 75 Intake: Intake, IV Titration 1000 Amount Piperacillin-Tazobactam 3 100 .375 gm In Sodium Chloride 0.9% 100 ml @ 25 mls/hr IVPB Q8HR [facility] Rx# :[id number] Sodium Chloride 0.9% 1, 900 000 ml @ 75 mls/hr IV . [id number] [facility] Rx#:[id number] Oral 240 Output: Urine 900 1075 Other: Voiding Method Indwelling Catheter Indwelling Catheter # Bowel Movements 1 1 - Labs CBC & Chem 7: 01/09/23 07:23 01/09/23 07:23 Labs: Abnormal Lab Results - Last 24 Hours (Table) 01/09/23 01/09/23 Range/Units 07:23 07:23 RBC 3.17 L (4.10-5.20) X 10*6/uL Hgb 8.4 L (12.0-15.0) g/dL Hct 27.8 L (37.2-46.3) % MCH 26.5 L (27.0-32.0) pg MCHC 30.2 L (32.0-37.0) g/dL RDW 15.0 H (11.5-14.5) % Neutrophils # 7.79 H (1.80-7.70) X 10*3/uL Anion Gap 8.50 L (10.00-18.00) mmol/L BUN 2.8 L (9.0-27.0) mg/dL Creatinine 0.5 L (0.6-1.5) mg/dL BUN/Creatinine Ratio 5.13 L (12.00-20.00) Ratio Calcium 7.7 L (8.7-10.3) mg/dL Microbiology - Last 24 Hours (Table) 01/05/23 21:10 Blood Culture - Preliminary Blood No Growth after 96 hours
--- NOTE | 2023-01-10 19:05 | CDI ---
Documentation Clarification Form Date: 01/10/2023 6:51:18 PM From: Venus Herring RN, CCDS Email: [email or web address] Admit Date: 01/07/2023 10:30:00 AM Patient Name: Miranda Phillips Visit Number: [id number] Discharge Date: ATTENTION: The Clinical Documentation Specialists (CDI) and [facility] Coding Staff appreciate your assistance in clarifying documentation. Please respond to the clarification below the line at the bottom and electronically sign. The CDI & [facility] Coding staff will review the response and follow-up if needed. Please note: Queries are made part of the Legal Health Record. If you have any questions, please contact the author of this message via ITS. Dr. Garfield Noyola Conflicting documentation has been found in the medical record regarding the patient's sacral ulcer. As attending physician, please provide clarification. History/Risk Factors: transferred from shelter after suspected fall from bed. Non-ambulatory. Baseline dementia Clinical Indicators: 01/06 Wound consult: "stage II pressure ulcer of sacral region measuring approximately 4x6x0.5 with undermining. Ulceration has minimal slough and nonviable tissue present with granulation throughout the wound bed. The wound edges are rolled." 01/06 ID consult: stage III sacral pressure ulcer. 01/07 IM: Infected sacral decubitus ulcer stage IV, present on admission. Nursing note: unstageable sacral pressure injury, present on admission. Treatment: Negative pressure wound vacuum at 125 mm/Hg pressure. Turn patient every 2 hours. Assess nutrition increased protein. Please clarify which diagnosis is most appropriate: [ ] Stage II sacral pressure ulcer [ x ] Stage III sacral pressure ulcer present on admission [ ] Stage IV sacral pressure ulcer [ ] Unstageable sacral pressure ulcer [ ] Other (please specify) [ ] Unable to determine MTDD
--- NOTE | 2023-01-10 19:17 | CDI ---
Documentation Clarification Form Date: 01/10/2023 7:16:00 PM From: Venus Herring RN, CCDS Email: [email or web address] Admit Date: 01/07/2023 10:30:00 AM Patient Name: Miranda Phillips Visit Number: [id number] Discharge Date: ATTENTION: The Clinical Documentation Specialists (CDI) and [facility] Coding Staff appreciate your assistance in clarifying documentation. Please respond to the clarification below the line at the bottom and electronically sign. The CDI & [facility] Coding staff will review the response and follow-up if needed. Please note: Queries are made part of the Legal Health Record. If you have any questions, please contact the author of this message via ITS. Dr. Garfeild Noyola An unstageable pressure injury to left heel is documented by Nursing and the Registered Dietitian. Based on this information and the findings below, is there an additional diagnosis that is clinically appropriate for this patient? History/Risk Factors: transferred from long term after suspected fall from bed. Non-ambulatory. Baseline dementia Clinical Indicators: "unstageable pressure injury present on admission." Location: left heel Treatment: turn Q2H. RD recommends heart healthy diet, commercial beverage and magic cup TID Is there an additional diagnosis that is clinically appropriate for this patient? [x ] Left heel Pressure Ulcer unstageable, present on admission [ ] Other condition, please specify [ ] Unable to determine Clinical Definitions: Stage 1 Pressure Ulcer: intact skin, non-blanching redness of local area Stage 2 Pressure Ulcer: Partial thickness, loss of dermis, pink wound bed Stage 3 Pressure Ulcer: Full thickness tissue loss Stage 4 Pressure Ulcer: Full thickness tissue loss with exposed bone, tendon, or muscle. Unstageable pressure ulcer: Full thickness tissue loss in which the base of the ulcer is covered by slough (yellow, canas, noguera, green or brown) and/or eschar (canas, brown or black) in the wound bed. MTDD
--- NOTE | 2023-01-10 22:30 | P.PN ---
Subjective Progress Note Date: 01/10/23 Principal diagnosis: UTI and sacral pressure ulcer Patient is a 62-year-old female group home resident with a past medical history significant for dementia and memory impairment patient also have a chronic pressure ulcer to the sacral area currently being treated with a wound VAC at the group home the patient was brought into the ER after apparently the patient did have a suspected fall from the bed , patient noticed to have a bruising to the left eyebrow she was also febrile and a positive UA concerning for UTI. On today's evaluation that is 01/10/2023, the patient remains to be afebrile, patient is breathing comfortably on room air , the patient is awake and did answer some simple question, no vomiting or diarrhea reported by the nursing staff Objective - Vital Signs Vital signs: Vital Signs Temp 98.4 F 01/10/23 11:40 Pulse 75 01/10/23 11:40 Resp 16 01/10/23 11:40 BP 101/64 01/10/23 11:40 Pulse Ox 99 01/10/23 11:40 FiO2 Intake & Output 01/09/23 01/10/23 01/10/23 18:59 06:59 18:59 Intake Total 240 1000 Output Total 900 1075 Balance -660 -75 Intake: Intake, IV Titration 1000 Amount Piperacillin-Tazobactam 3 100 .375 gm In Sodium Chloride 0.9% 100 ml @ 25 mls/hr IVPB Q8HR [facility] Rx# :[id number] Sodium Chloride 0.9% 1, 900 000 ml @ 75 mls/hr IV . [id number] [facility] Rx#:[id number] Oral 240 Output: Urine 900 1075 Other: Voiding Method Indwelling Catheter Indwelling Catheter Indwelling Catheter # Bowel Movements 1 1 - Exam GENERAL DESCRIPTION: Middle-aged female lying in bed in no distress RESPIRATORY SYSTEM: Unlabored breathing , decreased breath sounds at bases HEART: S1 S2 regular rate and rhythm , ABDOMEN: Soft , no tenderness EXTREMITIES: No edema feet - Labs CBC & Chem 7: 01/09/23 07:23 01/09/23 07:23 Labs: Microbiology - Last 24 Hours (Table) 01/05/23 21:10 Blood Culture - Preliminary Blood No Growth after 96 hours Assessment and Plan (1) Sacral decubitus ulcer Current Visit: Yes Status: Acute Code(s): L89.159 - PRESSURE ULCER OF SACRAL REGION, UNSPECIFIED STAGE SNOMED Code(s): 896240483 (2) UTI (urinary tract infection) Current Visit: Yes Status: Acute Code(s): N39.0 - URINARY TRACT INFECTION, SITE NOT SPECIFIED SNOMED Code(s): 09005977 Plan: 1patient presented to hospital mental status changes apparently did have a fall with bruising to the left eyebrow patient also noticed to have a positive UA with concern for possible symptomatic UTI. Related to her mental status changes keeping in mind group home resident need to cover for resistant gram-negative. 2patient did have a stage III sacral pressure ulcer with minimal slough tissue no significant surrounding redness or any foul-smelling drainage clinically doubt source of infection, local wound care to the sacral wound with wound VAC as per the wound care team 3patient did have a repeat UA which is relatively clear, making adequate tr eatment of underlying urinary tract infection, currently on Zosyn and which can be safely discontinued on discharge Time with Patient: Less than 30
[2023-01-10] MEDS: ATORVASTATIN 20 MG TAB PO SCH (22:42)
[2023-01-10] MEDS: HYDROcodone/APAP 5-325MG 1 EACH TAB PO PRN (22:53)
[2023-01-10] MEDS: ALPRAZolam 0.25 MG TAB PO PRN (22:53)
[2023-01-11] MEDS: PIPERACILLIN-TAZOBACTAM 3.375 GM in SODIUM CHLORIDE 0.9% 100 ML IVPB SCH ×2 (03:04→10:57)
[2023-01-11] MEDS: LEVOTHYROXINE 25 MCG TAB PO SCH (06:39)
[2023-01-11] MEDS: GABAPENTIN 300 MG CAP PO SCH ×2 (06:39→14:17)
[2023-01-11 09:22] VITALS: RESP 18
[2023-01-11 09:30] LABS: Basophils # (A) 0.04 X 10*3/uL (0.00-0.10); Basophils % (A) 0.7 %; Eosinophils # (A) 0.25 X 10*3/uL (0.04-0.35); Eosinophils % (A) 4.4 %; HCT 28.3 % (37.2-46.3); HGB 8.7 g/dL (12.0-15.0); Immature Grans, Automated 0.2 %; Lymphocytes # (A) 1.73 X 10*3/uL (0.90-5.00); Lymphocytes % (A) 30.2 %; MCH 26.9 pg (27.0-32.0); MCHC 30.7 g/dL (32.0-37.0); MCV 87.6 fL (80.0-97.0); Mean Platelet Volume 9.9 fL (9.5-12.2); Monocytes # (A) 0.53 X 10*3/uL (0.20-1.00); Monocytes % (A) 9.3 %; NRBC Per 100 WBC 0 /100 WBCS (0.0-0.0); Neutrophils # (A) 3.16 X 10*3/uL (1.80-7.70); Neutrophils % (A) 55.2 %; Platelet Count 429 X 10*3/uL (140-440); RBC 3.23 X 10*6/uL (4.10-5.20); WBC 5.72 X 10*3/uL (4.50-10.00)
[2023-01-11 09:51] LABS: African American GFR (CKD) 120.2 (60.0-200.0); Albumin 2.5 g/dL (3.8-4.9); Albumin/Globulin Ratio 1.19 (1.60-3.17); Anion Gap 7.5 mmol/L (10.00-18.00); BUN/Creat Ratio 4.4 Ratio (12.00-20.00); Blood Urea Nitrogen 2.2 mg/dL (9.0-27.0); Calcium 7.7 mg/dL (8.7-10.3); Carbon Dioxide 27.5 mmol/L (20.0-27.5); Globulin 2.1 g/dL (1.6-3.3); Non-African American GFR(CKD) 103.7 (60.0-200.0); Potassium 3.7 mmol/L (3.5-5.5); Total Bilirubin 0.2 mg/dL (0.30-1.20); Total Protein 4.6 g/dL (6.2-8.2)
[2023-01-11] MEDS: ASPIRIN 81 MG PO SCH (10:58)
[2023-01-11] MEDS: DIVALPROEX SPRINKLE 125 MG CAP.SPRINK PO SCH (10:59)
[2023-01-11] MEDS: ESCITALOPRAM 20 MG TAB PO SCH (10:59)
[2023-01-11] MEDS: FAMOTIDINE 20 MG TAB PO SCH (10:59)
[2023-01-11] MEDS: HEPARIN SODIUM,PORCINE/PF 5,000 UNIT/0.5 ML SYRINGE SQ SCH ×2 (11:00→11:38)
[2023-01-11] MEDS: CYANOCOBALAMIN 500 MCG TAB PO SCH (11:01)
[2023-01-11] MEDS: HYDROcodone/APAP 5-325MG 1 EACH TAB PO PRN (12:45)
[2023-01-11 13:41] VITALS: BP 113/72; PULSE 92; TEMP 99.5
--- NOTE | 2023-01-11 14:13 | P.DS ---
Providers Date of admission: 01/07/23 10:30 Expected date of discharge: 01/11/23 Attending physician: Garfield Noyola Consults: 01/06/23 11:12 Consult Physician Urgent Consulting Provider: Chris Pettit Consult Reason/Comments: possible infected sacral ulcer ,possible uti Do you want consulting provider notified?: Yes Primary care physician: Dakota Tirado Hospital Course: Discharge diagnoses; Sacral decubitus ulcers UTI Infected sacral pressure ulcer both 6 inches in diameter and extensive track down to the buttock area with foul smelling possible Acute urinary tract infection Metabolic encephalopathy secondary to above Fall with laceration to forehead, without syncope Dementia and memory impairment Hyperlipidemia Hypothyroidism History of osteoporosis History of depression, no connective tissue Hospital course; Patient is a 62-year-old female group home resident with a past medical history significant for dementia and memory impairment patient also have a chronic pressure ulcer to the sacral area currently being treated with a wound VAC at the group home the patient was brought into the ER after apparently the patient did have a suspected fall from the bed , patient noticed to have a bruising to the left eyebrow she was also febrile and a positive UA concerning for UTI. Patient was seen by ID and surgery during this admission. Please refer to there progress notes for detailed assessment and plan 01/09. Patient seen and examined. Laying comfortably in the bed. No acute issues overnight. Vital signs stable 01/10. Patient seen and examined.No acute issues Overnight. Patient has baseline dementia. Vital signs stable 01/11. Patient seen and examined. ID recommended discontinuing antibiotics at discharge. Patient can be sent back to extended-care facility PHYSICAL EXAMINATION: GENERAL: The patient has baseline dementia, not in any acute distress. Well developed, well nourished. HEENT: Pupils are round and equally reacting to light. EOMI. No scleral icterus. No conjunctival pallor. Normocephalic, atraumatic. No pharyngeal erythema. No thyromegaly. CARDIOVASCULAR: S1 and S2 present. No murmurs, rubs, or gallops. PULMONARY: Chest is clear to auscultation, no wheezing or crackles. ABDOMEN: Soft, nontender, nondistended, normoactive bowel sounds. No palpable organomegaly. MUSCULOSKELETAL: No joint swelling or deformity. EXTREMITIES: No cyanosis, clubbing, or pedal edema. NEUROLOGICAL: Gross neurological examination did not reveal any focal deficits. SKIN: No rashes. Patient Condition at Discharge: Fair Plan - Discharge Summary Discharge Rx Participant: No New Discharge Prescriptions: Continue Escitalopram [Lexapro] 20 mg PO DAILY@0900 Cholecalciferol [Vitamin D3 (25 Mcg = 1000 Iu)] 25 mcg PO DAILY@0900 Simethicone [Gas-X] 125 mg PO DAILY@0900 Cyanocobalamin (Vitamin B-12) [Vitamin B-12] 1,000 mcg PO DAILY@0900 Sennosides [Senokot] 8.6 mg PO BID@0900,2100 Acetaminophen Tab [Tylenol] 650 mg PO Q6HR PRN tab PRN Reason: Mild Pain Or Fever > 100.5 Magnesium Hydroxide [Milk of Magnesia] 2,400 mg PO DAILY PRN PRN Reason: Constipation Aspirin 81 mg PO DAILY@0900 Alendronate Sodium [Fosamax] 70 mg PO WE@0600 Simvastatin 40 mg PO HS@2100 polyethylene glycoL 3350 [Miralax] 17 gm PO DAILY@0900 Levothyroxine Sodium [Synthroid] 25 mcg PO DAILY@0600 Cyclobenzaprine [Flexeril] 5 mg PO TID PRN tab PRN Reason: Muscle Spasm Prostat Awc 30 ml PO BID@0900,2000 Lactose-Reduced Food [Ensure Plus] 237 ml PO BID@0900,1700 Divalproex Sodium [Depakote] 125 mg PO BID@0900,2100 HYDROcodone/APAP 5-325MG [[place] 5-325] 1 tab PO TID PRN #9 tab PRN Reason: Pain ALPRAZolam [Xanax] 0.25 mg PO BID PRN #6 tab PRN Reason: Anxiety Changed Gabapentin [Neurontin] 300 mg PO TID@0600,1400,2100 #9 cap Discontinued HYDROcodone/APAP 5-325MG [[place] 5-325] 1 tab PO Q8H Discharge Medication List Cholecalciferol [Vitamin D3 (25 Mcg = 1000 Iu)] 25 mcg PO DAILY@0900 09/03/22 [History] Cyanocobalamin (Vitamin B-12) [Vitamin B-12] 1,000 mcg PO DAILY@0900 09/03/22 [History] Escitalopram [Lexapro] 20 mg PO DAILY@0900 09/03/22 [History] Simethicone [Gas-X] 125 mg PO DAILY@0900 09/03/22 [History] Simvastatin 40 mg PO HS@209909/03/22 [History] polyethylene glycoL 3350 [Miralax] 17 gm PO DAILY@0900 09/14/22 [History] Levothyroxine Sodium [Synthroid] 25 mcg PO DAILY@0600 09/28/22 [History] Sennosides [Senokot] 8.6 mg PO BID@0900,209909/28/22 [History] Acetaminophen Tab [Tylenol] 650 mg PO Q6HR PRN tab 10/06/22 [Rx] Cyclobenzaprine [Flexeril] 5 mg PO TID PRN tab 10/06/22 [Rx] Alendronate Sodium [Fosamax] 70 mg PO WE@0601/05/23 [History] Aspirin 81 mg PO DAILY@0900 01/05/23 [History] Divalproex Sodium [Depakote] 125 mg PO BID@0900,209901/05/23 [History] Lactose-Reduced Food [Ensure Plus] 237 ml PO BID@0900,1700 01/05/23 [History] Magnesium Hydroxide [Milk of Magnesia] 2,400 mg PO DAILY PRN 01/05/23 [History] Prostat Awc 30 ml PO BID@0900,199901/05/23 [History] ALPRAZolam [Xanax] 0.25 mg PO BID PRN #6 tab 01/11/23 [Rx] Gabapentin [Neurontin] 300 mg PO TID@0600,1400,2099 #9 cap 01/11/23 [Rx] HYDROcodone/APAP 5-325MG [[place] 5-325] 1 tab PO TID PRN #9 tab 01/11/23 [Rx] Follow up Appointment(s)/Referral(s): Dakota Tirado MD [Primary Care Provider] - 1 Week Discharge Disposition: TRANSFER TO SNF/ECF
[2023-01-11] MEDS: ALPRAZolam 0.25 MG TAB PO PRN (16:40)
--- NOTE | 2023-01-16 17:08 | P.PN ---
Subjective Progress Note Date: 01/11/23 Principal diagnosis: UTI and sacral pressure ulcer Patient is a 62-year-old female snf resident with a past medical history significant for dementia and memory impairment patient also have a chronic pressure ulcer to the sacral area currently being treated with a wound VAC at the snf the patient was brought into the ER after apparently the patient did have a suspected fall from the bed , patient noticed to have a bruising to the left eyebrow she was also febrile and a positive UA concerning for UTI. On today's evaluation that is 01/11/2023, the patient continues to be afebrile, patient is breathing comfortably on room air , the patient is awake however not a very good historian, no vomiting or diarrhea reported by the nursing staff Objective - Vital Signs Vital signs: Vital Signs Temp 99.4 F 01/11/23 07:55 Pulse 81 01/11/23 07:55 Resp 18 01/11/23 07:55 BP 136/78 01/11/23 02:34 Pulse Ox 97 01/11/23 07:55 FiO2 Intake & Output 01/10/23 01/11/23 01/11/23 18:59 06:59 18:59 Output Total 900 800 Balance -900 -800 Weight 70.307 kg Output: Urine 900 800 Other: Voiding Method Indwelling Catheter Indwelling Catheter Indwelling Catheter # Bowel Movements 1 0 1 - Exam GENERAL DESCRIPTION: Middle-aged female lying in bed in no distress RESPIRATORY SYSTEM: Unlabored breathing , decreased breath sounds at bases HEART: S1 S2 regular rate and rhythm , ABDOMEN: Soft , no tenderness EXTREMITIES: No edema feet - Labs CBC & Chem 7: 01/11/23 06:36 01/11/23 06:36 Labs: Abnormal Lab Results - Last 24 Hours (Table) 01/11/23 01/11/23 Range/Units 06:36 06:36 RBC 3.23 L (4.10-5.20) X 10*6/uL Hgb 8.7 L (12.0-15.0) g/dL Hct 28.3 L (37.2-46.3) % MCH 26.9 L (27.0-32.0) pg MCHC 30.7 L (32.0-37.0) g/dL RDW 15.0 H (11.5-14.5) % Anion Gap 7.50 L (10.00-18.00) mmol/L BUN 2.2 L (9.0-27.0) mg/dL Creatinine 0.5 L (0.6-1.5) mg/dL BUN/Creatinine Ratio 4.40 L (12.00-20.00) Ratio Calcium 7.7 L (8.7-10.3) mg/dL Total Bilirubin 0.20 L (0.30-1.20) mg/dL Total Protein 4.6 L (6.2-8.2) g/dL Albumin 2.5 L (3.8-4.9) g/dL Albumin/Globulin Ratio 1.19 L (1.60-3.17) g/dL Microbiology - Last 24 Hours (Table) 01/05/23 21:10 Blood Culture - Preliminary Blood No Growth after 120 hours Assessment and Plan (1) Sacral decubitus ulcer Status: Acute Code(s): L89.159 - PRESSURE ULCER OF SACRAL REGION, UNSPECIFIED STAGE SNOMED Code(s): 177608109 (2) UTI (urinary tract infection) Status: Acute Code(s): N39.0 - URINARY TRACT INFECTION, SITE NOT SPECIFIED SNOMED Code(s): 34557862 Plan: 1patient presented to hospital mental status changes apparently did have a fall with bruising to the left eyebrow patient also noticed to have a positive UA with concern for possible symptomatic UTI. Related to her mental status changes keeping in mind snf resident need to cover for resistant gram-negative. 2patient did have a stage III sacral pressure ulcer with minimal slough tissue no significant surrounding redness or any foul-smelling drainage clinically doubt source of infection, local wound care to the sacral wound with wound VAC as per the wound care team 3patient did have a repeat UA which is relatively clear, making adequate treatment of underlying urinary tract infection, Zosyn can be discontinued and no need for antibiotic on discharge discussed with the admitting team Time with Patient: Less than 30
== END 2023-01-11 17:44 | DRG 689 ==
LOC: EC 16:44 → 5NMEDONC 21:07 → OBSVTOIN 01-07 10:30
PROVIDERS: ADMIT Hospitalist; ATTEND Hospitalist
DX: N39.0 Urinary tract infection, site not specified (principal); G93.41 Metabolic encephalopathy; L89.153 Pressure ulcer of sacral region, stage 3; I10 Essential (primary) hypertension; E78.5 Hyperlipidemia, unspecified; E03.9 Hypothyroidism, unspecified; S01.81XA Laceration without foreign body of other part of head, initial encounter; M81.0 Age-related osteoporosis without current pathological fracture; F03.90 Unspecified dementia, unspecified severity, without behavioral disturbance, psychotic disturbance, mood disturbance, and anxiety; W06.XXXA Fall from bed, initial encounter; F32.A Depression, unspecified; Z79.82 Long term (current) use of aspirin; Z79.83 Long term (current) use of bisphosphonates; Z79.890 Hormone replacement therapy; Z79.899 Other long term (current) drug therapy; L89.629 Pressure ulcer of left heel, unspecified stage
CPT/HCPCS: 36415; 70450; 71045; 72125; 80048; 80053; 81001; 83605; 84484; 85025; 87040

== ENCOUNTER → 2023-01-24 | Outpatient (CLI) | payer MEDICARE, OTHER | END | disposition home or self-care (01) | LOC: RADMRIMAIN 13:50 | PROVIDERS: ATTEND Psychiatry & Neurology Neurology | DX: Z53.9 Procedure and treatment not carried out, unspecified reason (principal) ==

== ENCOUNTER 2023-02-01 09:07 | Inpatient (IN) | payer MEDICARE, OTHER ==
[2023-02-01] MEDS ORDERED: SODIUM CHLORIDE 0.9% 1,000 ML IV ONE ×2 (09:25)
[2023-02-01 09:42] LABS: Basophils % (A) 0 %; Eosinophils # (A) 0.5 k/uL (0-0.7); Eosinophils % (A) 6 %; HCT 33.2 % (34.0-46.0); HGB 10.3 gm/dL (11.4-16.0); Hypochromasia Slight; Lymphocytes # (A) 1.6 k/uL (1.0-4.8); Lymphocytes % (A) 20 %; MCH 26.4 pg (25.0-35.0); MCHC 30.9 g/dL (31.0-37.0); MCV 85.5 fL (80.0-100.0); Monocytes # (A) 0.4 k/uL (0-1.0); Monocytes % (A) 5 %; Neutrophils # (A) 5.6 k/uL (1.3-7.7); Neutrophils % (A) 68 %; Platelet Count 651 k/uL (150-450); RBC 3.88 m/uL (3.80-5.40); RDW 15.6 % (11.5-15.5); WBC 8.2 k/uL (3.8-10.6)
[2023-02-01 09:56] LABS: Lactic Acid, Venous 1.7 mmol/L (0.7-2.0)
--- NOTE | 2023-02-01 09:56 | CT ---
EXAMINATION TYPE: CT brain wo con DATE OF EXAM: 02/01/2023 HISTORY: AMS CT DLP: 1217.8 mGycm. Automated Exposure Control for Dose Reduction was Utilized. TECHNIQUE: CT scan of the head is performed without contrast. COMPARISON: CT brain January 05, 2023. FINDINGS: There is no acute intracranial hemorrhage or midline shift identified. There is mild to m oderate diffuse ventricular and sulcal prominence redemonstrated. There is mild low-attenuation in t he periventricular white matter redemonstrated. The calvarium is intact. The globes are intact and th e visualized sinuses are clear. IMPRESSION: No acute intracranial hemorrhage or midline shift. There is mild to moderate diffuse ag e-related cerebral atrophy and mild chronic small vessel ischemic change redemonstrated. No signific ant change from most recent prior CT.
[2023-02-01 10:03] LABS: Partial Thromboplastin Time 27.7 sec (22.0-30.0); Prothrombin Time 10.9 sec (9.0-12.0)
[2023-02-01] MEDS ORDERED: fentaNYL (PF) 50 MCG/ML 2 ML AMP IVP STA ×2 (10:07→12:45)
[2023-02-01 10:15] LABS: ALT 18 U/L (4-34); African American GFR (CKD) >90 (>60 ml/min/1.73 sqM); Albumin 3.2 g/dL (3.5-5.0); Anion Gap 4 mmol/L; Blood Urea Nitrogen 9 mg/dL (7-17); Calcium 8.5 mg/dL (8.4-10.2); Carbon Dioxide 34 mmol/L (22-30); Chloride 101 mmol/L (98-107); Glucose 90 mg/dL (74-99); Non-African American GFR(CKD) >90 (>60 ml/min/1.73 sqM); Sodium 139 mmol/L (137-145); Total Bilirubin 0.5 mg/dL (0.2-1.3); Total Protein 6.8 g/dL (6.3-8.2)
[2023-02-01 10:16] LABS: AST 30 U/L (14-36); Alkaline Phosphatase 73 U/L (38-126); Potassium 5.3 mmol/L (3.5-5.1)
--- NOTE | 2023-02-01 10:16 | XR ---
EXAMINATION TYPE: XR chest 2V DATE OF EXAM: 02/01/2023 COMPARISON: 01/07/2023 HISTORY: Altered mental status TECHNIQUE: Frontal and lateral views of the chest are obtained. FINDINGS: The heart size is normal. The cardiomediastinal silhouette and pulmonary vasculature are within nicholas l limits. There is no focal consolidation, significant pleural effusion, or pneumothorax. There is a vague 9 mm opacity within the right midlung zone, which was not clearly visualized on previous examin ation. IMPRESSION: 1. No acute cardiopulmonary process. 2. Vague right midlung zone 9 mm opacity per this finding is nonspecific and may relate to artifact; however, a pulmonary nodule cannot be entirely excluded.
[2023-02-01 11:27] LABS: Appearance,Urine Turbid (Clear); Bacteria,Urine Occasional /hpf; Bilirubin,Urine Negative (Negative); Blood,Urine Trace (Negative); Color,Urine Yellow; Glucose,Urine (UA) Negative (Negative); Ketones,Urine Negative (Negative); Leukocyte Esterase,Urine Large (Negative); Mucus,Urine Many /hpf; Nitrite,Urine Positive (Negative); Protein,Urine Trace (Negative); RBC,Urine 16 /hpf (0-5); Specific Gravity,Urine 1.014 (1.001-1.035); Triple Phosphate Crystal,Urine Rare /hpf; Urobilinogen,Urine <2.0 mg/dL (<2.0); WBC,Urine 129 /hpf (0-5)
--- NOTE | 2023-02-01 12:06 | ED ---
General Adult HPI - General Chief complaint: Weakness Stated complaint: Weakness Time Seen by Provider: 02/01/23 09:15 Source: patient, EMS Mode of arrival: EMS Limitations: no limitations - History of Present Illness Initial comments: 62-year-old female with past history of dementia, lumbar stenosis, sacral wound who presents to the emergency department from [facility]. They state that the patient had a decrease in her mentation overnight. Her blood pressures this morning were notably low. I felt as if she was having increasing skin aj akdown and therefore transfered the patient to the ED. She cannot provide any history. Does have notable sacral wound. No reported fevers. Does have a chronic Suh. Remainder of HPI is limited - Related Data Home Medications Medication Instructions Recorded Confirmed Cholecalciferol [Vitamin D3 (25 25 mcg PO DAILY@0900 09/03/22 02/01/23 Mcg = 1000 Iu)] Cyanocobalamin (Vitamin B-12) 1,000 mcg PO DAILY@0900 09/03/22 02/01/23 [Vitamin B-12] Simethicone [Gas-X] 125 mg PO DAILY@0900 09/03/22 02/01/23 Simvastatin 40 mg PO HS@209909/03/22 02/01/23 polyethylene glycoL 3350 [Miralax] 17 gm PO DAILY@0900 09/14/22 02/01/23 Levothyroxine Sodium [Synthroid] 25 mcg PO DAILY@0600 09/28/22 02/01/23 Sennosides [Senokot] 8.6 mg PO BID@0900,209909/28/22 02/01/23 Alendronate Sodium [Fosamax] 70 mg PO WE@0601/05/23 02/01/23 Aspirin 81 mg PO DAILY@0900 01/05/23 02/01/23 Divalproex Sodium [Depakote] 125 mg PO BID@0900,209901/05/23 02/01/23 Lactose-Reduced Food [Ensure Plus] 237 ml PO BID@0900,1200 01/05/23 02/01/23 Magnesium Hydroxide [Milk of 2,400 mg PO DAILY PRN 01/05/23 02/01/23 Magnesia] Prostat Awc 30 ml PO BID@0900,199901/05/23 02/01/23 Citalopram Hydrobromide [CeleXA] 20 mg PO HS 02/01/23 02/01/23 Ferrous Sulfate [Feosol] 325 mg PO DAILY 02/01/23 02/01/23 HYDROcodone/APAP 5-325MG [[place] 1 tab PO Q8H PRN 02/01/23 02/01/23 5-325] Multivitamins, Thera [Multivitamin 1 tab PO DAILY 02/01/23 02/01/23 (formulary)] Previous Rx's Medication Instructions Recorded Acetaminophen Tab [Tylenol] 650 mg PO Q6HR PRN tab 10/06/22 Cyclobenzaprine [Flexeril] 5 mg PO TID PRN tab 10/06/22 ALPRAZolam [Xanax] 0.25 mg PO BID PRN #6 tab 01/11/23 Gabapentin [Neurontin] 300 mg PO TID@0600,1400,2100 #9 cap 01/11/23 Allergies Allergy/AdvReac Type Severity Reaction Status Date / Time Influenza Virus Vaccines Allergy Unknown Verified 02/01/23 09:15 Sulfa (Sulfonamide Allergy Rash/Hives Verified 02/01/23 09:15 Antibiotics) Review of Systems ROS Statement: Those systems with pertinent positive or pertinent negative responses have been documented in the HPI. ROS Other: All systems not noted in ROS Statement are negative. Past Medical History Past Medical History: Dementia, Memory Impairment Additional Past Medical History / Comment(s): Dementia History of Any Multi-Drug Resistant Organisms: None Reported Past Surgical History: No Surgical Hx Reported Additional Past Surgical History / Comment(s): tooth extraction Past Anesthesia/Blood Transfusion Reactions: No Reported Reaction Past Psychological History: No Psychological Hx Reported Smoking Status: Never smoker Past Alcohol Use History: None Reported Past Drug Use History: None Reported - Past Family History Father Family Medical History: Unable to Obtain (Due to mental status) General Exam Limitations: altered mental status General appearance: alert, in no apparent distress Head exam: Present: atraumatic, normocephalic, normal inspection Eye exam: Present: normal appearance, PERRL, EOMI. Absent: scleral icterus, conjunctival injection, periorbital swelling ENT exam: Present: mucous membranes dry Respiratory exam: Present: normal lung sounds bilaterally. Absent: respiratory distress, wheezes, rales, rhonchi, stridor Cardiovascular Exam: Present: regular rate, normal rhythm, normal heart sounds. Absent: systolic murmur, diastolic murmur, rubs, gallop, clicks GI/Abdominal exam: Present: soft, normal bowel sounds. Absent: distended, tenderness, guarding, rebound, rigid Extremities exam: Present: other (contractured bilateral lower extremities) Back exam: Present: other (large sacral wound down to bone - tracks down left leg. no purluent drainage noted. wound packed, covered and clean) Neurological exam: Present: altered Psychiatric exam: Present: flat affect Skin exam: Present: warm, dry Course Vital Signs 02/01/23 02/01/23 02/01/23 09:11 09:30 10:30 Temperature 99.1 F Pulse Rate 79 78 81 Respiratory 18 11 L 6 L Rate Blood Pressure 95/79 99/60 99/52 O2 Sat by Pulse 99 96 Oximetry 02/01/23 02/01/23 02/01/23 11:00 11:30 12:00 Temperature Pulse Rate 82 73 84 Respiratory 12 12 15 Rate Blood Pressure 103/59 93/64 101/72 O2 Sat by Pulse 95 95 Oximetry 02/01/23 02/01/23 02/01/23 12:30 13:00 15:44 Temperature Pulse Rate 80 121 H 105 H Respiratory 10 L 14 18 Rate Blood Pressure 107/65 117/92 95/57 O2 Sat by Pulse 96 Oximetry EKG Findings - EKG Comments: EKG Findings:: EKG demonstrates sinus rhythm rate 80. GA interval 135. QRS 76. QTC 392. No acute ST segment elevations. Inverted T waves V1-V2 Medical Decision Making - Medical Decision Making Was pt. sent in by a medical professional or institution (, PA, PIZZA HUT ASSISTANT, urgent care, hospital, or fpc...) When possible be specific @ -ECF Did you speak to anyone other than the patient for history (EMS, parent, family, police, friend...)? What history was obtained from this source @ -Patients brother provides her medical history and code status Did you review nursing and triage notes (agree or disagree)? Why? @ -I reviewed and agree with nursing and triage notes Were old charts reviewed (outside hosp., previous admission, EMS record, old EKG, old radiological studies, urgent care reports/EKG's, fpc records)? Report findings @ - old charts were reviewed. discharge summary from last hospitalization reviewed Differential Diagnosis (chest pain, altered mental status, abdominal pain women, abdominal pain men, vaginal bleeding, weakness, fever, dyspnea, syncope, headache, dizziness, GI bleed, back pain, seizure, CVA, palpatations, mental health, musculoskeletal)? @ -uti, cva, sepsis, sah, brain mass, meningitis, bacteremia EKG interpreted by me (3pts min.). @ -yes X-rays interpreted by me (1pt min.). @ -yes CT interpreted by me (1pt min.). @ -yes U/S interpreted by me (1pt. min.). @ -None done What testing was considered but not performed or refused? (CT, X-rays, U/S, labs)? Why? @ -None What meds were considered but not given or refused? Why? @ -none Did you discuss the management of the patient with other professionals (professionals i.e. , PA, PIZZA HUT ASSISTANT, lab, RT, psych nurse, psychiatric social worker supervisor, green marketer, teacher, traffic maintenance officer, director of casework)? Give summary @ -Dr. madera Was smoking cessation discussed for >3mins.? @ -No Was critical care preformed (if so, how long)? @ -No Were there social determinants of health that impacted care today? How? (Homelessness, low income, unemployed, alcoholism, drug addiction, transportation, low edu. Level, literacy, decrease access to med. care, shelter, rehab)? @ -No Was there de-escalation of care discussed even if they declined (Discuss DNR or withdrawal of care, Hospice)? DNR status @ -Yes, brother would like to make the patient a no code What co-morbidities impacted this encounter? (DM, HTN, Smoking, COPD, CAD, Cancer, CVA, ARF, Chemo, Hep., AIDS, mental health diagnosis, sleep apnea, mo rbid obesity)? @ -dementia, cervical and lumbar radiculopathy Was patient admitted / discharged? Hospital course, mention meds given and route, prescriptions, significant lab abnormalities, going to OR and other pertinent info. @ -Upon arrival patient was placed into a trauma 2. There are history and physical exam was performed. IV access is established and laboratory studies are conducted. Patient is given a 2 L bolus of normal saline. Laboratory studies are conducted. She was given fentanyl for pain control. Laboratory studies are reviewed. Urinalysis does continued to demonstrate infection however the Suh was not changed before this was collected. I did request that the Suh be changed and we re-collect a urine sample. CT brain demonstrates no acute process. Chest x-ray demonstrates no acute process. Do to low blood pressures with altered mental status did recommend admission. Brothers at bedside and helps provide answers to some questions. States that the patient will be DNR/DNI at this point and was more interested in the patient comfortable. He does want the patient's spine surgeon to see her in regards to her contractures. I spoke with Dr. Pollard in regards to the admission. Patient is pending a bed on the floor Undiagnosed new problem with uncertain prognosis? @ -Yes Drug Therapy requiring intensive monitoring for toxicity (Heparin, Nitro, Insulin, Cardizem)? @ -No Were any procedures done? @ -suh exchange Diagnosis/symptom? @ -acute encephalopathy, acute hypotension, acute uti, chronic sacral wound Uncomplicated (without systemic symptoms) or Complicated (systemic symptoms)? @ -complicated Side effects of treatment? @ -No Exacerbation, Progression, or Severe Exacerbation? @ -No Poses a threat to life or bodily function? How? (Chest pain, USA, PR, pneumonia, PE, COPD, DKA, ARF, appy, cholecystitis, CVA, Diverticulitis, Homicidal, Suicidal, threat to staff... and all critical care pts) @ -yes - Lab Data Result diagrams: 02/03/23 06:49 02/03/23 06:49 Lab Results 02/01/23 02/01/23 02/01/23 Range/Units 09:29 09:29 09:29 WBC 8.2 (3.8-10.6) k/uL RBC 3.88 (3.80-5.40) m/uL Hgb 10.3 L (11.4-16.0) gm/dL Hct 33.2 L (34.0-46.0) % MCV 85.5 (80.0-100.0) fL MCH 26.4 (25.0-35.0) pg MCHC 30.9 L (31.0-37.0) g/dL RDW 15.6 H (11.5-15.5) % Plt Count 651 H (150-450) k/uL MPV 7.0 Immature Gran % (Auto) % Absolute Nucleated RBC (0.00-0.00) X 10*3/uL Neutrophils % 68 % Lymphocytes % 20 % Monocytes % 5 % Eosinophils % 6 % Basophils % 0 % Immature Gran # (0.00-0.04) X 10*3/uL Neutrophils # 5.6 (1.3-7.7) k/uL Lymphocytes # 1.6 (1.0-4.8) k/uL Monocytes # 0.4 (0-1.0) k/uL Eosinophils # 0.5 (0-0.7) k/uL Basophils # 0.0 (0-0.2) k/uL NRBC/100 WBC Diff (0.0-0.0) /100 WBCS Hypochromasia Slight PT 10.9 (9.0-12.0) sec INR 1.0 (<1.2) APTT 27.7 (22.0-30.0) sec Sodium (137-145) mmol/L Potassium (3.5-5.1) mmol/L Chloride (98-107) mmol/L Carbon Dioxide (22-30) mmol/L Anion Gap mmol/L BUN (7-17) mg/dL Creatinine (0.52-1.04) mg/dL Est GFR (CKD-EPI)AfAm (>60 ml/min/1.73 sqM) Est GFR (CKD-EPI)NonAf (>60 ml/min/1.73 sqM) BUN/Creatinine Ratio (12.00-20.00) Ratio Glucose (74-99) mg/dL Plasma Lactic Acid Eros (0.7-2.0) mmol/L Calcium (8.4-10.2) mg/dL Total Bilirubin (0.2-1.3) mg/dL AST (14-36) U/L ALT (4-34) U/L Alkaline Phosphatase (38-126) U/L Ammonia (<30) umol/L Troponin I (0.000-0.034) ng/mL Total Protein (6.3-8.2) g/dL Albumin (3.5-5.0) g/dL Procalcitonin (0.02-0.09) ng/mL TSH (0.465-4.680) mIU/L Urine Color Yellow Urine Appearance Turbid H (Clear) Urine pH 8.0 (5.0-8.0) Ur Specific [place] 1.014 (1.001-1.035) Urine Protein Trace H (Negative) Urine Glucose (UA) Negative (Negative) Urine Ketones Negative (Negative) Urine Blood Trace H (Negative) Urine Nitrite Positive H (Negative) Urine Bilirubin Negative (Negative) Urine Urobilinogen <2.0 (<2.0) mg/dL Ur Leukocyte Esterase Large H (Negative) Urine RBC 16 H (0-5) /hpf Urine WBC 129 H (0-5) /hpf Urine WBC Clumps Few H (None) /hpf Ur Squamous Epith Cells (0-4) /hpf Triple Phos Crystals Rare H (None) /hpf Urine Bacteria Occasional H (None) /hpf Urine Mucus Many H (None) /hpf Influenza Type A (PCR) (Not Detectd) Influenza Type B (PCR) (Not Detectd) RSV (PCR) (Not Detectd) SARS-CoV-2 (PCR) (Not Detectd) 02/01/23 02/01/23 02/01/23 Range/Units 09:29 09:29 09:29 WBC (3.8-10.6) k/uL RBC (3.80-5.40) m/uL Hgb (11.4-16.0) gm/dL Hct (34.0-46.0) % MCV (80.0-100.0) fL MCH (25.0-35.0) pg MCHC (31.0-37.0) g/dL RDW (11.5-15.5) % Plt Count (150-450) k/uL MPV Immature Gran % (Auto) % Absolute Nucleated RBC (0.00-0.00) X 10*3/uL Neutrophils % % Lymphocytes % % Monocytes % % Eosinophils % % Basophils % % Immature Gran # (0.00-0.04) X 10*3/uL Neutrophils # (1.3-7.7) k/uL Lymphocytes # (1.0-4.8) k/uL Monocytes # (0-1.0) k/uL Eosinophils # (0-0.7) k/uL Basophils # (0-0.2) k/uL NRBC/100 WBC Diff (0.0-0.0) /100 WBCS Hypochromasia PT (9.0-12.0) sec INR (<1.2) APTT (22.0-30.0) sec Sodium 139 (137-145) mmol/L Potassium 5.3 H (3.5-5.1) mmol/L Chloride 101 (98-107) mmol/L Carbon Dioxide 34 H (22-30) mmol/L Anion Gap 4 mmol/L BUN 9 (7-17) mg/dL Creatinine 0.52 (0.52-1.04) mg/dL Est GFR (CKD-EPI)AfAm >90 (>60 ml/min/1.73 sqM) Est GFR (CKD-EPI)NonAf >90 (>60 ml/min/1.73 sqM) BUN/Creatinine Ratio (12.00-20.00) Ratio Glucose 90 (74-99) mg/dL Plasma Lactic Acid Eros 1.7 (0.7-2.0) mmol/L Calcium 8.5 (8.4-10.2) mg/dL Total Bilirubin 0.5 (0.2-1.3) mg/dL AST 30 (14-36) U/L ALT 18 (4-34) U/L Alkaline Phosphatase 73 (38-126) U/L Ammonia <9 (<30) umol/L Troponin I <0.012 (0.000-0.034) ng/mL Total Protein 6.8 (6.3-8.2) g/dL Albumin 3.2 L (3.5-5.0) g/dL Procalcitonin (0.02-0.09) ng/mL TSH 1.780 (0.465-4.680) mIU/L Urine Color Urine Appearance (Clear) Urine pH (5.0-8.0) Ur Specific [place] (1.001-1.035) Urine Protein (Negative) Urine Glucose (UA) (Negative) Urine Ketones (Negative) Urine Blood (Negative) Urine Nitrite (Negative) Urine Bilirubin (Negative) Urine Urobilinogen (<2.0) mg/dL Ur Leukocyte Esterase (Negative) Urine RBC (0-5) /hpf Urine WBC (0-5) /hpf Urine WBC Clumps (None) /hpf Ur Squamous Epith Cells (0-4) /hpf Triple Phos Crystals (None) /hpf Urine Bacteria (None) /hpf Urine Mucus (None) /hpf Influenza Type A (PCR) (Not Detectd) Influenza Type B (PCR) (Not Detectd) RSV (PCR) (Not Detectd) SARS-CoV-2 (PCR) (Not Detectd) 02/01/23 02/01/23 02/01/23 Range/Units 09:29 09:29 16:13 WBC (3.8-10.6) k/uL RBC (3.80-5.40) m/uL Hgb (11.4-16.0) gm/dL Hct (34.0-46.0) % MCV (80.0-100.0) fL MCH (25.0-35.0) pg MCHC (31.0-37.0) g/dL RDW (11.5-15.5) % Plt Count (150-450) k/uL MPV Immature Gran % (Auto) % Absolute Nucleated RBC (0.00-0.00) X 10*3/uL Neutrophils % % Lymphocytes % % Monocytes % % Eosinophils % % Basophils % % Immature Gran # (0.00-0.04) X 10*3/uL Neutrophils # (1.3-7.7) k/uL Lymphocytes # (1.0-4.8) k/uL Monocytes # (0-1.0) k/uL Eosinophils # (0-0.7) k/uL Basophils # (0-0.2) k/uL NRBC/100 WBC Diff (0.0-0.0) /100 WBCS Hypochromasia PT (9.0-12.0) sec INR (<1.2) APTT (22.0-30.0) sec Sodium (137-145) mmol/L Potassium (3.5-5.1) mmol/L Chloride (98-107) mmol/L Carbon Dioxide (22-30) mmol/L Anion Gap mmol/L BUN (7-17) mg/dL Creatinine (0.52-1.04) mg/dL Est GFR (CKD-EPI)AfAm (>60 ml/min/1.73 sqM) Est GFR (CKD-EPI)NonAf (>60 ml/min/1.73 sqM) BUN/Creatinine Ratio (12.00-20.00) Ratio Glucose (74-99) mg/dL Plasma Lactic Acid Eros (0.7-2.0) mmol/L Calcium (8.4-10.2) mg/dL Total Bilirubin (0.2-1.3) mg/dL AST (14-36) U/L ALT (4-34) U/L Alkaline Phosphatase (38-126) U/L Ammonia (<30) umol/L Troponin I (0.000-0.034) ng/mL Total Protein (6.3-8.2) g/dL Albumin (3.5-5.0) g/dL Procalcitonin 0.18 H (0.02-0.09) ng/mL TSH (0.465-4.680) mIU/L Urine Color Yellow Urine Appearance Cloudy H (Clear) Urine pH 7.0 (5.0-8.0) Ur Specific [place] 1.016 (1.001-1.035) Urine Protein 1+ H (Negative) Urine Glucose (UA) Negative (Negative) Urine Ketones Trace H (Negative) Urine Blood Large H (Negative) Urine Nitrite Negative (Negative) Urine Bilirubin Negative (Negative) Urine Urobilinogen <2.0 (<2.0) mg/dL Ur Leukocyte Esterase Large H (Negative) Urine RBC >182 H (0-5) /hpf Urine WBC 113 H (0-5) /hpf Urine WBC Clumps (None) /hpf Ur Squamous Epith Cells <1 (0-4) /hpf Triple Phos Crystals (None) /hpf Urine Bacteria (None) /hpf Urine Mucus Occasional H (None) /hpf Influenza Type A (PCR) Not Detected (Not Detectd) Influenza Type B (PCR) Not Detected (Not Detectd) RSV (PCR) Not Detected (Not Detectd) SARS-CoV-2 (PCR) Not Detected (Not Detectd) 02/02/23 02/02/23 02/03/23 Range/Units 05:40 05:40 06:49 WBC 11.56 H 8.59 (3.8-10.6) k/uL RBC 3.67 L 3.12 L (3.80-5.40) m/uL Hgb 9.5 L 8.2 L (11.4-16.0) gm/dL Hct 32.1 L 27.7 L (34.0-46.0) % MCV 87.5 88.8 (80.0-100.0) fL MCH 25.9 L 26.3 L (25.0-35.0) pg MCHC 29.6 L 29.6 L (31.0-37.0) g/dL RDW 16.4 H 16.9 H (11.5-15.5) % Plt Count 659 H 515 H (150-450) k/uL MPV 9.6 9.6 Immature Gran % (Auto) 0.3 0.2 % Absolute Nucleated RBC 0 0 (0.00-0.00) X 10*3/uL Neutrophils % 74.6 68.5 % Lymphocytes % 17.7 20.1 % Monocytes % 5.5 7.9 % Eosinophils % 1.5 3.1 % Basophils % 0.4 0.2 % Immature Gran # 0.04 0.02 (0.00-0.04) X 10*3/uL Neutrophils # 8.61 H 5.87 (1.3-7.7) k/uL Lymphocytes # 2.05 1.73 (1.0-4.8) k/uL Monocytes # 0.64 0.68 (0-1.0) k/uL Eosinophils # 0.17 0.27 (0-0.7) k/uL Basophils # 0.05 0.02 (0-0.2) k/uL NRBC/100 WBC Diff 0 0 (0.0-0.0) /100 WBCS Hypochromasia PT (9.0-12.0) sec INR (<1.2) APTT (22.0-30.0) sec Sodium 143 (137-145) mmol/L Potassium 4.7 (3.5-5.1) mmol/L Chloride 106 (98-107) mmol/L Carbon Dioxide 25.5 (22-30) mmol/L Anion Gap 11.50 mmol/L BUN 5.1 L (7-17) mg/dL Creatinine 0.5 L (0.52-1.04) mg/dL Est GFR (CKD-EPI)AfAm 120.2 (>60 ml/min/1.73 sqM) Est GFR (CKD-EPI)NonAf 103.7 (>60 ml/min/1.73 sqM) BUN/Creatinine Ratio 10.20 L (12.00-20.00) Ratio Glucose 96 (74-99) mg/dL Plasma Lactic Acid Eros (0.7-2.0) mmol/L Calcium 8.9 (8.4-10.2) mg/dL Total Bilirubin (0.2-1.3) mg/dL AST (14-36) U/L ALT (4-34) U/L Alkaline Phosphatase (38-126) U/L Ammonia (<30) umol/L Troponin I (0.000-0.034) ng/mL Total Protein (6.3-8.2) g/dL Albumin (3.5-5.0) g/dL Procalcitonin (0.02-0.09) ng/mL TSH (0.465-4.680) mIU/L Urine Color Urine Appearance (Clear) Urine pH (5.0-8.0) Ur Specific [place] (1.001-1.035) Urine Protein (Negative) Urine Glucose (UA) (Negative) Urine Ketones (Negative) Urine Blood (Negative) Urine Nitrite (Negative) Urine Bilirubin (Negative) Urine Urobilinogen (<2.0) mg/dL Ur Leukocyte Esterase (Negative) Urine RBC (0-5) /hpf Urine WBC (0-5) /hpf Urine WBC Clumps (None) /hpf Ur Squamous Epith Cells (0-4) /hpf Triple Phos Crystals (None) /hpf Urine Bacteria (None) /hpf Urine Mucus (None) /hpf Influenza Type A (PCR) (Not Detectd) Influenza Type B (PCR) (Not Detectd) RSV (PCR) (Not Detectd) SARS-CoV-2 (PCR) (Not Detectd) 02/03/23 Range/Units 06:49 WBC (3.8-10.6) k/uL RBC (3.80-5.40) m/uL Hgb (11.4-16.0) gm/dL Hct (34.0-46.0) % MCV (80.0-100.0) fL MCH (25.0-35.0) pg MCHC (31.0-37.0) g/dL RDW (11.5-15.5) % Plt Count (150-450) k/uL MPV Immature Gran % (Auto) % Absolute Nucleated RBC (0.00-0.00) X 10*3/uL Neutrophils % % Lymphocytes % % Monocytes % % Eosinophils % % Basophils % % Immature Gran # (0.00-0.04) X 10*3/uL Neutrophils # (1.3-7.7) k/uL Lymphocytes # (1.0-4.8) k/uL Monocytes # (0-1.0) k/uL Eosinophils # (0-0.7) k/uL Basophils # (0-0.2) k/uL NRBC/100 WBC Diff (0.0-0.0) /100 WBCS Hypochromasia PT (9.0-12.0) sec INR (<1.2) APTT (22.0-30.0) sec Sodium 145 (137-145) mmol/L Potassium 3.9 (3.5-5.1) mmol/L Chloride 110 H (98-107) mmol/L Carbon Dioxide 27.9 H (22-30) mmol/L Anion Gap 6.70 L mmol/L BUN 9.0 (7-17) mg/dL Creatinine 0.5 L (0.52-1.04) mg/dL Est GFR (CKD-EPI)AfAm 123.4 (>60 ml/min/1.73 sqM) Est GFR (CKD-EPI)NonAf 106.5 (>60 ml/min/1.73 sqM) BUN/Creatinine Ratio 19.42 (12.00-20.00) Ratio Glucose 95 (74-99) mg/dL Plasma Lactic Acid Eros (0.7-2.0) mmol/L Calcium 8.1 L (8.4-10.2) mg/dL Total Bilirubin (0.2-1.3) mg/dL AST (14-36) U/L ALT (4-34) U/L Alkaline Phosphatase (38-126) U/L Ammonia (<30) umol/L Troponin I (0.000-0.034) ng/mL Total Protein (6.3-8.2) g/dL Albumin (3.5-5.0) g/dL Procalcitonin (0.02-0.09) ng/mL TSH (0.465-4.680) mIU/L Urine Color Urine Appearance (Clear) Urine pH (5.0-8.0) Ur Specific Kane (1.001-1.035) Urine Protein (Negative) Urine Glucose (UA) (Negative) Urine Ketones (Negative) Urine Blood (Negative) Urine Nitrite (Negative) Urine Bilirubin (Negative) Urine Urobilinogen (<2.0) mg/dL Ur Leukocyte Esterase (Negative) Urine RBC (0-5) /hpf Urine WBC (0-5) /hpf Urine WBC Clumps (None) /hpf Ur Squamous Epith Cells (0-4) /hpf Triple Phos Crystals (None) /hpf Urine Bacteria (None) /hpf Urine Mucus (None) /hpf Influenza Type A (PCR) (Not Detectd) Influenza Type B (PCR) (Not Detectd) RSV (PCR) (Not Detectd) SARS-CoV-2 (PCR) (Not Detectd) Disposition Clinical Impression: Encephalopathy acute, Sacral decubitus ulcer, UTI (urinary tract infection) Disposition: ADMITTED IP TO THIS [facility] Condition: Serious Is patient prescribed a controlled substance at d/c from ED?: No Time of Disposition: 12:06 Decision to Admit Reason: Admit from EC Decision Date: 02/01/23 Decision Time: 12:06
[2023-02-01] MEDS ORDERED: ACETAMINOPHEN TAB 325 MG TAB PO PRN (12:07)
[2023-02-01] MEDS ORDERED: NALOXONE 0.4 MG/ML 1 ML VIAL IV PRN (12:07)
[2023-02-01] MEDS: SODIUM CHLORIDE 0.9% 1,000 ML IV SCH (13:07)
[2023-02-01] MEDS ORDERED: fentaNYL (PF) 50 MCG/ML 2 ML AMP IVP PRN (15:44)
[2023-02-01] MEDS ORDERED: MAGNESIUM HYDROXIDE 2,400 MG/10 ML CUP PO PRN (16:07)
[2023-02-01] MEDS: CEFEPIME 2 GM in SODIUM CHLORIDE 0.9% 100 ML IVPB SCH ×2 (16:08→23:29)
--- NOTE | 2023-02-01 16:13 | P.CNOR ---
History of Present Illness - [facility] Consult date: 02/01/23 Requesting physician: Elba Celestin Consult reason: low back pain, other History of present illness: Patient is a 62-year-old female with a past medical history of dementia, lumbar stenosis, sacral wound who presents to the emergency department earlier today from [facility]. Patient was transferred to the emergency department due to altered mental status overnight. Patient has had low blood pressures and there has been increased skin breakdown in the gluteal region. Patient is unable to provide any history. Patient was seen at bedside in the emergency department this afternoon and family member was present during the encounter. Family member states that patient has had a wound just above her buttocks for several weeks now and it measures about 8 cm in length. Family member also states that patient has had a Suh for a long time due to the fact that she is unable to urinate when suh is removed. Family member does state patient did have a follow-up appointment in office with Dr. Kessler on 01/07/2023 and she seemed to be doing very well since her surgery was performed. family member cannot recall that the patient has had any specific incidence of fall/trauma since her lumbar spine surgery was performed. Patient did have surgery on 10/03/2022L4- L5 and L5-S1 posterior lateral interbody fusion and L3-L4 cage. Patient denies chest pain, fever, shortness breath, nausea, vomiting, loss of bowel control. Past Medical History Past Medical History: Dementia, Memory Impairment Additional Past Medical History / Comment(s): Dementia History of Any Multi-Drug Resistant Organisms: None Reported Past Surgical History: No Surgical Hx Reported Additional Past Surgical History / Comment(s): tooth extraction Past Anesthesia/Blood Transfusion Reactions: No Reported Reaction Past Psychological History: No Psychological Hx Reported Smoking Status: Never smoker Past Alcohol Use History: None Reported Past Drug Use History: None Reported - Past Family History Father Family Medical History: Unable to Obtain (Due to mental status) Medications and Allergies Home Medications Medication Instructions Recorded Confirmed Type Cholecalciferol [Vitamin D3 (25 25 mcg PO DAILY@0900 09/03/22 02/01/23 History Mcg = 1000 Iu)] Cyanocobalamin (Vitamin B-12) 1,000 mcg PO DAILY@0900 09/03/22 02/01/23 History [Vitamin B-12] Simethicone [Gas-X] 125 mg PO DAILY@0900 09/03/22 02/01/23 History Simvastatin 40 mg PO HS@209909/03/22 02/01/23 History polyethylene glycoL 3350 [Miralax] 17 gm PO DAILY@0900 09/14/22 02/01/23 History Levothyroxine Sodium [Synthroid] 25 mcg PO DAILY@0600 09/28/22 02/01/23 History Sennosides [Senokot] 8.6 mg PO BID@0900,209909/28/22 02/01/23 History Acetaminophen Tab [Tylenol] 650 mg PO Q6HR PRN tab 10/06/22 02/01/23 Rx Cyclobenzaprine [Flexeril] 5 mg PO TID PRN tab 10/06/22 02/01/23 Rx Alendronate Sodium [Fosamax] 70 mg PO WE@0600 01/05/23 02/01/23 History Aspirin 81 mg PO DAILY@0900 01/05/23 02/01/23 History Divalproex Sodium [Depakote] 125 mg PO BID@0900,209901/05/23 02/01/23 History Lactose-Reduced Food [Ensure Plus] 237 ml PO BID@0900,1200 01/05/23 02/01/23 History Magnesium Hydroxide [Milk of 2,400 mg PO DAILY PRN 01/05/23 02/01/23 History Magnesia] Prostat Awc 30 ml PO BID@0900,199901/05/23 02/01/23 History ALPRAZolam [Xanax] 0.25 mg PO BID PRN #6 tab 01/11/23 02/01/23 Rx Gabapentin [Neurontin] 300 mg PO TID@0600,1400,2099 #9 cap 01/11/23 02/01/23 Rx Citalopram Hydrobromide [CeleXA] 20 mg PO HS 02/01/23 02/01/23 History Ferrous Sulfate [Feosol] 325 mg PO DAILY 02/01/23 02/01/23 History HYDROcodone/APAP 5-325MG [[place] 1 tab PO Q8H PRN 02/01/23 02/01/23 History 5-325] Multivitamins, Thera [Multivitamin 1 tab PO DAILY 02/01/23 02/01/23 History (formulary)] Allergies Allergy/AdvReac Type Severity Reaction Status Date / Time Influenza Virus Vaccines Allergy Unknown Verified 02/01/23 09:15 Sulfa (Sulfonamide Allergy Rash/Hives Verified 02/01/23 09:15 Antibiotics) Physical Examination Inspection: Suh/catheter is present. Patient is lying in the right lateral recumbent position. Left foot does present with some nonpitting edema. Negative for any ecchymosis/erythema on the bilateral lower extremities. There is a scar present on the lumbar spine and midline that appears to be well-healed and intact at this time. Negative for any active drainage/fluctuance. There is a Mepilex dressing just above the buttocks. Sensation: Sensation is equal, symmetric, bilaterally throughout the upper and lower extremities Palpation: Exam difficult to perform/assess due to patient mental state. Range of motion: Patient is able to raise bilateral upper extremities on exam. Patient does have full range of motion in bilateral elbows and wrists in flexion/extension. Patient is able to wiggle fingers and hands bilaterally. There is limited range of motion in bilateral lower extremities in hip flexion/e xtension and knee flexion/extension due to patient's mental state. Patient is able to wiggle toes in bilateral lower extremities. Dorsi/plantar flexion is limited in the left ankle. Motor: 4/5 in all major motor groups in bilateral upper extremities. 4-/5 lighting technician strength bilaterally. 4-/5 in resisted bilateral hip and knee flexion/extension bilaterally, ankle dorsiflexion/plantarflexion. Neurovascular status: Radial pulses intact bilaterally. Cap refill under 3 seconds in digits of the upper extremities Special tests: Negative Homans bilaterally. Negative clonus bilaterally. Negative Grayson bilaterally Results - Labs Labs: Abnormal Lab Results - Last 24 Hours (Table) 02/01/23 02/01/23 02/01/23 Range/Units 09:29 09:29 09:29 Hgb 10.3 L (11.4-16.0) gm/dL Hct 33.2 L (34.0-46.0) % MCHC 30.9 L (31.0-37.0) g/dL RDW 15.6 H (11.5-15.5) % Plt Count 651 H (150-450) k/uL Potassium 5.3 H (3.5-5.1) mmol/L Carbon Dioxide 34 H (22-30) mmol/L Albumin 3.2 L (3.5-5.0) g/dL Urine Appearance Turbid H (Clear) Urine Protein Trace H (Negative) Urine Blood Trace H (Negative) Urine Nitrite Positive H (Negative) Ur Leukocyte Esterase Large H (Negative) Urine RBC 16 H (0-5) /hpf Urine WBC 129 H (0-5) /hpf Urine WBC Clumps Few H (None) /hpf Triple Phos Crystals Rare H (None) /hpf Urine Bacteria Occasional H (None) /hpf Urine Mucus Many H (None) /hpf H & H 02/01/23 Range/Units 09:29 Hgb 10.3 L (11.4-16.0) gm/dL Hct 33.2 L (34.0-46.0) % Coagulation 02/01/23 Range/Units 09:29 INR 1.0 (<1.2) Result Diagrams: 02/01/23 09:29 02/01/23 09:29 Assessment and Plan Assessment: 1. Low back pain; sacral wound; history of L4-L5 and L5-S1 posterior lateral interbody fusion 2. Altered mental status; dementia Plan: 1. Low back pain; sacral wound; history of L4-L5 and L5-S1 posterior lateral interbody fusion - incision on lumbar spine at midline appears to be well-healed at this time. Mepilex dressing currently on wound on sacrum. At this time we are not recommending any emergent/urgent orthopedic surgical intervention. We are not recommending any CT scans of the lumbar spine at this time. We recommend conservative measures at this time with pain medication as needed. We will continue to follow patient during her stay in hospital. 2. Appreciate medical and ID management 3. Pain management - tylenol 4. DVT and GI recs 5. PT/OT recs 6. Encourage incentive spirometer use 7. Appreciate consult Time with Patient: Less than 30
--- NOTE | 2023-02-01 16:33 | P.HPIM ---
History of Present Illness H&P Date: 02/01/23 Patient is a 62-year-old female history of recent lumbar decompression and fusion on 10/03, sacral decubitus ulcer, dementia, mood disorder, psychiatric disorder, hypothyroidism, dyslipidemia presenting with acute on chronic metabolic encephalopathy. She is currently a resident of custodial facility. Patient is a poor historian. Brother is present at bedside. He claims that patient has been more aggressive today. She usually has increased aggression when she has a urinary tract infection. Patient has been nonambulatory, but bile since her lumbar decompression. She has a Lehman catheter, chronic in place. Brother denies any recent changes. Patient has not been complaining of any fevers, chills, chest pain, shortness of breath, abdominal pain. In the ED, temperature was 99, pulse 79, respiratory rate 18, blood pressure 95/79, saturating at 99% on room air. Laboratory workup showed WBC 8.2, hemoglobin 10.3, platelets 651, potassium 5.3, hemolyzed, bicarbonate 34, creatinine 0.5., Turbid urine with positive nitrites and positive leukocyte esterase, respiratory viral panel was negative. EKG shows normal sinus rhythm. Chest x-ray shows no acute process, possible right mid lung pulmonary nodule. Head CT did not show any acute process. Patient being admitted for acute metabolic encephalopathy, likely in the setting of urinary tract infection. Pertinent positives and negatives as discussed in HPI, a complete review of systems was performed and all other systems are negative. Patient seen and examined at bedside. Vital signs reviewed General: nontoxic, no distress, chronically ill-appearing, agitated Derm: warm, dry, unable to observe sacral wound Head: atraumatic, normocephalic, symmetric Eyes: EOMI, no lid lag, anicteric sclera, pupils equal round reactive to light ENT: Nose and ears atraumatic Neck: No thyromegaly, supple Mouth: no lip lesion, mucus membranes moist Cardiovascular: S1S2 reg, no murmur, no edema Lungs: clear to auscultation bilateral, no rhonchi, no rales, no wheeze, no accessory muscle use Abdominal: soft, nontender to palpation, no guarding, no appreciable organomegaly Ext: no gross muscle atrophy Neuro: CN II-XII grossly intact Psych: Alert, oriented 1, agitated Assessment/Plan: Active: Acute on chronic metabolic encephalopathy Possible urinary tract infection, present on admission Chronic urinary retention, Lehman catheter present on admission Sacral decubitus ulcer present on admission Debility/weakness Recent lumbar decompression - EKG reviewed by me shows normal sinus rhythm - Chest x-ray reviewed by me shows no acute process, possible right mid lung pulmonary nodule - Electrolytes within normal limits, TSH 1.78 -Urine culture and blood cultures pending -Brother considering possible comfort care measures, palliative care has been consulted -Lehman catheter exchanged this admission -Currently on IV cefepime 2 g every 8 hours -Orthopedic spine, and ID consulted. -Wound care consult ordered -Mental status changes could also be secondary to pain, continue home Blaine Chronic: Dementia Mood disorder Psychiatric disorder Hypothyroidism Dyslipidemia The patient is admitted with an anticipated less than 2 midnight stay as observation status for evaluation of acute encephalopathy. Surrogate decision-maker: Brother CODE STATUS: DNR/DNI DVT prophylaxis: Lovenox Anticipated discharge date: Pending clinical course Anticipated discharge place: Pending clinical course A total of 65 minutes was spent on the care of this complex patient more than 50% of the time was spent in counseling and care coordination. Past Medical History Past Medical History: Dementia, Memory Impairment Additional Past Medical History / Comment(s): Dementia History of Any Multi-Drug Resistant Organisms: None Reported Past Surgical History: No Surgical Hx Reported Additional Past Surgical History / Comment(s): tooth extraction Past Anesthesia/Blood Transfusion Reactions: No Reported Reaction Past Psychological History: No Psychological Hx Reported Smoking Status: Never smoker Past Alcohol Use History: None Reported Past Drug Use History: None Reported - Past Family History Father Family Medical History: Unable to Obtain (Due to mental status) Medications and Allergies Home Medications Medication Instructions Recorded Confirmed Type Cholecalciferol [Vitamin D3 (25 25 mcg PO DAILY@0900 09/03/22 02/01/23 History Mcg = 1000 Iu)] Cyanocobalamin (Vitamin B-12) 1,000 mcg PO DAILY@0900 09/03/22 02/01/23 History [Vitamin B-12] Simethicone [Gas-X] 125 mg PO DAILY@0900 09/03/22 02/01/23 History Simvastatin 40 mg PO HS@2100 09/03/22 02/01/23 History polyethylene glycoL 3350 [Miralax] 17 gm PO DAILY@0900 09/14/22 02/01/23 History Levothyroxine Sodium [Synthroid] 25 mcg PO DAILY@0600 09/28/22 02/01/23 History Sennosides [Senokot] 8.6 mg PO BID@0900,2100 09/28/22 02/01/23 History Acetaminophen Tab [Tylenol] 650 mg PO Q6HR PRN tab 10/06/22 02/01/23 Rx Cyclobenzaprine [Flexeril] 5 mg PO TID PRN tab 10/06/22 02/01/23 Rx Alendronate Sodium [Fosamax] 70 mg PO WE@0600 01/05/23 02/01/23 History Aspirin 81 mg PO DAILY@0900 01/05/23 02/01/23 History Divalproex Sodium [Depakote] 125 mg PO BID@0900,2100 01/05/23 02/01/23 History Lactose-Reduced Food [Ensure Plus] 237 ml PO BID@0900,1200 01/05/23 02/01/23 History Magnesium Hydroxide [Milk of 2,400 mg PO DAILY PRN 01/05/23 02/01/23 History Magnesia] Prostat Awc 30 ml PO BID@0900,2000 01/05/23 02/01/23 History ALPRAZolam [Xanax] 0.25 mg PO BID PRN #6 tab 01/11/23 02/01/23 Rx Gabapentin [Neurontin] 300 mg PO TID@0600,1400,2100 #9 cap 01/11/23 02/01/23 Rx Citalopram Hydrobromide [CeleXA] 20 mg PO HS 02/01/23 02/01/23 History Ferrous Sulfate [Feosol] 325 mg PO DAILY 02/01/23 02/01/23 History HYDROcodone/APAP 5-325MG [[place] 1 tab PO Q8H PRN 02/01/23 02/01/23 History 5-325] Multivitamins, Thera [Multivitamin 1 tab PO DAILY 02/01/23 02/01/23 History (formulary)] Allergies Allergy/AdvReac Type Severity Reaction Status Date / Time Influenza Virus Vaccines Allergy Unknown Verified 02/01/23 09:15 Sulfa (Sulfonamide Allergy Rash/Hives Verified 02/01/23 09:15 Antibiotics) Physical Exam Vitals: Vital Signs Temp Pulse Resp BP Pulse Ox 02/01/23 15:44 105 H 18 95/57 96 02/01/23 13:00 121 H 14 117/92 02/01/23 12:30 80 10 L 107/65 02/01/23 12:00 84 15 101/72 02/01/23 11:30 73 12 93/64 95 02/01/23 11:00 82 12 103/59 95 02/01/23 10:30 81 6 L 99/52 02/01/23 09:30 78 11 L 99/60 96 02/01/23 09:11 99.1 F 79 18 95/79 99 Intake and Output 02/01/23 02/01/23 02/01/23 06:59 14:59 22:59 Other: Weight 54.431 kg Results CBC & Chem 7: 02/01/23 09:29 02/01/23 09:29 Labs: Abnormal Lab Results - Last 24 Hours (Table) 02/01/23 02/01/23 02/01/23 Range/Units 09:29 09:29 09:29 Hgb 10.3 L (11.4-16.0) gm/dL Hct 33.2 L (34.0-46.0) % MCHC 30.9 L (31.0-37.0) g/dL RDW 15.6 H (11.5-15.5) % Plt Count 651 H (150-450) k/uL Potassium 5.3 H (3.5-5.1) mmol/L Carbon Dioxide 34 H (22-30) mmol/L Albumin 3.2 L (3.5-5.0) g/dL Urine Appearance Turbid H (Clear) Urine Protein Trace H (Negative) Urine Blood Trace H (Negative) Urine Nitrite Positive H (Negative) Ur Leukocyte Esterase Large H (Negative) Urine RBC 16 H (0-5) /hpf Urine WBC 129 H (0-5) /hpf Urine WBC Clumps Few H (None) /hpf Triple Phos Crystals Rare H (None) /hpf Urine Bacteria Occasional H (None) /hpf Urine Mucus Many H (None) /hpf
[2023-02-01 16:48] LABS: Appearance,Urine Cloudy (Clear); Bilirubin,Urine Negative (Negative); Blood,Urine Large (Negative); Color,Urine Yellow; Glucose,Urine (UA) Negative (Negative); Ketones,Urine Trace (Negative); Leukocyte Esterase,Urine Large (Negative); Mucus,Urine Occasional /hpf; Nitrite,Urine Negative (Negative); Protein,Urine 1+ (Negative); RBC,Urine >182 /hpf (0-5); Specific Gravity,Urine 1.016 (1.001-1.035); Squamous Epithelial Cell,Urine <1 /hpf (0-4); Urobilinogen,Urine <2.0 mg/dL (<2.0); WBC,Urine 113 /hpf (0-5)
--- NOTE | 2023-02-01 18:46 | P.CONS ---
History of Present Illness - Reason for Consult Consult date: 02/01/23 - History of Present Illness Patient is a 62-year-old female with a past medical history significant for lumbar decompression and fusion on October 03, 2023 since then the patient has been at the local long term patient also have a history of dyslipidemia and dementia and chronic metabolic encephalopathy did have a indwelling Lehman catheter as the patient did develop urine retention postsurgery patient has been sent to the [facility] ER this afternoon for evaluation of mental status changes patient was noticed to be more verbal per the brother at the bedside and apparently did have a low-grade fever patient was not a very good historian specifically denies any headache she is currently breathing comfortably room air no vomiting diarrhea and changes has been reported denies any chest pain occasional cough no abdominal pain or diarrhea patient did have a sacral pressure ulcer which is being taken care of at the [facility] however brother mention overall wound is clean and there is no foul-smelling drainage on presentation to the hospital but he did have low-grade fever of 99.1 she was not hypoxic or need for supplemental oxygen patient did have a normal white count no left shift kidney function has been normal liver enzymes are normal did have a positive influenza RSV and COVID testing was negative patient did have a CT of the brain that was negative for any bleed chest x-ray was negative for acute cardiopulmonary process orthopedics has evaluated the patient and the incision is healed intact with no redness or any drainage Past Medical History Past Medical History: Dementia, Memory Impairment Additional Past Medical History / Comment(s): Dementia History of Any Multi-Drug Resistant Organisms: None Reported Past Surgical History: No Surgical Hx Reported Additional Past Surgical History / Comment(s): tooth extraction Past Anesthesia/Blood Transfusion Reactions: No Reported Reaction Past Psychological History: No Psychological Hx Reported Smoking Status: Never smoker Past Alcohol Use History: None Reported Past Drug Use History: None Reported - Past Family History Father Family Medical History: Unable to Obtain (Due to mental status) Medications and Allergies Home Medications Medication Instructions Recorded Confirmed Type Cholecalciferol [Vitamin D3 (25 25 mcg PO DAILY@0900 09/03/22 02/01/23 History Mcg = 1000 Iu)] Cyanocobalamin (Vitamin B-12) 1,000 mcg PO DAILY@0900 09/03/22 02/01/23 History [Vitamin B-12] Simethicone [Gas-X] 125 mg PO DAILY@0900 09/03/22 02/01/23 History Simvastatin 40 mg PO HS@209909/03/22 02/01/23 History polyethylene glycoL 3350 [Miralax] 17 gm PO DAILY@0900 09/14/22 02/01/23 History Levothyroxine Sodium [Synthroid] 25 mcg PO DAILY@0600 09/28/22 02/01/23 History Sennosides [Senokot] 8.6 mg PO BID@0900,209909/28/22 02/01/23 History Acetaminophen Tab [Tylenol] 650 mg PO Q6HR PRN tab 10/06/22 02/01/23 Rx Cyclobenzaprine [Flexeril] 5 mg PO TID PRN tab 10/06/22 02/01/23 Rx Alendronate Sodium [Fosamax] 70 mg PO WE@0600 01/05/23 02/01/23 History Aspirin 81 mg PO DAILY@0900 01/05/23 02/01/23 History Divalproex Sodium [Depakote] 125 mg PO BID@0900,209901/05/23 02/01/23 History Lactose-Reduced Food [Ensure Plus] 237 ml PO BID@0900,1200 01/05/23 02/01/23 History Magnesium Hydroxide [Milk of 2,400 mg PO DAILY PRN 01/05/23 02/01/23 History Magnesia] Prostat Awc 30 ml PO BID@0900,199901/05/23 02/01/23 History ALPRAZolam [Xanax] 0.25 mg PO BID PRN #6 tab 01/11/23 02/01/23 Rx Gabapentin [Neurontin] 300 mg PO TID@0600,1400,2099 #9 cap 01/11/23 02/01/23 Rx Citalopram Hydrobromide [CeleXA] 20 mg PO HS 02/01/23 02/01/23 History Ferrous Sulfate [Feosol] 325 mg PO DAILY 02/01/23 02/01/23 History HYDROcodone/APAP 5-325MG [[place] 1 tab PO Q8H PRN 02/01/23 02/01/23 History 5-325] Multivitamins, Thera [Multivitamin 1 tab PO DAILY 02/01/23 02/01/23 History (formulary)] Allergies Allergy/AdvReac Type Severity Reaction Status Date / Time Influenza Virus Vaccines Allergy Unknown Verified 02/01/23 09:15 Sulfa (Sulfonamide Allergy Rash/Hives Verified 02/01/23 09:15 Antibiotics) Physical Exam Vitals: Vital Signs Temp Pulse Resp BP Pulse Ox 02/01/23 11:30 73 12 93/64 95 02/01/23 11:00 82 12 103/59 95 02/01/23 10:30 81 6 L 99/52 02/01/23 09:30 78 11 L 99/60 96 02/01/23 09:11 99.1 F 79 18 95/79 99 Intake and Output 01/31/23 02/01/23 02/01/23 22:59 06:59 14:59 Other: Weight 54.431 kg Results CBC & Chem 7: 02/01/23 09:29 02/01/23 09:29 Labs: Abnormal Lab Results - Last 24 Hours (Table) 02/01/23 02/01/23 02/01/23 Range/Units 09:29 09:29 09:29 Hgb 10.3 L (11.4-16.0) gm/dL Hct 33.2 L (34.0-46.0) % MCHC 30.9 L (31.0-37.0) g/dL RDW 15.6 H (11.5-15.5) % Plt Count 651 H (150-450) k/uL Potassium 5.3 H (3.5-5.1) mmol/L Carbon Dioxide 34 H (22-30) mmol/L Albumin 3.2 L (3.5-5.0) g/dL Urine Appearance Turbid H (Clear) Urine Protein Trace H (Negative) Urine Blood Trace H (Negative) Urine Nitrite Positive H (Negative) Ur Leukocyte Esterase Large H (Negative) Urine RBC 16 H (0-5) /hpf Urine WBC 129 H (0-5) /hpf Urine WBC Clumps Few H (None) /hpf Triple Phos Crystals Rare H (None) /hpf Urine Bacteria Occasional H (None) /hpf Urine Mucus Many H (None) /hpf Assessment and Plan Plan: 1patient was in the hospital mental status changes which is likely multifa ctorial in this patient with a chronic unit Lehman cath significantly positive UA likely component of catheter associated UTI as the patient currently do not have any other obvious focus of infection chest x-ray was clear abdominal soft on clinical examination patient lumbar spine incision looks clean without evidence of any cellulitis 2-we will start patient on cefepime 2 g every 8 hours while waiting for the culture to finalize We will follow on clinical condition and cultures to further adjust medication if needed Thank you for this consultation we will follow the patient along with you Time with Patient: Greater than 30
[2023-02-01] MEDS: GABAPENTIN 300 MG CAP PO SCH (21:24)
[2023-02-01] MEDS: ATORVASTATIN 20 MG TAB PO SCH (21:24)
[2023-02-01] MEDS: CITALOPRAM HYDROBROMIDE 20 MG TAB PO SCH (21:24)
[2023-02-01] MEDS: SENNOSIDES 8.6 MG TAB PO SCH (21:24)
[2023-02-01] MEDS: DIVALPROEX SPRINKLE 125 MG CAP.SPRINK PO SCH (22:01)
[2023-02-02] MEDS: GABAPENTIN 300 MG CAP PO SCH ×3 (04:48→21:22)
[2023-02-02] MEDS: HYDROcodone/APAP 5-325MG 1 EACH TAB PO PRN ×3 (04:48→21:22)
[2023-02-02] MEDS: LEVOTHYROXINE 25 MCG TAB PO SCH (04:48)
[2023-02-02 08:47] LABS: Basophils # (A) 0.05 X 10*3/uL (0.00-0.10); Basophils % (A) 0.4 %; Eosinophils # (A) 0.17 X 10*3/uL (0.04-0.35); Eosinophils % (A) 1.5 %; HCT 32.1 % (37.2-46.3); HGB 9.5 g/dL (12.0-15.0); Immature Grans, Automated 0.3 %; Lymphocytes # (A) 2.05 X 10*3/uL (0.90-5.00); Lymphocytes % (A) 17.7 %; MCH 25.9 pg (27.0-32.0); MCHC 29.6 g/dL (32.0-37.0); MCV 87.5 fL (80.0-97.0); Mean Platelet Volume 9.6 fL (9.5-12.2); Monocytes # (A) 0.64 X 10*3/uL (0.20-1.00); Monocytes % (A) 5.5 %; NRBC Per 100 WBC 0 /100 WBCS (0.0-0.0); Neutrophils # (A) 8.61 X 10*3/uL (1.80-7.70); Neutrophils % (A) 74.6 %; Platelet Count 659 X 10*3/uL (140-440); RBC 3.67 X 10*6/uL (4.10-5.20); RDW 16.4 % (11.5-14.5); WBC 11.56 X 10*3/uL (4.50-10.00)
[2023-02-02 09:02] LABS: African American GFR (CKD) 120.2 (60.0-200.0); Anion Gap 11.5 mmol/L (10.00-18.00); BUN/Creat Ratio 10.2 Ratio (12.00-20.00); Blood Urea Nitrogen 5.1 mg/dL (9.0-27.0); Calcium 8.9 mg/dL (8.7-10.3); Carbon Dioxide 25.5 mmol/L (20.0-27.5); Non-African American GFR(CKD) 103.7 (60.0-200.0); Potassium 4.7 mmol/L (3.5-5.5)
[2023-02-02] MEDS: ASPIRIN 81 MG PO SCH (09:06)
[2023-02-02] MEDS: CEFEPIME 2 GM in SODIUM CHLORIDE 0.9% 100 ML IVPB SCH ×3 (09:06→23:54)
[2023-02-02] MEDS: DIVALPROEX SPRINKLE 125 MG CAP.SPRINK PO SCH ×2 (09:06→21:22)
[2023-02-02] MEDS: SIMETHICONE 80 MG CHEWABLE PO SCH (09:07)
[2023-02-02] MEDS: ENOXAPARIN 40 MG/0.4 ML SYRINGE SQ SCH (09:07)
[2023-02-02] MEDS: SODIUM CHLORIDE 0.9% 1,000 ML IV SCH ×2 (09:07→09:18)
[2023-02-02] MEDS: SENNOSIDES 8.6 MG TAB PO SCH ×2 (09:07→21:22)
[2023-02-02] MEDS: MULTIVITAMINS, THERA 1 EACH TAB PO SCH (09:07)
[2023-02-02] MEDS: CHOLECALCIFEROL 25 MCG (1000 IU) TABLET PO SCH (09:07)
[2023-02-02] MEDS: FERROUS SULFATE 325 MG TAB PO SCH (09:07)
[2023-02-02] MEDS: CYANOCOBALAMIN 500 MCG TAB PO SCH (09:07)
[2023-02-02] MEDS: polyethylene glycoL 3350 17 GM POWD.PACK PO SCH (09:08)
--- NOTE | 2023-02-02 10:58 | P.CONS ---
History of Present Illness - Reason for Consult Consult date: 02/02/23 wound care - History of Present Illness This is a 62-year-old patient with a poor historian who presents with a pressure ulceration to the sacrum. Patient has a stage II pressure ulcer measuring approximately 4 x 6 x 0.5 cm with undermining from 4:00 to 7:00 at 10-2. Ulceration has minimal Slough and nonviable tissue present with granulation throughout the wound bed. The wound edges are rolled. The periwound does show some excoriation. Patient was previously utilizing and negative pressure wound VAC that was recently removed, dressing has been Dakin solution to the site. Patient has a small pressure ulcer to the right hip 2 and a pressure ulcer to the left buttocks. Review of systems: Unable to obtain due to mental status Physical exam: General Appearance: Alert, cooperative, no distress, appears stated age. Skin: See HPI all other Skin color, texture, tugor normal, no rashes or lesions. Neurologic: Alert oriented x3 Assessment: 1. Stage II pressure ulcer sacrum 2. Stage II pressure ulcer right hip 3. Stage II pressure ulcer left buttock 4. Dementia Plan: 1.Sacrum: Apply absorptive silver, saline moist gauze, dry gauze and ABD. Secure with tape. Right hip and left buttocks apply honey gel and border foam. Turn patient every 2 hours. Assess nutrition increased protein. Thank you for the consultation any questions please contact the wound care center DNP note has been reviewed and discussed with Dr. Stewart and the impression and plan of care has been directed as dictated. Past Medical History Past Medical History: Dementia, Memory Impairment Additional Past Medical History / Comment(s): Dementia History of Any Multi-Drug Resistant Organisms: None Reported Past Surgical History: No Surgical Hx Reported Additional Past Surgical History / Comment(s): tooth extraction Past Anesthesia/Blood Transfusion Reactions: No Reported Reaction Past Psychological History: No Psychological Hx Reported Additional Psychological History / Comment(s): severe depression Smoking Status: Never smoker Past Alcohol Use History: None Reported Past Drug Use History: None Reported - Past Family History Father Family Medical History: Unable to Obtain Medications and Allergies Home Medications Medication Instructions Recorded Confirmed Type Cholecalciferol [Vitamin D3 (25 25 mcg PO DAILY@0900 09/03/22 02/01/23 History Mcg = 1000 Iu)] Cyanocobalamin (Vitamin B-12) 1,000 mcg PO DAILY@0900 09/03/22 02/01/23 History [Vitamin B-12] Simethicone [Gas-X] 125 mg PO DAILY@0900 09/03/22 02/01/23 History Simvastatin 40 mg PO HS@209909/03/22 02/01/23 History polyethylene glycoL 3350 [Miralax] 17 gm PO DAILY@0900 09/14/22 02/01/23 History Levothyroxine Sodium [Synthroid] 25 mcg PO DAILY@0600 09/28/22 02/01/23 History Sennosides [Senokot] 8.6 mg PO BID@0900,209909/28/22 02/01/23 History Acetaminophen Tab [Tylenol] 650 mg PO Q6HR PRN tab 10/06/22 02/01/23 Rx Cyclobenzaprine [Flexeril] 5 mg PO TID PRN tab 10/06/22 02/01/23 Rx Alendronate Sodium [Fosamax] 70 mg PO WE@0601/05/23 02/01/23 History Aspirin 81 mg PO DAILY@0900 01/05/23 02/01/23 History Divalproex Sodium [Depakote] 125 mg PO BID@0900,209901/05/23 02/01/23 History Lactose-Reduced Food [Ensure Plus] 237 ml PO BID@0900,1200 01/05/23 02/01/23 History Magnesium Hydroxide [Milk of 2,400 mg PO DAILY PRN 01/05/23 02/01/23 History Magnesia] Prostat Awc 30 ml PO BID@0900,199901/05/23 02/01/23 History ALPRAZolam [Xanax] 0.25 mg PO BID PRN #6 tab 01/11/23 02/01/23 Rx Gabapentin [Neurontin] 300 mg PO TID@0600,1400,2099 #9 cap 01/11/23 02/01/23 Rx Citalopram Hydrobromide [CeleXA] 20 mg PO HS 02/01/23 02/01/23 History Ferrous Sulfate [Feosol] 325 mg PO DAILY 02/01/23 02/01/23 History HYDROcodone/APAP 5-325MG [[place] 1 tab PO Q8H PRN 02/01/23 02/01/23 History 5-325] Multivitamins, Thera [Multivitamin 1 tab PO DAILY 02/01/23 02/01/23 History (formulary)] Allergies Allergy/AdvReac Type Severity Reaction Status Date / Time Influenza Virus Vaccines Allergy Unknown Verified 02/01/23 09:15 Sulfa (Sulfonamide Allergy Rash/Hives Verified 02/01/23 09:15 Antibiotics) Physical Exam Vitals: Vital Signs Temp Pulse Pulse Resp BP BP Pulse Ox 02/02/23 07:27 98.6 F 80 18 113/69 94 L 02/02/23 01:32 97.8 F 84 14 109/67 99 02/01/23 15:44 105 H 18 95/57 96 02/01/23 13:00 121 H 14 117/92 02/01/23 12:30 80 10 L 107/65 02/01/23 12:00 84 15 101/72 02/01/23 11:30 73 12 93/64 95 02/01/23 11:00 82 12 103/59 95 Intake and Output 02/01/23 02/02/23 02/02/23 22:59 06:59 14:59 Output Total 500 Balance -500 Output: Urine 500 Other: Voiding Method Indwelling Catheter Indwelling Catheter Weight 54.431 kg Results CBC & Chem 7: 02/02/23 05:40 02/02/23 05:40 Labs: Abnormal Lab Results - Last 24 Hours (Table) 02/01/23 02/01/23 02/01/23 Range/Units 09:29 09:29 16:13 WBC (4.50-10.00) X 10*3/uL RBC (4.10-5.20) X 10*6/uL Hgb (12.0-15.0) g/dL Hct (37.2-46.3) % MCH (27.0-32.0) pg MCHC (32.0-37.0) g/dL RDW (11.5-14.5) % Plt Count (140-440) X 10*3/uL Neutrophils # (1.80-7.70) X 10*3/uL BUN (9.0-27.0) mg/dL Creatinine (0.6-1.5) mg/dL BUN/Creatinine Ratio (12.00-20.00) Ratio Procalcitonin 0.18 H (0.02-0.09) ng/mL Urine Appearance Turbid H Cloudy H (Clear) Urine Protein Trace H 1+ H (Negative) Urine Ketones Trace H (Negative) Urine Blood Trace H Large H (Negative) Urine Nitrite Positive H (Negative) Ur Leukocyte Esterase Large H Large H (Negative) Urine RBC 16 H >182 H (0-5) /hpf Urine WBC 129 H 113 H (0-5) /hpf Urine WBC Clumps Few H (None) /hpf Triple Phos Crystals Rare H (None) /hpf Urine Bacteria Occasional H (None) /hpf Urine Mucus Many H Occasional H (None) /hpf 02/02/23 02/02/23 Range/Units 05:40 05:40 WBC 11.56 H (4.50-10.00) X 10*3/uL RBC 3.67 L (4.10-5.20) X 10*6/uL Hgb 9.5 L (12.0-15.0) g/dL Hct 32.1 L (37.2-46.3) % MCH 25.9 L (27.0-32.0) pg MCHC 29.6 L (32.0-37.0) g/dL RDW 16.4 H (11.5-14.5) % Plt Count 659 H (140-440) X 10*3/uL Neutrophils # 8.61 H (1.80-7.70) X 10*3/uL BUN 5.1 L (9.0-27.0) mg/dL Creatinine 0.5 L (0.6-1.5) mg/dL BUN/Creatinine Ratio 10.20 L (12.00-20.00) Ratio Procalcitonin (0.02-0.09) ng/mL Urine Appearance (Clear) Urine Protein (Negative) Urine Ketones (Negative) Urine Blood (Negative) Urine Nitrite (Negative) Ur Leukocyte Esterase (Negative) Urine RBC (0-5) /hpf Urine WBC (0-5) /hpf Urine WBC Clumps (None) /hpf Triple Phos Crystals (None) /hpf Urine Bacteria (None) /hpf Urine Mucus (None) /hpf Assessment and Plan (1) Stage II pressure ulcer of right hip Current Visit: Yes Status: Acute Code(s): L89.212 - PRESSURE ULCER OF RIGHT HIP, STAGE 2 SNOMED Code(s): 48417220946523 (2) Stage II pressure ulcer of left buttock Current Visit: Yes Status: Acute Code(s): L89.322 - PRESSURE ULCER OF LEFT BUTTOCK, STAGE 2 SNOMED Code(s): 01028732956764 (3) Stage II pressure ulcer of sacral region Current Visit: No Status: Acute Code(s): L89.152 - PRESSURE ULCER OF SACRAL REGION, STAGE 2 SNOMED Code(s): 49164682161414
--- NOTE | 2023-02-02 11:11 | P.PN ---
Subjective Progress Note Date: 02/02/23 Principal diagnosis: low back pain; sacral wound Patient seen at bedside this morning lying semirecumbent position with Lehman in place. There is a dressing present over sacral wound. ID, wound care and medicine following patient. History difficult to obtain due to patient's mental state. Patient does not respond to questions during history. Palliative care has been consulted as well. Patient denies any change in the lumbar spine. Patient denies chest pain, fever, shortness breath, nausea, vomiting, change in vision. Objective - Vital Signs Vital signs: Vital Signs Temp 98.6 F 02/02/23 07:27 Pulse 80 02/02/23 07:27 Resp 18 02/02/23 07:27 BP 113/69 02/02/23 07:27 Pulse Ox 94 L 02/02/23 07:27 FiO2 Intake & Output 02/01/23 02/02/23 02/02/23 18:59 06:59 18:59 Output Total 500 Balance -500 Weight 54.431 kg 54.431 kg Output: Urine 500 Other: Voiding Method Indwelling Catheter Indwelling Catheter - Exam Inspection: Lehman/catheter is present. Patient is lying in the right lateral recumbent position. Left foot does present with some nonpitting edema. Negative for any ecchymosis/erythema on the bilateral lower extremities. There is a scar present on the lumbar spine and midline that appears to be well-healed and intact at this time. Negative for any active drainage/fluctuance. There is a Mepilex dressing just above the buttocks. Sensation: Sensation is equal, symmetric, bilaterally throughout the upper and lower extremities Palpation: Exam difficult to perform/assess due to patient mental state. Range of motion: Patient is able to raise bilateral upper extremities on exam. Patient does have full range of motion in bilateral elbows and wrists in flexion/extension. Patient is able to wiggle fingers and hands bilaterally. There is limited range of motion in bilateral lower extremities in hip flexion/extension and knee flexion/extension due to patient's mental state. Patient is able to wiggle toes in bilateral lower extremities. Dorsi/plantar flexion is limited in the left ankle. Motor: 4/5 in all major motor groups in bilateral upper extremities. 4-/5 mail officer strength bilaterally. 4-/5 in resisted bilateral hip and knee flexion/extension bilaterally, ankle dorsiflexion/plantarflexion. Neurovascular status: Radial pulses intact bilaterally. Cap refill under 3 se conds in digits of the upper extremities Special tests: Negative Homans bilaterally. Negative clonus bilaterally. Negative Grayson bilaterally - Labs CBC & Chem 7: 02/02/23 05:40 02/02/23 05:40 Labs: Abnormal Lab Results - Last 24 Hours (Table) 02/01/23 02/01/23 02/01/23 Range/Units 09:29 09:29 16:13 WBC (4.50-10.00) X 10*3/uL RBC (4.10-5.20) X 10*6/uL Hgb (12.0-15.0) g/dL Hct (37.2-46.3) % MCH (27.0-32.0) pg MCHC (32.0-37.0) g/dL RDW (11.5-14.5) % Plt Count (140-440) X 10*3/uL Neutrophils # (1.80-7.70) X 10*3/uL BUN (9.0-27.0) mg/dL Creatinine (0.6-1.5) mg/dL BUN/Creatinine Ratio (12.00-20.00) Ratio Procalcitonin 0.18 H (0.02-0.09) ng/mL Urine Appearance Turbid H Cloudy H (Clear) Urine Protein Trace H 1+ H (Negative) Urine Ketones Trace H (Negative) Urine Blood Trace H Large H (Negative) Urine Nitrite Positive H (Negative) Ur Leukocyte Esterase Large H Large H (Negative) Urine RBC 16 H >182 H (0-5) /hpf Urine WBC 129 H 113 H (0-5) /hpf Urine WBC Clumps Few H (None) /hpf Triple Phos Crystals Rare H (None) /hpf Urine Bacteria Occasional H (None) /hpf Urine Mucus Many H Occasional H (None) /hpf 02/02/23 02/02/23 Range/Units 05:40 05:40 WBC 11.56 H (4.50-10.00) X 10*3/uL RBC 3.67 L (4.10-5.20) X 10*6/uL Hgb 9.5 L (12.0-15.0) g/dL Hct 32.1 L (37.2-46.3) % MCH 25.9 L (27.0-32.0) pg MCHC 29.6 L (32.0-37.0) g/dL RDW 16.4 H (11.5-14.5) % Plt Count 659 H (140-440) X 10*3/uL Neutrophils # 8.61 H (1.80-7.70) X 10*3/uL BUN 5.1 L (9.0-27.0) mg/dL Creatinine 0.5 L (0.6-1.5) mg/dL BUN/Creatinine Ratio 10.20 L (12.00-20.00) Ratio Procalcitonin (0.02-0.09) ng/mL Urine Appearance (Clear) Urine Protein (Negative) Urine Ketones (Negative) Urine Blood (Negative) Urine Nitrite (Negative) Ur Leukocyte Esterase (Negative) Urine RBC (0-5) /hpf Urine WBC (0-5) /hpf Urine WBC Clumps (None) /hpf Triple Phos Crystals (None) /hpf Urine Bacteria (None) /hpf Urine Mucus (None) /hpf Assessment and Plan Assessment: 1. Low back pain; sacral wound; history of L4-L5 and L5-S1 posterior lateral interbody fusion 2. Altered mental status; dementia; chronic UTI Plan: 1. Low back pain; sacral wound; history of L4-L5 and L5-S1 posterior lateral interbody fusion - incision on lumbar spine at midline appears to be well-healed at this time. Mepilex dressing currently on wound on sacrum. At this time we are not recommending any emergent/urgent orthopedic surgical intervention. We are not recommending any CT scans of the lumbar spine at this time. We recommend conservative measures at this time with pain medication as needed. We will continue to be available as needed. Orthopedics is signing off at this time. Please do not hesitate to contact us for any further questions. 2. Appreciate medical and ID management 3. Pain management - tylenol; norco; gabapentin 4. DVT rcs- aspirin; lovenox 5. PT/OT recs 6. Encourage incentive spirometer use Time with Patient: Less than 30
--- NOTE | 2023-02-02 12:37 | P.PN ---
Subjective Progress Note Date: 02/02/23 Hospital Course: 62-year-old female history of recent lumbar decompression and fusion on 10/03, sacral decubitus ulcer, dementia, mood disorder, psychiatric disorder, hypothyroidism, dyslipidemia presenting with acute on chronic metabolic encephalopathy. In the ED, temperature was 99, pulse 79, respiratory rate 18, blood pressure 95/79, saturating at 99% on room air. Laboratory workup showed WBC 8.2, hemoglobin 10.3, platelets 651, potassium 5.3, hemolyzed, bicarbonate 34, creatinine 0.5., Turbid urine with positive nitrites and positive leukocyte esterase, respiratory viral panel was negative. EKG shows normal sinus rhythm. Chest x-ray shows no acute process, possible right mid lung pulmonary nodule. Head CT did not show any acute process. Patient being admitted for acute metabolic encephalopathy, likely in the setting of urinary tract infection. Patient currently on IV cefepime, appears to be at her baseline. Orthospine consulted. ID consulted. Family considering possible comfort care, palliative care consulted. Subjective: Patient seen and examined at bedside. No acute events overnight. Denies any chest pain, shortness of breath, abdominal pain, nausea, vomiting, diarrhea, constipation, or urinary complaints. She does have a Lehman catheter in place. Pertinent positives and negatives as discussed above, a complete review of systems was performed and all other systems are negative. Vitals Signs Reviewed. Vital signs reviewed General: nontoxic, no distress, chronically ill-appearing Derm: warm, dry, unable to observe sacral wound Head: atraumatic, normocephalic, symmetric Eyes: EOMI, no lid lag, anicteric sclera, pupils equal round reactive to light ENT: Nose and ears atraumatic Neck: No thyromegaly, supple Mouth: no lip lesion, mucus membranes moist Cardiovascular: S1S2 reg, no murmur, no edema Lungs: clear to auscultation bilateral, no rhonchi, no rales, no wheeze, no accessory muscle use Abdominal: soft, nontender to palpation, no guarding, no appreciable organomegaly Ext: no gross muscle atrophy Neuro: CN II-XII grossly intact Psych: Alert, oriented 1 Data Reviewed Today: Pertinent Labs: WBC 11.56, hemoglobin 9.5, platelets 659, sodium 143, creatinine 0.5 Blood cultures negative growth to date Assessment and Plan: Active: Acute on chronic metabolic encephalopathy Possible urinary tract infection, present on admission Chronic urinary retention, Lehman catheter present on admission Sacral decubitus ulcer present on admission Debility/weakness Recent lumbar decompression -Mental status might be at her baseline given her history of dementia, no longer agitated or aggressive -Urine culture ordered -Blood cultures negative growth to date -Brother considering possible comfort care measures, palliative care has been consulted -Currently on IV cefepime 2 g every 8 hours -ID following -Orthopedic spine reviewed: No surgical interventions at the moment, signed off -Wound care following Chronic: Dementia Mood disorder Psychiatric disorder Hypothyroidism Dyslipidemia DVT ppx: Lovenox Code status: DNR/DNI Anticipated discharge place: Likely back to nursing facility Anticipated discharge time: Pending Clinical course Objective - Vital Signs Vital signs: Vital Signs Temp 98.6 F 02/02/23 07:27 Pulse 80 02/02/23 07:27 Resp 18 02/02/23 07:27 BP 113/69 02/02/23 07:27 Pulse Ox 94 L 02/02/23 07:27 FiO2 Intake & Output 02/01/23 02/02/23 02/02/23 18:59 06:59 18:59 Output Total 500 Balance -500 Weight 54.431 kg 54.431 kg Output: Urine 500 Other: Voiding Method Indwelling Catheter Indwelling Catheter - Labs CBC & Chem 7: 02/02/23 05:40 02/02/23 05:40 Labs: Abnormal Lab Results - Last 24 Hours (Table) 02/01/23 02/01/23 02/02/23 Range/Units 09:29 16:13 05:40 WBC 11.56 H (4.50-10.00) X 10*3/uL RBC 3.67 L (4.10-5.20) X 10*6/uL Hgb 9.5 L (12.0-15.0) g/dL Hct 32.1 L (37.2-46.3) % MCH 25.9 L (27.0-32.0) pg MCHC 29.6 L (32.0-37.0) g/dL RDW 16.4 H (11.5-14.5) % Plt Count 659 H (140-440) X 10*3/uL Neutrophils # 8.61 H (1.80-7.70) X 10*3/uL BUN (9.0-27.0) mg/dL Creatinine (0.6-1.5) mg/dL BUN/Creatinine Ratio (12.00-20.00) Ratio Procalcitonin 0.18 H (0.02-0.09) ng/mL Urine Appearance Cloudy H (Clear) Urine Protein 1+ H (Negative) Urine Ketones Trace H (Negative) Urine Blood Large H (Negative) Ur Leukocyte Esterase Large H (Negative) Urine RBC >182 H (0-5) /hpf Urine WBC 113 H (0-5) /hpf Urine Mucus Occasional H (None) /hpf 02/02/23 Range/Units 05:40 WBC (4.50-10.00) X 10*3/uL RBC (4.10-5.20) X 10*6/uL Hgb (12.0-15.0) g/dL Hct (37.2-46.3) % MCH (27.0-32.0) pg MCHC (32.0-37.0) g/dL RDW (11.5-14.5) % Plt Count (140-440) X 10*3/uL Neutrophils # (1.80-7.70) X 10*3/uL BUN 5.1 L (9.0-27.0) mg/dL Creatinine 0.5 L (0.6-1.5) mg/dL BUN/Creatinine Ratio 10.20 L (12.00-20.00) Ratio Procalcitonin (0.02-0.09) ng/mL Urine Appearance (Clear) Urine Protein (Negative) Urine Ketones (Negative) Urine Blood (Negative) Ur Leukocyte Esterase (Negative) Urine RBC (0-5) /hpf Urine WBC (0-5) /hpf Urine Mucus (None) /hpf Microbiology - Last 24 Hours (Table) 02/01/23 09:29 Blood Culture - Preliminary Blood No Growth after 24 hours 02/01/23 09:29 Blood Culture - Preliminary Blood No Growth after 24 hours
[2023-02-02 13:16] VITALS: BMI 20.5
[2023-02-02] MEDS: ALPRAZolam 0.25 MG TAB PO PRN (14:06)
--- NOTE | 2023-02-02 15:31 | P.PN ---
Progress Note - Text Progress Note Date: 02/02/23 The patient is resting in bed. She is only able to answer some questions, and only with one word answers. She has a history of Dementia. Attempted to reach her legal guardian, Artur. Left voice mail with my phone number. Awaiting call back. Magi Steele [facility] [id number] Email: [email or web address]
--- NOTE | 2023-02-02 16:32 | P.PN ---
Subjective Progress Note Date: 02/02/23 Principal diagnosis: UTI and sacral pressure ulcer Patient is a 62-year-old female with a past medical history significant for lumbar decompression and fusion on October 03, 2023 since then the patient has been at the local retirement patient also have a history of d yslipidemia and dementia and chronic metabolic encephalopathy did have a indwelling Lehman catheter, patient had been sent to the ER for evaluation of fever and mental status changes On today's evaluation and that is 02/02/2023, the patient is afebrile the patient is breathing comfortably on room air, the patient is more, per the nursing staff no vomiting or diarrhea has been reported patient herself is not a very good historian Objective - Vital Signs Vital signs: Vital Signs Temp 98.4 F 02/02/23 12:32 Pulse 83 02/02/23 12:32 Resp 16 02/02/23 12:32 BP 99/61 02/02/23 12:32 Pulse Ox 96 02/02/23 12:32 FiO2 Intake & Output 02/01/23 02/02/23 02/02/23 18:59 06:59 18:59 Output Total 500 Balance -500 Weight 54.431 kg 54.431 kg 54.431 kg Output: Urine 500 Other: Voiding Method Indwelling Catheter Indwelling Catheter - Exam GENERAL DESCRIPTION: Middle-aged female lying in bed in no distress RESPIRATORY SYSTEM: Unlabored breathing , decreased breath sounds at bases HEART: S1 S2 regular rate and rhythm , ABDOMEN: Soft , no tenderness Stage III sacral pressure ulcer with no cellulitis - Labs CBC & Chem 7: 02/02/23 05:40 02/02/23 05:40 Labs: Abnormal Lab Results - Last 24 Hours (Table) 02/01/23 02/01/23 02/02/23 Range/Units 09:29 16:13 05:40 WBC 11.56 H (4.50-10.00) X 10*3/uL RBC 3.67 L (4.10-5.20) X 10*6/uL Hgb 9.5 L (12.0-15.0) g/dL Hct 32.1 L (37.2-46.3) % MCH 25.9 L (27.0-32.0) pg MCHC 29.6 L (32.0-37.0) g/dL RDW 16.4 H (11.5-14.5) % Plt Count 659 H (140-440) X 10*3/uL Neutrophils # 8.61 H (1.80-7.70) X 10*3/uL BUN (9.0-27.0) mg/dL Creatinine (0.6-1.5) mg/dL BUN/Creatinine Ratio (12.00-20.00) Ratio Procalcitonin 0.18 H (0.02-0.09) ng/mL Urine Appearance Cloudy H (Clear) Urine Protein 1+ H (Negative) Urine Ketones Trace H (Negative) Urine Blood Large H (Negative) Ur Leukocyte Esterase Large H (Negative) Urine RBC >182 H (0-5) /hpf Urine WBC 113 H (0-5) /hpf Urine Mucus Occasional H (None) /hpf 02/02/23 Range/Units 05:40 WBC (4.50-10.00) X 10*3/uL RBC (4.10-5.20) X 10*6/uL Hgb (12.0-15.0) g/dL Hct (37.2-46.3) % MCH (27.0-32.0) pg MCHC (32.0-37.0) g/dL RDW (11.5-14.5) % Plt Count (140-440) X 10*3/uL Neutrophils # (1.80-7.70) X 10*3/uL BUN 5.1 L (9.0-27.0) mg/dL Creatinine 0.5 L (0.6-1.5) mg/dL BUN/Creatinine Ratio 10.20 L (12.00-20.00) Ratio Procalcitonin (0.02-0.09) ng/mL Urine Appearance (Clear) Urine Protein (Negative) Urine Ketones (Negative) Urine Blood (Negative) Ur Leukocyte Esterase (Negative) Urine RBC (0-5) /hpf Urine WBC (0-5) /hpf Urine Mucus (None) /hpf Microbiology - Last 24 Hours (Table) 02/01/23 09:29 Blood Culture - Preliminary Blood No Growth after 24 hours 02/01/23 09:29 Blood Culture - Preliminary Blood No Growth after 24 hours Assessment and Plan (1) UTI (urinary tract infection) Current Visit: Yes Status: Acute Code(s): N39.0 - URINARY TRACT INFECTION, SITE NOT SPECIFIED SNOMED Code(s): 89310462 Plan: 1patient was in the hospital mental status changes which is likely multifactorial in this patient with a chronic unit Lehman cath significantly positive UA likely component of catheter associated UTI as the patient currently do not have any other obvious focus of infection chest x-ray was clear abdominal soft on clinical examination patient lumbar spine incision looks clean without evidence of any cellulitis 2-patient to continue with cefepime 2 g every 8 hours while waiting for the culture to finalize Time with Patient: Less than 30
[2023-02-02] MEDS: ATORVASTATIN 20 MG TAB PO SCH (21:22)
[2023-02-02] MEDS: CITALOPRAM HYDROBROMIDE 20 MG TAB PO SCH (21:22)
[2023-02-03] MEDS: SODIUM CHLORIDE 0.9% 1,000 ML IV SCH ×2 (03:55→17:50)
[2023-02-03] MEDS: LEVOTHYROXINE 25 MCG TAB PO SCH (06:28)
[2023-02-03] MEDS: GABAPENTIN 300 MG CAP PO SCH ×3 (06:28→22:07)
[2023-02-03] MEDS: CEFEPIME 2 GM in SODIUM CHLORIDE 0.9% 100 ML IVPB SCH ×3 (07:27→23:26)
[2023-02-03] MEDS: CYANOCOBALAMIN 500 MCG TAB PO SCH (07:30)
[2023-02-03] MEDS: FERROUS SULFATE 325 MG TAB PO SCH (07:31)
[2023-02-03] MEDS: ASPIRIN 81 MG PO SCH (07:31)
[2023-02-03] MEDS: DIVALPROEX SPRINKLE 125 MG CAP.SPRINK PO SCH ×2 (07:31→22:07)
[2023-02-03] MEDS: SIMETHICONE 80 MG CHEWABLE PO SCH (07:31)
[2023-02-03] MEDS: ENOXAPARIN 40 MG/0.4 ML SYRINGE SQ SCH (07:32)
[2023-02-03] MEDS: MULTIVITAMINS, THERA 1 EACH TAB PO SCH (07:32)
[2023-02-03] MEDS: polyethylene glycoL 3350 17 GM POWD.PACK PO SCH (07:32)
[2023-02-03] MEDS: SENNOSIDES 8.6 MG TAB PO SCH ×2 (07:32→22:07)
[2023-02-03] MEDS: CHOLECALCIFEROL 25 MCG (1000 IU) TABLET PO SCH (07:33)
[2023-02-03] MEDS: HYDROcodone/APAP 5-325MG 1 EACH TAB PO PRN ×3 (07:36→22:09)
--- NOTE | 2023-02-03 09:29 | P.PN ---
Progress Note - Text Progress Note Date: 02/03/23 Attempted to reach the patient's brother, Artur, who is her legal guardian. Left voice mail with call back number. Awaiting call back. Magi Steele [facility] Palliative Care/Urology [facility] [phone] Email: [email or web address]
[2023-02-03 10:26] LABS: Basophils # (A) 0.02 X 10*3/uL (0.00-0.10); Basophils % (A) 0.2 %; Eosinophils # (A) 0.27 X 10*3/uL (0.04-0.35); Eosinophils % (A) 3.1 %; HCT 27.7 % (37.2-46.3); HGB 8.2 g/dL (12.0-15.0); Immature Grans, Automated 0.2 %; Lymphocytes # (A) 1.73 X 10*3/uL (0.90-5.00); Lymphocytes % (A) 20.1 %; MCH 26.3 pg (27.0-32.0); MCHC 29.6 g/dL (32.0-37.0); MCV 88.8 fL (80.0-97.0); Mean Platelet Volume 9.6 fL (9.5-12.2); Monocytes # (A) 0.68 X 10*3/uL (0.20-1.00); Monocytes % (A) 7.9 %; NRBC Per 100 WBC 0 /100 WBCS (0.0-0.0); Neutrophils # (A) 5.87 X 10*3/uL (1.80-7.70); Neutrophils % (A) 68.5 %; Platelet Count 515 X 10*3/uL (140-440); RBC 3.12 X 10*6/uL (4.10-5.20); RDW 16.9 % (11.5-14.5); WBC 8.59 X 10*3/uL (4.50-10.00)
--- NOTE | 2023-02-03 10:54 | P.CONS ---
History of Present Illness - Reason for Consult Consult date: 02/03/23 Goals of care Requesting physician: Elba Celestin - Chief Complaint AMS - History of Present Illness The patient is a 62-year-old female with a history significant for dementia, lumbar stenosis, and sacral wound. She is a resident of [facility]. She presented to the emergency department on 02/01/23 for a decrease in her mentation and hypotension. She had a recent lumbar decompression and fusion on 10/03/22. Head CT did not show any acute process. CXR shows no acute cardiopulmonary process. Blood cultures NGTD. UA positive nitrate, positive leukocyte esterase, and 129 WBC. Urine culture pending. The patient is currently on Cefepime. Review of Systems ROS unobtainable: due to mental status Past Medical History Past Medical History: Dementia, Memory Impairment Additional Past Medical History / Comment(s): Dementia History of Any Multi-Drug Resistant Organisms: None Reported Past Surgical History: No Surgical Hx Reported Additional Past Surgical History / Comment(s): tooth extraction Past Anesthesia/Blood Transfusion Reactions: No Reported Reaction Past Psychological History: No Psychological Hx Reported Additional Psychological History / Comment(s): severe depression Smoking Status: Never smoker Past Alcohol Use History: None Reported Past Drug Use History: None Reported - Past Family History Father Family Medical History: Unable to Obtain Medications and Allergies Home Medications Medication Instructions Recorded Confirmed Type Cholecalciferol [Vitamin D3 (25 25 mcg PO DAILY@0900 09/03/22 02/01/23 History Mcg = 1000 Iu)] Cyanocobalamin (Vitamin B-12) 1,000 mcg PO DAILY@0900 09/03/22 02/01/23 History [Vitamin B-12] Simethicone [Gas-X] 125 mg PO DAILY@0900 09/03/22 02/01/23 History Simvastatin 40 mg PO HS@209909/03/22 02/01/23 History polyethylene glycoL 3350 [Miralax] 17 gm PO DAILY@0900 09/14/22 02/01/23 History Levothyroxine Sodium [Synthroid] 25 mcg PO DAILY@0600 09/28/22 02/01/23 History Sennosides [Senokot] 8.6 mg PO BID@0900,2100 09/28/22 02/01/23 History Acetaminophen Tab [Tylenol] 650 mg PO Q6HR PRN tab 10/06/22 02/01/23 Rx Cyclobenzaprine [Flexeril] 5 mg PO TID PRN tab 10/06/22 02/01/23 Rx Alendronate Sodium [Fosamax] 70 mg PO WE@0600 01/05/23 02/01/23 History Aspirin 81 mg PO DAILY@0900 01/05/23 02/01/23 History Divalproex Sodium [Depakote] 125 mg PO BID@0900,2100 01/05/23 02/01/23 History Lactose-Reduced Food [Ensure Plus] 237 ml PO BID@0900,1200 01/05/23 02/01/23 History Magnesium Hydroxide [Milk of 2,400 mg PO DAILY PRN 01/05/23 02/01/23 History Magnesia] Prostat Awc 30 ml PO BID@0900,2000 01/05/23 02/01/23 History ALPRAZolam [Xanax] 0.25 mg PO BID PRN #6 tab 01/11/23 02/01/23 Rx Gabapentin [Neurontin] 300 mg PO TID@0600,1400,2099 #9 cap 01/11/23 02/01/23 Rx Citalopram Hydrobromide [CeleXA] 20 mg PO HS 02/01/23 02/01/23 History Ferrous Sulfate [Feosol] 325 mg PO DAILY 02/01/23 02/01/23 History HYDROcodone/APAP 5-325MG [[place] 1 tab PO Q8H PRN 02/01/23 02/01/23 History 5-325] Multivitamins, Thera [Multivitamin 1 tab PO DAILY 02/01/23 02/01/23 History (formulary)] Allergies Allergy/AdvReac Type Severity Reaction Status Date / Time Influenza Virus Vaccines Allergy Unknown Verified 02/01/23 09:15 Sulfa (Sulfonamide Allergy Rash/Hives Verified 02/01/23 09:15 Antibiotics) Physical Exam Vitals: Vital Signs Temp Pulse Resp BP Pulse Ox 02/03/23 07:00 97.7 F 77 16 100/62 95 02/03/23 01:23 97.7 F 84 15 106/62 96 02/02/23 20:10 15 02/02/23 18:00 98 F 93 17 106/68 97 02/02/23 12:32 98.4 F 83 16 99/61 96 Intake and Output 02/02/23 02/03/23 02/03/23 22:59 06:59 14:59 Intake Total 240 Output Total 400 400 Balance -400 -400 240 Intake: Oral 240 Output: Urine 400 400 Other: Voiding Method Indwelling Catheter # Bowel Movements 1 General: Non-toxic, chronicially ill appearing. No acute distress. HEENT: Head is atraumatic, normocephalic. Lungs: Respirations even and nonlabored. On RA Abdomen/GI: Soft, nondistended, nontender. : Lehman catheter draining clear yellow urine Musculoskeletal/ Extremities: No gross atrophy. + generalized weakness Skin: Warm and dry Neurologic: Awake, alert and oriented times 1 Psychiatric: Agitated Results CBC & Chem 7: 02/02/23 05:40 02/02/23 05:40 Labs: Microbiology - Last 24 Hours (Table) 02/02/23 12:40 Urine Culture - Preliminary Urine,Catheterized 02/01/23 09:29 Blood Culture - Preliminary Blood No Growth after 24 hours 02/01/23 09:29 Blood Culture - Preliminary Blood No Growth after 24 hours Abdominal x-ray: report reviewed CT Scan - head: report reviewed Assessment and Plan Assessment: Summary/Goals - Spoke with the patient's brother, Artur, who is her legal guardian. The patient has had a lumbar decompression and fusion last September. She is now bed bound and has lost bladder and bowel control. As a result, she has three stage II pressure ulcers, a chronic Lehman catheter, and frequent UTI's. Artur states that he has noticed a progressive decline in the patients cognitive ability over the last several months. She no longer is able to communicate effectively and voice her needs. She used to enjoy activities such as watching TV, drawing/coloring, and listening to music. She has lost interest in all of these activities. Artur also believes that she is in severe pain due to her back issues, and pressure ulcers. He reports that her pain is not being well managed because she is often too hypotensive to receive pain medication. The patient is scheduled for a MRI next month for possible cervical spine stenosis. Artur does not believe she would benefit from another back surgery. He would like to see his sister comfortable. He does not think she has a very god quality of life. Information regarding hospice philosophies and services provided. He would like a chance to talk to his siblings and try to get them involved with a hospice informational meeting. A hospice consult has been placed. Plan: Recommendations - Hospice informational meeting Advanced Directives - None on file Code Status - DNR Thank you for this consultation Magi Steele [facility] [id number] Email: [email or web address]
--- NOTE | 2023-02-03 12:44 | P.PN ---
Subjective Progress Note Date: 02/03/23 Hospital Course: 62-year-old female history of recent lumbar decompression and fusion on 10/03, sacral decubitus ulcer, dementia, mood disorder, psychiatric disorder, hypothyroidism, dyslipidemia presenting with acute on chronic metabolic encephalopathy. In the ED, temperature was 99, pulse 79, respiratory rate 18, blood pressure 95/79, saturating at 99% on room air. Laboratory workup showed WBC 8.2, hemoglobin 10.3, platelets 651, potassium 5.3, hemolyzed, bicarbonate 34, creatinine 0.5., Turbid urine with positive nitrites and positive leukocyte esterase, respiratory viral panel was negative. EKG shows normal sinus rhythm. Chest x-ray shows no acute process, possible right mid lung pulmonary nodule. Head CT did not show any acute process. Patient being admitted for acute metabolic encephalopathy, likely in the setting of urinary tract infection. Patient currently on IV cefepime, appears to be at her baseline. Orthospine consulted. ID consulted. Family considering possible comfort care, palliative care consulted. Hospice will be having conversation with family. Subjective: Patient seen and examined at bedside. No acute events overnight. Denies any chest pain, shortness of breath, abdominal pain, nausea, vomiting, diarrhea, constipation, or urinary complaints. She does have a Lehman catheter in place. Pertinent positives and negatives as discussed above, a complete review of systems was performed and all other systems are negative. Vitals Signs Reviewed. Vital signs reviewed General: nontoxic, no distress, chronically ill-appearing Derm: warm, dry, unable to observe sacral wound Head: atraumatic, normocephalic, symmetric Eyes: EOMI, no lid lag, anicteric sclera, pupils equal round reactive to light ENT: Nose and ears atraumatic Neck: No thyromegaly, supple Mouth: no lip lesion, mucus membranes moist Cardiovascular: S1S2 reg, no murmur, no edema Lungs: clear to auscultation bilateral, no rhonchi, no rales, no wheeze, no accessory muscle use Abdominal: soft, nontender to palpation, no guarding, no appreciable organomegaly Ext: no gross muscle atrophy Neuro: CN II-XII grossly intact Psych: Alert, oriented 1 Data Reviewed Today: Pertinent Labs: WBC 8.59, hemoglobin 8.2, platelet 515 Blood cultures negative growth to date The cultures pending Assessment and Plan: Hospice care having a meeting with family to discuss further goals of care. Patient switched to inpatient from observation due to his need for IV antibiotics. Active: Acute on chronic metabolic encephalopathy Urinary tract infection, present on admission Chronic urinary retention, Lehman catheter present on admission Sacral decubitus ulcer present on admission Debility/weakness Recent lumbar decompression Acute on chronic anemia -Mental status might be at her baseline given her history of dementia, no longer agitated or aggressive -Urine culture pending -Blood cultures negative growth to date -Brother considering possible hospice care, palliative care note reviewed, family meeting with hospice care today -Currently on IV cefepime 2 g every 8 hours -ID following -Orthopedic spine following No surgical interventions at the moment, signed off -Wound care following -No active bleeding Chronic: Dementia Mood disorder Psychiatric disorder Hypothyroidism Dyslipidemia DVT ppx: Lovenox Code status: DNR/DNI Anticipated discharge place: Likely back to nursing facility Anticipated discharge time: Pending Clinical course Objective - Vital Signs Vital signs: Vital Signs Temp 98.4 F 02/03/23 12:03 Pulse 85 02/03/23 12:03 Resp 16 02/03/23 12:03 BP 91/51 02/03/23 12:03 Pulse Ox 99 02/03/23 12:03 FiO2 Intake & Output 02/02/23 02/03/23 02/03/23 18:59 06:59 18:59 Intake Total 240 Output Total 400 400 Balance -400 -400 240 Weight 54.431 kg Intake: Oral 240 Output: Urine 400 400 Other: Voiding Method Indwelling Catheter Indwelling Catheter # Bowel Movements 1 - Labs CBC & Chem 7: 02/03/23 06:49 02/02/23 05:40 Labs: Abnormal Lab Results - Last 24 Hours (Table) 02/03/23 Range/Units 06:49 RBC 3.12 L (4.10-5.20) X 10*6/uL Hgb 8.2 L (12.0-15.0) g/dL Hct 27.7 L (37.2-46.3) % MCH 26.3 L (27.0-32.0) pg MCHC 29.6 L (32.0-37.0) g/dL RDW 16.9 H (11.5-14.5) % Plt Count 515 H (140-440) X 10*3/uL Microbiology - Last 24 Hours (Table) 02/01/23 09:29 Blood Culture - Preliminary Blood No Growth after 48 hours 02/01/23 09:29 Blood Culture - Preliminary Blood No Growth after 48 hours 02/02/23 12:40 Urine Culture - Preliminary Urine,Catheterized
[2023-02-03 13:53] LABS: African American GFR (CKD) 123.4 (60.0-200.0); Anion Gap 6.7 mmol/L (10.00-18.00); BUN/Creat Ratio 19.42 Ratio (12.00-20.00); Calcium 8.1 mg/dL (8.7-10.3); Carbon Dioxide 27.9 mmol/L (20.0-27.5); Non-African American GFR(CKD) 106.5 (60.0-200.0); Potassium 3.9 mmol/L (3.5-5.5)
[2023-02-03] MEDS: ALPRAZolam 0.25 MG TAB PO PRN (14:21)
--- NOTE | 2023-02-03 15:53 | P.PN ---
Subjective Progress Note Date: 02/03/23 Principal diagnosis: UTI and sacral pressure ulcer Patient is a 62-year-old female with a past medical history significant for lumbar decompression and fusion on October 03, 2023 since then [facility] patient also have a history of d yslipidemia and dementia and chronic metabolic encephalopathy did have a indwelling Lehman catheter, patient had been sent to the ER for evaluation of fever and mental status changes On today's evaluation and that is 02/03/2023, the patient remains to be afebrile the patient is breathing comfortably on room air, the patient is slightly sleepy today and did not answer the question no vomiting or diarrhea has been reported Objective - Vital Signs Vital signs: Vital Signs Temp 98.4 F 02/03/23 12:03 Pulse 85 02/03/23 12:03 Resp 16 02/03/23 12:03 BP 91/51 02/03/23 12:03 Pulse Ox 99 02/03/23 12:03 FiO2 Intake & Output 02/02/23 02/03/23 02/03/23 18:59 06:59 18:59 Intake Total 420 Output Total 400 400 Balance -400 -400 420 Weight 54.431 kg Intake: Oral 420 Output: Urine 400 400 Other: Voiding Method Indwelling Catheter Indwelling Catheter # Bowel Movements 1 - Exam GENERAL DESCRIPTION: Middle-aged female lying in bed in no distress RESPIRATORY SYSTEM: Unlabored breathing , decreased breath sounds at bases HEART: S1 S2 regular rate and rhythm , ABDOMEN: Soft , no tenderness Stage III sacral pressure ulcer with no cellulitis - Labs CBC & Chem 7: 02/03/23 06:49 02/03/23 06:49 Labs: Abnormal Lab Results - Last 24 Hours (Table) 02/03/23 02/03/23 Range/Units 06:49 06:49 RBC 3.12 L (4.10-5.20) X 10*6/uL Hgb 8.2 L (12.0-15.0) g/dL Hct 27.7 L (37.2-46.3) % MCH 26.3 L (27.0-32.0) pg MCHC 29.6 L (32.0-37.0) g/dL RDW 16.9 H (11.5-14.5) % Plt Count 515 H (140-440) X 10*3/uL Chloride 110 H (96-109) mmol/L Carbon Dioxide 27.9 H (20.0-27.5) mmol/L Anion Gap 6.70 L (10.00-18.00) mmol/L Creatinine 0.5 L (0.6-1.5) mg/dL Calcium 8.1 L (8.7-10.3) mg/dL Microbiology - Last 24 Hours (Table) 02/01/23 09:29 Blood Culture - Preliminary Blood No Growth after 48 hours 02/01/23 09:29 Blood Culture - Preliminary Blood No Growth after 48 hours 02/02/23 12:40 Urine Culture - Preliminary Urine,Catheterized Assessment and Plan (1) UTI (urinary tract infection) Current Visit: Yes Status: Acute Code(s): N39.0 - URINARY TRACT INFECTION, SITE NOT SPECIFIED SNOMED Code(s): 50153620 Plan: 1patient was in the hospital mental status changes which is likely multifactorial in this patient with a chronic unit Lehman cath significantly positive UA likely component of catheter associated UTI as the patient currently do not have any other obvious focus of infection chest x-ray was clear abdominal soft on clinical examination patient lumbar spine incision looks clean without evidence of any cellulitis 2-patient is afebrile white count has normalized, patient to continue with cefepime 2 g every 8 hours and monitor clinical course closely Time with Patient: Less than 30
[2023-02-03] MEDS: ATORVASTATIN 20 MG TAB PO SCH (22:08)
[2023-02-03] MEDS: CITALOPRAM HYDROBROMIDE 20 MG TAB PO SCH (22:08)
[2023-02-04] MEDS: LEVOTHYROXINE 25 MCG TAB PO SCH (06:29)
[2023-02-04] MEDS: GABAPENTIN 300 MG CAP PO SCH ×2 (06:29→13:20)
[2023-02-04] MEDS: SODIUM CHLORIDE 0.9% 1,000 ML IV SCH (06:30)
[2023-02-04 07:27] VITALS: RESP 16
[2023-02-04] MEDS: SENNOSIDES 8.6 MG TAB PO SCH (08:02)
[2023-02-04] MEDS: ENOXAPARIN 40 MG/0.4 ML SYRINGE SQ SCH (08:02)
[2023-02-04] MEDS: CEFEPIME 2 GM in SODIUM CHLORIDE 0.9% 100 ML IVPB SCH (08:02)
[2023-02-04] MEDS: polyethylene glycoL 3350 17 GM POWD.PACK PO SCH (08:02)
[2023-02-04] MEDS: ASPIRIN 81 MG PO SCH (08:02)
[2023-02-04] MEDS: MULTIVITAMINS, THERA 1 EACH TAB PO SCH (08:02)
[2023-02-04] MEDS: FERROUS SULFATE 325 MG TAB PO SCH (08:02)
[2023-02-04] MEDS: HYDROcodone/APAP 5-325MG 1 EACH TAB PO PRN (08:03)
[2023-02-04] MEDS: CYANOCOBALAMIN 500 MCG TAB PO SCH (08:03)
[2023-02-04] MEDS: ALPRAZolam 0.25 MG TAB PO PRN (08:03)
[2023-02-04] MEDS: CHOLECALCIFEROL 25 MCG (1000 IU) TABLET PO SCH (08:03)
[2023-02-04] MEDS: DIVALPROEX SPRINKLE 125 MG CAP.SPRINK PO SCH (08:04)
[2023-02-04] MEDS: SIMETHICONE 80 MG CHEWABLE PO SCH (08:04)
[2023-02-04 10:48] LABS: Basophils # (A) 0.03 X 10*3/uL (0.00-0.10); Basophils % (A) 0.4 %; Eosinophils # (A) 0.27 X 10*3/uL (0.04-0.35); HGB 8.3 g/dL (12.0-15.0); Immature Grans, Automated 0.4 %; Lymphocytes # (A) 1.63 X 10*3/uL (0.90-5.00); Lymphocytes % (A) 24.2 %; MCH 26.1 pg (27.0-32.0); MCHC 29.6 g/dL (32.0-37.0); MCV 88.1 fL (80.0-97.0); Mean Platelet Volume 9.7 fL (9.5-12.2); Monocytes # (A) 0.46 X 10*3/uL (0.20-1.00); Monocytes % (A) 6.8 %; NRBC Per 100 WBC 0 /100 WBCS (0.0-0.0); Neutrophils # (A) 4.31 X 10*3/uL (1.80-7.70); Neutrophils % (A) 64.2 %; Platelet Count 516 X 10*3/uL (140-440); RBC 3.18 X 10*6/uL (4.10-5.20); WBC 6.73 X 10*3/uL (4.50-10.00)
[2023-02-04 11:06] LABS: African American GFR (CKD) 120.4 (60.0-200.0); Anion Gap 8.1 mmol/L (10.00-18.00); BUN/Creat Ratio 23.29 Ratio (12.00-20.00); Blood Urea Nitrogen 11.6 mg/dL (9.0-27.0); Calcium 8.4 mg/dL (8.7-10.3); Carbon Dioxide 27.9 mmol/L (20.0-27.5); Non-African American GFR(CKD) 103.9 (60.0-200.0); Potassium 4.2 mmol/L (3.5-5.5)
--- NOTE | 2023-02-04 11:44 | P.PN ---
Subjective Progress Note Date: 02/04/23 Hospital Course: 62-year-old female history of recent lumbar decompression and fusion on 10/03, sacral decubitus ulcer, dementia, mood disorder, psychiatric disorder, hypothyroidism, dyslipidemia presenting with acute on chronic metabolic encephalopathy. In the ED, temperature was 99, pulse 79, respiratory rate 18, blood pressure 95/79, saturating at 99% on room air. Laboratory workup showed WBC 8.2, hemoglobin 10.3, platelets 651, potassium 5.3, hemolyzed, bicarbonate 34, creatinine 0.5., Turbid urine with positive nitrites and positive leukocyte esterase, respiratory viral panel was negative. EKG shows normal sinus rhythm. Chest x-ray shows no acute process, possible right mid lung pulmonary nodule. Head CT did not show any acute process. Patient being admitted for acute metabolic encephalopathy, likely in the setting of urinary tract infection. Patient currently on IV cefepime, appears to be at her baseline. Orthospine consulted. ID consulted. Family considering possible comfort care, palliative care consulted. Hospice having conversation with family. Subjective: Patient seen and examined at bedside. No acute events overnight. Denies any chest pain, shortness of breath, abdominal pain, nausea, vomiting, diarrhea, constipation, or urinary complaints. She does have a Lehman catheter in place. Pertinent positives and negatives as discussed above, a complete review of systems was performed and all other systems are negative. Vitals Signs Reviewed. Vital signs reviewed General: nontoxic, no distress, chronically ill-appearing Derm: warm, dry, unable to observe sacral wound Head: atraumatic, normocephalic, symmetric Eyes: EOMI, no lid lag, anicteric sclera, pupils equal round reactive to light ENT: Nose and ears atraumatic Neck: No thyromegaly, supple Mouth: no lip lesion, mucus membranes moist Cardiovascular: S1S2 reg, no murmur, no edema Lungs: clear to auscultation bilateral, no rhonchi, no rales, no wheeze, no accessory muscle use Abdominal: soft, nontender to palpation, no guarding, no appreciable organomegaly Ext: no gross muscle atrophy Neuro: CN II-XII grossly intact Psych: Alert, oriented 1 Data Reviewed Today: Pertinent Labs: WBC 6.73, hemoglobin 8.3, platelets 516, sodium 144, creatinine 0.5 Blood cultures negative growth to date Urine Cultures no growth Assessment and Plan: Active: Acute on chronic metabolic encephalopathy Urinary tract infection, present on admission Chronic urinary retention, Lehman catheter present on admission Sacral decubitus ulcer present on admission Debility/weakness Recent lumbar decompression Acute on chronic anemia -Mental status might be at her baseline given her history of dementia, no longer agitated or aggressive -Urine culture pending -Blood cultures negative growth to date -Brother considering possible hospice care, palliative care note reviewed, family dynamic hospice care -Currently on IV cefepime 2 g every 8 hours -ID following -Orthopedic spine following, No surgical interventions at the moment, signed off -Wound care following -No active bleeding Chronic: Dementia Mood disorder Psychiatric disorder Hypothyroidism Dyslipidemia DVT ppx: Lovenox Code status: DNR/DNI Anticipated discharge place: Likely back to nursing facility Anticipated discharge time: Pending Clinical course Objective - Vital Signs Vital signs: Vital Signs Temp 98.5 F 02/04/23 06:56 Pulse 87 02/04/23 06:56 Resp 16 02/04/23 06:56 BP 114/66 02/04/23 06:56 Pulse Ox 94 L 02/04/23 06:56 FiO2 Intake & Output 02/03/23 02/04/23 02/04/23 18:59 06:59 18:59 Intake Total 420 900 Output Total 1050 1250 Balance -630 -350 Intake: Intake, IV Titration 900 Amount Cefepime 2 gm In Sodium 100 Chloride 0.9% 100 ml @ 25 mls/hr IVPB Q8HR [facility] Rx# :[id number] Sodium Chloride 0.9% 1, 800 000 ml @ 75 mls/hr IV . [id number] [facility] Rx#:[id number] Oral 420 Output: Urine 1050 1250 Other: Voiding Method Indwelling Catheter Indwelling Catheter # Bowel Movements 1 - Labs CBC & Chem 7: 02/04/23 06:32 02/04/23 06:32 Labs: Abnormal Lab Results - Last 24 Hours (Table) 02/03/23 02/04/23 02/04/23 Range/Units 06:49 06:32 06:32 RBC 3.18 L (4.10-5.20) X 10*6/uL Hgb 8.3 L (12.0-15.0) g/dL Hct 28.0 L (37.2-46.3) % MCH 26.1 L (27.0-32.0) pg MCHC 29.6 L (32.0-37.0) g/dL RDW 17.0 H (11.5-14.5) % Plt Count 516 H (140-440) X 10*3/uL Chloride 110 H (96-109) mmol/L Carbon Dioxide 27.9 H 27.9 H (20.0-27.5) mmol/L Anion Gap 6.70 L 8.10 L (10.00-18.00) mmol/L Creatinine 0.5 L 0.5 L (0.6-1.5) mg/dL BUN/Creatinine Ratio 23.29 H (12.00-20.00) Ratio Calcium 8.1 L 8.4 L (8.7-10.3) mg/dL Microbiology - Last 24 Hours (Table) 02/01/23 09:29 Blood Culture - Preliminary Blood No Growth after 72 hours 02/01/23 09:29 Blood Culture - Preliminary Blood No Growth after 72 hours 02/02/23 12:40 Urine Culture - Final Urine,Catheterized
[2023-02-04 12:00] VITALS: BP 102/61; PULSE 85; TEMP 98.3
[2023-02-04] MEDS ORDERED: HYDROcodone/APAP 5-325MG 1 EACH TAB PO STA (13:13)
--- NOTE | 2023-02-04 13:14 | P.PN ---
Subjective Progress Note Date: 02/04/23 Principal diagnosis: UTI and sacral pressure ulcer Patient is a 62-year-old female with a past medical history significant for lumbar decompression and fusion on October 03, 2023 since then the patient has been at the local [facility] patient also have a history of d yslipidemia and dementia and chronic metabolic encephalopathy did have a indwelling Lehman catheter, patient had been sent to the ER for evaluation of fever and mental status changes On today's evaluation and that is 02/04/2023, the patient continues to be afebrile the patient is breathing comfortably on room air, the patient is awake but did not answer the question no vomiting , diarrhea or any other changes has been reported by the nursing staff Objective - Vital Signs Vital signs: Vital Signs Temp 98.3 F 02/04/23 11:24 Pulse 85 02/04/23 11:24 Resp 16 02/04/23 11:24 BP 102/61 02/04/23 11:24 Pulse Ox 100 02/04/23 11:24 FiO2 Intake & Output 02/03/23 02/04/23 02/04/23 18:59 06:59 18:59 Intake Total 420 900 Output Total 1050 1250 Balance -630 -350 Intake: Intake, IV Titration 900 Amount Cefepime 2 gm In Sodium 100 Chloride 0.9% 100 ml @ 25 mls/hr IVPB Q8HR [facility] Rx# :[id number] Sodium Chloride 0.9% 1, 800 000 ml @ 75 mls/hr IV . [id number] [facility] Rx#:[id number] Oral 420 Output: Urine 1050 1250 Other: Voiding Method Indwelling Catheter Indwelling Catheter # Bowel Movements 1 - Exam GENERAL DESCRIPTION: Middle-aged female lying in bed in no distress RESPIRATORY SYSTEM: Unlabored breathing , decreased breath sounds at bases HEART: S1 S2 regular rate and rhythm , ABDOMEN: Soft , no tenderness Stage III sacral pressure ulcer with no cellulitis - Labs CBC & Chem 7: 02/04/23 06:32 02/04/23 06:32 Labs: Abnormal Lab Results - Last 24 Hours (Table) 02/03/23 02/04/23 02/04/23 Range/Units 06:49 06:32 06:32 RBC 3.18 L (4.10-5.20) X 10*6/uL Hgb 8.3 L (12.0-15.0) g/dL Hct 28.0 L (37.2-46.3) % MCH 26.1 L (27.0-32.0) pg MCHC 29.6 L (32.0-37.0) g/dL RDW 17.0 H (11.5-14.5) % Plt Count 516 H (140-440) X 10*3/uL Chloride 110 H (96-109) mmol/L Carbon Dioxide 27.9 H 27.9 H (20.0-27.5) mmol/L Anion Gap 6.70 L 8.10 L (10.00-18.00) mmol/L Creatinine 0.5 L 0.5 L (0.6-1.5) mg/dL BUN/Creatinine Ratio 23.29 H (12.00-20.00) Ratio Calcium 8.1 L 8.4 L (8.7-10.3) mg/dL Microbiology - Last 24 Hours (Table) 02/01/23 09:29 Blood Culture - Preliminary Blood No Growth after 72 hours 02/01/23 09:29 Blood Culture - Preliminary Blood No Growth after 72 hours 02/02/23 12:40 Urine Culture - Final Urine,Catheterized Assessment and Plan (1) UTI (urinary tract infection) Current Visit: Yes Status: Acute Code(s): N39.0 - URINARY TRACT INFECTION, SITE NOT SPECIFIED SNOMED Code(s): 79952813 Plan: 1patient was in the hospital mental status changes which is likely multifact orial in this patient with a chronic unit Lehman cath significantly positive UA likely component of catheter associated UTI as the patient currently do not have any other obvious focus of infection chest x-ray was clear abdominal soft on clinical examination patient lumbar spine incision looks clean without evidence of any cellulitis 2-patient is afebrile white count has normalized, patient culture have been negative so far to continue with cefepime 2 g every 8 hours and plan to finish therapy short course of oral Ceftin Time with Patient: Less than 30
--- NOTE | 2023-02-04 14:35 | P.DS ---
Providers Date of admission: 02/03/23 12:27 Expected date of discharge: 02/04/23 Attending physician: Syd Fregoso MD Consults: 02/01/23 12:07 Consult Physician Urgent Consulting Provider: Nico Kessler Consult Reason/Comments: lumbar back pain Do you want consulting provider notified?: Yes Consult Physician Urgent Consulting Provider: Chirs Pettit Consult Reason/Comments: uti, hypotension Do you want consulting provider notified?: Yes 02/01/23 12:13 Consult to Palliative Care Routine Consulting Provider: Magi Steele Consult Reason/Comments: goals of care Do you want consulting provider notified?: Already Contacted Primary care physician: Jairon Hallman MD Hospital Course: Discharge Diagnosis: Acute on chronic metabolic encephalopathy Urinary tract infection, present on admission Chronic urinary retention, Lehman catheter present on admission Sacral decubitus ulcer present on admission Debility/weakness Recent lumbar decompression Acute on chronic anemia Dementia Mood disorder Psychiatric disorder Hypothyroidism Dyslipidemia Hospital Course: 62-year-old female history of recent lumbar decompression and fusion on 10/03, sacral decubitus ulcer, dementia, mood disorder, psychiatric disorder, hypothyroidism, dyslipidemia presenting with acute on chronic metabolic encephalopathy. In the ED, temperature was 99, pulse 79, respiratory rate 18, blood pressure 95/79, saturating at 99% on room air. Laboratory workup showed WBC 8.2, hemoglobin 10.3, platelets 651, potassium 5.3, hemolyzed, bicarbonate 34, creatinine 0.5., Turbid urine with positive nitrites and positive leukocyte esterase, respiratory viral panel was negative. EKG shows normal sinus rhythm. Chest x-ray shows no acute process, possible right mid lung pulmonary nodule. Head CT did not show any acute process. Patient being admitted for acute metabolic encephalopathy, likely in the setting of urinary tract infection. Patient currently on IV cefepime, appears to be at her baseline. [facility] consulted. ID consulted. Palliative care consulted. Patient was transitioned to hospice care. Patient seen and examined at bedside. Vital signs reviewed and stable. General: nontoxic, no distress, chronically ill-appearing Derm: warm, dry, unable to observe sacral wound Head: atraumatic, normocephalic, symmetric Eyes: EOMI, no lid lag, anicteric sclera, pupils equal round reactive to light ENT: Nose and ears atraumatic Neck: No thyromegaly, supple Mouth: no lip lesion, mucus membranes moist Cardiovascular: S1S2 reg, no murmur, no edema Lungs: clear to auscultation bilateral, no rhonchi, no rales, no wheeze, no accessory muscle use Abdominal: soft, nontender to palpation, no guarding, no appreciable organomegaly Ext: no gross muscle atrophy Neuro: CN II-XII grossly intact Psych: Alert, oriented 1 A total of 33 minutes of time were spent preparing this complex discharge summary. Patient was discharged on 02/04/23 at 14:33. Patient Condition at Discharge: Stable Plan - Discharge Summary New Discharge Prescriptions: Continue Simethicone [Gas-X] 125 mg PO DAILY@0900 Sennosides [Senokot] 8.6 mg PO BID@0900,2100 Acetaminophen Tab [Tylenol] 650 mg PO Q6HR PRN tab PRN Reason: Mild Pain Or Fever > 100.5 Magnesium Hydroxide [Milk of Magnesia] 2,400 mg PO DAILY PRN PRN Reason: Constipation Citalopram Hydrobromide [CeleXA] 20 mg PO HS ALPRAZolam [Xanax] 0.25 mg PO BID PRN #6 tab PRN Reason: Anxiety polyethylene glycoL 3350 [Miralax] 17 gm PO DAILY@0900 Lactose-Reduced Food [Ensure Plus] 237 ml PO BID@0900,1200 Divalproex Sodium [Depakote] 125 mg PO BID@0900,2100 Gabapentin [Neurontin] 300 mg PO TID@0600,1400,2100 #9 cap Changed HYDROcodone/APAP 5-325MG [Hallock 5-325] 1 tab PO Q8H PRN #10 tab PRN Reason: Pain Discontinued Cholecalciferol [Vitamin D3 (25 Mcg = 1000 Iu)] 25 mcg PO DAILY@0900 Cyanocobalamin (Vitamin B-12) [Vitamin B-12] 1,000 mcg PO DAILY@0900 Aspirin 81 mg PO DAILY@0900 Alendronate Sodium [Fosamax] 70 mg PO WE@0600 Multivitamins, Thera [Multivitamin (formulary)] 1 tab PO DAILY Simvastatin 40 mg PO HS@2100 Levothyroxine Sodium [Synthroid] 25 mcg PO DAILY@0600 Cyclobenzaprine [Flexeril] 5 mg PO TID PRN tab PRN Reason: Muscle Spasm Prostat Awc 30 ml PO BID@0900,1999 Ferrous Sulfate [Feosol] 325 mg PO DAILY Discharge Medication List Simethicone [Gas-X] 125 mg PO DAILY@0900 09/03/22 [History] polyethylene glycoL 3350 [Miralax] 17 gm PO DAILY@0900 09/14/22 [History] Sennosides [Senokot] 8.6 mg PO BID@0900,2100 09/28/22 [History] Acetaminophen Tab [Tylenol] 650 mg PO Q6HR PRN tab 10/06/22 [Rx] Divalproex Sodium [Depakote] 125 mg PO BID@0900,2100 01/05/23 [History] Lactose-Reduced Food [Ensure Plus] 237 ml PO BID@0900,1200 01/05/23 [History] Magnesium Hydroxide [Milk of Magnesia] 2,400 mg PO DAILY PRN 01/05/23 [History] Citalopram Hydrobromide [CeleXA] 20 mg PO HS 02/01/23 [History] ALPRAZolam [Xanax] 0.25 mg PO BID PRN #6 tab 02/04/23 [Rx] Gabapentin [Neurontin] 300 mg PO TID@0600,1400,2100 #9 cap 02/04/23 [Rx] HYDROcodone/APAP 5-325MG [Hallock 5-325] 1 tab PO Q8H PRN #10 tab 02/04/23 [Rx] Follow up Appointment(s)/Referral(s): Dakota Tirado MD [STAFF PHYSICIAN] - 1-2 days [facility] [place], [NON-STAFF] - Patient Instructions/Handouts: Hospice Care (GEN) Discharge Disposition: TRANSFER TO SNF/ECF
== END 2023-02-04 16:12 | DRG 698 ==
LOC: EC 09:07 → 5NMEDONC 12:09 → OBSVTOIN 02-03 12:27
PROVIDERS: ADMIT Student in an Organized Health Care Education/Training Program; ATTEND Student in an Organized Health Care Education/Training Program
DX: T83.511A Infection and inflammatory reaction due to indwelling urethral catheter, initial encounter (principal); G93.41 Metabolic encephalopathy; R53.1 Weakness; I10 Essential (primary) hypertension; L89.152 Pressure ulcer of sacral region, stage 2; Z20.822 Contact with and (suspected) exposure to COVID-19; L89.212 Pressure ulcer of right hip, stage 2; L89.322 Pressure ulcer of left buttock, stage 2; N39.0 Urinary tract infection, site not specified; M54.16 Radiculopathy, lumbar region; Z74.01 Bed confinement status; E03.9 Hypothyroidism, unspecified; F03.90 Unspecified dementia, unspecified severity, without behavioral disturbance, psychotic disturbance, mood disturbance, and anxiety; Z79.890 Hormone replacement therapy; D64.9 Anemia, unspecified; E78.5 Hyperlipidemia, unspecified; Z66 Do not resuscitate; Z79.82 Long term (current) use of aspirin; R33.8 Other retention of urine; Z79.83 Long term (current) use of bisphosphonates; Z79.899 Other long term (current) drug therapy; Z87.440 Personal history of urinary (tract) infections; Z88.2 Allergy status to sulfonamides; Z88.7 Allergy status to serum and vaccine; Z98.1 Arthrodesis status
CPT/HCPCS: 36415; 70450; 71046; 80048; 80053; 81001; 82140; 83605; 84145; 84443; 84484; 85025; 85610; 85730; 87040; 87086; 87636; 93005; 96361; 96365; 96366; 96375; 96376; 99285